=== PATIENT | male | born 1930 | race Caucasian/White ===

== ENCOUNTER → 2016-02-12 | Outpatient (CLI) | payer OTHER, BC ==
[~2016-02-12] MED LIST: ASPEC81 PO; CARV3.122 PO; COEN10CA5 PO; CRD200 PO; LSN25 PO; MISCCAP80 PO; NTRSLP4 SL; OMEG10007 PO; TAMS0.4C38 PO; TCMD2 PO; WARF2.5T8 PO
[2016-02-12 16:54] LABS: BASO % 0.4 %; BASO ABS # 0.02 K/uL (0-0.2); COMPLETE YES; HEMATOCRIT 37.6 % (42-52); IG% 0.4 %; LYMPH % 18.9 %; LYMPH ABS # 1.03 K/uL (1.2-3.4); MEAN CORPUSCULAR HEMOGLOBIN 29.9 pg (25-34); MEAN CORPUSCULAR HGB CONC 33.2 g/dl (32-36); MEAN PLATELET VOLUME 10.4 fL (7.4-10.4); MONO % 16.8 %; NEUT % 57.5 %; PLATELET COUNT 176 K/uL (130-400); RED BLOOD COUNT 4.18 M/uL (4.7-6.1); WHITE BLOOD COUNT 5.46 K/uL (4.8-10.8)
[2016-02-12 17:04] LABS: ALT/SGPT 34 U/L (12-78); AST/SGOT 21 U/L (15-37); BLOOD UREA NITROGEN 23 mg/dl (7-18); BUN/CREATININE RATIO 22.9 (10-20); CALCIUM 9.7 mg/dl (8.5-10.1); CARBON DIOXIDE 22 mmol/L (21-32); CHLORIDE 107 mmol/L (98-107); CREATININE 0.99 mg/dl (0.60-1.40); GLUCOSE 93 mg/dl (70-99); POTASSIUM 4.2 mmol/L (3.5-5.1); SODIUM 139 mmol/L (136-145)
[2016-02-12 17:13] LABS: ALB/GLOB RATIO 0.9 (0.9-2); ALKALINE PHOSPHATASE 73 U/L (45-117); CHOLESTEROL 288 mg/dl (0-200); FERRITIN 414.9 ng/ml (8.0-388.0); HDL CHOLESTEROL 96 mg/dl; LDL CHOLESTEROL CALCULATED 177 mg/dl; TOTAL IRON BINDING CAPACITY 262 mcg/dl (250-450); TRIGLYCERIDES 74 mg/dl (0-150); VERY LOW DENSITY LIPOPROT CALC 15 mg/dl
--- NOTE | 2016-02-16 13:37 | CODING QUERY MEDICAL NECESSITY ---
SUPPORTING DIAGNOSIS NEEDED A supporting diagnosis is required for the test/procedure performed on this patient in order for us to be reimbursed by the patient's insurance. Please provide a supporting diagnosis for the following test/procedure listed below next to the test name along with your signature. *If there is no additional diagnosis for this patient that would support the following test/procedure please document that below next to the test/procedure. Test(s)/Procedure(s) that require a supporting diagnosis: DOS 02/11 * Vitamin B12 DIAGNOSIS: Provider Signature: Date: Thank you Conchis Lopez Health Information Management Once completed, please kindly fax back to [phone] For questions please call [phone]
== END | disposition home or self-care (01) ==
LOC: C.LABBC 14:38
PROVIDERS: ATTEND Family Medicine
DX: E64.9 Sequelae of unspecified nutritional deficiency (principal); I25.10 Atherosclerotic heart disease of native coronary artery without angina pectoris; E78.5 Hyperlipidemia, unspecified; D64.9 Anemia, unspecified; I48.0 Paroxysmal atrial fibrillation

== ENCOUNTER → 2016-02-20 | Outpatient (CLI) | payer OTHER, BC | END | disposition home or self-care (01) | LOC: C.RDSM 15:32 | PROVIDERS: ATTEND Orthopaedic Surgery Sports Medicine | DX: M25.512 Pain in left shoulder (principal) ==

== ENCOUNTER → 2016-03-31 | Outpatient (CLI) | payer OTHER, BC | END | disposition home or self-care (01) | LOC: C.LAB1850 09:44 | PROVIDERS: ATTEND Family Medicine | DX: E03.9 Hypothyroidism, unspecified (principal) ==

== ENCOUNTER → 2016-06-02 | Outpatient (CLI) | payer OTHER, BC | END | disposition home or self-care (01) | LOC: C.RDSM 13:37 | PROVIDERS: ATTEND Orthopaedic Surgery Sports Medicine | DX: R52 Pain, unspecified (principal) ==

== ENCOUNTER → 2016-07-06 | Outpatient (CLI) | payer OTHER, BC ==
[2016-07-06 11:57] LABS: BASO % 0.5 %; BASO ABS # 0.03 K/uL (0-0.2); COMPLETE YES; EOS % 4.4 %; HEMATOCRIT 38.9 % (42-52); IG% 0.2 %; MEAN CELL VOLUME 91.1 fL (80-100); MEAN CORPUSCULAR HEMOGLOBIN 30.7 pg (25-34); MEAN CORPUSCULAR HGB CONC 33.7 g/dl (32-36); MEAN PLATELET VOLUME 10.3 fL (7.4-10.4); MONO % 14.2 %; NEUT % 61.7 %; PLATELET COUNT 172 K/uL (130-400); RED BLOOD COUNT 4.27 M/uL (4.7-6.1); WHITE BLOOD COUNT 6.33 K/uL (4.8-10.8)
[2016-07-06 12:29] LABS: CALCIUM 10.7 mg/dl (8.5-10.1)
[2016-07-06 12:34] LABS: ALT/SGPT 27 U/L (12-78); BLOOD UREA NITROGEN 28 mg/dl (7-18); BUN/CREATININE RATIO 29.2 (10-20); CARBON DIOXIDE 23 mmol/L (21-32); CHLORIDE 107 mmol/L (98-107); CHOLESTEROL 342 mg/dl (0-200); CREATININE 0.96 mg/dl (0.60-1.40); GLUCOSE 90 mg/dl (70-99); POTASSIUM 4.2 mmol/L (3.5-5.1); SODIUM 139 mmol/L (136-145)
[2016-07-06 12:43] LABS: ALB/GLOB RATIO 0.9 (0.9-2); ALKALINE PHOSPHATASE 69 U/L (45-117); AST/SGOT 20 U/L (15-37); CHOLESTEROL/HDL RATIO 3.8; FERRITIN 329.7 ng/ml (8.0-388.0); HDL CHOLESTEROL 91 mg/dl; LDL CHOLESTEROL CALCULATED 240 mg/dl; TOTAL IRON BINDING CAPACITY 254 mcg/dl (250-450); TRIGLYCERIDES 56 mg/dl (0-150); VERY LOW DENSITY LIPOPROT CALC 11 mg/dl
== END | disposition home or self-care (01) ==
LOC: C.LAB1850 11:16
PROVIDERS: ATTEND Family Medicine
DX: D64.9 Anemia, unspecified (principal); I10 Essential (primary) hypertension; E03.9 Hypothyroidism, unspecified; E78.5 Hyperlipidemia, unspecified

== ENCOUNTER → 2016-07-29 | Outpatient (CLI) | payer OTHER, BC | END | disposition home or self-care (01) | LOC: C.LAB1850 09:38 | PROVIDERS: ATTEND Family Medicine | DX: R79.9 Abnormal finding of blood chemistry, unspecified (principal) ==

== ENCOUNTER → 2016-11-22 | Outpatient (CLI) | payer OTHER, BC ==
[2016-11-22 10:18] LABS: CHOLESTEROL/HDL RATIO 3.4
== END | disposition home or self-care (01) ==
LOC: C.LAB1850 08:31
PROVIDERS: ATTEND Physician Assistant
DX: E78.5 Hyperlipidemia, unspecified (principal)

== ENCOUNTER → 2017-01-04 | Outpatient (CLI) | payer OTHER, BC ==
--- NOTE | 2017-01-04 17:57 | DIAGNOSTIC IMAGING REPORT ---
R HEEL MIN 2 VIEWS CLINICAL HISTORY: M79.671 Pain of right heelright pain COMPARISON: None. DISCUSSION: Prominent heel spur. All remaining osseous structures are unremarkable. Subtalar joint is intact. There is no evidence for soft tissue swelling. IMPRESSION: Heel spur. Otherwise negative study. The above report was generated using voice recognition software. It may contain grammatical, syntax or spelling errors. Electronically signed by: Williams Steven M.D. 01/04/2017 5:55 PM Dictated Date/Time: 01/04/2017 5:55 PM
== END | disposition home or self-care (01) ==
LOC: C.LAB 17:21
PROVIDERS: ATTEND Neuromusculoskeletal Medicine & OMM
DX: M79.671 Pain in right foot (principal); M77.31 Calcaneal spur, right foot

== ENCOUNTER → 2017-05-25 | Outpatient (CLI) | payer OTHER, BC ==
[~2017-05-25] MED LIST changes: -ASPEC81 PO; +ASPI-320 PO
[2017-05-25 10:59] LABS: ALBUMIN 3.5 gm/dl (3.4-5.0); ALT/SGPT 25 U/L (12-78); AST/SGOT 18 U/L (15-37); BLOOD UREA NITROGEN 21 mg/dl (7-18); CALCIUM 10.3 mg/dl (8.5-10.1); CARBON DIOXIDE 21 mmol/L (21-32); CHOLESTEROL 297 mg/dl (0-200); CREATININE 0.84 mg/dl (0.60-1.40); GLUCOSE 84 mg/dl (70-99); POTASSIUM 4.3 mmol/L (3.5-5.1); SODIUM 138 mmol/L (136-145)
[2017-05-25 11:10] LABS: ALKALINE PHOSPHATASE 74 U/L (45-117); LDL CHOLESTEROL CALCULATED 193 mg/dl; TOTAL PROTEIN 7.2 gm/dl (6.4-8.2)
== END | disposition home or self-care (01) ==
LOC: C.LAB1850 09:36
PROVIDERS: ATTEND Neuromusculoskeletal Medicine & OMM
DX: Z00.00 Encounter for general adult medical examination without abnormal findings (principal); E78.5 Hyperlipidemia, unspecified; Z95.1 Presence of aortocoronary bypass graft; E03.9 Hypothyroidism, unspecified; I10 Essential (primary) hypertension

== ENCOUNTER 2018-09-24 21:22 | Inpatient (IN) ==
[2018-09-24] MEDS ORDERED: MoRPHine SULFATE 4 MG/ML 1 ML CARP\\VIAL IV PRN (21:36)
[2018-09-24] MEDS ORDERED: ONDANSETRON INJ 2 MG/ML 2 ML VIAL IV STA (21:36)
--- NOTE | 2018-09-24 21:42 | Emergency Department Note ---
Entered by Francisca Lima acting as a scribe for Bear Martínez DO History of Present Illness General Chief complaint: Fall Source: patient Mode of arrival: ambulatory Limitations: no limitations History of Present Illness Provider complaint: left hip pain Onset (ago): hour(s) 1 Location: hip and left Pain Consistency: + other (episode ) Associated symptoms: + denies other symptoms (abdominal, back, and neck pain ); no syncope Treatments prior to arrival: none The patient is an 88 year old male who presents to the ED with complaints of an episode of left hip pain that began 1 hour prior to arrival. The patient states that he was walking from the living room to the bathroom when he fell trying to hold on to the furniture. The patient states that he hit his head on the way down and was unable to get himself up off the ground. The patient states that he hit his head when falling but had no loss of consciousness or pain. He denies abdominal, back and neck pain. The patient states that he does not think that he is on blood thinners. The patient states that he was see in the ED 1 month ago. Home Medications Home Medications Medication Instructions Recorded Confirmed Type Lactobacillus 1 cap PO QAM cap 07/12/18 09/24/18 History acidophilus-Bifidobac.animalis 31 billion cell capsule ascorbic acid (vitamin C) 1,000 mg 3,000 mg PO DAILY tab 07/12/18 09/24/18 History tablet cholecalciferol (vitamin D3) 2,000 2,000 unit PO QAM cap 07/12/18 09/24/18 History unit capsule coenzyme Q10 100 mg capsule 100 mg PO QAM cap 07/12/18 09/24/18 History folic acid 400 mcg tablet 400 mg PO QAM tab 07/12/18 09/24/18 History lutein 20 mg capsule 20 mg PO QAM cap 07/12/18 09/24/18 History metoprolol succinate ER 25 mg 12.5 mg PO QAM #30 tab 07/12/18 09/24/18 History tablet,extended release 24 hr nitroglycerin 0.4 mg sublingual 0.4 mg SL UD PRN #25 tab 07/12/18 09/24/18 History tablet omega-3 acid ethyl esters 1 gram 3 g PO PM cap 07/12/18 09/24/18 History capsule phytonadione (vitamin K1) 100 mcg 100 mcg PO QAM tab 07/12/18 09/24/18 History tablet potassium 75 mg tablet 75 mg PO QAM tab 07/12/18 09/24/18 History vitamin A 8,000 unit capsule 8,000 unit PO QAM cap 07/12/18 09/24/18 History vitamin E succinate 400 unit tablet 400 unit PO PM tab 07/12/18 09/24/18 History alpha lipoic acid 100 mg capsule 100 mg PO QAM 07/14/18 09/24/18 History levothyroxine 25 mcg capsule 25 mcg PO QAM 07/14/18 09/24/18 History magnesium 500 mg tablet 500 mg PO DAILY tab 07/28/18 09/24/18 History multivitamin tablet 1 tab PO PM 07/28/18 09/24/18 History vitamin B complex capsule 1 cap PO DAILY 07/28/18 09/24/18 History acetaminophen 500 mg tablet 500 mg PO Q6H PRN #30 tab 08/18/18 09/24/18 Rx silodosin 8 mg capsule 8 mg PO QAM 09/01/18 09/24/18 History trospium 20 mg tablet 20 mg PO BID 09/01/18 09/24/18 History Allergies Allergy/AdvReac Type Severity Reaction Status Date / Time benzoic acid Allergy Intermediate rash Unverified 09/24/18 21:43 lisinopril AdvReac Intermediate Cough Verified 09/24/18 21:43 Past Med/Surg History Surgical History History of lobectomy of lung History of rectal surgery History of tonsillectomy and adenoidectomy S/P bronchoscopy S/P colonoscopy S/P hernia repair S/P lobectomy of lung S/P wisdom tooth extraction Family History Mother Colorectal cancer Brother Colorectal cancer Myocardial infarction Sister Ovarian cancer Father Prostate cancer Bone cancer Social History Preferred Language: Greek marital status: Current Living Situation: Spouse current occupational status: employed and retired 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 and A total of 10 systems reviewed and were otherwise negative Physical Exam Vital Signs Vital Signs - 24 hr 09/24/18 21:30 09/24/18 21:33 09/24/18 21:34 Temperature 36.8 C Temperature Source Oral Sepsis Recent Fever Within 48 Hours No Sepsis Action Taken by Nursing No Action Required Pulse Rate 97 H 97 H 96 H Pulse Rate from SpO2 Sensor 97 H 96 H Respiratory Rate 18 20 14 Respiratory Depth Normal Blood Pressure 132/95 132/95 Blood Pressure Mean 107 107 Pulse Oximetry 95 94 97 Oxygen Delivery Method Room Air 09/24/18 22:00 09/24/18 22:30 09/24/18 22:48 Temperature Temperature Source Sepsis Recent Fever Within 48 Hours Sepsis Action Taken by Nursing Pulse Rate 89 93 H 91 H Pulse Rate from SpO2 Sensor 89 93 H 92 H Respiratory Rate 16 14 14 Respiratory Depth Blood Pressure 173/92 H Blood Pressure Mean 119 Pulse Oximetry 96 94 99 Oxygen Delivery Method 09/24/18 23:00 09/24/18 23:30 Temperature Temperature Source Sepsis Recent Fever Within 48 Hours Sepsis Action Taken by Nursing Pulse Rate 88 87 Pulse Rate from SpO2 Sensor 88 86 Respiratory Rate 18 21 Respiratory Depth Blood Pressure Blood Pressure Mean Pulse Oximetry 98 97 Oxygen Delivery Method GENERAL: The patient is awake and alert. He is somewhat anxious appearing and appears to be uncomfortable. EYES: The conjunctivae are clear. The pupils are round and reactive. EARS, NOSE, MOUTH AND THROAT: The nose is without any evidence of any deformity. Mucous membranes are moist tongue is midline NECK: The neck is nontender and supple. RESPIRATORY: Normal respiratory effort is noted there is no evidence of wheezing rhonchi or rales CARDIOVASCULAR: Regular rate and rhythm noted there no murmurs rubs or gallops normal S1 normal S2 GASTROINTESTINAL: The abdomen is soft. Bowel sounds are present in all quadrants. Abdomen is nontender BACK: No midline tenderness or or step-off noted range of motion in flexion extension as well as rotation no signs of muscle spasm noted MUSCULOSKELETAL/EXTREMITIES: There is shortening and internal rotation noted to the left lower extremity. Pulses are symmetric in both feet. SKIN: There is no obvious evidence of any rash. Pedal edema was noted b ilaterally. NEUROLOGIC: Patient is awake alert and oriented x3. Course 2129: Past medical records reviewed. The patient was evaluated in room C3. A complete history and physical exam was performed. 2232: I reevaluated the patient at this time and he verbalized that he is feeling better. I discussed the test results and treatment plan with the patient. He verbally agreed and understood. 2253: I discussed the patients case with Dr. Agarwal, [facility]. He acknowledged the patient's medical situation. 2299: I discussed the patients case with Dr. Epstein, [facility]. He agreed to evaluate the patient for further management. Administered Medications Morphine Sulfate (Morphine Sulfate) 4 mg IV Q15M PRN PRN Reason: Pain Stop: 10/08/18 21:35 Last Admin: 09/24/18 22:01 Dose: 4 mg Documented by: [id number] Discontinued Medications Ondansetron HCl (Zofran) 4 mg IV NOW STA Stop: 09/24/18 21:37 Last Admin: 09/24/18 22:01 Dose: 4 mg Documented by: [id number] Medical Decision Making Differential Diagnosis Differential diagnosis: Etiologies such as fracture, cervical/vertebral injury, dislocation, intra- abdominal process, pneumothorax, intrathoracic trauma, intracranial injury, soft tissue injury, neurologic process, as well as other traumatic pathologies were entertained. Medical Records Attestation: I reviewed the patient's medical records. Home Medications Current Medication List: was personally reviewed by me Laboratory Data Attestation: I reviewed the patient's lab results. Result diagrams: 09/24/18 21:56 09/24/18 21:56 Lab Results 09/24/18 09/24/18 09/24/18 Range/Units 21:56 21:56 21:56 WBC 8.57 (4.8-10.8) K/uL RBC 4.18 L (4.7-6.1) M/uL Hgb 13.2 L (14.0-18.0) g/dL Hct 37.8 L (42-52) % MCV 90.4 (80-100) fL MCH 31.6 (25-34) pg MCHC 34.9 (32-36) g/dL RDW Std Deviation 46.9 H (36.4-46.3) fL RDW Coeff of Prem 14.3 (11.5-14.5) % Plt Count 157 (130-400) K/uL MPV 10.0 (7.4-10.4) fL Immature Gran % (Auto) 0.1 % Neut % (Auto) 77.1 % Lymph % (Auto) 13.3 % Bennett % (Auto) 7.8 % Eos % (Auto) 1.5 % Baso % (Auto) 0.2 % Immature Gran # (Auto) 0.01 (0.00-0.02) K/uL Neut # (Auto) 6.60 H (1.4-6.5) K/uL Lymph # (Auto) 1.14 L (1.2-3.4) K/uL Bennett # (Auto) 0.67 H (0.11-0.59) K/uL Eos # (Auto) 0.13 (0-0.5) K/uL Baso # (Auto) 0.02 (0-0.2) K/uL PT 10.6 (9.0-12.0) Seconds INR 1.0 (0.9-1.1) APTT 25.4 (21.0-31.0) Seconds PTT Ratio 0.9 Sodium 141 (136-145) mmol/L Potassium 3.8 (3.5-5.1) mmol/L Chloride 107 (98-107) mmol/L Carbon Dioxide 27 (21-32) mmol/L Anion Gap 7.0 (3-11) BUN 20 H (7-18) mg/dl Creatinine 0.85 (0.6-1.4) mg/dl Est Cr Clr Drug Dosing 59.2 ml/min Est GFR ( Amer) 90.8 Est GFR (Non-Af Amer) 78.3 BUN/Creatinine Ratio 23.9 H (10-20) Glucose 114 H (70-99) mg/dl Calcium 10.0 (8.5-10.1) mg/dl Troponin I < 0.015 (0-0.045) ng/ml Urine Color Urine Appearance (Clear) Urine pH (4.5-7.5) Ur Specific Lowpoint (1.000-1.030) Urine Protein (Negative) Urine Glucose (UA) (Negative) Urine Ketones (Negative) Urine Blood (Negative) Urine Nitrite (Negative) Urine Bilirubin (Negative) Urine Urobilinogen (Negative) Ur Leukocyte Esterase (Negative) Urine WBC (Auto) (0-5) /hpf Urine RBC (Auto) (0-4) /hpf U Hyaline Cast (Auto) (0-5) /lpf U Epithel Cells (Auto) (0-5) /lpf Urine Bacteria (Auto) (Negative) 09/24/18 Range/Units 22:45 WBC (4.8-10.8) K/uL RBC (4.7-6.1) M/uL Hgb (14.0-18.0) g/dL Hct (42-52) % MCV (80-100) fL MCH (25-34) pg MCHC (32-36) g/dL RDW Std Deviation (36.4-46.3) fL RDW Coeff of Prem (11.5-14.5) % Plt Count (130-400) K/uL MPV (7.4-10.4) fL Immature Gran % (Auto) % Neut % (Auto) % Lymph % (Auto) % Bennett % (Auto) % Eos % (Auto) % Baso % (Auto) % Immature Gran # (Auto) (0.00-0.02) K/uL Neut # (Auto) (1.4-6.5) K/uL Lymph # (Auto) (1.2-3.4) K/uL Bennett # (Auto) (0.11-0.59) K/uL Eos # (Auto) (0-0.5) K/uL Baso # (Auto) (0-0.2) K/uL PT (9.0-12.0) Seconds INR (0.9-1.1) APTT (21.0-31.0) Seconds PTT Ratio Sodium (136-145) mmol/L Potassium (3.5-5.1) mmol/L Chloride (98-107) mmol/L Carbon Dioxide (21-32) mmol/L Anion Gap (3-11) BUN (7-18) mg/dl Creatinine (0.6-1.4) mg/dl Est Cr Clr Drug Dosing ml/min Est GFR ( Amer) Est GFR (Non-Af Amer) BUN/Creatinine Ratio (10-20) Glucose (70-99) mg/dl Calcium (8.5-10.1) mg/dl Troponin I (0-0.045) ng/ml Urine Color Dark Yellow Urine Appearance Clear (Clear) Urine pH 5.5 (4.5-7.5) Ur Specific [place] 1.023 (1.000-1.030) Urine Protein Negative (Negative) Urine Glucose (UA) Negative (Negative) Urine Ketones Negative (Negative) Urine Blood Trace H (Negative) Urine Nitrite Negative (Negative) Urine Bilirubin Negative (Negative) Urine Urobilinogen Negative (Negative) Ur Leukocyte Esterase Negative (Negative) Urine WBC (Auto) 1-5 (0-5) /hpf Urine RBC (Auto) 0-4 (0-4) /hpf U Hyaline Cast (Auto) 1-5 (0-5) /lpf U Epithel Cells (Auto) 5-10 H (0-5) /lpf Urine Bacteria (Auto) Negative (Negative) Imaging Data Radiologist's Impression: Radiology results as stated below per my review and the radiologist's interpretation: XR chest 1V portable CLINICAL HISTORY: fall trauma COMPARISON STUDY: 08/01/2018 FINDINGS: Prior median sternotomy. Mild stable grade megaly. Chronic elevation right hemidiaphragm. Lungs are considered clear. IMPRESSION: Chronic and postoperative change. No acute process. The above report was generated using voice recognition software. It may contain grammatical, syntax or spelling errors. Electronically signed by: Williams Steven M.D. 09/24/2018 10:43 PM XR hip LT 2-3V w pelvis CLINICAL HISTORY: fall trauma. Pain. COMPARISON: None. DISCUSSION: Subcapital fracture left hip. No acute process the right hip. Slight superior migration left femoral shaft. No evidence for acetabular protrusion. There is no evidence for soft tissue swelling. IMPRESSION: Subcapital fracture left hip. The above report was generated using voice recognition software. It may contain grammatical, syntax or spelling errors. Electronically signed by: Williams Steven M.D. 09/24/2018 10:[address] head/brain wo con CT DOSE: HISTORY: Trauma fall TECHNIQUE: Multiaxial CT images of the head were performed without the use of intravenous contrast. A dose lowering technique was utilized adhering to the principles of ALARA. Comparison: 08/01/2018 Findings: The paranasal sinuses and mastoid air cells are clear. The calvarium and skull base are intact. The ventricles and sulci are within normal limits. There is no mass, hematoma, midline shift, or acute infarct. Findings of atrophy and chronic small vessel change. Previously described posterior grammatical hemorrhagic findings on the prior study have resolved. Impression: No acute intracranial abnormality. Atrophy and age-related chronic small vessel change. The above report was generated using voice recognition software. It may contain grammatical, syntax or spelling errors. Electronically signed by: Williams Steven M.D. 09/24/2018 10:[address] cervical spine wo con CT DOSE: 1050.94 mGy.cm HISTORY: Trauma fall TECHNIQUE: Multiaxial CT images of the cervical spine were performed and reformatted in the sagittal and coronal plane without the use of contrast. A dose lowering technique was utilized adhering to the principles of ALARA. COMPARISON: 08/01/2018 FINDINGS: No fractures. No subluxation. Prevertebral soft tissues and the C1-C2 interval are intact. No pneumothorax. Enlarged right thyroid. Considerable degenerative change. IMPRESSION: 1. 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 2. No acute bony abnormality. 3. Enlarged right thyroid unchanged from the prior exam. The above report was generated using voice recognition software. It may contain grammatical, syntax or spelling errors. Electronically signed by: Williams Steven M.D. 09/24/2018 10:27 PM ECG Data Attestation: I personally reviewed and interpreted this ECG as follows: Indication: other (right hip pain ) Rate (beats per minute): 87 Rhythm: sinus rhythm Findings: no PAC, no PVC, no ST depression, no ST elevation, no acute ischemic change and no ectopy Comparison ECG Date: from (08/01/18) Change: no significant change Blood Pressure Blood Pressure Findings: Normal blood pressure Blood Pressure Disposition: did not require urgent referral MDM Narrative The patient is an 88-year-old male who presented to the emergency department after a fall. The patient fell prior to arrival. He struck his left hip and also struck his head. I discussed the patient's laboratory and radiographic studies with him. He was found to have a subcapital displaced left hip f racture. There is no intracranial abnormality noted. The patient was treated with pain medication in the emergency department. On subsequent reevaluation he was somewhat improved. I discussed the patient's laboratory and radiographic studies with the on-call [facility] hospitalist group. They have agreed to evaluate the patient in the emergency department for further management disposition. The patient has multiple medical problems and will likely require medical clearance prior to surgical intervention of this left hip fracture. Impression & Plan Subcapital fracture of left hip, Fall, Head injury, Pleural effusion, right Discharge Plan Visit Data Chief Complaint: Fall ED Provider: Bear Martínez Discharge Problem: Subcapital fracture of left hip, Fall, Head injury, Pleural effusion, right Patient Disposition: Being Evaluated by Hospitalist Forms Stand Alone Forms: My [facility] Prescriptions Prescriptions: No Action trospium 20 mg tablet 20 mg PO BID RF: 0 silodosin 8 mg capsule 8 mg PO QAM RF: 0 vitamin E succinate 400 unit tablet 400 unit PO PM RF: 0 cholecalciferol (vitamin D3) 2,000 unit capsule 2,000 unit PO QAM RF: 0 lutein 20 mg capsule 20 mg PO QAM RF: 0 coenzyme Q10 100 mg capsule 100 mg PO QAM RF: 0 metoprolol succinate 25 mg tablet extended release 24 hr 12.5 mg PO QAM Qty: 30 RF: 0 phytonadione (vitamin K1) 100 mcg tablet 100 mcg PO QAM RF: 0 folic acid 400 mcg tablet 400 mg PO QAM RF: 0 vitamin A 8,000 unit capsule 8,000 unit PO QAM RF: 0 ascorbic acid (vitamin C) 1,000 mg tablet 3,000 mg PO DAILY RF: 0 Lacto.acidophilus-Bif.animalis 31 billion cell capsule 1 cap PO QAM RF: 0 potassium 75 mg tablet 75 mg PO QAM RF: 0 omega-3 acid ethyl esters 1 gram capsule 3 g PO PM RF: 0 nitroglycerin 0.4 mg tablet, sublingual 0.4 mg SL UD PRN (Reason: Chest Pain) Qty: 25 RF: 0 alpha lipoic acid 100 mg capsule 100 mg PO QAM RF: 0 levothyroxine 25 mcg capsule 25 mcg PO QAM RF: 0 acetaminophen [Tylenol Extra Strength] 500 mg tablet 500 mg PO Q6H PRN (Reason: fever) Qty: 30 RF: 0 vitamin B complex capsule 1 cap PO DAILY RF: 0 magnesium 500 mg tablet 500 mg PO DAILY RF: 0 multivitamin [Daily Multi-Vitamin] tablet 1 tab PO PM RF: 0 Referrals Referrals: Simon Preston DO [Primary Care Provider] - Discharge Problem: Subcapital fracture of left hip Qualifiers: Encounter type: initial encounter Fracture type: closed Qualified Code(s): S72.012A - Unspecified intracapsular fracture of left femur, initial encounter for closed fracture Fall Qualifiers: Encounter type: initial encounter Qualified Code(s): W19.XXXA - Unspecified fall, initial encounter Head injury Qualifiers: Encounter type: initial encounter Qualified Code(s): S09.90XA - Unspecified injury of head, initial encounter The scribe's documentation has been prepared under my direction and personally reviewed by me in its entirety. I confirm that the note above accurately reflects all work, treatment, procedures, and medical decision making performed by me.
[2018-09-24 22:13] LABS: Hematocrit (blood only) 37.8 % (42-52); Hemoglobin 13.2 g/dL (14.0-18.0); Mean Corpuscular Volume 90.4 fL (80-100); Red Blood Count 4.18 M/uL (4.7-6.1); White Blood Count 8.57 K/uL (4.8-10.8)
[2018-09-24 22:14] LABS: Basophils # (auto) 0.02 K/uL (0-0.2); Basophils % (auto) 0.2 %; Eosinophils # (auto) 0.13 K/uL (0-0.5); Eosinophils % (auto) 1.5 %; Immature Granulocytes # (auto) 0.01 K/uL (0.00-0.02); Immature Granulocytes % (auto) 0.1 %; Lymphocytes # (auto) 1.14 K/uL (1.2-3.4); Lymphocytes % (auto) 13.3 %; Mean Corpuscular Hgb Conc 34.9 g/dL (32-36); Monocytes # (auto) 0.67 K/uL (0.11-0.59); Monocytes % (auto) 7.8 %; Neutrophils % (auto) 77.1 %; Platelet Count 157 K/uL (130-400); RDW Coefficient of Variation 14.3 % (11.5-14.5); RDW Standard Deviation 46.9 fL (36.4-46.3)
--- NOTE | 2018-09-24 22:26 | CT Scan Report ---
CT head/brain wo con CT DOSE: HISTORY: Trauma fall TECHNIQUE: Multiaxial CT images of the head were performed without the use of intravenous contrast. A dose lowering technique was utilized adhering to the principles of ALARA. Comparison: 08/01/2018 Findings: The paranasal sinuses and mastoid air cells are clear. The calvarium and skull base are int act. The ventricles and sulci are within normal limits. There is no mass, hematoma, midline shift, or acute infarct. Findings of atrophy and chronic small vessel change. Previously described posterior g rammatical hemorrhagic findings on the prior study have resolved. Impression: No acute intracranial abnormality. Atrophy and age-related chronic small vessel change. The above report was generated using voice recognition software. It may contain grammatical, syntax or spelling errors. Electronically signed by: Williams Steven M.D. 09/24/2018 10:25 PM
--- NOTE | 2018-09-24 22:28 | CT Scan Report ---
CT cervical spine wo con CT DOSE: 1050.94 mGy.cm HISTORY: Trauma fall TECHNIQUE: Multiaxial CT images of the cervical spine were performed and reformatted in the sagittal and coronal plane without the use of contrast. A dose lowering technique was utilized adhering to th e principles of ALARA. COMPARISON: 08/01/2018 FINDINGS: No fractures. No subluxation. Prevertebral soft tissues and the C1-C2 interval are intact. No pneumothorax. Enlarged right thyroid. Considerable degenerative change. IMPRESSION: 1. 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 2. No acute bony abnormality. 3. Enlarged right thyroid unchanged from the prior exam. The above report was generated using voice recognition software. It may contain grammatical, syntax or spelling errors. Electronically signed by: Williams Steven M.D. 09/24/2018 10:27 PM
[2018-09-24 22:29] LABS: BUN Creatinine Ratio 23.9 (10-20); Blood Urea Nitrogen 20 mg/dl (7-18); Carbon Dioxide 27 mmol/L (21-32); Chloride 107 mmol/L (98-107); Creatinine Clr Calc Pharmacy 59.2 ml/min; Est GFR (African American) 90.8; Est GFR (Non-African American) 78.3; Glucose 114 mg/dl (70-99); Potassium 3.8 mmol/L (3.5-5.1); Sodium 141 mmol/L (136-145)
[2018-09-24 22:34] LABS: Troponin I < 0.015 ng/ml (0-0.045)
[2018-09-24 22:42] LABS: Partial Thromboplastin Ratio 0.9; Partial Thromboplastin Time 25.4 Seconds (21.0-31.0); Prothrombin Time 10.6 Seconds (9.0-12.0)
--- NOTE | 2018-09-24 22:43 | XRay Report ---
XR hip LT 2-3V w pelvis CLINICAL HISTORY: fall trauma. Pain. COMPARISON: None. DISCUSSION: Subcapital fracture left hip. No acute process the right hip. Slight superior migration l eft femoral shaft. No evidence for acetabular protrusion. There is no evidence for soft tissue swelli ng. IMPRESSION: Subcapital fracture left hip. The above report was generated using voice recognition software. It may contain grammatical, syntax or spelling errors. Electronically signed by: Williams Steven M.D. 09/24/2018 10:42 PM
--- NOTE | 2018-09-24 22:44 | XRay Report ---
XR chest 1V portable CLINICAL HISTORY: fall trauma COMPARISON STUDY: 08/01/2018 FINDINGS: Prior median sternotomy. Mild stable grade megaly. Chronic elevation right hemidiaphragm. L ungs are considered clear. IMPRESSION: Chronic and postoperative change. No acute process. The above report was generated using voice recognition software. It may contain grammatical, syntax or spelling errors. Electronically signed by: Williams Steven M.D. 09/24/2018 10:43 PM
[2018-09-24 22:58] LABS: Appearance Urine Clear (Clear); Bacteria Urine Automated Negative (Negative); Bilirubin Urine Negative (Negative); Blood Urine Trace (Negative); Color Urine Dark Yellow; Glucose Urine UA Negative (Negative); Ketones Urine Negative (Negative); Leukocyte Esterase Urine Negative (Negative); Nitrite Urine Negative (Negative); Protein Urine Negative (Negative); RBC Urine Automated 0-4 /hpf (0-4); Specific Gravity Urine 1.023 (1.000-1.030); Urobilinogen Urine Negative (Negative); pH Urine 5.5 (4.5-7.5)
--- NOTE | 2018-09-24 23:41 | History & Physical Report ---
Date of Service September 24, 2018 Assessment & Plan (1) Fall: 88-year-old male was admitted on 24 September 2018 for a left hip fracture following a mechanical fall. Fall, left hip fracture: Has history of ataxia and vertigo, though denies the latter recently. Mechanical fall just prior to arrival. Only complaining of left hip pain with movement at present. - In the ED, afebrile, borderline tachycardic, mildly hypertensive, with normal room SpO2. WBC 8. Normal coags. Troponin negative and EKG is NSR 87 with a first-degree AV block. CT head is non-acute but has some atrophy and age- related changes. CT cervical spine with degenerative changes no acute abnormalities. Single view chest x-ray showed no acute process. X-rays of the left hip note a subcapital fracture. - In the ED, was treated with morphine and Zofran. - Continue pain control with Tylenol and morphine as needed. Consulted orthopedics. Also consulted cardiology given his extensive cardiovascular history for pre-op evaluation. Ongoing medical issues: - Hypertension, hyperlipidemia, prior WA, CAD, CABG x 3 vessels: Continue home metoprolol, magnesium, potassium. - Hypothyroidism: Admit CT C-spine noted an enlarged right thyroid unchanged from prior exam. Continue home levothyroxine. - BPH with LUTS, urinary urgency: Continue home silodosin and trospium. --- Hyde catheter was placed in the ED. - History of dilated ascending aortic aneurysm (reportedly 4.2 cm in 2016), peripheral vascular disease, postoperative A. fib (from cardiac surgery with no known recurrence). - Of note, patient is on multiple vitamin supplements at home. Code status: Full code for now. We had an initial discussion about wishes. Patient and his will discuss further with family. Diet: NPO except meds. DVT prophy: SCDs for now in pre-operative period. PT/OT: Deferred until after surgery. Disbo: Admit to MedSurg. (2) Subcapital fracture of left hip: (3) Vertigo: (4) Episodic ataxia: (5) Hypertension: (6) Hyperlipidemia: (7) History of WA (myocardial infarction): (8) CAD (coronary artery disease): (9) Benign prostatic hyperplasia with urinary obstruction: (10) Urinary urgency: (11) Ascending aorta dilation: (12) Hypothyroidism: History of Present Illness Primary Care Provider: Simon Preston DO 88-year-old male presents the emergency department after suffering a mechanical fall about an hour prior to arrival on day of admission (September 24). He thinks he just slipped as he was going to the bathroom. He recalls striking his head and elbow but does not remember all the details. Denies loss of consciousness, vomiting, incontinence, but had immediate left hip pain. At present, he says his hip does not hurt unless he moves it. He denies other focal pains or acute concerns. Does have a history of ataxia and vertigo but says his last vertigo symptoms were a couple of weeks ago. He is actively being treated for his ataxia with physical therapy as well as by his PCP. - Past medical history includes hypertension, CAD, prior WA, hypothyroidism, small IVH status post fall in August 2018, prior lacunar infarct, BPH, carcinoid tumor, peripheral vascular disease, anxiety, ataxia, vertigo, hearing loss, osteoarthritis. - Past surgical history includes right middle and lower lobe lobectomies in , rectal surgery, tonsillectomy and adenoidectomy, bronchoscopy, wisdom tooth extraction, hernia repair, CABG x3 vessels in 2015, bilateral cataract surgery - Social history includes former smoker. Occasionally drinks wine. Lives at home with spouse. Allergies Allergy/AdvReac Type Severity Reaction Status Date / Time benzoic acid Allergy Intermediate rash Unverified 09/24/18 21:43 lisinopril AdvReac Intermediate Cough Verified 09/24/18 21:43 Home Medications Home Medications Medication Instructions Recorded Confirmed Type Lactobacillus 1 cap PO QAM cap 07/12/18 09/24/18 History acidophilus-Bifidobac.animalis 31 billion cell capsule ascorbic acid (vitamin C) 1,000 mg 3,000 mg PO DAILY tab 07/12/18 09/24/18 History tablet cholecalciferol (vitamin D3) 2,000 2,000 unit PO QAM cap 07/12/18 09/24/18 History unit capsule coenzyme Q10 100 mg capsule 100 mg PO QAM cap 07/12/18 09/24/18 History folic acid 400 mcg tablet 400 mg PO QAM tab 07/12/18 09/24/18 History lutein 20 mg capsule 20 mg PO QAM cap 07/12/18 09/24/18 History metoprolol succinate ER 25 mg 12.5 mg PO QAM #30 tab 07/12/18 09/24/18 History tablet,extended release 24 hr nitroglycerin 0.4 mg sublingual 0.4 mg SL UD PRN #25 tab 07/12/18 09/24/18 History tablet omega-3 acid ethyl esters 1 gram 3 g PO PM cap 07/12/18 09/24/18 History capsule phytonadione (vitamin K1) 100 mcg 100 mcg PO QAM tab 07/12/18 09/24/18 History tablet potassium 75 mg tablet 75 mg PO QAM tab 07/12/18 09/24/18 History vitamin A 8,000 unit capsule 8,000 unit PO QAM cap 07/12/18 09/24/18 History vitamin E succinate 400 unit tablet 400 unit PO PM tab 07/12/18 09/24/18 History alpha lipoic acid 100 mg capsule 100 mg PO QAM 07/14/18 09/24/18 History levothyroxine 25 mcg capsule 25 mcg PO QAM 07/14/18 09/24/18 History magnesium 500 mg tablet 500 mg PO DAILY tab 07/28/18 09/24/18 History multivitamin tablet 1 tab PO PM 07/28/18 09/24/18 History vitamin B complex capsule 1 cap PO DAILY 07/28/18 09/24/18 History acetaminophen 500 mg tablet 500 mg PO Q6H PRN #30 tab 08/18/18 09/24/18 Rx silodosin 8 mg capsule 8 mg PO QAM 09/01/18 09/24/18 History trospium 20 mg tablet 20 mg PO BID 09/01/18 09/24/18 History Past Med/Surg History Surgical History History of lobectomy of lung History of rectal surgery History of tonsillectomy and adenoidectomy S/P bronchoscopy S/P colonoscopy S/P hernia repair S/P lobectomy of lung S/P wisdom tooth extraction Family History Mother Colorectal cancer Brother Colorectal cancer Myocardial infarction Sister Ovarian cancer Father Prostate cancer Bone cancer Social History Preferred Language: Chinese Communication Ability: Effective Skilled Laborer Required: No Beliefs That Will Affect Care: None marital status: Current Living Situation: Spouse current occupational status: employed and retired 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 Other Information That Helps Us Care for You: No Feels Safe at Home: Yes Safety Concerns: Feels Safe At This Time Smoking Status: Never smoker Do You Dip or Chew Tobacco: No ; Second Hand Exposure: No ; Hx Alcohol Use: No Hx Substance Use: No Childhood Exposure to Second-Hand Smoke: No Dental Care, Regularly: Yes Physical Activity Frequency: 1-2 Times per Week Seatbelt Use: always Review of Systems Review of Systems: Constitutional: Denies fevers, chills, focal weakness Eyes: Denies any acute visual loss or diplopia ENT: Denies any ear/nose/throat pain or difficulty speaking or swallowing Respiratory: Denies any dyspnea, cough, hemoptysis Cardiovascular: Denies any chest pain or feeling of edema Gastrointestinal: Denies any abdominal pain, nausea/vomiting/diarrhea Musculoskeletal: Positive left hip pain. Skin: Denies any known acute rashes or lesions Neuro: Denies any headache, acute focal weakness or numbness, or difficulties with speech or swallow. Hematologic: Denies any easy bleeding or bruising Physical Exam Physical Exam: GENERAL: Awake, a little bit tired from being late in the day and morphine, well-appearing overall, in no acute distress HENT: Normocephalic, atraumatic. Oropharynx mildly dry. No evidence of acute trauma on the head or neck. EYES: Normal conjunctiva. Sclera non-icteric. NECK: Inspection normal. Supple and full ROM. No nuchal rigidity. CARDIAC: +S1S2 RRR, no murmurs. Midline chest sternotomy scar well-healed. RESPIRATORY: Clear to auscultation. No wheezes or rales. Normal respiratory effort. Nasal cannula oxygen in place. GI: +BS, soft, non-distended. No tenderness to palpation. No rebound or guarding. Hyde catheter in place. EXTREMITIES: No pedal edema or calf tenderness. There is shortening and internal rotation of the left lower extremity. Distal left lower extremity has normal ankle movement, normal cap refill, and normal distal sensation. 2+ left posterior tibial pulse. There are superficial abrasions over the left elbow. NEURO: No gross neuro deficits. Results & Data Vital Signs (Past 12 Hours) Vital Signs Temp Pulse Resp BP Pulse Ox 09/24/18 23:30 87 21 97 09/24/18 23:00 88 18 98 09/24/18 22:48 91 H 14 173/92 H 99 09/24/18 22:30 93 H 14 94 09/24/18 22:00 89 16 96 09/24/18 21:34 36.8 C 96 H 14 132/95 97 09/24/18 21:33 97 H 20 94 09/24/18 21:30 97 H 18 132/95 95 Laboratory Results 09/24/18 09/24/18 09/24/18 Range/Units 22:45 21:56 21:56 WBC (4.8-10.8) K/uL RBC (4.7-6.1) M/uL Hgb (14.0-18.0) g/dL Hct (42-52) % MCV (80-100) fL MCH (25-34) pg MCHC (32-36) g/dL RDW Std Deviation (36.4-46.3) fL RDW Coeff of Prem (11.5-14.5) % Plt Count (130-400) K/uL MPV (7.4-10.4) fL Immature Gran % (Auto) % Neut % (Auto) % Lymph % (Auto) % [place] % (Auto) % Eos % (Auto) % Baso % (Auto) % Immature Gran # (Auto) (0.00-0.02) K/uL Neut # (Auto) (1.4-6.5) K/uL Lymph # (Auto) (1.2-3.4) K/uL [place] # (Auto) (0.11-0.59) K/uL Eos # (Auto) (0-0.5) K/uL Baso # (Auto) (0-0.2) K/uL PT 10.6 (9.0-12.0) Seconds INR 1.0 (0.9-1.1) APTT 25.4 (21.0-31.0) Seconds PTT Ratio 0.9 Sodium 141 (136-145) mmol/L Potassium 3.8 (3.5-5.1) mmol/L Chloride 107 (98-107) mmol/L Carbon Dioxide 27 (21-32) mmol/L Anion Gap 7.0 (3-11) BUN 20 H (7-18) mg/dl Creatinine 0.85 (0.6-1.4) mg/dl Est Cr Clr Drug Dosing 59.2 ml/min Est GFR ( Amer) 90.8 Est GFR (Non-Af Amer) 78.3 BUN/Creatinine Ratio 23.9 H (10-20) Glucose 114 H (70-99) mg/dl Calcium 10.0 (8.5-10.1) mg/dl Troponin I < 0.015 (0-0.045) ng/ml Urine Color Dark Yellow Urine Appearance Clear (Clear) Urine pH 5.5 (4.5-7.5) Ur Specific [place] 1.023 (1.000-1.030) Urine Protein Negative (Negative) Urine Glucose (UA) Negative (Negative) Urine Ketones Negative (Negative) Urine Blood Trace H (Negative) Urine Nitrite Negative (Negative) Urine Bilirubin Negative (Negative) Urine Urobilinogen Negative (Negative) Ur Leukocyte Esterase Negative (Negative) Urine WBC (Auto) 1-5 (0-5) /hpf Urine RBC (Auto) 0-4 (0-4) /hpf U Hyaline Cast (Auto) 1-5 (0-5) /lpf U Epithel Cells (Auto) 5-10 H (0-5) /lpf Urine Bacteria (Auto) Negative (Negative) 09/24/18 Range/Units 21:56 WBC 8.57 (4.8-10.8) K/uL RBC 4.18 L (4.7-6.1) M/uL Hgb 13.2 L (14.0-18.0) g/dL Hct 37.8 L (42-52) % MCV 90.4 (80-100) fL MCH 31.6 (25-34) pg MCHC 34.9 (32-36) g/dL RDW Std Deviation 46.9 H (36.4-46.3) fL RDW Coeff of Prem 14.3 (11.5-14.5) % Plt Count 157 (130-400) K/uL MPV 10.0 (7.4-10.4) fL Immature Gran % (Auto) 0.1 % Neut % (Auto) 77.1 % Lymph % (Auto) 13.3 % [place] % (Auto) 7.8 % Eos % (Auto) 1.5 % Baso % (Auto) 0.2 % Immature Gran # (Auto) 0.01 (0.00-0.02) K/uL Neut # (Auto) 6.60 H (1.4-6.5) K/uL Lymph # (Auto) 1.14 L (1.2-3.4) K/uL [place] # (Auto) 0.67 H (0.11-0.59) K/uL Eos # (Auto) 0.13 (0-0.5) K/uL Baso # (Auto) 0.02 (0-0.2) K/uL PT (9.0-12.0) Seconds INR (0.9-1.1) APTT (21.0-31.0) Seconds PTT Ratio Sodium (136-145) mmol/L Potassium (3.5-5.1) mmol/L Chloride (98-107) mmol/L Carbon Dioxide (21-32) mmol/L Anion Gap (3-11) BUN (7-18) mg/dl Creatinine (0.6-1.4) mg/dl Est Cr Clr Drug Dosing ml/min Est GFR ( Amer) Est GFR (Non-Af Amer) BUN/Creatinine Ratio (10-20) Glucose (70-99) mg/dl Calcium (8.5-10.1) mg/dl Troponin I (0-0.045) ng/ml Urine Color Urine Appearance (Clear) Urine pH (4.5-7.5) Ur Specific [place] (1.000-1.030) Urine Protein (Negative) Urine Glucose (UA) (Negative) Urine Ketones (Negative) Urine Blood (Negative) Urine Nitrite (Negative) Urine Bilirubin (Negative) Urine Urobilinogen (Negative) Ur Leukocyte Esterase (Negative) Urine WBC (Auto) (0-5) /hpf Urine RBC (Auto) (0-4) /hpf U Hyaline Cast (Auto) (0-5) /lpf U Epithel Cells (Auto) (0-5) /lpf Urine Bacteria (Auto) (Negative) Medications Administered Morphine Sulfate (Morphine Sulfate) 4 mg IV Q15M PRN PRN Reason: Pain Stop: 10/08/18 21:35 Last Admin: 09/24/18 22:01 Dose: 4 mg Documented by: [id number] Discontinued Medications Ondansetron HCl (Zofran) 4 mg IV NOW STA Stop: 09/24/18 21:37 Last Admin: 09/24/18 22:01 Dose: 4 mg Documented by: [id number] Code Status & VTE Plan Code Status Full code VTE Prophylaxis Plan VTE Prophylaxis will be ordered: Yes Supervising Physician Co-Signing Physician Notes Pt seen/examined in conjunction with resident MD Deana Pierre. Orders and plan of admission formulated with resident. 88 y/o M Hx chronic ataxia, CAD, HTN, hypothryoid, CVA, ICH after a fall, 4.3 CM AA, BPH. Pt suffered a mechanical fall and a L hip subcapital fx. Denies preceeding symptoms. OE AAO x 2 S1,2 R CTA L - reduced air entry at R base NT, ND No CCE No deficits P: Pending ortho evaluation As his RCRI is high, we will consult cardio for pre-op eval as well HTN - Cont metoprolol Hypothyroid - Cont Synthroid BPH - Cont Silodosin PG Care Time/CCT Total # of Minutes Spent Total Time Spent with Patient: Total time spent is greater than 50% in coordination of care (as documented) at patient's floor/unit and/or counseling patient: Resident Activity Tracking Resident Involvement: Resident Care Provided Care Provided: Adult Hospital Medicine (1) Subcapital fracture of left hip Encounter type: initial encounter Fracture type: closed Qualified Code(s): S72.012A - Unspecified intracapsular fracture of left femur, initial encounter for closed fracture (2) Fall Encounter type: initial encounter Qualified Code(s): W19.XXXA - Unspecified fall, initial encounter
[2018-09-25] MEDS ORDERED: NITROGLYCERIN SL 0.4 MG/TAB TAB SL PRN (00:34)
[2018-09-25] MEDS ORDERED: ONDANSETRON INJ 2 MG/ML 2 ML VIAL IV PRN (00:34)
[2018-09-25] MEDS: LACTATED RINGER'S 1,000 ML IV SCH ×2 (01:39→14:31)
[2018-09-25] MEDS: ACETAMINOPHEN 325 MG TAB PO PRN ×2 (01:39→15:47)
[2018-09-25] MEDS: MoRPHine SULFATE 2 MG/ML CARP IV PRN ×4 (03:36→23:05)
[2018-09-25] MEDS: LEVOTHYROXINE SODIUM 25 MCG TABLET PO SCH (06:05)
[2018-09-25] MEDS: METOPROLOL SUCC 25MG EXT REL TAB PO SCH (08:10)
[2018-09-25] MEDS: FOLIC ACID 400 MCG TAB PO SCH (08:10)
[2018-09-25] MEDS ORDERED: CEFAZOLIN 2000MG 2,000 MG/15 ML SYR IV ONE (08:43)
[2018-09-25] MEDS ORDERED: MAGNESIUM OXIDE 400 MG TAB PO SCH (09:00)
[2018-09-25] MEDS ORDERED: PHYTONADIONE 100 MCG PO SCH (09:00)
[2018-09-25] MEDS ORDERED: NON-FORMULARY MEDICATION (Lutein 20 MG) PO SCH (09:00)
[2018-09-25] MEDS ORDERED: POTASSIUM 75 MG PO SCH (09:00)
--- NOTE | 2018-09-25 11:08 | Cardiology Consultation ---
Date of Consultation September 25, 2018 Assessment & Plan (1) Preoperative cardiovascular examination: He denies any anginal or heart failure symptoms. He is able to exercise occasionally on a stationary bicycle without exertional symptoms. It is unclear if he is able to attain 4 METS. He does have underlying coronary disease. In the setting of a hip fracture, would not pursue ischemic evaluation at this time. He appears to be acceptable risk given lack of symptoms with some degree of exercise. We did discuss this in detail. Would recommend that he continue beta-dinorah therapy throughout the perioperative period, including the morning of surgery. (2) CAD (coronary artery disease): No angina. Would recommend restarting aspirin 81 mg daily if no contraindications. Continue beta-dinorah. He has self discontinued DAVID- inhibitor in the past due to cough. He has declined statin therapy. (3) S/P CABG x 3: Plan as above. Disposition: Please call with any other questions or concerns. I will be away from the hospital tomorrow. Dr. Mccoy will be available for questions or concerns. Thank you for allowing me to participate in the care of your patient. Please call for any other questions or concerns. Sincerely, Umberto St M.D. History of Present Illness Reason for Consultation: Preoperative cardiac assessment following left hip fracture. Requesting Physician: Dr. Lou Attending Physician: Hany Lopez, History of Present Illness Mr. Whitney is a very pleasant 88-year-old gentleman with a history significant for multivessel CAD status post CABG x3, hypertension, dyslipidemia, and postoperative atrial fibrillation. Following CABG on 07/08/2015, he had postoperative atrial fibrillation. He was [place] on amiodarone [place] [facility] that hospitalization, a transthoracic echo was interpreted by Dr. Wu, with concern of left atrial thrombus, on 07/25/2015. A transesophageal echo on 11/13/2015 demonstrated no thrombus. He has had the following studies/procedures: 1. Cardiac catheterization 06/13/2015: Done for nondiagnostic troponin elevation and chest pain. Ostial left main 40%. Proximal to mid LAD severe charlie nosis and heavily calcified. Codominant circumflex. Ostial to proximal OM1 80%. Mid RCA 90%. 2. CABG 07/08/2015: COONNOR to LAD. SVG to OM. SVG to RCA. 3. Transesophageal echo 11/13/2015: Normal LV size, wall motion, systolic function. EF 60-65%. Type 1 diastolic dysfunction. Mild AI. Mild MR. No left atrial mass or thrombus. Ascending aorta 4.2 cm. Moderate to severe atherosclerosis within thoracic descending aorta and arch. 4. Echo 11/12/2016: Normal LV size and systolic function. EF 55-60%. No regional wall motion abnormalities. Mild LVH. Type 1 diastolic dysfunction. Mild MR. Normal RVSP. He was admitted on 09/24/2018 following a mechanical fall. He fractured his left hip. He stumbled on the way to the restroom and fell on ceramic tile. He denies syncope, near-syncope, chest pain, shortness of breath, palpitations, or other cardiac symptom prior to or following the event. He actually had a concussion a couple of months ago after stepping backwards off of a curb and hitting his head. He described having some amount of bleeding and was told to stop his aspirin. [place] [facility] [place] apparently no intervention was necessary. He has had some hip pain if he moves his left leg but otherwise denies any current pain. He denies worsening edema but states that sometimes providers will tell him that he has some swelling. He exercises on a stationary bicycle occasionally and can go for 5-7 minutes without exertional symptoms. He otherwise is not very active due to his unstable gait. He uses a cane for ambulation outside of the home and in the home he uses a walker. Overall, exercise tolerance appears to have been stable since his last evaluation in the outpatient setting in July. Review of systems: As above. Review of systems otherwise negati ve/unremarkable. Social history: Denies tobacco, alcohol, drug abuse. He lives with his in [place]. Three children. Five grandchildren. 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 His is present at the bedside. Family History: No known premature CAD. Allergies Allergy/AdvReac Type Severity Reaction Status Date / Time benzoic acid Allergy Intermediate rash Unverified 09/24/18 21:43 lisinopril AdvReac Intermediate Cough Verified 09/24/18 21:43 Home Medications Home Medications Medication Instructions Recorded Confirmed Type Lactobacillus 1 cap PO QAM cap 07/12/18 09/24/18 History acidophilus-Bifidobac.animalis 31 billion cell capsule ascorbic acid (vitamin C) 1,000 mg 3,000 mg PO DAILY tab 07/12/18 09/24/18 History tablet cholecalciferol (vitamin D3) 2,000 2,000 unit PO QAM cap 07/12/18 09/24/18 History unit capsule coenzyme Q10 100 mg capsule 100 mg PO QAM cap 07/12/18 09/24/18 History folic acid 400 mcg tablet 400 mg PO QAM tab 07/12/18 09/24/18 History lutein 20 mg capsule 20 mg PO QAM cap 07/12/18 09/24/18 History metoprolol succinate ER 25 mg 12.5 mg PO QAM #30 tab 07/12/18 09/24/18 History tablet,extended release 24 hr nitroglycerin 0.4 mg sublingual 0.4 mg SL UD PRN #25 tab 07/12/18 09/24/18 History tablet omega-3 acid ethyl esters 1 gram 3 g PO PM cap 07/12/18 09/24/18 History capsule phytonadione (vitamin K1) 100 mcg 100 mcg PO QAM tab 07/12/18 09/24/18 History tablet potassium 75 mg tablet 75 mg PO QAM tab 07/12/18 09/24/18 History vitamin A 8,000 unit capsule 8,000 unit PO QAM cap 07/12/18 09/24/18 History vitamin E succinate 400 unit tablet 400 unit PO PM tab 07/12/18 09/24/18 History alpha lipoic acid 100 mg capsule 100 mg PO QAM 07/14/18 09/24/18 History levothyroxine 25 mcg capsule 25 mcg PO QAM 07/14/18 09/24/18 History magnesium 500 mg tablet 500 mg PO DAILY tab 07/28/18 09/24/18 History multivitamin tablet 1 tab PO PM 07/28/18 09/24/18 History vitamin B complex capsule 1 cap PO DAILY 07/28/18 09/24/18 History acetaminophen 500 mg tablet 500 mg PO Q6H PRN #30 tab 08/18/18 09/24/18 Rx silodosin 8 mg capsule 8 mg PO QAM 09/01/18 09/24/18 History trospium 20 mg tablet 20 mg PO BID 09/01/18 09/24/18 History Patient History Surgical History History of lobectomy of lung History of rectal surgery History of tonsillectomy and adenoidectomy S/P bronchoscopy S/P colonoscopy S/P hernia repair S/P lobectomy of lung S/P wisdom tooth extraction Family History Mother Colorectal cancer Brother Colorectal cancer Myocardial infarction Sister Ovarian cancer Father Prostate cancer Bone cancer Social History Preferred Language: Malagasy Communication Ability: Effective Automatic Beam Warper Tender Required: No Beliefs That Will Affect Care: None marital status: Current Living Situation: Spouse current occupational status: employed and retired 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 Alert and oriented. HEENT: Anicteric sclera. Neck: No JVD. No bruit. Normal carotid upstrokes bilaterally. Cardiac: PMI was nondisplaced. No ventricular heave. Regular. No ectopy. Normal S1-S2. 1/6 systolic murmur. No rubs, or gallops. Pulmonary: Clear to auscultation bilaterally without wheezes, rales, or rhonchi. Abdomen: Soft, nontender, nondistended, with normoactive bowel sounds. No bruits noted. Extremities: 2+ radial pulses bilaterally. 2+ posterior tibialis pulses bilaterally. Status post left lower extremity vein harvest. No cyanosis. Psychiatric: Affect appears appropriate. Results & Data Vital Signs (Past 12 Hours) Vital Signs Temp Pulse Pulse Resp BP BP Pulse Ox 09/25/18 07:08 81 09/25/18 06:48 36.5 C 81 19 139/75 98 09/25/18 05:07 36.5 C 79 20 146/75 H 98 09/25/18 00:50 87 09/25/18 00:35 36.7 C 89 19 165/82 H 2 L 09/25/18 00:00 85 14 95 09/24/18 23:53 84 13 153/93 H 97 09/24/18 23:50 81 14 97 09/24/18 23:30 87 21 97 Laboratory Results Laboratory Results - last 24 hr 09/24/18 09/24/18 09/24/18 21:56 21:56 21:56 WBC 8.57 RBC 4.18 L Hgb 13.2 L Hct 37.8 L MCV 90.4 MCH 31.6 MCHC 34.9 RDW Std Deviation 46.9 H RDW Coeff of Rpem 14.3 Plt Count 157 MPV 10.0 Immature Gran % (Auto) 0.1 Neut % (Auto) 77.1 Lymph % (Auto) 13.3 Cowley % (Auto) 7.8 Eos % (Auto) 1.5 Baso % (Auto) 0.2 Immature Gran # (Auto) 0.01 Neut # (Auto) 6.60 H Lymph # (Auto) 1.14 L Cowley # (Auto) 0.67 H Eos # (Auto) 0.13 Baso # (Auto) 0.02 PT 10.6 INR 1.0 APTT 25.4 PTT Ratio 0.9 Sodium 141 Potassium 3.8 Chloride 107 Carbon Dioxide 27 Anion Gap 7.0 BUN 20 H Creatinine 0.85 Est Cr Clr Drug Dosing 59.2 Est GFR ( Amer) 90.8 Est GFR (Non-Af Amer) 78.3 BUN/Creatinine Ratio 23.9 H Glucose 114 H Calcium 10.0 Troponin I < 0.015 Urine Color Urine Appearance Urine pH Ur Specific Thurmond Urine Protein Urine Glucose (UA) Urine Ketones Urine Blood Urine Nitrite Urine Bilirubin Urine Urobilinogen Ur Leukocyte Esterase Urine WBC (Auto) Urine RBC (Auto) U Hyaline Cast (Auto) U Epithel Cells (Auto) Urine Bacteria (Auto) 09/24/18 22:45 WBC RBC Hgb Hct MCV MCH MCHC RDW Std Deviation RDW Coeff of Prem Plt Count MPV Immature Gran % (Auto) Neut % (Auto) Lymph % (Auto) Cowley % (Auto) Eos % (Auto) Baso % (Auto) Immature Gran # (Auto) Neut # (Auto) Lymph # (Auto) Cowley # (Auto) Eos # (Auto) Baso # (Auto) PT INR APTT PTT Ratio Sodium Potassium Chloride Carbon Dioxide Anion Gap BUN Creatinine Est Cr Clr Drug Dosing Est GFR ( Amer) Est GFR (Non-Af Amer) BUN/Creatinine Ratio Glucose Calcium Troponin I Urine Color Dark Yellow Urine Appearance Clear Urine pH 5.5 Ur Specific Thurmond 1.023 Urine Protein Negative Urine Glucose (UA) Negative Urine Ketones Negative Urine Blood Trace H Urine Nitrite Negative Urine Bilirubin Negative Urine Urobilinogen Negative Ur Leukocyte Esterase Negative Urine WBC (Auto) 1-5 Urine RBC (Auto) 0-4 U Hyaline Cast (Auto) 1-5 U Epithel Cells (Auto) 5-10 H Urine Bacteria (Auto) Negative Diagnostic Findings Telemetry personally reviewed: Sinus rhythm. No arrhythmia noted. ECG personally reviewed: ECG 09/24/2018: Sinus rhythm first-degree AV block 87 bpm. Medications Administered Current Inpatient Medications Acetaminophen (Tylenol) 650 mg PO Q4H PRN PRN Reason: Pain or Fever Stop: 10/25/18 00:33 Last Admin: 09/25/18 01:39 Dose: 650 mg Documented by: F[facility] ([facility]vite) [facility] [place]: 10/25/18 08:59 Last Admin: 09/25/18 08:10 Dose: 400 mcg Documented by: Lactated Ringer's (Lr) 1,000 mls @ 80 mls/hr IV .[id number] [facility] Stop: 10/25/18 00:33 Last Admin: 09/25/18 01:39 Dose: 80 mls/hr Documented by: Levothyroxine Sodium (Synthroid) 25 mcg PO DAILYBB [facility] Stop: 10/25/18 06:29 Last Admin: 09/25/18 06:05 Dose: 25 mcg Documented by: Metoprolol Succinate (Toprol Xl) 12.5 mg PO QAM [facility] Stop: 10/25/18 08:59 Last Admin: 09/25/18 08:10 Dose: 12.5 mg Documented by: Miscellaneous (Order Awaiting Action) 1 ea N/A DAILY [facility] Stop: 10/25/18 08:59 Last Admin: 09/25/18 08:09 Dose: Not Given Documented by: Miscellaneous (Order Awaiting Action) 1 ea N/A DAILY [facility] Stop: 10/25/18 08:59 Last Admin: 09/25/18 08:09 Dose: Not Given Documented by: Morphine Sulfate (Morphine Sulfate) 2 mg IV Q2H PRN PRN Reason: Pain Stop: 10/09/18 00:33 Last Admin: 09/25/18 03:36 Dose: 2 mg Documented by: Nitroglycerin (Nitrostat) 0.4 mg SL UD PRN PRN Reason: Chest Pain Stop: 10/25/18 00:33 Ondansetron HCl (Zofran) 4 mg IV Q4H PRN PRN Reason: Nausea Stop: 10/25/18 00:33 PG Care Time/CCT Total # of Minutes Spent Total Time Spent with Patient: Total time spent is greater than 50% in coordina tion of care (as documented) at patient's floor/unit and/or counseling patient:
--- NOTE | 2018-09-25 13:56 | Hospitalist Progress Note ---
Date of Service September 25, 2018 Assessment & Plan (1) Subcapital fracture of left hip: - S/P mechanical fall on 09/24; has dealt with chronic ataxia and has been doing outpatient PT which he reports has helped - Pain is controlled at rest but is present with movement; Tylenol and Morphine PRN - PT/OT pending surgical intervention - Cardiology consulted - cleared for surgical intervention; no further ischemic work-up necessary at this tme - Orthopedics consulted - appreciate input and surgical management Present on Admission?: Yes (2) Episodic ataxia: - Likely contributing to most recent fall and doing outpatient PT - Has had multiple falls which he did sustain a trace intraventricular hemorrhage in July due to a fall and [place] [facility] only conservative measurements were warranted Present on Admission?: Yes (3) CAD (coronary artery disease): - H/O CABG, NSTEMI, 4.3 cm AA, and HTN; No acute ACS symptoms - Continue Toprol XL 12.5 mg daily; will resume ASA therapy pending surgical input/determination of DVT prophylaxis -- Previously on ACEI but self-removed due to cough; declines statin therapy Present on Admission?: Yes (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: - Has issues with overactive bladder; Continue Silodosin 8 mg daily and Trospium 20 mg BID - Hyde catheter placed at this time - will need to monitor for retention upon removal -- states he got a UTI the last time he had a Hyde placed (during his CABG) but denies chronic UTI issues (5) Hypothyroidism: - TSH 5.3 with normal T4 at end of July but with WNL at beginning of July - this was likely a reactive reading given his fall/ICH and likely could be repeated as outpatient to monitor - Given recent fall and fracture will hold on recheck here as likely could be elevated for similar reasons - asymptomatic at this time - Levothyroxine 25 mcg daily Present on Admission?: Yes (6) DVT prophylaxis: - SCDs Disposition: Await surgical intervention and PT/OT - likely inpatient rehab on D/C Subjective Reports that he is feeling well today. When laying still he has no pain but does experience it with movement He reports he has been doing outpatient physical therapy to work on his gait which he feels has been improving prior to this fall He remains sinus on monitor with rates in the 80s; no ACS symptoms; denies numbness/tingling of lower extremities Review of Systems Constitutional: no fever and no chills Eyes: no worsening vision Ear, Nose, Mouth, Throat: no nasal congestion, no sore throat and no dysphagia Respiratory: no cough and no dyspnea Cardiovascular: no chest pain, no palpitations, no lightheadedness and no edema Gastrointestinal: no abdominal pain, no nausea, no vomiting, no constipation and no diarrhea/loose stools Genitourinary: no dysuria Musculoskeletal: + joint pain (L hip) and + stiffness Integumentary: no rash Neurologic: no tingling and no numbness Physical Exam Constitutional: WD/WN, vitals as above Eyes: + anicteric sclerae ENMT: Ears: no hearing impairment Neck: normal visual inspection and trachea midline Respiratory: normal respiratory effort, lungs clear to auscultation Cardiovascular: RRR, no murmur, no edema Gastrointestinal (Abdomen): Inspection/Auscultation: normal bowel sounds Percussion/Palpation: abdomen soft; abdomen nontender Musculoskeletal: Head/Neck/Chest: normocephalic and head atraumatic slightly shortened and externally rotated L foot with movement to toes b/l and no cyanosis/coolness Skin: no rashes, warm and dry Neurologic: moves all extremities (did not extensively move LLE but movement to toes noted) Psychiatric: A+Ox3, euthymic affect Results & Data Vital Signs (Past 12 Hours) Vital Signs Temp Pulse Pulse Resp BP Pulse Ox 09/25/18 11:34 36.5 C 80 16 138/75 99 09/25/18 07:08 81 09/25/18 06:48 36.5 C 81 19 139/75 98 09/25/18 05:07 36.5 C 79 20 146/75 H 98 PG Care Time/CCT Total # of Minutes Spent Total Time Spent with Patient: Total time spent is greater than 50% in coordination of care (as documented) at patient's floor/unit and/or counseling p atient: (1) Subcapital fracture of left hip Encounter type: initial encounter Fracture type: closed Qualified Code(s): S72.012A - Unspecified intracapsular fracture of left femur, initial encounter for closed fracture
--- NOTE | 2018-09-25 14:29 | Anesthesiology Consultation ---
Date of Service September 25, 2018 Assessment & Plan (1) Encounter for pre-operative examination: Chart Review Chart Review: Acceptable Risk for Surgery and Patient NOT seen in Pre Admission Testing Type and Screened ordered at time of initial eval. Also note patient had been on silodosin as an outpatient (selective alpha dinorah) Consults Requested none Cardiac preop evaluation 09/24/2018: (1) Preoperative cardiovascular examination: He denies any anginal or heart failure symptoms. He is able to exercise occasionally on a stationary bicycle without exertional symptoms. It is unclear if he is able to attain 4 METS. He does have underlying coronary disease. In the setting of a hip fracture, would not pursue ischemic evaluation at this time. He appears to be acceptable risk given lack of symptoms with some degree of exercise. We did discuss this in detail. Would recommend that he continue beta-dinorah therapy throughout the perioperative period, including the morning of surgery. History Surgery Operation Date: 09/26/18 12:30 Proposed Procedures p Left Hip Hemiarthroplasty - Maxx Das MD Height/Weight Height: 5 ft 8 in Weight: 79 kg Allergies Allergy/AdvReac Type Severity Reaction Status Date / Time benzoic acid Allergy Intermediate rash Unverified 09/24/18 21:43 lisinopril AdvReac Intermediate Cough Verified 09/24/18 21:43 Medications Home Medications Medication Instructions Recorded Confirmed Last Taken Lactobacillus 1 cap PO QAM cap 07/12/18 09/24/18 09/24/18 acidophilus-Bifidobac.animalis 31 billion cell capsule ascorbic acid (vitamin C) 1,000 mg 3,000 mg PO DAILY tab 07/12/18 09/24/18 09/24/18 tablet cholecalciferol (vitamin D3) 2,000 2,000 unit PO QAM cap 07/12/18 09/24/18 09/24/18 unit capsule coenzyme Q10 100 mg capsule 100 mg PO QAM cap 07/12/18 09/24/18 09/24/18 folic acid 400 mcg tablet 400 mg PO QAM tab 07/12/18 09/24/18 09/24/18 lutein 20 mg capsule 20 mg PO QAM cap 07/12/18 09/24/18 09/24/18 metoprolol succinate ER 25 mg 12.5 mg PO QAM #30 tab 07/12/18 09/24/18 09/24/18 tablet,extended release 24 hr nitroglycerin 0.4 mg sublingual 0.4 mg SL UD PRN #25 tab 07/12/18 09/24/18 Unknown tablet omega-3 acid ethyl esters 1 gram 3 g PO PM cap 07/12/18 09/24/18 09/24/18 capsule phytonadione (vitamin K1) 100 mcg 100 mcg PO QAM tab 07/12/18 09/24/18 09/24/18 tablet potassium 75 mg tablet 75 mg PO QAM tab 07/12/18 09/24/18 09/24/18 vitamin A 8,000 unit capsule 8,000 unit PO QAM cap 07/12/18 09/24/18 09/24/18 vitamin E succinate 400 unit tablet 400 unit PO PM tab 07/12/18 09/24/18 09/24/18 alpha lipoic acid 100 mg capsule 100 mg PO QAM 07/14/18 09/24/18 09/24/18 levothyroxine 25 mcg capsule 25 mcg PO QAM 07/14/18 09/24/18 09/24/18 magnesium 500 mg tablet 500 mg PO DAILY tab 07/28/18 09/24/18 09/24/18 multivitamin tablet 1 tab PO PM 07/28/18 09/24/18 09/24/18 vitamin B complex capsule 1 cap PO DAILY 07/28/18 09/24/18 09/24/18 acetaminophen 500 mg tablet 500 mg PO Q6H PRN #30 tab 08/18/18 09/24/18 Unknown silodosin 8 mg capsule 8 mg PO QAM 09/01/18 09/24/18 09/24/18 trospium 20 mg tablet 20 mg PO BID 09/01/18 09/24/18 09/24/18 Active Medications Generic Name Dose Route Start Last Admin Trade Name Freq PRN Reason Stop Dose Admin Acetaminophen 650 mg 09/25/18 00:34 09/25/18 01:39 Tylenol PO 10/25/18 00:33 650 mg Q4H PRN Administration Pain or Fever Folic Acid 400 mcg 09/25/18 09:00 09/25/18 08:10 Folvite PO 10/25/18 08:59 400 mcg QAM MARA Administration Lactated Ringer's 1,000 mls @ 80 mls/hr 09/25/18 00:34 09/25/18 14:31 Lr IV 10/25/18 00:33 80 mls/hr .[id number] MARA Administration Levothyroxine Sodium 25 mcg 09/25/18 06:30 09/25/18 06:05 Synthroid PO 10/25/18 06:29 25 mcg DAILYBB MARA Administration Metoprolol Succinate 12.5 mg 09/25/18 09:00 09/25/18 08:10 Toprol Xl PO 10/25/18 08:59 12.5 mg QAM MARA Administration Miscellaneous 1 ea 09/25/18 09:00 09/25/18 08:09 Order Awaiting Action N/A 10/25/18 08:59 Not Given DAILY MARA Miscellaneous 1 ea 09/25/18 09:00 09/25/18 08:09 Order Awaiting Action N/A 10/25/18 08:59 Not Given DAILY MARA Morphine Sulfate 2 mg 09/25/18 00:34 09/25/18 13:43 Morphine Sulfate IV 10/09/18 00:33 2 mg Q2H PRN Administration Pain Past Medical History Medical History History of [place] (myocardial infarction) Subcapital fracture of left hip (Acute) Fall (Acute) Postural imbalance (Chronic) Paroxysmal atrial fibrillation (Chronic) NSTEMI (non-ST elevated myocardial infarction) (Chronic) Hypothyroidism (Chronic) Hypertension (Acute) Hyperlipidemia (Acute) Hearing loss (Acute) Episodic ataxia (Chronic) CAD (coronary artery disease) (Chronic) 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 There is no loss of balance at the time, patient supposedly tripped. Supposed loss of consciousness although patient does not recall. Neurosurgery was consulted but treatment was conservative. Discharged to [facility] on 08/03/2018. During that time the patient was seen evaluated by Neurosurgery who determined that treatment was conservative. Patient continue have issues with balance but denies dizziness or vertigo. Discharge on 08/18/2018. Last seen by neurosurgery on 08/23/2018, recommended evaluation by Neurology memory and cognitive specialist as well as vestibular rehabilitation, both consults were ordered. Referred to [facility] Exercise / Class Metabolic Activity III < 4 Walking/Shop/Light housework Past Family History Family History Mother Colorectal cancer Brother Colorectal cancer Myocardial infarction Sister Ovarian cancer Father Prostate cancer Bone cancer Past Surgical History Surgical History S/P CABG x 3 (Chronic) History of lobectomy of lung History of rectal surgery History of tonsillectomy and adenoidectomy S/P bronchoscopy S/P colonoscopy S/P hernia repair S/P lobectomy of lung S/P wisdom tooth extraction Social History Smoking Status: Never smoker Do You Dip or Chew Tobacco: No Hx Alcohol Use: No Alcohol type: wine Hx Substance Use: No Physical Exam Vital Signs Last Vital Signs Temp 36.5 C 09/25/18 11:34 Pulse 80 09/25/18 11:34 Resp 16 09/25/18 11:34 BP 138/75 09/25/18 11:34 Pulse Ox 99 09/25/18 11:34 Testing Laboratory Results 09/24/18 21:56 09/24/18 21:56 PT 10.6 Seconds (9.0-12.0) 09/24/18 21:56 INR 1.0 (0.9-1.1) 09/24/18 21:56 APTT 25.4 Seconds (21.0-31.0) 09/24/18 21:56 Urine Color Dark Yellow 09/24/18 22:45 Urine Appearance Clear (Clear) 09/24/18 22:45 Urine pH 5.5 (4.5-7.5) 09/24/18 22:45 Ur Specific [place] 1.023 (1.000-1.030) 09/24/18 22:45 Urine Protein Negative (Negative) 09/24/18 22:45 Urine Glucose (UA) Negative (Negative) 09/24/18 22:45 Urine Ketones Negative (Negative) 09/24/18 22:45 Urine Nitrite Negative (Negative) 09/24/18 22:45 Ur Leukocyte Esterase Negative (Negative) 09/24/18 22:45 Urine WBC (Auto) 1-5 /hpf (0-5) 09/24/18 22:45 Urine RBC (Auto) 0-4 /hpf (0-4) 09/24/18 22:45 U Hyaline Cast (Auto) 1-5 /lpf (0-5) 09/24/18 22:45 U Epithel Cells (Auto) 5-10 /lpf (0-5) H 09/24/18 22:45 Urine Bacteria (Auto) Negative (Negative) 09/24/18 22:45 Electrocardiogram Date: 09/24/18 Findings: + NSR @ (87) Sinus rhythm with 1st degree A-V block Otherwise normal ECG When compared with ECG of 01-AUG-2018 22:28, No significant change was found Chest X-Ray Date: 09/24/18 XR chest 1V portable CLINICAL HISTORY: fall trauma COMPARISON STUDY: 08/01/2018 FINDINGS: Prior median sternotomy. Mild stable grade megaly. Chronic elevation right hemidiaphragm. Lungs are considered clear. IMPRESSION: Chronic and postoperative change. No acute pro Other Testing 1. Cardiac catheterization 06/13/2015: Done for nondiagnostic troponin elevation and chest pain. Ostial left main 40%. Proximal to mid LAD severe stenosis and heavily calcified. Codominant circumflex. Ostial to proximal OM1 80%. Mid RCA 90%. 2. CABG 07/08/2015: OCONNOR to LAD. SVG to OM. SVG to RCA. 3. Transesophageal echo 11/13/2015: Normal LV size, wall motion, systolic function. EF 60-65%. Type 1 diastolic dysfunction. Mild AI. Mild MR. No left atrial mass or thrombus. Ascending aorta 4.2 cm. Moderate to severe atherosclerosis within thoracic descending aorta and arch. 4. Echo 11/12/2016: Normal LV size and systolic function. EF 55-60%. No regional wall motion abnormalities. Mild LVH. Type 1 diastolic dysfunction. Mild MR. Normal RVSP.
--- NOTE | 2018-09-25 17:24 | Consultation Report ---
DATE OF CONSULTATION: 09/24/2018 CHIEF COMPLAINT: Left hip pain. HISTORY OF PRESENT ILLNESS: Mr. Whitney is delightful fellow. He is 88 years of age. He had a ground level fall, suffered an acute injury to his left lower extremity, particularly left hip fracture injury, date of injury September 24. He had a history of some vertigo, but that really was not what happened. He had a mechanical fall at his home and a small injury. He presented to the Emergency Room with really singular issues of left hip pain on motion. X-rays demonstrated a subcapital fracture or femoral neck fracture of left hip. PAST MEDICAL HISTORY: Hypertension, hypothyroidism, aortic aneurysm, Afib. Hyperlipidemia, history of SC, coronary artery disease, urinary urgency. ALLERGIES: BENZOIC ACID, LISINOPRIL. MEDICATIONS: Scanned in the computer. They number approximately 20 different medications. PAST SURGICAL HISTORY: Lobectomy, rectal surgery, 2 bronchoscopy, hernia repair, wisdom teeth extraction. FAMILY HISTORY: Colorectal CA. SOCIAL HISTORY: He is alert, oriented. He lives at home. Speaks appropriately. Nonsmoker, non-ETOH user, lives with his spouse. He is retired. OBJECTIVE: GENERAL: He is alert, oriented gentleman, speaks perfectly. VITAL SIGNS: Stable. Pulse regular at 88 per minute, blood pressure slightly elevated, afebrile. HEENT: Examination essentially normal. HEART: Demonstrated regular rate and rhythm. LUNGS: Clear. ABDOMEN: Soft. MUSCULOSKELETAL: Pain with flexion, extension of the left hip, shortening and external rotation of left lower extremity as well with adequate pulses. X-RAYS: Reviewed. IMPRESSION: Includes a delightful gentleman, 88 years of age with some multiple medical problems including hypertension, hypothyroidism, cardiac disease, history of myocardial infarction in the past, now with a left hip fracture, basically femoral neck fracture. PLAN: He is admitted to medicine service, which we are thankful for. We will keep him n.p.o. after midnight. Dr. Das, my associate hopefully can get him tomorrow for more than likely an arthroplasty of the left hip.
[2018-09-26] MEDS: MoRPHine SULFATE 2 MG/ML CARP IV PRN (01:10)
[2018-09-26] MEDS: LACTATED RINGER'S 1,000 ML IV SCH ×2 (03:53→20:09)
[2018-09-26] MEDS: LEVOTHYROXINE SODIUM 25 MCG TABLET PO SCH (05:56)
[2018-09-26 06:48] LABS: Hematocrit (blood only) 37.9 % (42-52); Hemoglobin 12.7 g/dL (14.0-18.0)
[2018-09-26 07:25] LABS: Calcium 9.6 mg/dl (8.5-10.1); Est GFR (African American) 96.1; Est GFR (Non-African American) 82.9; Potassium 3.6 mmol/L (3.5-5.1)
[2018-09-26] MEDS ORDERED: BUPIVACAINE 0.5 % 5 MG/1 ML PF 10ML VIAL ONE (07:43)
[2018-09-26] MEDS: FOLIC ACID 400 MCG TAB PO SCH (08:05)
[2018-09-26] MEDS: METOPROLOL SUCC 25MG EXT REL TAB PO SCH (08:05)
--- NOTE | 2018-09-26 08:47 | Hospitalist Progress Note ---
Date of Service September 26, 2018 Assessment & Plan (1) Subcapital fracture of left hip: - S/P mechanical fall on 09/24; has dealt with chronic ataxia and has been doing outpatient PT which he reports has helped - Pain management with Tylenol and Morphine PRN - PT/OT pending surgical intervention - Cardiology consulted - cleared for surgical intervention; no further ischemic work-up necessary at this time - Orthopedics consulted - appreciate input and surgical management - planning surgical repair on 09/26 and possibly knee aspiration (2) Episodic ataxia: - Likely contributing to most recent fall and doing outpatient PT - Has had multiple falls which he did sustain a trace intraventricular hemorrhage in July due to a fall and was transferred to [facility] but only conservative measures were warranted (3) CAD (coronary artery disease): - H/O CABG, NSTEMI, 4.3 cm AA, post-operative A Fib (after CABG), and HTN; No acute ACS symptoms - Continue Toprol XL 12.5 mg daily; will resume ASA therapy pending surgical input/determination of DVT prophylaxis -- Previously on ACEI but self-removed due to cough; declines statin therapy (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: - Has issues with overactive bladder; Continue Silodosin 8 mg daily and Trospium 20 mg BID - Hyde catheter placed at this time - will need to monitor for retention upon removal -- states he got a UTI the last time he had a Hyde placed (during his CABG) but denies chronic UTI issues (5) Hypothyroidism: - TSH 5.3 with normal T4 at end of July but with WNL at beginning of July - this was likely a reactive reading given his fall/ICH and likely could be repeated as outpatient to monitor - Given recent fall and fracture will hold on recheck here as likely could be elevated for similar reasons - asymptomatic at this time - CT reveals enlargement of the R side of thyroid which is unchanged from previous assessment - monitoring as outpatient - Levothyroxine 25 mcg daily (6) DVT prophylaxis: - SCDs Disposition: Await surgical intervention and PT/OT - likely inpatient rehab on D/C Subjective Patient seen prior to surgery this AM. He appears tired and uncomfortable but states he doesn't have pain. states he normally will not report pain but does appear in pain and was slightly tachy this AM. He is anticipating surgical repair of his hip this afternoon. Verbalizes no new complaints other than fatigue. Review of Systems Constitutional: + fatigue; no fever and no chills Respiratory: no cough and no dyspnea Cardiovascular: no chest pain and no palpitations Gastrointestinal: no abdominal pain, no nausea, no vomiting, no constipation and no diarrhea/loose stools Genitourinary: no dysuria Musculoskeletal: + joint pain (L hip) and + stiffness Integumentary: no rash Neurologic: no tingling and no numbness Physical Exam Constitutional: WD/WN, vitals as above Eyes: + anicteric sclerae ENMT: Ears: no hearing impairment Neck: normal visual inspection and trachea midline Respiratory: normal respiratory effort, lungs clear to auscultation Cardiovascular: RRR, no murmur, no edema Gastrointestinal (Abdomen): Inspection/Auscultation: normal bowel sounds Percussion/Palpation: abdomen soft; abdomen nontender Musculoskeletal: Head/Neck/Chest: normocephalic and head atraumatic Skin: no rashes, warm and dry Neurologic: moves all extremities (did not extensively move LLE but movement to toes noted) slightly shortened and externally rotated L foot; equal temperatures of b/l feet, 2+ dorsalis pedis Psychiatric: A+Ox3, euthymic affect Results & Data Vital Signs (Past 12 Hours) Vital Signs Temp Pulse Pulse Resp BP BP Pulse Ox 09/26/18 07:00 36.8 C 103 H 20 137/76 92 09/26/18 04:00 36.3 C L 102 H 20 157/83 H 98 09/26/18 00:00 87 09/25/18 23:01 36.7 C 103 H 18 167/79 H 94 PG Care Time/CCT Total # of Minutes Spent Total Time Spent with Patient: Total time spent is greater than 50% in coordination of care (as documented) at patient's floor/unit and/or counseling patient: (1) Subcapital fracture of left hip Encounter type: initial encounter Fracture type: closed Qualified Code(s): S72.012A - Unspecified intracapsular fracture of left femur, initial encounter for closed fracture
--- NOTE | 2018-09-26 08:52 | Orthopedic Progress Note ---
Date of Service September 26, 2018 Assessment & Plan (1) Subcapital fracture of left hip: He was seen by Dr. Das as well. We will plan on cemented hemiarthroplasty of the left hip today. Continue Npo. Procedure was explained including risks, benefits, alternatives to surgery and he would like to proceed. Consent obtained. We will get xrays of the left knee today. We might aspirate his left knee at the time of surgery. Subjective Mr. Whitney is an 88 y/o male with a left femoral neck fracture. His is with him and states he had a pretty rough night. Didn't get much sleep and has had pain. He seems to hurt all over but worst pain is his left hip. Physical Exam Physical Exam: He's alert this morning, some drowsy. He has some generalized soft tissue tenderness of all extremities. No ecchymosis of his right leg or arms. He does have a left knee effusion and tenderness of the left knee as well. Able to move toes appropriately. Results & Data Vital Signs (Past 12 Hours) Vital Signs Temp Pulse Pulse Resp BP BP Pulse Ox 09/26/18 07:00 36.8 C 103 H 20 137/76 92 09/26/18 04:00 36.3 C L 102 H 20 157/83 H 98 09/26/18 00:00 87 09/25/18 23:01 36.7 C 103 H 18 167/79 H 94 PG Care Time/CCT Total # of Minutes Spent Total Time Spent with Patient: Total time spent is greater than 50% in coordination of care (as documented) at patient's floor/unit and/or counseling patient: (1) Subcapital fracture of left hip Encounter type: initial encounter Fracture type: closed Qualified Code(s): S72.012A - Unspecified intracapsular fracture of left femur, initial encounter for closed fracture
--- NOTE | 2018-09-26 09:16 | XRay Report ---
XR knee LT 2V routine CLINICAL HISTORY: knee pain, effusion (include AP/Lat) pain. Edema. COMPARISON: 06/16/2017 DISCUSSION: Severe degenerative change all major joint compartments. Chondrocalcinosis. Very small sheri int effusion. No evidence for fracture or dislocation. There is no evidence for soft tissue swelling. IMPRESSION: Severe degenerative change all major joint compartments. Small joint effusion. Chondrocal cinosis. The above report was generated using voice recognition software. It may contain grammatical, syntax or spelling errors. Electronically signed by: Williams Steven M.D. 09/26/2018 9:15 AM
[2018-09-26] MEDS ORDERED: ACETAMINOPHEN 1,000 MG/100 ML VIAL IV STA (09:46)
--- NOTE | 2018-09-26 10:58 | History & Physical Bridge Note ---
Date of Service September 26, 2018 History & Physical Bridge Note I have examined the patient, reviewed the History & Physical and in the interval since the performance of the History & Physical I have noted the following changes of clinical significance: no changes noted
[2018-09-26] MEDS ORDERED: PROPOFOL IV EMULSION 10 MG/ML 20 ML VIAL IV ONE ×3 (11:38→13:53)
[2018-09-26] MEDS ORDERED: fentaNYL citrate 100 MCG/2 ML VIAL ONE ×2 (11:38→13:35)
[2018-09-26] MEDS ORDERED: LIDOCAINE HCL 2% 2 ML VIAL/AMP(20MG/ML) INFIL ONE ×2 (11:38→12:57)
[2018-09-26] MEDS ORDERED: MIDAZOLAM HCL 1 MG/ML 2ML VIAL ONE (11:39)
[2018-09-26] MEDS ORDERED: BUPIVACAINE/EPINEPHRINE 0.5% MPF 1:200,000 30 ML VIAL ONE (12:18)
[2018-09-26] MEDS ORDERED: BACITRACIN INJ 50,000 UNIT VIAL ONE (12:18)
[2018-09-26] MEDS ORDERED: ATROPINE SULFATE 0.1 MG/ML 10ML SYR IV PRN (12:37)
[2018-09-26] MEDS ORDERED: fentaNYL citrate 100 MCG/2 ML VIAL IV PRN (12:37)
[2018-09-26] MEDS ORDERED: ONDANSETRON INJ 2 MG/ML 2 ML VIAL IV PRN ×2 (12:37→16:30)
[2018-09-26] MEDS ORDERED: ePHEDrine sulfate 50 MG/ML AMP IV PRN (12:37)
[2018-09-26] MEDS ORDERED: KETAMINE HCL INJ 50 MG/ML 10 ML VIAL ONE (12:55)
[2018-09-26] MEDS ORDERED: ONDANSETRON INJ 2 MG/ML 2 ML VIAL ONE (12:57)
[2018-09-26] MEDS ORDERED: CEFAZOLIN 2,000 MG/15 ML IV PUSH IV ONE (12:59)
[2018-09-26] MEDS ORDERED: CEFAZOLIN 2000MG 2,000 MG/15 ML SYR IV ONE (13:04)
[2018-09-26] MEDS ORDERED: PHENYLEPHRINE HCL 10 MG/ML VIAL ONE (13:53)
[2018-09-26] MEDS ORDERED: ESMOLOL HCL INJ 10 MG/ML 10ML VIAL IV ONE (13:53)
[2018-09-26] MEDS ORDERED: ePHEDrine sulfate 50 MG/ML SYR ONE (14:03)
--- NOTE | 2018-09-26 15:02 | Post Operative Brief Note ---
PG Immediate Post Op with CF Date of Surgery September 26, 2018 Pre & Post Diagnosis Operation Date: 09/26/18 12:30 Pre-Op Diagnosis: LEFT HIP FRACTURE Post-Op Diagnosis: LEFT HIP FRACTURE Procedure Operation Date: 09/26/18 12:30 Actual Procedures p Left Hip Hemiarthroplasty(Left) - Maxx Das MD Surgeon Maxx Das MD [employer] Molly, PAC Estimated Blood Loss 100 Findings Consistent with Post-Op Diagnosis Fluids 1700 cc Specimens Specimen Description: A. Left Femoral Head Drains Gilbert Catheter (PATIENT ARRIVED TO OR WITH GILBERT CATH IN PLACE) Anesthesia Type Spinal MAC Complications none Disposition Accompanied Patient To Recovery: Yes Disposition: Recovery Room
--- NOTE | 2018-09-26 15:33 | XRay Report ---
XR hip LT min 2V CLINICAL HISTORY: Post-Operative implant position COMPARISON: None. DISCUSSION: Anatomic alignment posttotal left hip arthroplasty. Could contact between prosthetic and underlying bone. Expected postoperative soft tissue change. IMPRESSION: Anatomic alignment posttotal left hip arthroplasty. The above report was generated using voice recognition software. It may contain grammatical, syntax or spelling errors. Electronically signed by: Williams Steven M.D. 09/26/2018 3:32 PM
--- NOTE | 2018-09-26 15:45 | Anesthesiology Progress Note ---
Date of Service September 26, 2018 Anesthesia Post Procedure Vital Signs Vital Signs: Temp Pulse Pulse Pulse Resp BP BP 09/26/18 15:40 94 H 18 119/63 09/26/18 15:30 89 20 124/61 09/26/18 15:20 88 15 105/47 L 09/26/18 15:10 86 17 101/48 L 09/26/18 15:03 37.1 C 85 16 104/51 L 09/26/18 12:05 36.8 C 98 H 18 138/73 09/26/18 09:00 107 H 09/26/18 07:00 36.8 C 103 H 20 137/76 09/26/18 04:00 36.3 C L 102 H 20 157/83 H 09/26/18 00:00 87 09/25/18 23:01 36.7 C 103 H 18 167/79 H 09/25/18 19:31 36.7 C 88 18 155/73 H 09/25/18 16:00 85 Pulse Ox 09/26/18 15:40 100 09/26/18 15:30 96 09/26/18 15:20 94 09/26/18 15:10 100 09/26/18 15:03 98 09/26/18 12:05 94 09/26/18 09:00 09/26/18 07:00 92 09/26/18 04:00 98 09/26/18 00:00 09/25/18 23:01 94 09/25/18 19:31 94 09/25/18 16:00 Pain Intensity Left Leg: Pain Intensity: 2 Transfer of Care Handoff Completed per policy Notes Mental Status: alert / awake / arousable Patient Amnestic to Procedure: Yes Nausea / Vomiting: adequately controlled Pain: adequately controlled Airway Patency, RR, SpO2: stable & adequate BP & HR: stable & adequate Hydration State: stable & adequate Neuraxial Anesthesia: was administered and sensory block is resolving Anesthetic Complications: no major complications apparent
[2018-09-26] MEDS ORDERED: BISACODYL 10 MG SUPP PR PRN (16:30)
[2018-09-26] MEDS ORDERED: COUGH DROP (SUGAR FREE) LOZ 24 LOZ/1 BOX BUCCAL PRN (16:30)
[2018-09-26] MEDS ORDERED: NALOXONE HCL 0.4 MG/1 ML VIAL/CARP IV PRN (16:30)
[2018-09-26] MEDS ORDERED: HYDROmorphone INJ 0.5 MG/0.5 ML SYR IV PRN (16:30)
[2018-09-26] MEDS ORDERED: MAGNESIUM HYDROXIDE SUSP 30 ML UDC PO PRN (16:30)
--- NOTE | 2018-09-26 20:34 | Operative Report ---
DATE OF OPERATION: 09/26/2018 SURGEON: Maxx Das MD BUTT TRIMMER: FAB Álvarez PREOPERATIVE DIAGNOSIS: Left displaced femoral neck fracture. POSTOPERATIVE DIAGNOSIS: Left displaced femoral neck fracture. PROCEDURE PERFORMED: Left cemented bipolar hip arthroplasty. COMPLICATIONS: None. ESTIMATED BLOOD LOSS: 100 mL. FLUID REPLACEMENT: 1700 mL crystalloid fluid replacement. ANESTHESIA: Spinal. DRAINS: None. SPECIMENS: Left femoral head sent for pathology. OPERATIVE INDICATIONS: The patient is an 88-year-old elderly gentleman who sustained a mechanical fall 2 days ago. He had acute onset of pain and was unable to ambulate afterwards. He was brought to the Emergency Room where x-rays revealed displaced femoral neck fracture. He was admitted by the medicine service and medically optimized. The patient indicated for surgical treatment. OPERATIVE IMPLANTS: Operative implants consisted of: 1. A Ashwini low demand size 12 fracture stem with an 11 centralizer. 2. A +7/28 mm articular ball. 3. A 52 mm bipolar shell and liner. 4. A small cement restrictor. OPERATIVE PROCEDURE: The patient taken to the operating room, identified and placed on the operating table in supine position. All contact areas were appropriately padded. IV antibiotics provided by anesthesia team. A spinal anesthetic was implemented. The patient was then placed in the right lateral decubitus position. An axillary roll was placed. Stuhlberg hip positioner was used for positioning. Left hip and leg were then prepped and draped in usual sterile fashion. A posterolateral approach to the left hip was then performed through a curvilinear incision centered over the greater trochanter. Sharp dissection was carried through subcutaneous tissue down to the level of the IT band and gluteal fascia. The IT band and gluteal fascia were then incised longitudinally in line with skin incision. There was quite a bit of hemorrhage in the posterior hip external rotator area. The piriformis and external rotators were then tagged and taken off the posterior aspect of the hip joint capsule. Great care was taken throughout the procedure to protect the sciatic nerve at all times. Posterior capsulotomy was then performed. Hip was internally rotated. Femoral neck osteotomy cut was made just below the base of the fracture site. The femoral neck was removed. The femoral head was removed. I then sized the acetabulum to size 52. Attention was then drawn to the femur. The proximal femur was entered with cookie cutter followed by canal finder and lateralizing reamer. I then broached beginning with a size 10 and progressing up to a 12. I had good fit at 12. I then trialed the hip and I felt the +7 articular ball reproduce soft tissue tension appropriately and leg lengths equal. The hip was fully stable in full extension and external rotation, flexion to 90 degrees, internal rotation over [address] I elected to place these implants. All trial implants were removed. A cement restrictor was placed. A double batch of Palacos G cement was mixed. I then injected the canal with the cement and then placed the size 12 femoral stem. I tried to maximize the anteversion. Once the cement hardened, a +7/28 mm articular ball was placed followed by 52 bipolar shell and liner. Hip was located and once again found to be stable. Attention was then drawn toward closing. The wound was irrigated with copious amounts of normal saline. The posterior capsule was repaired with #2 Ethibond suture in a [id number] fashion. The external rotators and piriformis were then reattached to the posterior aspect of the hip abductors with #2 Ti-Cron suture. The IT band and gluteal fascia were then closed with #1 PDS suture in a running fashion. I did inject locally with 30 mL of 0.5% Marcaine with epinephrine. The subcutaneous tissues were then closed in 2 layers, the deep layer #1 Vicryl suture and subcutaneous tissue with 2-0 Dexon suture in a buried interrupted fashion. Skin was closed with skin alec. Leg was then cleaned, dried and a sterile dressing of Xeroform, 4 x 4, sterile ABD pad and foam tape was applied. The patient was then transferred to the recovery room in stable condition. The patient tolerated the procedure well with no complication. All needle and sponge counts were correct at the end of the operation. I attest to the content of the Intraoperative Record and any orders documented therein. Any exception s are noted below.
[2018-09-26] MEDS: ASPIRIN 81 MG ECTAB PO SCH (21:50)
[2018-09-26] MEDS: SENNA 8.6 MG TAB PO SCH (21:50)
[2018-09-26] MEDS: CEFAZOLIN 2000MG 2,000 MG/15 ML SYR IV SCH (22:55)
[2018-09-27] MEDS ORDERED: LORazepam 0.5 MG TAB PO ONE (00:05)
[2018-09-27] MEDS: OXYCODONE HCL IR 5 MG TAB (IMMEDIATE RELEASE) PO PRN (00:20)
[2018-09-27] MEDS ORDERED: MoRPHine SULFATE 2 MG/ML CARP IV PRN (04:54)
--- NOTE | 2018-09-27 05:08 | Progress Note ---
Date of Service September 27, 2018 Late yesterday evening I received a text page at [phone] that the patient had been more confused since undergoing his hip surgery earlier in the day. There was concern that he was "lethargic and not following commands" but that his condition and not changed since around 4 PM. I saw the patient at bedside shortly thereafter. He was awake, slowly but appropriately conversant, did not appear in any acute distress. He had a regular tachycardia but clear lungs. He was given a single dose of Ativan 0.25 mg p.o. to help with some mild agitation and hopefully with sleep. This did not seem to help, as his bedside one-to-one nurse notes that he continues to have restlessness and trying to pull out his Hyde catheter. I received a second text page at [phone] that the nurse is concerned that the patient has been coughing up his pills and that he would not be able to adequately take p.o. She attempted to get the patient to eat some applesauce as a bedside swallow evaluation but the patient would not cooperate. Review of his vitals notes he is now febrile at 38.0, remains tachycardic in the 120s, and has decreased oxygen saturation on the same 2 L nasal cannula oxygen. I saw the patient again at bedside. He again answered by saying that he overall felt okay but seemed a bit more disoriented at this time. He is also actively but unsuccessfully trying to pull out his Hyde catheter. His heart rate remains regular and his lungs sound clear. Assessment / Plan: - I have some concern that the patient may be at risk for a PE and/or aspiration following his surgery. Ordered a CTA chest for further evaluation of this. - Will add on a lactate and blood cultures to his morning labs given his fever. It remains entirely possible his mild fever is more postop atelectasis than an acute infectious process. - Patient is already on some maintenance IV fluids and Ancef perioperatively. - Will order a formal speech swallow evaluation to help assess his ability to take p.o. meds. - Check an EKG as a precaution. Deana Lou, PGY3 Overnight call Results & Data Vital Signs (Past 12 Hours) Vital Signs Temp Pulse Pulse Pulse Pulse Resp BP 09/27/18 03:56 38.0 C H 120 H 20 157/72 H 09/27/18 03:20 37 C 82 16 09/27/18 00:00 09/26/18 23:47 111 H 09/26/18 22:34 36.6 C 114 H 20 09/26/18 18:57 37.3 C 97 H 18 09/26/18 18:00 36.9 C 89 20 BP Pulse Ox Pulse Ox 09/27/18 03:56 92 09/27/18 03:20 113/70 95 09/27/18 00:00 93 09/26/18 23:47 09/26/18 22:34 147/74 H 93 09/26/18 18:57 156/63 H 97 09/26/18 18:00 135/78 99
[2018-09-27 05:37] LABS: Basophils # (auto) 0.01 K/uL (0-0.2); Basophils % (auto) 0.1 %; Eosinophils # (auto) 0.03 K/uL (0-0.5); Eosinophils % (auto) 0.3 %; Hematocrit (blood only) 31.5 % (42-52); Hemoglobin 10.8 g/dL (14.0-18.0); Immature Granulocytes # (auto) 0.03 K/uL (0.00-0.02); Immature Granulocytes % (auto) 0.3 %; Lymphocytes # (auto) 0.74 K/uL (1.2-3.4); Lymphocytes % (auto) 7.2 %; Mean Corpuscular Hgb Conc 34.3 g/dL (32-36); Mean Corpuscular Volume 89.2 fL (80-100); Mean Platelet Volume 9.2 fL (7.4-10.4); Monocytes # (auto) 0.92 K/uL (0.11-0.59); Monocytes % (auto) 8.9 %; Neutrophils % (auto) 83.2 %; Platelet Count 109 K/uL (130-400); RDW Standard Deviation 46.1 fL (36.4-46.3); Red Blood Count 3.53 M/uL (4.7-6.1); White Blood Count 10.33 K/uL (4.8-10.8)
[2018-09-27 05:55] LABS: BUN Creatinine Ratio 17.3 (10-20); Calcium 9.2 mg/dl (8.5-10.1); Creatinine Clr Calc Pharmacy 70.9 ml/min; Est GFR (African American) 97.8; Est GFR (Non-African American) 84.4
[2018-09-27] MEDS ORDERED: OPTIRAY 320 125ml IV PRN (06:06)
[2018-09-27] MEDS: CEFAZOLIN 2000MG 2,000 MG/15 ML SYR IV SCH (06:09)
[2018-09-27] MEDS: LEVOTHYROXINE SODIUM 25 MCG TABLET PO SCH (06:09)
--- NOTE | 2018-09-27 06:54 | CT Scan Report ---
CT angio chest PE protocol CT DOSE: 606.70 mGy.cm HISTORY: 88 years-old Male with Post-op tachycardia, hypoxia, also aspiration eval. Acute hypoxia w ith tachycardia. TECHNIQUE: Multiple CTA images of the chest were obtained after the intravenous administration of 89 ml Optiray 320. Coronal and sagittal MIPS were obtained from the axial data set and were submitted f or review. All measurements were obtained according to NASCET criteria. A dose lowering technique wa s utilized adhering to the principles of ALARA. COMPARISON: Chest radiograph 09/24/2018, 08/01/2018, 07/28/2015 FINDINGS: CTA: Prior median sternotomy and CABG. Cardiomegaly with extensive [place] coronary arterial calcifications . Mild fusiform dilation of the ascending thoracic aorta, 4.1 x 4.0 cm. No dissection. Moderate degre e of mixed plaque formation. Patency of the imaged great vessels. Pulmonary arterial tree is opacifie d to the level of the subsegmental branches. The segmental and subsegmental branches are suboptimally evaluated secondary to respiratory motion artifact. No central pulmonary emboli identified. Multiple filling defects are noted within subsegmental arterial branches of the upper lobes. Filling defects within subsegmental branches of the left lower lobe are likely artifactual. CT CHEST: Enlarged multinodular right thyroid lobe. No adenopathy by CT size criteria. No pneumothorax or pleur al effusion. Postoperative changes from prior right lower lobectomy. Dependent atelectasis about the basal left lower lobe. No overt pulmonary edema. No suspicious pulmonary nodules or masses. Pleural-b ased 2 mm solid nodule of the right lung apex is likely benign. Central airways appear patent. Suggested cyst of the superior pole right kidney. Punctate calculi of the superior pole right kidney also noted. Gynecomastia. Mild generalized body wall edema. 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 Multilevel degenerative changes are also seen about the spin e. IMPRESSION: 1. Limited study secondary to respiratory motion artifact. There are multiple filling defects within the subsegmental branches of the bilateral upper lobes which are favored to represent pulmonary embol i rather than artifact. No central pulmonary emboli are identified. Correlation with lower extremity duplex venous Doppler study recommended. 2. Cardiomegaly with prior median sternotomy and CABG. 3. Subsegmental dependent consolidation of the basal left lower lobe, likely atelectatic. 4. Postoperative changes of the right lung. 5. Right nephrolithiasis The above report was generated using voice recognition software. It may contain grammatical, syntax o r spelling errors. Electronically signed by: Vish Wing M.D. 09/27/2018 6:52 AM
[2018-09-27] MEDS ORDERED: Heparin IV Standard *NO* Bolus IV ONE (07:38)
--- NOTE | 2018-09-27 08:24 | Anesthesiology Progress Note ---
Date of Service September 27, 2018 Anesthesia Post Procedure Vital Signs Vital Signs: Temp Pulse Pulse Pulse Pulse Pulse Resp 09/27/18 06:50 37.4 C 122 H 18 09/27/18 06:32 38.0 C H 09/27/18 03:56 38.0 C H 120 H 20 09/27/18 03:20 37 C 82 16 09/27/18 00:00 09/26/18 23:47 111 H 09/26/18 22:34 36.6 C 114 H 20 09/26/18 18:57 37.3 C 97 H 18 09/26/18 18:00 36.9 C 89 20 09/26/18 17:00 36.8 C 93 H 20 09/26/18 16:44 93 H 09/26/18 16:30 37.1 C 98 H 20 09/26/18 16:00 36.8 C 99 H 20 09/26/18 15:50 36.5 C 92 H 16 09/26/18 15:40 94 H 18 09/26/18 15:30 89 20 09/26/18 15:20 88 15 09/26/18 15:10 86 17 09/26/18 15:03 37.1 C 85 16 09/26/18 12:05 36.8 C 98 H 18 09/26/18 09:00 107 H BP BP BP Pulse Ox Pulse Ox 09/27/18 06:50 133/69 97 09/27/18 06:32 95 09/27/18 03:56 157/72 H 92 09/27/18 03:20 113/70 95 09/27/18 00:00 93 09/26/18 23:47 09/26/18 22:34 147/74 H 93 09/26/18 18:57 156/63 H 97 09/26/18 18:00 135/78 99 09/26/18 17:00 130/66 97 09/26/18 16:44 09/26/18 16:30 112/59 L 91 09/26/18 16:00 122/64 91 09/26/18 15:50 136/59 L 100 09/26/18 15:40 119/63 100 09/26/18 15:30 124/61 96 09/26/18 15:20 105/47 L 94 09/26/18 15:10 101/48 L 100 09/26/18 15:03 104/51 L 98 09/26/18 12:05 138/73 94 09/26/18 09:00 Pain Intensity Left Leg: Pain Intensity: 2 Notes Patient Amnestic to Procedure: Yes Nausea / Vomiting: adequately controlled Pain: adequately controlled Airway Patency, RR, SpO2: stable & adequate BP & HR: stable & adequate Hydration State: stable & adequate Neuraxial Anesthesia: was administered and sensory block resolved Anesthetic Complications: no major complications apparent and Pt Satisfied with anesthetic care Notes: RN in care of the pt informed anesthesia of garbled speech, confusion, increased HR post procedure. It appears that medicine is involved and treating patient appropriately. Anesthesia team will continue to follow up. Dr Sheikh notified of patients status since Dr Segura is presently at the surgery center.
[2018-09-27] MEDS ORDERED: HEPARIN 25000 UNIT/500 ML D5W IV ONE (08:42)
[2018-09-27] MEDS: HEPARIN SODIUM/DEXTROSE 25,000 UNITS/500 ML BAG IV SCH (08:52)
[2018-09-27] MEDS: LACTATED RINGER'S 1,000 ML IV SCH ×3 (08:56→21:52)
[2018-09-27] MEDS: METOPROLOL SUCC 25MG EXT REL TAB PO SCH (08:58)
[2018-09-27] MEDS: FOLIC ACID 400 MCG TAB PO SCH (08:58)
[2018-09-27] MEDS: ASPIRIN 81 MG ECTAB PO SCH (08:58)
--- NOTE | 2018-09-27 09:20 | Progress Note ---
DATE: 09/27/2018 SUBJECTIVE: An 88-year-old gentleman postop day 1 from a left cemented bipolar hip arthroplasty for fracture. He seems to be doing okay. A little bit confused this morning. Denies any significant pain. No new complaints. OBJECTIVE: VITAL SIGNS: Temperature 37.4. He has been tachycardic intermittently. EXTREMITIES: Examination of the left hip and leg reveals his leg lengths to be equal. Dressing is clean, dry and intact. Thigh is soft and supple. He does respond to commands and dorsiflexes and plantar flexes his foot. LABORATORY DATA: Hemoglobin is 10.8. Hematocrit 31.5. Electrolytes are stable. ASSESSMENT: An 88-year-old elderly gentleman postop day 1 from a left cemented bipolar hip arthroplasty for fracture. Seems to be doing okay. I do think his situation is a pretty guarded still concerning his multiple medical comorbidities. His hip is located. He is neurologically intact. PLAN: 1. DVT prophylaxis including thigh-high TEDs, SCDs, and we would recommend a baby aspirin twice a day for the next 6 weeks. I think he is a very high fall risk and more aggressive anticoagulation is contraindicated due to these risks. 2. PT/OT. He can fully weightbear as tolerated in the left leg. 3. Medical management as per the medicine service. 4. Disposition: He is orthopedically okay for discharge any time medically stable. I need to see him back 2 weeks after the surgery date. Any orthopedic questions can be directed to me at [phone].
--- NOTE | 2018-09-27 10:14 | Ultrasound Report ---
BILATERAL LOWER EXTREMITY VENOUS DOPPLER CLINICAL HISTORY: ? PE on CTA. Eval for DVT. COMPARISON STUDY: Left lower extremity venous Doppler September 21, 2015. TECHNIQUE: Sonography of the deep venous system of the bilateral lower extremities was performed. Co mpression and augmentation were evaluated. FINDINGS: The bilateral common femoral, superficial femoral and popliteal veins were compressible. A ugmentation was normal. Flow was shown within the deep calf vessels. IMPRESSION: No evidence of deep venous thrombus within the bilateral lower extremities. Electronically signed by: Hai Casillas M.D. 09/27/2018 10:13 AM
--- NOTE | 2018-09-27 10:17 | Hospitalist Progress Note ---
Date of Service September 27, 2018 Assessment & Plan (1) Bilateral pulmonary embolism: - On 09/26 patient noted to have sinus tachycardia and desaturations - CTA reveals b/l upper lobe PEs with venous dopplers neg for DVT - Likely a provoked incident given hip fx and immobility; reports he had a suspected atrial thrombus in the past and had post-operative A Fib from his CABG and was on Coumadin for a short duration of time. She does not believe he had a DVT/PE in the past - Heparin gtt initiated -- Will need to be cautious given multiple fall history and H/O ICH due to a fall in July 2018 - low threshold for head CT if mentation worsens or focal deficits develop - Will order echocardiogram to assess any heart strain - Intermittently febrile which is likely atelectasis vs PE-induced - will R/O infection Present on Admission?: No (2) Encephalopathy: - This is either metabolic vs toxic given likely some hospital delirium vs opiates vs infectious - He has had poor sleep for the past 2 nights and states he does have some memory decline at home as well - BCx were obtained given febrile state last night and will add UA - suspect fever was PE-induced vs atelectasis - Noted garbled speech and swallowing difficulty - speech consult placed - may need to consider Head CT but possibly speech is result of delirium Present on Admission?: No (3) Subcapital fracture of left hip: - S/P mechanical fall on 09/24; has dealt with chronic ataxia and has been doing outpatient PT which he reports has helped - Pain management with Tylenol and Morphine PRN - PT/OT pending surgical intervention - Cardiology consulted - cleared for surgical intervention - Orthopedics consulted - S/P repair on 09/26 - will need F/U in approx. 2 weeks from surgical date -- ASA 81 mg BID for DVT prophylaxis - given need to AC in setting of PE likely can reduce down to daily use for cardiovascular protection Present on Admission?: Yes (4) Episodic ataxia: - Likely contributing to most recent fall and doing outpatient PT - Has had multiple falls which he did sustain a trace intraventricular hemorrhage in July due to a fall and [place] [facility] [place] conservative measures were warranted (5) CAD (coronary artery disease): - H/O CABG, NSTEMI, 4.3 cm AA, post-operative A Fib (after CABG), and HTN; No acute ACS symptoms - Continue Toprol XL 12.5 mg daily; will resume ASA therapy -- Until swallowing improves can use Lopressor PRN for tachycardia -- Previously on ACEI but self-removed due to cough; declines statin therapy (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 Luo for 10/16 (7) Hypothyroidism: - TSH 5.3 with normal T4 at end of July but with WNL at beginning of July - this was likely a reactive reading given his fall/ICH and likely could be repeated as outpatient to monitor - Given recent fall and fracture will hold on recheck here as likely could be elevated for similar reasons - asymptomatic at this time - CT reveals enlargement of the R side of thyroid which is unchanged from previous assessment - monitoring as outpatient - Levothyroxine 25 mcg daily Present on Admission?: Yes (8) DVT prophylaxis: - SCDs/Heparin Disposition: Suspect prolonged stay given confusion/PEs; will need rehab on D/C Subjective Pt more confused today. Answers to his name and can answer simple questions with clear speech but easily drifts off to sleep. He is grabbing for things in the air. Due to cooperation it is hard to complete a complete neuro exam but cnc applications engineer strength is equal b/l and is moving both upper extremities. Limitations to the LLE due to procedure. Denies chest pain or shortness of breath and does not appear in respiratory distress. Discussed with at bedside. Review of Systems Review of Systems: Limited ROS due to mentation. Does report hip pain but denies SOB or CP. Respiratory: no dyspnea Cardiovascular: no chest pain Musculoskeletal: + joint pain (L hip) Physical Exam Constitutional: + acute distress (mild distress when reporting pain) Eyes: + anicteric sclerae Neck: trachea midline Respiratory: normal respiratory effort, lungs clear to auscultation Auscultation: + diminished lung sounds Cardiovascular: Rate/Rhythm: regular rhythm and + tachycardic Gastrointestinal (Abdomen): Inspection/Auscultation: normal bowel sounds Percussion/Palpation: abdomen soft; abdomen nontender Musculoskeletal: Head/Neck/Chest: normocephalic and head atraumatic dressing applied to L hip C/D/I Skin: no rashes, warm and dry Neurologic: moves all extremities (did not assess LLE) Psychiatric: Orientation: alert (but drowsy) and oriented to person Eye Contact: + fair eye contact Speech: + mute (few word sentences which are clear but drifts off to sleep) Results & Data Vital Signs (Past 12 Hours) Vital Signs Temp Pulse Pulse Pulse Resp BP BP 09/27/18 08:00 115 H 09/27/18 06:50 37.4 C 122 H 18 133/69 09/27/18 06:32 38.0 C H 09/27/18 03:56 38.0 C H 120 H 20 157/72 H 09/27/18 03:20 37 C 82 16 09/27/18 00:00 09/26/18 23:47 111 H 09/26/18 22:34 36.6 C 114 H 20 BP Pulse Ox Pulse Ox 09/27/18 08:00 09/27/18 06:50 97 09/27/18 06:32 95 09/27/18 03:56 92 09/27/18 03:20 113/70 95 09/27/18 00:00 93 09/26/18 23:47 09/26/18 22:34 147/74 H 93 PG Care Time/CCT Total # of Minutes Spent Total Time Spent with Patient: Total time spent is greater than 50% in coordination of care (as documented) at patient's floor/unit and/or counseling patient: (1) Subcapital fracture of left hip Encounter type: initial encounter Fracture type: closed Qualified Code(s): S72.012A - Unspecified intracapsular fracture of left femur, initial encounter for closed fracture
[2018-09-27] MEDS ORDERED: METOPROLOL TARTRATE 1 MG/ML VIAL IV PRN (10:19)
[2018-09-27] MEDS: ACETAMINOPHEN 1,000 MG/100 ML VIAL IV SCH ×2 (11:21→19:59)
[2018-09-27 14:44] LABS: Appearance Urine Clear (Clear); Bacteria Urine Automated Negative (Negative); Bilirubin Urine Negative (Negative); Blood Urine 2+ (Negative); Cast Urine Automated 0 /lpf (0-5); Color Urine Orange; Epithelial Cell Urine Auto 0-5 /lpf (0-5); Glucose Urine UA Negative (Negative); Ketones Urine Negative (Negative); Leukocyte Esterase Urine Negative (Negative); Nitrite Urine Negative (Negative); Protein Urine Negative (Negative); Specific Gravity Urine > 1.045 (1.000-1.030); Urobilinogen Urine Negative (Negative)
[2018-09-27] MEDS: SENNA 8.6 MG TAB PO SCH (19:59)
[2018-09-27 22:00] LABS: Partial Thromboplastin Ratio 3.1
[2018-09-27 22:02] LABS: Partial Thromboplastin Time 83.2 Seconds (21.0-31.0)
[2018-09-28] MEDS: ACETAMINOPHEN 1,000 MG/100 ML VIAL IV SCH ×3 (02:40→19:04)
[2018-09-28] MEDS: HEPARIN SODIUM/DEXTROSE 25,000 UNITS/500 ML BAG IV SCH (04:49)
[2018-09-28] MEDS: LEVOTHYROXINE SODIUM 25 MCG TABLET PO SCH (05:12)
[2018-09-28] MEDS: POLYETHYLENE (MIRALAX) 17 GM PACK PO SCH ×4 (05:12→23:32)
[2018-09-28 05:29] LABS: Partial Thromboplastin Ratio 2.9
[2018-09-28 05:42] LABS: Partial Thromboplastin Time 79.6 Seconds (21.0-31.0)
[2018-09-28 08:54] LABS: Hematocrit (blood only) 25.5 % (42-52); Hemoglobin 8.8 g/dL (14.0-18.0); Mean Corpuscular Hgb Conc 34.5 g/dL (32-36); Mean Corpuscular Volume 89.2 fL (80-100); Mean Platelet Volume 9.9 fL (7.4-10.4); Platelet Count 121 K/uL (130-400); RDW Standard Deviation 45.9 fL (36.4-46.3); Red Blood Count 2.86 M/uL (4.7-6.1); White Blood Count 9.17 K/uL (4.8-10.8)
[2018-09-28 09:25] LABS: BUN Creatinine Ratio 20.6 (10-20); Calcium 9.5 mg/dl (8.5-10.1); Creatinine Clr Calc Pharmacy 72.3 ml/min; Est GFR (African American) 94.6; Est GFR (Non-African American) 81.6; Potassium 3.9 mmol/L (3.5-5.1)
[2018-09-28] MEDS: OXYCODONE HCL IR 5 MG TAB (IMMEDIATE RELEASE) PO PRN (11:12)
[2018-09-28] MEDS: FOLIC ACID 400 MCG TAB PO SCH (11:13)
[2018-09-28] MEDS: ASPIRIN 81 MG ECTAB PO SCH (11:13)
[2018-09-28] MEDS: METOPROLOL SUCC 25MG EXT REL TAB PO SCH (11:14)
[2018-09-28] MEDS: LACTATED RINGER'S 1,000 ML IV SCH (12:16)
[2018-09-28 12:26] LABS: Partial Thromboplastin Ratio 2.1; Partial Thromboplastin Time 56.8 Seconds (21.0-31.0)
--- NOTE | 2018-09-28 17:30 | Hospitalist Progress Note ---
Date of Service September 28, 2018 Assessment & Plan (1) Bilateral pulmonary embolism: - On 09/26 patient noted to have sinus tachycardia and desaturations - CTA reveals b/l upper lobe PEs with venous dopplers neg for DVT - Likely a provoked incident given hip fx and immobility; reports he had a suspected atrial thrombus in the past and had post-operative A Fib from his CABG and was on Coumadin for a short duration of time. She does not believe he had a DVT/PE in the past - Heparin gtt initiated and will start bridge with Coumadin and monitor INR -- Will need to be cautious given multiple fall history and H/O ICH due to a fall in July 2018 - low threshold for head CT if mentation worsens or focal deficits develop - Echo performed without change from prior study - Intermittently febrile initially but since resolved - no signs of infection at this time (2) Encephalopathy: - This was either metabolic vs toxic given likely some hospital delirium vs opiates vs infectious - suspect more delirium which appears to have resolved today - states he does have some memory decline at home as well (3) Subcapital fracture of left hip: - S/P mechanical fall on 09/24; has dealt with chronic ataxia and has been doing outpatient PT which he reports has helped - Pain management PRN - PT/OT pending surgical intervention - Cardiology consulted - cleared for surgical intervention - Orthopedics consulted - S/P repair on 09/26 - will need F/U in approx. 2 weeks from surgical date -- ASA 81 mg BID for DVT prophylaxis - given need to anticogulate in setting of PE likely can reduce down to daily use for cardiovascular protection (4) Episodic ataxia: - Likely contributing to most recent fall and doing outpatient PT - Has had multiple falls which he did sustain a trace intraventricular hemorrhage in July due to a fall and was transferred to [facility] but only conservative measures were warranted (5) CAD (coronary artery disease): - H/O CABG, NSTEMI, 4.3 cm AA, post-operative A Fib (after CABG), and HTN; No acute ACS symptoms - Continue Toprol XL 12.5 mg daily; will resume ASA therapy -- Until swallowing improves can use Lopressor PRN for tachycardia -- Previously on ACEI but self-removed due to cough; declines statin therapy (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 Luo for 10/16 (7) Hypothyroidism: - TSH 5.3 with normal T4 at end of July but with WNL at beginning of July - this was likely a reactive reading given his fall/ICH and likely could be repeated as outpatient to monitor - Given recent fall and fracture will hold on recheck here as likely could be elevated for similar reasons - asymptomatic at this time - CT reveals enlargement of the R side of thyroid which is unchanged from previous assessment - monitoring as outpatient - Levothyroxine 25 mcg daily (8) DVT prophylaxis: - SCDs/Heparin Disposition: Start heparin/coumadin bridge; continue better managing pain and referrals placed for rehab; suspect likely stay into weekend Subjective Patient is a lot more alert today and answering questions appropriately. Still experiencing a lot of hip and knee pain. Able to give food and medications today. Hemoglobin is remaining stable and no signs of bleeding with heparin gtt. Discussed with patient and spouse and will initiated Coumadin given ease of reversibility and monitoring. Remaining sinus on the monitor. Intermittently tachy but much better controlled today. Review of Systems Review of Systems: Limited ROS due to mentation. Does report hip pain but denies SOB or CP. Constitutional: + fatigue; no fever and no chills Respiratory: no cough and no dyspnea Cardiovascular: no chest pain, no palpitations and no lightheadedness Gastrointestinal: no abdominal pain, no nausea, no vomiting, no constipation and no diarrhea/loose stools Genitourinary: no dysuria Musculoskeletal: + joint pain (L hip and L knee) Integumentary: no rash Neurologic: no tingling and no numbness Physical Exam Constitutional: WD/WN, vitals as above Eyes: + anicteric sclerae ENMT: Ears: no hearing impairment Neck: trachea midline Respiratory: normal respiratory effort, lungs clear to auscultation Auscultation: + diminished lung sounds Cardiovascular: RRR, no murmur, no edema Gastrointestinal (Abdomen): Inspection/Auscultation: normal bowel sounds Percussion/Palpation: abdomen soft; abdomen nontender Musculoskeletal: Head/Neck/Chest: normocephalic and head atraumatic Skin: no rashes, warm and dry Neurologic: moves all extremities (limitations with LLE due to pain) Dressing applied C/D/I without signs of bleeding Psychiatric: A+Ox3, euthymic affect Results & Data Vital Signs (Past 12 Hours) Vital Signs Temp Pulse Pulse Pulse Resp BP Pulse Ox 09/28/18 16:30 101 H 09/28/18 15:07 36.6 C 72 20 137/61 95 09/28/18 07:29 97 H 09/28/18 07:09 36.6 C 95 H 20 138/77 99 PG Care Time/CCT Total # of Minutes Spent Total Time Spent with Patient: Total time spent is greater than 50% in coordination of care (as documented) at patient's floor/unit and/or counseling patient: (1) Subcapital fracture of left hip Encounter type: initial encounter Fracture type: closed Qualified Code(s): S72.012A - Unspecified intracapsular fracture of left femur, initial encounter for closed fracture
[2018-09-28] MEDS: SENNA 8.6 MG TAB PO SCH (20:42)
[2018-09-28] MEDS: WARFARIN SOD 2 MG TAB PO SCH (21:01)
--- NOTE | 2018-09-28 22:08 | Progress Note ---
DATE: 09/28/2018 SUBJECTIVE: An 88-year-old gentleman now postoperative day #2 from a left cemented bipolar hip arthroplasty for fracture. He is doing much better today. Certainly much more awake, alert and appropriate and oriented. Looks just a much better. Denies any significant complaints of pain while lying in bed. OBJECTIVE: VITAL SIGNS: Temperature is 36.8. Vital signs stable. GENERAL: Shows a pleasant, middle-aged male. He is lying up in bed and looks pretty comfortable. He is talking to his . EXTREMITIES: Examination of left hip reveals leg lengths to be equal. He can dorsiflex and plantarflex his foot. His thigh is soft and supple. Dressing is clean, dry and intact. His hip is located. LABORATORY DATA: Reveals hemoglobin 8.8 with hematocrit 25.5. Electrolytes are stable. He apparently had a CT scan of his chest, which suggests pulmonary emboli. Certainly does not seem to be symptomatic from this currently. His hip is located. He is neurologically intact. ASSESSMENT: An 88-year-old gentleman postop day #2 from a left cemented bipolar hip arthroplasty for fracture. Clinically, he is doing much better than yesterday. A CT exam suggests possible pulmonary emboli. Sats are down a bit, but clinically seems to be doing okay. I am not sure what the artifact potential is, but I would be very cautious as far as anticoagulating this gentleman. He has had a very high fall risk and plus at increased risk for bleeding into his hip. PLAN: 1. DVT prophylaxis and thigh-high TEDs, SCDs, and will leave that up to the medicine service. I would be very cautious about put him on high doses of heparin for risk of falling as well as further bleeding into his hip. If anything, consider dose in his Coumadin cautiously. 2. PT/OT. He can weightbear as tolerated. Left total hip protocol. 3. Pain control. He seems to be doing okay with current pain regimen. 4. Medical management as per the medicine service. 5. Disposition: He is orthopedically okay for discharge once medically stable. I need to see him back 2 weeks out from surgery date. He just needs total hip precautions. He can weightbear as tolerated. He will likely need a rehab stay. Any orthopedic questions can be directed to me at [phone]. [facility]
[2018-09-29] MEDS: LACTATED RINGER'S 1,000 ML IV SCH (01:24)
[2018-09-29] MEDS: ACETAMINOPHEN 1,000 MG/100 ML VIAL IV SCH (02:50)
[2018-09-29] MEDS: LEVOTHYROXINE SODIUM 25 MCG TABLET PO SCH (05:54)
[2018-09-29 06:52] LABS: Hematocrit (blood only) 20.9 % (42-52); Hemoglobin 7.2 g/dL (14.0-18.0); Mean Corpuscular Hgb Conc 34.4 g/dL (32-36); Mean Corpuscular Volume 88.9 fL (80-100); Mean Platelet Volume 9.9 fL (7.4-10.4); Platelet Count 123 K/uL (130-400); RDW Coefficient of Variation 13.9 % (11.5-14.5); RDW Standard Deviation 45.6 fL (36.4-46.3); Red Blood Count 2.35 M/uL (4.7-6.1)
[2018-09-29 06:53] LABS: INR 1.1 (0.9-1.1); Prothrombin Time 10.8 Seconds (9.0-12.0)
[2018-09-29 07:07] LABS: BUN Creatinine Ratio 24.6 (10-20); Calcium 9.3 mg/dl (8.5-10.1); Creatinine Clr Calc Pharmacy 69.6 ml/min; Est GFR (African American) 93.1; Est GFR (Non-African American) 80.3; Potassium 3.9 mmol/L (3.5-5.1)
--- NOTE | 2018-09-29 08:03 | Progress Note ---
DATE: 09/29/2018 SUBJECTIVE: An 88-year-old gentleman postop day 3 from a left cemented bipolar hip arthroplasty for fracture. He is resting in bed this morning and looks comfortable. I did not wake him. I just have seen him last night and he seemed to be doing pretty well. OBJECTIVE: VITAL SIGNS: Temperature 36.6. Vital signs stable. GENERAL: Physical examination shows an elderly male. He is lying in bed and resting comfortably. His leg lengths are equal. He has got brisk refill. Dressing is clean, dry, and intact. He is neurologically stable. LABORATORY DATA: Hemoglobin 7.2. Hematocrit 20.9. Electrolytes are stable. ASSESSMENT: An 88-year-old gentleman postop day 3 from a left bipolar hip arthroplasty for fracture with concerns of pulmonary embolism, now on heparin and Coumadin. His hemoglobin has dropped to the point which could be likely related to this heparinization. His hip and thigh look benign. Dressings intact. No major signs of bleeding from his hip. PLAN: 1. DVT prophylaxis including thigh-high TEDs, SCDs, and we will leave the rest up to the medicine service. I think aggressive anticoagulation in this elderly gentleman is extremely risky. 2. PT/OT. He can weightbear as tolerated, left lower extremity. 3. Medical management as per the medicine service. 4. Disposition: He is orthopedically okay for discharge any time medically stable. He is a bit anemic, likely he is going to need some blood and this PE anticoagulation issue has to be resolved and stabilized before discharge. I need to see him back 2 weeks from discharge. Any orthopedic questions can be directed to me at [phone].
[2018-09-29] MEDS: HEPARIN SODIUM/DEXTROSE 25,000 UNITS/500 ML BAG IV SCH (08:27)
[2018-09-29] MEDS: METOPROLOL SUCC 25MG EXT REL TAB PO SCH (08:32)
[2018-09-29] MEDS: ASPIRIN 81 MG ECTAB PO SCH (08:33)
[2018-09-29] MEDS: FOLIC ACID 400 MCG TAB PO SCH (08:33)
[2018-09-29] MEDS: POLYETHYLENE (MIRALAX) 17 GM PACK PO SCH ×3 (08:36→18:02)
[2018-09-29 08:53] LABS: Hematocrit (blood only) 22.1 % (42-52); Hemoglobin 7.6 g/dL (14.0-18.0)
[2018-09-29 09:13] LABS: Partial Thromboplastin Ratio 1.8
[2018-09-29 09:14] LABS: Partial Thromboplastin Time 48.3 Seconds (21.0-31.0)
[2018-09-29] MEDS ORDERED: SODIUM CHLORIDE 0.9% 250 ML IV PRN (13:46)
[2018-09-29] MEDS ORDERED: FUROSEMIDE 20 MG in SYRINGE 0 ML IV ONE (14:00)
--- NOTE | 2018-09-29 15:24 | Hospitalist Progress Note ---
Date of Service September 29, 2018 Assessment & Plan (1) Bilateral pulmonary embolism: - On 09/26 patient noted to have sinus tachycardia and desaturations - CTA reveals b/l upper lobe PEs with venous dopplers neg for DVT - Likely a provoked incident given hip fx and immobility; reports he had a suspected atrial thrombus in the past and had post-operative A Fib from his CABG and was on Coumadin for a short duration of time. She does not believe he had a DVT/PE in the past - Heparin gtt initiated and will start bridge with Coumadin and monitor INR -- Will need to be cautious given multiple fall history and H/O ICH due to a fall in July 2018 - low threshold for head CT if mentation worsens or focal deficits develop - Echo performed without change from prior study - Intermittently febrile initially but since resolved - no signs of infection at this time - suspect this was atelectic vs PE-induced (2) Acute blood loss anemia: - Suspect likely from losses from fx, surgery, dilution - Hemoglobin trended down to 7.2 - vitals stable but given cardiac history and fatigue did transfuse 1 unit PRBC with Lasix x 1 dose given - Will continue to monitor H&H given need for anticoagulant; monitor platelets as he does have a mild thrombocytopenia Present on Admission?: Yes (3) Encephalopathy: - This was either metabolic vs toxic given likely some hospital delirium vs opiates vs infectious - suspect this was likely delirium which appears to have resolved - states he does have some memory decline at home as well (4) Subcapital fracture of left hip: - S/P mechanical fall on 09/24; has dealt with chronic ataxia and has been doing outpatient PT which he reports has helped - Pain management PRN - PT/OT - appreciate ongoing therapy - Cardiology consulted - cleared for surgical intervention - Orthopedics consulted - S/P repair on 09/26 - will need F/U in approx. 2 weeks from surgical date -- ASA 81 mg BID for DVT prophylaxis - given need to anticogulate in setting of PE likely can reduce down to daily use for cardiovascular protection (5) Episodic ataxia: - Likely contributing to most recent fall and doing outpatient PT - Has had multiple falls which he did sustain a trace intraventricular hemorrhage in July due to a fall and was transferred to [facility] but only conservative measures were warranted (6) CAD (coronary artery disease): - H/O CABG, NSTEMI, 4.3 cm AA, post-operative A Fib (after CABG), and HTN; No acute ACS symptoms - Continue Toprol XL 12.5 mg daily; will resume ASA therapy -- Until swallowing improves can use Lopressor PRN for tachycardia -- Previously on ACEI but self-removed due to cough; declines statin therapy (7) Benign prostatic hyperplasia with urinary obstruction: - Has issues with overactive bladder; Continue Silodosin 8 mg daily and Trospium 20 mg BID - Hyde catheter placed at this time - will need to monitor for retention upon removal -- states he got a UTI the last time he had a Hyde placed (during his CABG) but denies chronic UTI issues - Has a F/U with Dr. Luo for 10/16 (8) Hypothyroidism: - TSH 5.3 with normal T4 at end of July but with WNL at beginning of July - this was likely a reactive reading given his fall/ICH and likely could be repeated as outpatient to monitor - Given recent fall and fracture will hold on recheck here as likely could be elevated for similar reasons - asymptomatic at this time - CT reveals enlargement of the R side of thyroid which is unchanged from previous assessment - monitoring as outpatient - Levothyroxine 25 mcg daily (9) DVT prophylaxis: - SCDs/Heparin Disposition: Continue heparin/coumadin bridge - given frailty may need to stabilize counts here in-house prior to transfer; [facility] when medically stable Subjective Reports that his pain is doing better today and slowly doing a bit more with therapy. States he feels very tired today. Hgb did reduce today and will transfuse x 1 unit. He reports a good appetite and tolerating diet. Has been more alert for the past two days. He verbalizes no new issues. Review of Systems Constitutional: + fatigue; no fever and no chills Ear, Nose, Mouth, Throat: + dry mouth Respiratory: no cough and no dyspnea Cardiovascular: no chest pain, no palpitations, no lightheadedness and no edema Gastrointestinal: no abdominal pain, no nausea, no vomiting, no constipation and no diarrhea/loose stools Genitourinary: no dysuria Musculoskeletal: + joint pain (L hip improving with rest but present on movement) Integumentary: no rash Physical Exam Constitutional: WD/WN, vitals as above + acute distress (mild distress when reporting pain) Eyes: + anicteric sclerae ENMT: Ears: no hearing impairment Neck: trachea midline Respiratory: normal respiratory effort, lungs clear to auscultation Auscultation: + diminished lung sounds Cardiovascular: RRR, no murmur, no edema Rate/Rhythm: regular rhythm and + tachycardic Gastrointestinal (Abdomen): Inspection/Auscultation: normal bowel sounds Percussion/Palpation: abdomen soft; abdomen nontender Musculoskeletal: Head/Neck/Chest: normocephalic and head atraumatic Skin: no rashes, warm and dry Neurologic: moves all extremities (limitations with LLE due to pain) Psychiatric: A+Ox3, euthymic affect Orientation: alert (but drowsy) and oriented to person Eye Contact: + fair eye contact Speech: + mute (few word sentences which are clear but drifts off to sleep) Results & Data Vital Signs (Past 12 Hours) Vital Signs Temp Pulse Pulse Resp BP BP BP 09/29/18 15:15 36.5 C 103 H 20 137/71 09/29/18 14:54 36.6 C 100 H 20 137/74 09/29/18 12:05 36.6 C 93 H 18 128/70 09/29/18 07:29 36.6 C 94 H 18 145/80 H Pulse Ox 09/29/18 15:15 95 09/29/18 14:54 96 09/29/18 12:05 91 09/29/18 07:29 91 PG Care Time/CCT Total # of Minutes Spent Total Time Spent with Patient: Total time spent is greater than 50% in coord ination of care (as documented) at patient's floor/unit and/or counseling patient: (1) Subcapital fracture of left hip Encounter type: initial encounter Fracture type: closed Qualified Code(s): S72.012A - Unspecified intracapsular fracture of left femur, initial encounter for closed fracture
[2018-09-29] MEDS: WARFARIN SOD 2 MG TAB PO SCH (16:35)
--- NOTE | 2018-09-29 19:16 | Cardiology Progress Note ---
Date of Service September 29, 2018 Assessment & Plan (1) CAD (coronary artery disease): He reports chest pain but has a tender left chest wall, but while indicating where his pain was, he also indicated abdominal pain. On exam, his abdomen appears tender more so than his chest. Symptoms not likely anginal and ECG unremarkable for ischemic changes. Can trend troponins, which was discussed with primary service, Ms. Scott. Continue aspirin 81 mg daily if no contraindications. Continue beta-dinorah. He has self discontinued DAVID- inhibitor in the past due to cough. He has declined statin therapy. (2) S/P CABG x 3: Plan as above. (3) Abdominal pain: As per primary service. Discussed with hospitalist service. (4) Encephalopathy: As per primary service. (5) Acute blood loss anemia: Receiving blood transfusion. Between his pulmonary emboli and acute blood loss anemia, this is likely driving his tachycardia. As per primary service. (6) Atypical chest pain: Vague symptoms that he was unable to further describe in his confused state. It appears as though his abdomen is more uncomfortable. Can trend troponins. Troponins may be slightly elevated due to PE however as well. ECG without dynamic changes. Disposition: Please call with any other questions or concerns. Plan of care discussed with Ms. Scott of the primary hospitalist service. Subjective When stopping by his room to say hello, nursing staff pointed out that he had just complained of chest discomfort approximately 5 minutes before my arrival. At that time, they were getting ready to check an ECG. When asked about his pain, he pointed to his upper abdominal/lower chest area and was vague about the actual location. He denies shortness of breath. No reported syncope. He continues to have episodes of confusion. He is being treated for pulmonary embolism. His is present at the bedside. He was presently receiving blood transfusion. Review of systems: As above. Physical Exam Physical Exam: Gen.: No acute distress. Alert. HEENT: Anicteric sclera. Neck: No JVD. Cardiac: Regular. Normal S1-S2. 1/6 systolic murmur. No rubs, or gallops. Pulmonary: Clear to auscultation bilaterally without wheezes, rales, or rhonchi. Abdomen: Soft but tender diffusely. No rebound tenderness noted. Hypoactive bowel sounds. Extremities: No edema or cyanosis. Psychiatric: Affect appears appropriate. Chest: Mild tenderness left chest wall. Results & Data Vital Signs (Past 12 Hours) Vital Signs Temp Pulse Pulse Resp BP BP BP 09/29/18 18:11 37.6 C H 108 H 20 125/72 09/29/18 17:45 36.4 C L 101 H 18 126/68 09/29/18 16:24 99 H 09/29/18 16:00 36.5 C 102 H 19 131/69 09/29/18 15:30 36.5 C 104 H 19 134/69 09/29/18 15:15 36.5 C 103 H 20 137/71 09/29/18 14:54 36.6 C 100 H 20 137/74 09/29/18 12:05 36.6 C 93 H 18 128/70 09/29/18 09:00 94 H 09/29/18 07:29 36.6 C 94 H 18 145/80 H Pulse Ox 09/29/18 18:11 92 09/29/18 17:45 94 09/29/18 16:24 09/29/18 16:00 95 09/29/18 15:30 92 09/29/18 15:15 95 09/29/18 14:54 96 09/29/18 12:05 91 09/29/18 09:00 09/29/18 07:29 91 Laboratory Results Laboratory Results - last 24 hr 09/29/18 09/29/18 09/29/18 06:31 06:31 06:31 WBC 7.70 RBC 2.35 L Hgb 7.2 L Hct 20.9 L* MCV 88.9 MCH 30.6 MCHC 34.4 RDW Std Deviation 45.6 RDW Coeff of Prem 13.9 Plt Count 123 L MPV 9.9 PT 10.8 INR 1.1 APTT PTT Ratio Sodium 136 Potassium 3.9 Chloride 101 Carbon Dioxide 28 Anion Gap 7.0 BUN 20 H Creatinine 0.80 Est Cr Clr Drug Dosing 69.6 Est GFR ( Amer) 93.1 Est GFR (Non-Af Amer) 80.3 BUN/Creatinine Ratio 24.6 H Glucose 113 H Calcium 9.3 Blood Type Antibody Screen Crossmatch 09/29/18 09/29/18 09/29/18 08:39 08:39 08:39 WBC RBC Hgb 7.6 L Hct 22.1 L MCV MCH MCHC RDW Std Deviation RDW Coeff of Prem Plt Count MPV PT INR APTT 48.3 H* PTT Ratio 1.8 Sodium Potassium Chloride Carbon Dioxide Anion Gap BUN Creatinine Est Cr Clr Drug Dosing Est GFR ( Amer) Est GFR (Non-Af Amer) BUN/Creatinine Ratio Glucose Calcium Blood Type A Positive Antibody Screen NEGATIVE Crossmatch See Detail Diagnostic Findings ECG personally reviewed: ECG 09/29/2018: Sinus tachycardia 103 bpm. Incomplete RBBB. Medications Administered Current Inpatient Medications Acetaminophen (Tylenol) 650 mg PO Q4H PRN PRN Reason: Pain or Fever Stop: 10/25/18 00:33 Last Admin: 09/25/18 15:47 Dose: 650 mg Documented by: Aspirin (Ecotrin Ectab) 81 mg PO DAILY [facility] Stop: 10/28/18 08:59 Last Admin: 09/29/18 08:33 Dose: 81 mg Documented by: Bisacodyl (Dulcolax) 10 mg MN DAILY PRN PRN Reason: Constipation Stop: 10/26/18 16:29 Folic Acid (Folvite) 400 mcg PO QAM [facility] Stop: 10/25/18 08:59 Last Admin: 09/29/18 08:33 Dose: 400 mcg Documented by: Heparin Sodium/Dextrose (Heparin Sodium/Dextrose) 25,000 units in 500 mls @ 18 mls/hr IV .Q24H [facility]; Protocol Stop: 10/27/18 07:44 Last Titration: 09/29/18 19:01 Dose: 900 units/hr, 18 mls/hr Documented by: Sodium Chloride (Nss) 250 mls @ 15 mls/hr IV .[id number] PRN PRN Reason: For Transfusion Stop: 10/29/18 13:45 Ioversol (Optiray 320 125ml) 125 ml IV ONCE PRN PRN Reason: Interaction Checking Stop: 10/01/18 06:05 Last Admin: 09/27/18 06:06 Dose: 89 ml Documented by: Levothyroxine Sodium (Synthroid) 25 mcg PO DAILYBB [facility] Stop: 10/25/18 06:29 Last Admin: 09/29/18 05:54 Dose: 25 mcg Documented by: Magnesium Hydroxide (Milk Of Magnesia) 30 ml PO DAILY PRN PRN Reason: Constipation Stop: 10/26/18 16:29 Menthol (Nice) 1 shannon BUCCAL Q2H PRN PRN Reason: Sore Throat Stop: 10/26/18 16:29 Metoprolol Succinate (Toprol Xl) 12.5 mg PO QAM [facility] Stop: 10/25/18 08:59 Last Admin: 09/29/18 08:32 Dose: 12.5 mg Documented by: Metoprolol Tartrate (Lopressor) 2.5 mg IV Q4 PRN PRN Reason: Tachycardia > 110 Stop: 10/27/18 11:59 Miscellaneous (Order Awaiting Action) 1 ea N/A DAILY [facility] Stop: 10/25/18 08:59 Last Admin: 09/29/18 08:41 Dose: Not Given Documented by: Miscellaneous (Order Awaiting Action) 1 ea N/A DAILY [facility] Stop: 10/25/18 08:59 Last Admin: 09/29/18 08:41 Dose: Not Given Documented by: Morphine Sulfate (Morphine Sulfate) 2 mg IV Q2H PRN PRN Reason: Pain Stop: 10/11/18 04:53 Last Admin: 09/29/18 16:51 Dose: 2 mg Documented by: Naloxone HCl (Narcan) 0.1 mg IV UD PRN PRN Reason: Opioid Overdose Stop: 10/26/18 16:29 Nitroglycerin (Nitrostat) 0.4 mg SL UD PRN PRN Reason: Chest Pain Stop: 10/25/18 00:33 Ondansetron HCl (Zofran) 4 mg IV Q6H PRN PRN Reason: Nausea And Vomiting Stop: 10/26/18 16:29 Oxycodone HCl (Roxicodone Immediate Rel) 5 mg PO Q4H PRN PRN Reason: Moderate Pain (Scale 4,5,6) Stop: 10/10/18 16:29 Last Admin: 09/28/18 11:12 Dose: 5 mg Documented by: Polyethylene Glycol (Miralax Powder Packet) 17 gm PO Q6 [facility] Stop: 10/28/18 05:59 Last Admin: 09/29/18 18:02 Dose: Not Given Documented by: Sennosides (Senokot) 17.2 mg PO HS [facility] Stop: 10/26/18 20:59 Last Admin: 09/28/18 20:42 Dose: 17.2 mg Documented by: Tramadol HCl (Ultram) 25 mg PO Q4H PRN PRN Reason: Pain Stop: 10/28/18 17:22 Warfarin Sodium (Coumadin) 2 mg PO DAILY@1600 [facility] Stop: 10/28/18 17:24 Last Admin: 09/29/18 16:35 Dose: 2 mg Documented by: PG Care Time/CCT Total # of Minutes Spent Total Time Spent with Patient: Total time spent is greater than 50% in coordination of care (as documented) at patient's floor/unit and/or counseling patient:
[2018-09-29] MEDS ORDERED: POLYETHYLENE (MIRALAX) 17 GM PACK PO PRN (19:27)
[2018-09-29 20:18] LABS: Hemoglobin 8.4 g/dL (14.0-18.0)
[2018-09-29] MEDS: SENNA 8.6 MG TAB PO SCH (20:35)
[2018-09-29] MEDS: DOCUSATE SODIUM 100 MG CAP PO SCH (20:35)
[2018-09-30] MEDS: LEVOTHYROXINE SODIUM 25 MCG TABLET PO SCH (05:37)
[2018-09-30] MEDS: POLYETHYLENE (MIRALAX) 17 GM PACK PO SCH ×5 (05:37→23:42)
[2018-09-30] MEDS: HEPARIN SODIUM/DEXTROSE 25,000 UNITS/500 ML BAG IV SCH (05:38)
[2018-09-30 06:41] LABS: Hematocrit (blood only) 24.9 % (42-52); Hemoglobin 8.5 g/dL (14.0-18.0); Mean Corpuscular Hgb Conc 34.1 g/dL (32-36); Mean Corpuscular Volume 88.6 fL (80-100); Platelet Count 177 K/uL (130-400); RDW Standard Deviation 45.5 fL (36.4-46.3); Red Blood Count 2.81 M/uL (4.7-6.1)
[2018-09-30 07:03] LABS: INR 1.1 (0.9-1.1); Prothrombin Time 11.3 Seconds (9.0-12.0)
[2018-09-30 07:04] LABS: Partial Thromboplastin Time 53.1 Seconds (21.0-31.0)
[2018-09-30 07:16] LABS: BUN Creatinine Ratio 24.9 (10-20); Calcium 9.4 mg/dl (8.5-10.1); Creatinine Clr Calc Pharmacy 70.9 ml/min; Est GFR (African American) 94.6; Est GFR (Non-African American) 81.6; Potassium 3.6 mmol/L (3.5-5.1)
[2018-09-30] MEDS: METOPROLOL SUCC 25MG EXT REL TAB PO SCH (07:51)
[2018-09-30] MEDS: FOLIC ACID 400 MCG TAB PO SCH (07:51)
[2018-09-30] MEDS: ASPIRIN 81 MG ECTAB PO SCH (07:52)
[2018-09-30] MEDS: DOCUSATE SODIUM 100 MG CAP PO SCH ×2 (07:53→21:21)
[2018-09-30] MEDS: OXYCODONE HCL IR 5 MG TAB (IMMEDIATE RELEASE) PO PRN (08:32)
[2018-09-30 08:48] LABS: Folate (Folic Acid) 19.95 ng/ml (>5.38)
--- NOTE | 2018-09-30 08:53 | Progress Note ---
DATE: 09/30/2018 SUBJECTIVE: An 88-year-old gentleman postop day 4 from a left cemented bipolar hip arthroplasty for fracture. Seems to be doing well. No new complaints. Denies any chest pain or shortness of breath. Not feeling dizzy or lightheaded. Pain seems to be controlled. OBJECTIVE: VITAL SIGNS: Temperature 36.7. Vital signs stable. GENERAL: Physical examinations shows a pleasant elderly male. He is sitting up on bed eating his breakfast. EXTREMITIES: Examination of the left leg reveals leg lengths to be equal. Some mild swelling in his left leg. Dressing is clean, dry, and intact. Thigh shows some moderate swelling. He is neurologically intact. LABORATORY DATA: Hemoglobin 8.5, hematocrit 24.9. ASSESSMENT: An 88-year-old gentleman postop day 4 from a left cemented bipolar hip arthroplasty for fracture. Apparently he has PEs by chest CT. Clinically asymptomatic. PLAN: 1. DVT prophylaxis including thigh-high TEDs, SCDs, and now on heparin/Coumadin for his PEs. This needs to be dosed and managed very carefully. He is immediately postop and a risk for hemorrhage as well as recurrent falls. 2. PT/OT. Weight bear as tolerated. Left total knee protocol. 3. Pain control, seems to be doing okay with current pain regimen. 4. Medical management as per the medicine service. 5. Disposition: He is orthopedically okay for discharge any time. I need to see him back 2 weeks out from his surgery. Any orthopedic questions can be directed to me at [phone]. He can fully weightbear as tolerated on this left leg. Just needs to follow hip precautions.
[2018-09-30] MEDS ORDERED: BISACODYL 5 MG TABEC PO ONE (10:20)
--- NOTE | 2018-09-30 12:58 | Hospitalist Progress Note ---
Date of Service September 30, 2018 Assessment & Plan (1) Bilateral pulmonary embolism: - On 09/26 patient noted to have sinus tachycardia and desaturations - CTA reveals b/l upper lobe PEs with venous dopplers neg for DVT - Likely a provoked incident given hip fx and immobility; reports he had a suspected atrial thrombus in the past and had post-operative A Fib from his CABG and was on Coumadin for a short duration of time. She does not believe he had a DVT/PE in the past - Heparin gtt initiated and continue bridge with Coumadin and monitor INR - currently at 1.1 -- Will need to be cautious given multiple fall history and H/O ICH due to a fall in July 2018 - low threshold for head CT if mentation worsens or focal deficits develop - Echo performed without change from prior study (2) Acute blood loss anemia: - Suspect likely from losses from fx, surgery, dilution - Hemoglobin trended down to 7.2 - did transfuse 1 unit PRBC with Lasix x 1 dose given - Hgb at 8.5 - Will continue to monitor H&H given need for anticoagulant, monitor surgical site for any bleeding, monitor platelets as he does have a mild thrombocytopenia (3) Encephalopathy: - This was either metabolic vs toxic given likely some hospital delirium vs opiates vs infectious - suspect this was likely delirium which appears to have resolved - states he does have some memory decline at home as well (4) Subcapital fracture of left hip: - S/P mechanical fall on 09/24; has dealt with chronic ataxia and has been doing outpatient PT which he reports has helped - Pain management PRN - PT/OT - appreciate ongoing therapy - Cardiology consulted - cleared for surgical intervention - Orthopedics consulted - S/P repair on 09/26 - will need F/U in approx. 2 weeks from surgical date -- ASA 81 mg BID for DVT prophylaxis - given need to anticogulant in setting of PE will reduce down to daily use for cardiovascular protection (5) Episodic ataxia: - Likely contributing to most recent fall and doing outpatient PT - Has had multiple falls which he did sustain a trace intraventricular hemorrhage in July due to a fall and was transferred to [facility] but only conservative measures were warranted (6) CAD (coronary artery disease): - H/O CABG, NSTEMI, 4.3 cm AA, post-operative A Fib (after CABG), and HTN; No acute ACS symptoms - Continue Toprol XL 12.5 mg daily; will resume ASA therapy -- Previously on ACEI but self-removed due to cough; declines statin therapy (7) Benign prostatic hyperplasia with urinary obstruction: - Has issues with overactive bladder; Continue Silodosin 8 mg daily and Trospium 20 mg BID - Hyde catheter placed at this time - will need to monitor for retention upon removal - will keep until adequate bowel movement to reduce risk of post-cath retention -- states he got a UTI the last time he had a Hyde placed (during his CABG) but denies chronic UTI issues - Has a F/U with Dr. Luo for 10/16 (8) Hypothyroidism: - TSH 5.3 with normal T4 at end of July but with WNL at beginning of July - this was likely a reactive reading given his fall/ICH and likely could be repeated as outpatient to monitor - Given recent fall and fracture will hold on recheck here as likely could be elevated for similar reasons - asymptomatic at this time - CT reveals enlargement of the R side of thyroid which is unchanged from previous assessment - monitoring as outpatient - Levothyroxine 25 mcg daily (9) DVT prophylaxis: - SCDs/Heparin Disposition: Continue heparin/coumadin bridge - given frailty may need to stabilize counts here in-house prior to transfer; referral to [facility] for rehab when medically stable -- is hoping to see if he qualifies for a lift chair - can check with case management on Tuesday if this is something that would be covered -- also would like a list of supplements for cognition that would not be safe to take with Coumadin -- From what I can find should avoid ginseng, gingko biloba, and high doses of Vit E; Can continue B12, omega 3s, and she specifically asked about phosphatidylserine which I could not find that this would interfere however did express that these are not regulated and as well that I am not an expert in regards to these alternative modalities Subjective Reports his pain is doing better today but is more bothersome in the knee today. Hemoglobin slightly up since infusion. Still has not moved his bowels. Review of Systems Constitutional: + fatigue; no fever and no chills Respiratory: no cough and no dyspnea Cardiovascular: no chest pain Gastrointestinal: + constipation; no abdominal pain, no nausea, no vomiting and no diarrhea/loose stools Genitourinary: no dysuria Neurologic: no tingling and no numbness Physical Exam Constitutional: WD/WN, vitals as above Eyes: + anicteric sclerae ENMT: Ears: no hearing impairment Neck: trachea midline Respiratory: normal respiratory effort, lungs clear to auscultation Auscultation: + diminished lung sounds Cardiovascular: RRR, no murmur, no edema Rate/Rhythm: regular rhythm Gastrointestinal (Abdomen): Inspection/Auscultation: normal bowel sounds Percussion/Palpation: abdomen soft; abdomen nontender Musculoskeletal: Head/Neck/Chest: normocephalic and head atraumatic Skin: no rashes, warm and dry Neurologic: moves all extremities (limitations with LLE due to pain) Psychiatric: A+Ox3, euthymic affect Results & Data Vital Signs (Past 12 Hours) Vital Signs Temp Pulse Pulse Pulse Resp BP BP 09/30/18 12:44 103 H 09/30/18 11:33 37.4 C 95 H 18 157/74 H 09/30/18 07:16 36.7 C 101 H 16 146/70 H 09/30/18 03:56 36.6 C 104 H 18 135/73 Pulse Ox 09/30/18 12:44 09/30/18 11:33 96 09/30/18 07:16 94 09/30/18 03:56 93 PG Care Time/CCT Total # of Minutes Spent Total Time Spent with Patient: Total time spent is greater than 50% in coordination of care (as documented) at patient's floor/unit and/or counseling patient: (1) Subcapital fracture of left hip Encounter type: initial encounter Fracture type: closed Qualified Code(s): S72.012A - Unspecified intracapsular fracture of left femur, initial encounter for closed fracture
[2018-09-30] MEDS: WARFARIN SOD 2 MG TAB PO SCH (17:00)
[2018-09-30] MEDS: SENNA 8.6 MG TAB PO SCH (21:21)
[2018-10-01] MEDS: HEPARIN SODIUM/DEXTROSE 25,000 UNITS/500 ML BAG IV SCH (04:57)
[2018-10-01] MEDS: LEVOTHYROXINE SODIUM 25 MCG TABLET PO SCH (05:03)
[2018-10-01] MEDS: POLYETHYLENE (MIRALAX) 17 GM PACK PO SCH ×5 (05:03→23:53)
[2018-10-01 06:55] LABS: Hematocrit (blood only) 24.2 % (42-52); Hemoglobin 8.1 g/dL (14.0-18.0); Mean Corpuscular Hgb Conc 33.5 g/dL (32-36); Mean Corpuscular Volume 89.6 fL (80-100); Mean Platelet Volume 9.8 fL (7.4-10.4); Platelet Count 194 K/uL (130-400); RDW Coefficient of Variation 14.3 % (11.5-14.5); RDW Standard Deviation 46.4 fL (36.4-46.3); White Blood Count 9.46 K/uL (4.8-10.8)
[2018-10-01 07:14] LABS: INR 1.2 (0.9-1.1); Partial Thromboplastin Ratio 1.6; Partial Thromboplastin Time 42.7 Seconds (21.0-31.0); Prothrombin Time 12.5 Seconds (9.0-12.0)
[2018-10-01] MEDS: OXYCODONE HCL IR 5 MG TAB (IMMEDIATE RELEASE) PO PRN ×2 (07:33→23:59)
[2018-10-01 07:35] LABS: BUN Creatinine Ratio 24.2 (10-20); Calcium 9.5 mg/dl (8.5-10.1); Creatinine Clr Calc Pharmacy 81.4 ml/min; Est GFR (African American) 100.1; Est GFR (Non-African American) 86.4
[2018-10-01] MEDS: DOCUSATE SODIUM 100 MG CAP PO SCH ×2 (08:37→16:02)
[2018-10-01] MEDS: METOPROLOL SUCC 25MG EXT REL TAB PO SCH (08:37)
[2018-10-01] MEDS: MAGNESIUM OXIDE 400 MG TAB PO SCH (08:38)
[2018-10-01] MEDS: ASPIRIN 81 MG ECTAB PO SCH (08:38)
[2018-10-01] MEDS: FOLIC ACID 400 MCG TAB PO SCH (08:38)
--- NOTE | 2018-10-01 08:39 | Progress Note ---
DATE: 10/01/2018 SUBJECTIVE: An 88-year-old gentleman with multiple comorbidities postop day 5 from a left bipolar hip arthroplasty for fracture. He said he had a bad night. He just kind of hurts all over. Denies any chest pain or shortness of breath. OBJECTIVE: VITAL SIGNS: Temperature 37.2. Vital signs stable. GENERAL: Physical examination shows an elderly male. He is lying in bed, looks reasonably comfortable. EXTREMITIES: Examination of the left hip reveals some moderate diffuse swelling of his leg. He has got a little bit of some fracture type blisters in his distal thigh area. He has got quite a bit of serosanguineous drainage on his dressing. He is able to flex and extend his toes reasonably well. LABORATORY DATA: His hemoglobin is 8.1. Hematocrit 24.2. INR is 1.2. Electrolytes are stable. ASSESSMENT: An 88-year-old gentleman postop day 5 from a left bipolar hip arthroplasty for fracture complicated by apparent pulmonary emboli. He is on pretty aggressive anticoagulation. His hip is located. He appears neurologically intact. PLAN: 1. DVT prophylaxis including thigh-high TEDs, SCDs, and anticoagulation as per the medicine service. 2. PT/OT. He can fully weightbear in the left lower extremity. 3. Medical management as per the medicine service. 4. Pain control. Seems to be doing okay with current pain medicine. Have a very careful and limit any narcotics. 5. Routine wound care. 6. Disposition. He is orthopedically okay for discharge any time.
[2018-10-01] MEDS ORDERED: HEPARIN IV BOLUS 3,000 UNITS in SYRINGE 0 ML IV ONE (10:15)
[2018-10-01] MEDS: WARFARIN SOD 2 MG TAB PO SCH (15:56)
[2018-10-01] MEDS: SENNA 8.6 MG TAB PO SCH (15:57)
--- NOTE | 2018-10-01 16:01 | Hospitalist Progress Note ---
Date of Service October 01, 2018 Assessment & Plan (1) Bilateral pulmonary embolism: - On 09/26 patient noted to have sinus tachycardia and desaturations - CTA reveals b/l upper lobe PEs with venous dopplers neg for DVT - Likely a provoked incident given hip fx and immobility; reports he had a suspected atrial thrombus in the past and had post-operative A Fib from his CABG and was on Coumadin for a short duration of time. She does not believe he had a DVT/PE in the past - Heparin gtt initiated and continue bridge with Coumadin and monitor INR - currently at 1.2 -- Will need to be cautious given multiple fall history and H/O ICH due to a fall in July 2018 - low threshold for head CT if mentation worsens or focal deficits develop - Echo performed without change from prior study continue on heparin drip until INR therapeutic, anticipate needing a few more days in hospital realistic timeline for discharge would be later this week will increase Coumadin to 4mg daily (2) Acute blood loss anemia: - Suspect likely from losses from fx, surgery, dilution - Hemoglobin trended down to 7.2 - did transfuse 1 unit PRBC with Lasix x 1 dose given - Hgb at 8.5 on 09/30 down very slightly to 8.1 today no signs of bleeding repeat tomorrow (3) Encephalopathy: - This was either metabolic vs toxic given likely some hospital delirium vs opiates vs infectious - suspect this was likely delirium which appears to have resolved - states he does have some memory decline at home as well mentating clearly on 10/01, no agitation continue to provide supportive care (4) Subcapital fracture of left hip: - S/P mechanical fall on 09/24; has dealt with chronic ataxia and has been doing outpatient PT which he reports has helped - Pain management PRN - PT/OT - appreciate ongoing therapy - Cardiology consulted - cleared for surgical intervention - Orthopedics consulted - S/P repair on 09/26 - will need F/U in approx. 2 weeks from surgical date (5) Episodic ataxia: - Likely contributing to most recent fall and doing outpatient PT - Has had multiple falls which he did sustain a trace intraventricular hemorrhage in July due to a fall and was transferred to [facility] but only conservative measures were warranted will need rehab (6) CAD (coronary artery disease): - H/O CABG, NSTEMI, 4.3 cm AA, post-operative A Fib (after CABG), and HTN; No acute ACS symptoms - Continue Toprol XL 12.5 mg daily; will resume ASA therapy 81mg daily -- Previously on ACEI but self-removed due to cough; declines statin therapy (7) Benign prostatic hyperplasia with urinary obstruction: - Has issues with overactive bladder; Continue Silodosin 8 mg daily and Trospium 20 mg BID - Nam catheter placed at this time - will need to monitor for retention upon removal - will keep until adequate bowel movement to reduce risk of post-cath retention -- states he got a UTI the last time he had a Nam placed (during his CABG) but denies chronic UTI issues - Has a F/U with Dr. Luo for 10/16 (8) Hypothyroidism: - TSH 5.3 with normal T4 at end of July but with WNL at beginning of July - this was likely a reactive reading given his fall/ICH and likely could be repeated as outpatient to monitor - Given recent fall and fracture will hold on recheck here as likely could be elevated for similar reasons - asymptomatic at this time - CT reveals enlargement of the R side of thyroid which is unchanged from previous assessment - monitoring as outpatient - Levothyroxine 25 mcg daily (9) Constipation: bowel regimen ordered still no BM today consider suppository tomorrow if no BM (10) DVT prophylaxis: - SCDs/Heparin Disposition: Continue heparin/coumadin bridge - given frailty may need to st abilize counts here in-house prior to transfer; referral to [facility] for rehab when medically stable -- is hoping to see if he qualifies for a lift chair - can check with case management on Tuesday if this is something that would be covered -- also would like a list of supplements for cognition that would not be safe to take with Coumadin -- From what I can find should avoid ginseng, gingko biloba, and high doses of Vit E; Can continue B12, omega 3s, and she specifically asked about phosphatidylserine which I could not find that this would interfere however did express that these are not regulated and as well that I am not an expert in regards to these alternative modalities Subjective patient with no major complaints today wants to know how long he has to have leg in abduction, discussed that it is ordered by ortho no chest pain, no dyspnea, no fever he has constipation, drinking Miralax while I was in the room reviewed vitals, stable, HR occasionally 100s reviewed labs, Hb down slightly to 8.1 but not a major change from 8.4 INR is 1.2 with starting Coumadin Cr stable and electrolytes normal updated at the bedside discussed that he will be here a few more days, want to observe Hb while on heparin and Coumadin Review of Systems Review of Systems: All systems reviewed & are unremarkable except as noted in HPI & below Constitutional: + fatigue and + weakness; no fever, no chills and no sweats Respiratory: no cough and no dyspnea Cardiovascular: no chest pain and no edema Gastrointestinal: + constipation; no abdominal pain, no nausea, no vomiting and no diarrhea/loose stools Genitourinary: + problem reported (nam) Musculoskeletal: + joint pain (hip pain) Physical Exam Constitutional: WD/WN, vitals as above Eyes: PERRL, conjunctivae normal, anicteric sclerae ENMT: external ear and nose normal, oropharynx normal Neck: trachea midline, no thyromegaly Respiratory: normal respiratory effort, lungs clear to auscultation Cardiovascular: RRR, no murmur, no edema Gastrointestinal (Abdomen): normal bowel sounds, soft, nontender, no hepatosplenomegaly Musculoskeletal: no cyanosis or clubbing, extremities motor strength 5/5 Extremities: + limited ROM of extremities (left hip joint due to pain) and + abnormal strength (weak in lower extremities) Skin: no rashes, warm and dry Neurologic: patellar DTR's 2+ bilat, sensation intact and PERRL, EOMI, accommodation nl, no face palsy, no dysarthria Psychiatric: A+Ox3, euthymic affect Lymphatic: no cervical or axillary lymphadenopathy Results & Data Vital Signs (Past 12 Hours) Vital Signs Temp Pulse Pulse Resp BP Pulse Ox 10/01/18 15:13 36.4 C L 100 H 16 118/65 92 10/01/18 07:13 37.2 C 100 H 16 154/74 H 94 Laboratory Results Laboratory Results - last 24 hr 10/01/18 10/01/18 10/01/18 06:37 06:37 06:37 WBC 9.46 RBC 2.70 L Hgb 8.1 L Hct 24.2 L MCV 89.6 MCH 30.0 MCHC 33.5 RDW Std Deviation 46.4 H RDW Coeff of Prem 14.3 Plt Count 194 MPV 9.8 PT 12.5 H INR 1.2 H APTT 42.7 H PTT Ratio 1.6 Sodium 135 L Potassium 4.0 Chloride 102 Carbon Dioxide 27 Anion Gap 6.0 BUN 16 Creatinine 0.67 Est Cr Clr Drug Dosing 81.4 Est GFR ( Amer) 100.1 Est GFR (Non-Af Amer) 86.4 BUN/Creatinine Ratio 24.2 H Glucose 102 H Calcium 9.5 Medications Administered Current Inpatient Medications Acetaminophen (Tylenol) 650 mg PO Q4H PRN PRN Reason: Pain or Fever Stop: 10/25/18 00:33 Last Admin: 09/25/18 15:47 Dose: 650 mg Documented by: Aspirin (Ecotrin Ectab) 81 mg PO DAILY [facility] Stop: 10/28/18 08:59 Last Admin: 10/01/18 08:38 Dose: 81 mg Documented by: Bisacodyl (Dulcolax) 10 mg CO DAILY PRN PRN Reason: Constipation Stop: 10/26/18 16:29 Last Admin: 10/01/18 05:02 Dose: 10 mg Documented by: Docusate Sodium (Colace) 100 mg PO BID [facility] Stop: 10/29/18 20:59 Last Admin: 10/01/18 16:02 Dose: 100 mg Documented by: Folic Acid (Folvite) 400 mcg PO QAM [facility] Stop: 10/25/18 08:59 Last Admin: 10/01/18 08:38 Dose: 400 mcg Documented by: Heparin Sodium/Dextrose (Heparin Sodium/Dextrose) 25,000 units in 500 mls @ 21 mls/hr IV .[id number] [facility]; Protocol Stop: 10/27/18 07:44 Last Titration: 10/01/18 09:48 Dose: 1,050 units/hr, 21 mls/hr Documented by: Levothyroxine Sodium (Synthroid) 25 mcg PO DAILYBB [facility] Stop: 10/25/18 06:29 Last Admin: 10/01/18 05:03 Dose: 25 mcg Documented by: Magnesium Hydroxide (Milk Of Magnesia) 30 ml PO DAILY PRN PRN Reason: Constipation Stop: 10/26/18 16:29 [facility] (Mag-[facility]) [facility] Stop: 10/31/18 08:59 Last Admin: 10/01/18 08:38 Dose: 400 mg Documented by: Menthol (Nice) 1 shannon BUCCAL Q2H PRN PRN Reason: Sore Throat Stop: 10/26/18 16:29 Metoprolol Succinate (Toprol Xl) 12.5 mg PO QAM [facility] Stop: 10/25/18 08:59 Last Admin: 10/01/18 08:37 Dose: 12.5 mg Documented by: Miscellaneous (Order Awaiting Action) 1 ea N/A DAILY [facility] Stop: 10/25/18 08:59 Last Admin: 10/01/18 08:38 Dose: Not Given Documented by: Miscellaneous (Order Awaiting Action) 1 ea N/A DAILY [facility] Stop: 10/25/18 08:59 Last Admin: 10/01/18 08:38 Dose: Not Given Documented by: Morphine Sulfate (Morphine Sulfate) 2 mg IV Q2H PRN PRN Reason: Pain Stop: 10/11/18 04:53 Last Admin: 09/29/18 16:51 Dose: 2 mg Documented by: Naloxone HCl (Narcan) 0.1 mg IV UD PRN PRN Reason: Opioid Overdose Stop: 10/26/18 16:29 Nitroglycerin (Nitrostat) 0.4 mg SL UD PRN PRN Reason: Chest Pain Stop: 10/25/18 00:33 Ondansetron HCl (Zofran) 4 mg IV Q6H PRN PRN Reason: Nausea And Vomiting Stop: 10/26/18 16:29 Oxycodone HCl (Roxicodone Immediate Rel) 5 mg PO Q4H PRN PRN Reason: Moderate Pain (Scale 4,5,6) Stop: 10/10/18 16:29 Last Admin: 10/01/18 07:33 Dose: 5 mg Documented by: Polyethylene Glycol (Miralax Powder Packet) 17 gm PO Q6 [facility] Stop: 10/28/18 05:59 Last Admin: 10/01/18 15:58 Dose: 17 gm Documented by: Polyethylene Glycol (Miralax Powder Packet) 17 gm PO DAILY PRN PRN Reason: Constipation Stop: 10/29/18 19:26 Sennosides (Senokot) 17.2 mg PO HS [facility] Stop: 10/26/18 20:59 Last Admin: 10/01/18 15:57 Dose: 17.2 mg Documented by: Tramadol HCl (Ultram) 25 mg PO Q4H PRN PRN Reason: Pain Stop: 10/28/18 17:22 Warfarin Sodium (Coumadin) 2 mg PO DAILY@1600 [facility] Stop: 10/28/18 17:24 Last Admin: 10/01/18 15:56 Dose: 2 mg Documented by: PG Care Time/CCT Total # of Minutes Spent Total Time Spent with Patient: Total time spent is greater than 50% in coordination of care (as documented) at patient's floor/unit and/or counseling patient: (1) Subcapital fracture of left hip Encounter type: initial encounter Fracture type: closed Qualified Code(s): S72.012A - Unspecified intracapsular fracture of left femur, initial encounter for closed fracture
[2018-10-01 17:52] LABS: Partial Thromboplastin Ratio 1.4; Partial Thromboplastin Time 37.6 Seconds (21.0-31.0)
[2018-10-01] MEDS ORDERED: HEPARIN IV BOLUS 6,000 UNITS in SYRINGE 0 ML IV ONE (19:05)
[2018-10-02 01:52] LABS: Partial Thromboplastin Ratio > 5.1
[2018-10-02 01:59] LABS: Partial Thromboplastin Time > 139.0 Seconds (21.0-31.0)
[2018-10-02 03:29] LABS: Hematocrit (blood only) 22.4 % (42-52); Hemoglobin 7.6 g/dL (14.0-18.0)
[2018-10-02 03:47] LABS: BUN Creatinine Ratio 25.7 (10-20); Calcium 9.4 mg/dl (8.5-10.1); Creatinine Clr Calc Pharmacy 73.7 ml/min; Est GFR (African American) 96.1; Est GFR (Non-African American) 82.9
[2018-10-02 03:50] LABS: Partial Thromboplastin Ratio 2.3; Partial Thromboplastin Time 63.1 Seconds (21.0-31.0)
[2018-10-02] MEDS: HEPARIN SODIUM/DEXTROSE 25,000 UNITS/500 ML BAG IV SCH ×2 (04:29→09:11)
[2018-10-02] MEDS: POLYETHYLENE (MIRALAX) 17 GM PACK PO SCH ×3 (05:40→20:25)
[2018-10-02] MEDS: LEVOTHYROXINE SODIUM 25 MCG TABLET PO SCH (05:40)
[2018-10-02] MEDS: TRAMADOL HCL 50 MG TABLET PO PRN (07:36)
--- NOTE | 2018-10-02 09:07 | Progress Note ---
DATE: 10/02/2018 SUBJECTIVE: An 88-year-old gentleman postop day 6 from left cemented bipolar hip arthroplasty for fracture. Seems to be about baseline. No new complaints. Therapy has gone slow. PHYSICAL EXAMINATION: GENERAL: Shows a pleasant elderly male. He is lying in bed. He has just got cleaned up and a little bit irritated from that. EXTREMITIES: Examination of the left hip reveals the dressing to be dry and in place. It was just changed. He has got some moderate swelling in his leg. He seems to move his foot appropriately. LABORATORIES: Hemoglobin 7.6, hematocrit 22.4. ASSESSMENT: An 88-year-old gentleman postoperative day 6 from a left cemented bipolar hip arthroplasty for fracture. He is orthopedically stable. He is on anticoagulation and his hemoglobin is varied. Certainly on the low side this morning. No signs of active bleeding in his hip. PLAN: 1. DVT prophylaxis including thigh-high TEDs, SCDs, and anticoagulation per the medicine service. 2. PT/OT. Can fully weightbear on the left lower extremity. Just needs routine wound care to the left hip. He is probably going to ooze from this for a while, especially considering being on heparin. 3. Pain control, seems to be doing okay with current pain regimen. 4. Disposition: He is orthopedically okay for discharge at any time. I will need to see him back 2 weeks out from surgery date. Any orthopedic questions can be directed to me at [phone].
[2018-10-02] MEDS: DOCUSATE SODIUM 100 MG CAP PO SCH ×2 (09:18→21:41)
[2018-10-02] MEDS: FOLIC ACID 400 MCG TAB PO SCH (09:19)
[2018-10-02] MEDS: ASPIRIN 81 MG ECTAB PO SCH (09:19)
[2018-10-02] MEDS: METOPROLOL SUCC 25MG EXT REL TAB PO SCH (09:19)
[2018-10-02] MEDS: MAGNESIUM OXIDE 400 MG TAB PO SCH (09:20)
[2018-10-02 11:08] LABS: Partial Thromboplastin Ratio 1.9
[2018-10-02 11:15] LABS: Partial Thromboplastin Time 50.7 Seconds (21.0-31.0)
[2018-10-02] MEDS ORDERED: COLCHICINE 0.6 MG TAB PO ONE ×2 (11:43→13:30)
[2018-10-02] MEDS ORDERED: BISACODYL 10 MG SUPP PR ONE (11:45)
--- NOTE | 2018-10-02 11:45 | Hospitalist Progress Note ---
Date of Service October 02, 2018 Assessment & Plan (1) Knee pain: right. knee x-rays with OA, CPPD changes (severe), and effusion. Suspect this is acute pseudogout. Gave 2 doses of colchicine and 10mg prednisone today. I reassessed his knee later in the day and the knee was less warm and less tender. Will defer on arthrocentesis for now. Likely continue low-dose prednisone for a few days. (2) Fever: pseudogout can cause low-grade fever. send u/a and urine cx. recheck cxr. if any true spike over 38 degrees then blood cx's. incision from left hip looks clean. (3) Bilateral pulmonary embolism: 09/26 CTA with b/l upper lobe PEs. Venous dopplers neg for DVT. PROVOKED due to hip fracture and subsequent surgery. Continue Heparin gtt with Coumadin. H/H have trended down -- stool tested -- negative for blood. Repeat INR am. (4) Acute blood loss anemia: Multifactorial - perioperative blood loss, bleeding into tissues of left thigh, phlebotomy, etc. H/H cont to trend down -- stool heme negative. repeat CBC am. if H/H cont downward then Tx 2 units PRBCs (5) Encephalopathy: ongoing. suspect multifactorial. supportive care. (6) Subcapital fracture of left hip: likely osteoporotic. S/P mechanical fall on 09/24. S/P repair on 09/[address] Das. will need F/U in approx. 2 weeks from surgical date. incision clean. Dr Das saw today - cont heparin/coumadin DVT proph. pain control needs vit D level checked. (7) Episodic ataxia: Likely contributing to most recent fall. Has had multiple falls in past. Had fall July 2018 with resulting trace ICH. Was transferred to [facility] [place] - treated nonoperatively. (8) CAD (coronary artery disease): H/O CABG, NSTEMI. Continue Toprol XL 12.5 mg daily and low-dose asa. (9) Benign prostatic hyperplasia with urinary obstruction: Continue Silodosin 8 mg daily and Trospium 20 mg BID [place] d/c today. Watch for retention. Check u/a and urine cx to r/o UTI in light of fever today. Has F/U with Dr. Luo on 10/16 for this issue. (10) Hypothyroidism: Levothyroxine 25 mcg daily last TSH mildly high -- repeat such this admission (11) Constipation: dulcolax suppos x 1 today w/ results stool heme negative (12) DVT prophylaxis: heparin/coumadin bridge will need placement at d/c updated today Subjective patient confused during the visit. at times I asked him questions and he wouldn't even answer. he brought up unrelated topics that did not pertain to his hospital stay. he c/o right knee pain and b/l foot/ankle pain. refusing to bear weight because of such. no BM in several days. eating poorly. at bedside. Review of Systems Constitutional: + fatigue and + anorexia; no fever and no chills Respiratory: no cough and no dyspnea Cardiovascular: no chest pain Gastrointestinal: no abdominal pain, no nausea and no vomiting Physical Exam Constitutional: + altered mental status and + frail appearing; no acute distress and not obese ENMT: external ear and nose normal, oropharynx normal Respiratory: normal respiratory effort, lungs clear to auscultation Cardiovascular: Rate/Rhythm: regular rate and regular rhythm Heart Sounds: normal S1 and normal S2; no murmur Vessels: posterior tibial pulses present and dorsalis pedis pulses present; no JVD Gastrointestinal (Abdomen): Inspection/Auscultation: + abdomen distended and normal bowel sounds Percussion/Palpation: abdomen soft; abdomen nontender Musculoskeletal: left hip w/ mild edema; alec intact, no bloody drainage. b/l knees with moderate effusions. left knee NONTENDER to palpation. right knee mildly warm to touch and very tender with palpation and passive ROM. b/l ankles without synovitis or swelling. Skin: + pallor Psychiatric: Orientation: alert and oriented to person; + not oriented to place and + not oriented to time Results & Data Vital Signs (Past 12 Hours) Vital Signs Temp Pulse Pulse Resp BP Pulse Ox 10/02/18 07:40 36.6 C 97 H 23 144/80 H 96 10/01/18 23:46 37 C 97 H 18 132/71 96 Laboratory Results Laboratory Results - last 24 hr 10/01/18 10/02/18 10/02/18 17:06 01:23 03:14 Hgb 7.6 L Hct 22.4 L APTT 37.6 H > 139.0 H* PTT Ratio 1.4 > 5.1 Sodium Potassium Chloride Carbon Dioxide Anion Gap BUN Creatinine Est Cr Clr Drug Dosing Est GFR ( Amer) Est GFR (Non-Af Amer) BUN/Creatinine Ratio Glucose Calcium 10/02/18 10/02/18 10/02/18 03:14 03:14 10:23 Hgb Hct APTT 63.1 H* 50.7 H* PTT Ratio 2.3 1.9 Sodium 135 L Potassium 4.0 Chloride 100 Carbon Dioxide 27 Anion Gap 8.0 BUN 19 H Creatinine 0.74 Est Cr Clr Drug Dosing 73.7 Est GFR ( Amer) 96.1 Est GFR (Non-Af Amer) 82.9 BUN/Creatinine Ratio 25.7 H Glucose 102 H Calcium 9.4 PG Care Time/CCT Total # of Minutes Spent Total Time Spent with Patient: Total time spent is greater than 50% in coordination of care (as documented) at patient's floor/unit and/or counseling patient: (1) Subcapital fracture of left hip Encounter type: initial encounter Fracture type: closed Qualified Code(s): S72.012A - Unspecified intracapsular fracture of left femur, initial encounter for closed fracture (2) CAD (coronary artery disease) Coronary Disease-Associated Artery/Lesion type: [place] artery [place] vs. transplanted heart: [place] heart Associated angina: without angina Qualified Code(s): I25.10 - Atherosclerotic heart disease of [place] coronary artery without angina pectoris (3) Hypothyroidism Hypothyroidism type: acquired Qualified Code(s): E03.9 - Hypothyroidism, unspecified (4) Constipation Constipation type: other constipation type Qualified Code(s): K59.09 - Other constipation (5) Knee pain Chronicity: acute Laterality: right Qualified Code(s): M25.561 - Pain in right knee (6) Fever Fever type: unspecified Qualified Code(s): R50.9 - Fever, unspecified
[2018-10-02 12:08] LABS: Hematocrit (blood only) 22.4 % (42-52); Hemoglobin 7.6 g/dL (14.0-18.0)
[2018-10-02] MEDS: FERROUS SULFATE 325 MG TAB PO SCH ×2 (12:22→21:41)
--- NOTE | 2018-10-02 14:43 | XRay Report ---
RIGHT KNEE 2 VIEWS HISTORY: Right knee pain. severe pain, effusion; ?CPPD? COMPARISON: Right knee 06/16/2017. FINDINGS: There is no fracture or dislocation. Significant chondrocalcinosis is again noted. Moderate to large knee effusion which has progressed. [id number] tricompartmental osteoarthritis most p ronounced at the lateral compartment. This is similar to the prior study. The bones are osteopenic. N o radiopaque foreign bodies. IMPRESSION: 1. Moderate to large knee effusion which has progressed. 2. 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 This remains unchanged. 3. No fracture or dislocation within the right knee. Electronically signed by: Mathew Arrieta M.D. 10/02/2018 2:41 PM
[2018-10-02] MEDS ORDERED: predniSONE 10 MG TABLET PO STA (14:48)
[2018-10-02] MEDS: WARFARIN SOD 4 MG TAB PO SCH (16:58)
[2018-10-02] MEDS: ACETAMINOPHEN 500 MG TAB PO PRN (16:59)
--- NOTE | 2018-10-02 17:20 | XRay Report ---
XR chest 1V portable CLINICAL HISTORY: fever, hypoxia, eval for any developing pneumonia COMPARISON STUDY: 09/24/2018 FINDINGS: Prior median sternotomy. Chronic elevation right hemidiaphragm. Lungs are considered clear. IMPRESSION: Chronic and postoperative change. No acute process. The above report was generated using voice recognition software. It may contain grammatical, syntax or spelling errors. Electronically signed by: Williams Steven M.D. 10/02/2018 5:18 PM
[2018-10-02] MEDS: SENNA 8.6 MG TAB PO SCH (21:40)
[2018-10-03] MEDS: OXYCODONE HCL IR 5 MG TAB (IMMEDIATE RELEASE) PO PRN ×2 (02:27→08:59)
[2018-10-03] MEDS: LEVOTHYROXINE SODIUM 25 MCG TABLET PO SCH (05:19)
[2018-10-03 05:47] LABS: Nucleated RBC # (auto) 0.05 K/uL (0-0); Nucleated RBC % (auto) 0.3 %
[2018-10-03 05:51] LABS: Hemoglobin 7.3 g/dL (14.0-18.0); Mean Corpuscular Hgb Conc 33.2 g/dL (32-36); Mean Corpuscular Volume 89.1 fL (80-100); Mean Platelet Volume 9.6 fL (7.4-10.4); Platelet Count 332 K/uL (130-400); RDW Coefficient of Variation 14.1 % (11.5-14.5); RDW Standard Deviation 46.1 fL (36.4-46.3); Red Blood Count 2.47 M/uL (4.7-6.1); White Blood Count 18.11 K/uL (4.8-10.8)
[2018-10-03 06:08] LABS: INR 1.7 (0.9-1.1); Partial Thromboplastin Ratio 3.3; Prothrombin Time 16.8 Seconds (9.0-12.0)
[2018-10-03 06:16] LABS: BUN Creatinine Ratio 28.2 (10-20); Calcium 9.6 mg/dl (8.5-10.1); Creatinine Clr Calc Pharmacy 83.4 ml/min; Est GFR (African American) 100.8; Est GFR (Non-African American) 86.9; Potassium 3.9 mmol/L (3.5-5.1)
[2018-10-03 06:30] LABS: Partial Thromboplastin Time 89.4 Seconds (21.0-31.0)
[2018-10-03 06:36] LABS: Basophils # (auto) 0.02 K/uL (0-0.2); Basophils % (auto) 0.1 %; Eosinophils # (auto) 0.12 K/uL (0-0.5); Eosinophils % (auto) 0.7 %; Immature Granulocytes # (auto) 0.32 K/uL (0.00-0.02); Immature Granulocytes % (auto) 1.8 %; Lymphocytes # (auto) 1.73 K/uL (1.2-3.4); Lymphocytes % (auto) 9.6 %; Monocytes # (auto) 1.38 K/uL (0.11-0.59); Monocytes % (auto) 7.6 %; Neutrophils # (auto) 14.54 K/uL (1.4-6.5); Neutrophils % (auto) 80.2 %; Polychromasia 1+
[2018-10-03] MEDS: HEPARIN SODIUM/DEXTROSE 25,000 UNITS/500 ML BAG IV SCH (07:30)
[2018-10-03] MEDS: MAGNESIUM OXIDE 400 MG TAB PO SCH (08:59)
[2018-10-03] MEDS: FERROUS SULFATE 325 MG TAB PO SCH ×2 (08:59→20:19)
[2018-10-03] MEDS: ASPIRIN 81 MG ECTAB PO SCH (08:59)
[2018-10-03] MEDS: FOLIC ACID 400 MCG TAB PO SCH (09:00)
[2018-10-03] MEDS: METOPROLOL SUCC 25MG EXT REL TAB PO SCH (09:00)
[2018-10-03] MEDS: DOCUSATE SODIUM 100 MG CAP PO SCH ×2 (09:01→20:19)
[2018-10-03] MEDS ORDERED: SODIUM CHLORIDE 0.9% 250 ML IV PRN (11:00)
[2018-10-03] MEDS ORDERED: HYDROCODONE/ACETAMOPHEN 5/325MG TAB PO PRN (11:01)
--- NOTE | 2018-10-03 11:02 | Hospitalist Progress Note ---
Date of Service October 03, 2018 Assessment & Plan (1) Knee pain: b/l but mainly the right knee. suspect pseudogout flare - x-rays with severe CPPD changes. effusion and pain much better s/p prednisone and colchicine in the last 24 hours. will continue prednisone 10mg daily for a few more days. orthopedics evaluated him as well - they recommend to continue the prednisone; defer on arthrocentesis for now. (2) Fever: resolved. cxr w/o infiltrates. u/a today wnl. pseudogout can cause low-grade fever. incision from left hip looks clean. follow for any recurrent fever and re-culture if needed. (3) Bilateral pulmonary embolism: 09/26 CTA with b/l upper lobe PEs. Venous dopplers neg for DVT. PROVOKED due to hip fracture and subsequent surgery. Continue Heparin gtt with Coumadin. INR 1.7 today; repeat INR am. H/H near 7 today but no active bleeding from left hip and stool heme negative. (4) Acute blood loss anemia: Multifactorial - perioperative blood loss, bleeding into tissues of left thigh, phlebotomy, etc. H/H cont to trend down -- stool heme negative. Hb nearly 7 today -- will transfuse 2 units PRBCs with lasix in between. CBC am. (5) Encephalopathy: ongoing but improved today. suspect multifactorial - hospital psychosis, toxic (narcotics), etc. will stop most narcotics except for norco. supportive care. (6) Subcapital fracture of left hip: likely osteoporotic. S/P mechanical fall on 09/24. S/P repair on 09/[address] Das. will need F/U in approx. 2 weeks from surgical date. incision clean. Dr Das saw today - cont heparin/coumadin DVT proph. pain control needs vit D level checked before discharge. (7) Episodic ataxia: Likely contributing to most recent fall. Has had multiple falls in past. Had fall July 2018 with resulting trace ICH. Was transferred to [facility] [place] - treated nonoperatively. PT and OT. rehab. (8) CAD (coronary artery disease): H/O CABG, NSTEMI. Continue Toprol XL 12.5 mg daily and low-dose asa. (9) Benign prostatic hyperplasia with urinary obstruction: Continue Silodosin 8 mg daily and Trospium 20 mg BID u/a unremarkable. nam has been d/c and he is voiding ok thus far. Has F/U with Dr. Luo on 10/16 for this issue. (10) Hypothyroidism: Levothyroxine 25 mcg daily. last TSH mildly high -- repeat TSH am. (11) Constipation: resolved cont bowel regimen (12) DVT prophylaxis: heparin/coumadin bridge will need placement at d/c for rehab doing overall better today Subjective patient more comfortable today. right knee pain improved. left hip is the worst area of pain. appetite slightly better today. more oriented and more awake today than yesterday. denies new complaints. Review of Systems Constitutional: + fatigue; no fever Respiratory: no cough and no dyspnea Cardiovascular: no chest pain Gastrointestinal: no abdominal pain, no nausea and no vomiting Genitourinary: no difficulty urinating Musculoskeletal: as per Subjective / HPI and + joint pain Physical Exam Constitutional: + frail appearing; no acute distress calm, more oriented today ENMT: external ear and nose normal, oropharynx normal Respiratory: normal respiratory effort, lungs clear to auscultation Cardiovascular: Rate/Rhythm: regular rate and regular rhythm Heart Sounds: normal S1 and normal S2; no murmur Vessels: posterior tibial pulses present and dorsalis pedis pulses present; no JVD Gastrointestinal (Abdomen): Inspection/Auscultation: + abdomen distended (much less than yesterday) and normal bowel sounds Percussion/Palpation: abdomen soft; abdomen nontender Musculoskeletal: left hip - alec/incision intact; mild [place]-incision ecchymoses. right knee - mild/mod effusion but less warmth and much less tender today to palpation; I am able to flex/extend knee today w/o much difficulty or pain. left knee with mild effusion but no pain. b/l feet w/o synovitis. Skin: + pallor Psychiatric: Orientation: alert, oriented to person and oriented to place; + not oriented to time Results & Data Vital Signs (Past 12 Hours) Vital Signs Temp Pulse Pulse Resp BP BP Pulse Ox 10/03/18 07:27 36.5 C 88 18 117/64 97 10/02/18 23:53 36.6 C 97 H 18 147/75 H 94 Laboratory Results Laboratory Results - last 24 hr 10/02/18 10/02/18 10/02/18 10:14 10:14 10:14 WBC RBC Hgb 7.6 L Hct 22.4 L MCV MCH MCHC RDW Std Deviation RDW Coeff of Prem Plt Count MPV Immature Gran % (Auto) Neut % (Auto) Lymph % (Auto) [place] % (Auto) Eos % (Auto) Baso % (Auto) Immature Gran # (Auto) Neut # (Auto) Lymph # (Auto) [place] # (Auto) Eos # (Auto) Baso # (Auto) Absolute Nucleated RBC Nucleated RBC % (auto) Polychromasia ESR 74 H PT INR APTT PTT Ratio Sodium Potassium Chloride Carbon Dioxide Anion Gap BUN Creatinine Est Cr Clr Drug Dosing Est GFR ( Amer) Est GFR (Non-Af Amer) BUN/Creatinine Ratio Glucose Uric Acid 3.2 Calcium Stool Occult Bld Scrn 10/02/18 10/02/18 10/03/18 10:23 14:15 05:24 WBC 18.11 H RBC 2.47 L Hgb 7.3 L Hct 22.0 L MCV 89.1 MCH 29.6 MCHC 33.2 RDW Std Deviation 46.1 RDW Coeff of Prem 14.1 Plt Count 332 D MPV 9.6 Immature Gran % (Auto) 1.8 Neut % (Auto) 80.2 Lymph % (Auto) 9.6 [place] % (Auto) 7.6 Eos % (Auto) 0.7 Baso % (Auto) 0.1 Immature Gran # (Auto) 0.32 H Neut # (Auto) 14.54 H Lymph # (Auto) 1.73 [place] # (Auto) 1.38 H Eos # (Auto) 0.12 Baso # (Auto) 0.02 Absolute Nucleated RBC 0.05 H Nucleated RBC % (auto) 0.3 Polychromasia 1+ ESR PT INR APTT 50.7 H* PTT Ratio 1.9 Sodium Potassium Chloride Carbon Dioxide Anion Gap BUN Creatinine Est Cr Clr Drug Dosing Est GFR ( Amer) Est GFR (Non-Af Amer) BUN/Creatinine Ratio Glucose Uric Acid Calcium Stool Occult Bld Scrn Negative 10/03/18 10/03/18 05:24 05:24 WBC RBC Hgb Hct MCV MCH MCHC RDW Std Deviation RDW Coeff of Prem Plt Count MPV Immature Gran % (Auto) Neut % (Auto) Lymph % (Auto) [place] % (Auto) Eos % (Auto) Baso % (Auto) Immature Gran # (Auto) Neut # (Auto) Lymph # (Auto) [place] # (Auto) Eos # (Auto) Baso # (Auto) Absolute Nucleated RBC Nucleated RBC % (auto) Polychromasia ESR PT 16.8 H INR 1.7 H APTT 89.4 H* PTT Ratio 3.3 Sodium 136 Potassium 3.9 Chloride 102 Carbon Dioxide 25 Anion Gap 9.0 BUN 19 H Creatinine 0.66 Est Cr Clr Drug Dosing 83.4 Est GFR ( Amer) 100.8 Est GFR (Non-Af Amer) 86.9 BUN/Creatinine Ratio 28.2 H Glucose 116 H Uric Acid Calcium 9.6 Stool Occult Bld Scrn PG Care Time/CCT Total # of Minutes Spent Total Time Spent with Patient: Total time spent is greater than 50% in coordination of care (as documented) at patient's floor/unit and/or counseling p atient: (1) Fever Fever type: unspecified Qualified Code(s): R50.9 - Fever, unspecified (2) CAD (coronary artery disease) Associated angina: without angina Coronary Disease-Associated Artery/Lesion type: [place] artery [place] vs. transplanted heart: [place] heart Qualified Code(s): I25.10 - Atherosclerotic heart disease of [place] coronary artery without angina pectoris (3) Hypothyroidism Hypothyroidism type: acquired Qualified Code(s): E03.9 - Hypothyroidism, unspecified (4) Subcapital fracture of left hip Encounter type: initial encounter Fracture type: closed Qualified Code(s): S72.012A - Unspecified intracapsular fracture of left femur, initial encounter for closed fracture (5) Knee pain Chronicity: acute Laterality: right Qualified Code(s): M25.561 - Pain in right knee (6) Constipation Constipation type: other constipation type Qualified Code(s): K59.09 - Other constipation
[2018-10-03] MEDS ORDERED: FUROSEMIDE 20 MG in SYRINGE 0 ML IV ONE (11:45)
[2018-10-03] MEDS: predniSONE 10 MG TABLET PO SCH (13:15)
[2018-10-03 13:45] LABS: Partial Thromboplastin Ratio 2.5; Partial Thromboplastin Time 66.9 Seconds (21.0-31.0)
[2018-10-03 14:47] LABS: Appearance Urine Clear (Clear); Bilirubin Urine Negative (Negative); Blood Urine Negative (Negative); Color Urine Orange; Glucose Urine UA Negative (Negative); Ketones Urine Negative (Negative); Leukocyte Esterase Urine Negative (Negative); Nitrite Urine Negative (Negative); Protein Urine Negative (Negative); Specific Gravity Urine 1.021 (1.000-1.030); Urobilinogen Urine Negative (Negative)
--- NOTE | 2018-10-03 15:27 | Progress Note ---
DATE: 10/03/2018 SUBJECTIVE: An 88-year-old gentleman now 1 week out from a left hip hemiarthroplasty for fracture. This was complicated by some PEs and on anticoagulation. He was having some knee pain. Yesterday, he was put on some prednisone and colchicine and doing better today. He denies any knee pain today. Denies any significant hip pain. PHYSICAL EXAMINATION: GENERAL: He is a pleasant elderly male. He is lying in bed. EXTREMITIES: Examination of the left hip reveals the dressing to be in place. There is some significant serosanguineous drainage on his dressing. He has got moderate thigh swelling. He does dorsiflex and plantarflex his toes appropriately. Examination of both knees revealed some moderate sized knee effusions. No redness or warmth. Not really tender today. LABORATORY DATA: His hemoglobin today is 7.3. Hematocrit 22. His INR is 1.7. Electrolytes are stable. ASSESSMENT: An 88-year-old gentleman now a week out from a left cemented bipolar hip arthroplasty for fracture complicated by PE on anticoagulation. He was having some knee pain and has significant degenerative changes and chondrocalcinosis in his knee on x-ray. He was treated with some prednisone and colchicine and seems to be doing better. His arthroplasty seems to be doing okay. He has been having a decent amount of serous drainage which is not unexpected considering his medical situation and the anticoagulation. PLAN: From the orthopedic standpoint, we will continue DVT prophylaxis including thigh-high TEDs, SCDs, and anticoagulation as per the medicine service. He can fully weightbear on the left leg. We just need to continue routine wound care to the left hip. With respect to his knees, we talked about treatment. I did offer him aspiration and injection today, but he is really not having much pain and he is really tired of being poked. I certainly understand that and we will continue medical management for this. We can certainly aspirate his knees in the future if needed. Once again, he is okay for discharge from the orthopedic standpoint any time medically stable. I need to see him back about 2 weeks from surgery date. Any orthopedic questions can be directed to me at [phone].
[2018-10-03] MEDS: WARFARIN SOD 4 MG TAB PO SCH (15:57)
[2018-10-03 20:12] LABS: Partial Thromboplastin Ratio 2.3
[2018-10-03] MEDS: SENNA 8.6 MG TAB PO SCH (20:17)
[2018-10-03] MEDS: ACETAMINOPHEN 500 MG TAB PO PRN (20:19)
[2018-10-03 20:31] LABS: Partial Thromboplastin Time 62.8 Seconds (21.0-31.0)
[2018-10-04] MEDS: HEPARIN SODIUM/DEXTROSE 25,000 UNITS/500 ML BAG IV SCH ×2 (04:46→10:04)
[2018-10-04] MEDS: LEVOTHYROXINE SODIUM 25 MCG TABLET PO SCH (05:41)
[2018-10-04 07:05] LABS: Basophils # (auto) 0.03 K/uL (0-0.2); Basophils % (auto) 0.2 %; Eosinophils # (auto) 0.48 K/uL (0-0.5); Eosinophils % (auto) 3.8 %; Hematocrit (blood only) 30.6 % (42-52); Hemoglobin 10.3 g/dL (14.0-18.0); Immature Granulocytes # (auto) 0.58 K/uL (0.00-0.02); Immature Granulocytes % (auto) 4.7 %; Lymphocytes # (auto) 2.55 K/uL (1.2-3.4); Lymphocytes % (auto) 20.4 %; Mean Corpuscular Hgb Conc 33.7 g/dL (32-36); Mean Corpuscular Volume 87.7 fL (80-100); Monocytes # (auto) 1.06 K/uL (0.11-0.59); Monocytes % (auto) 8.5 %; Neutrophils # (auto) 7.77 K/uL (1.4-6.5); Neutrophils % (auto) 62.4 %; Nucleated RBC # (auto) 0.08 K/uL (0-0); Nucleated RBC % (auto) 0.6 %; Platelet Count 365 K/uL (130-400); RDW Coefficient of Variation 15.4 % (11.5-14.5); RDW Standard Deviation 48.8 fL (36.4-46.3); Red Blood Count 3.49 M/uL (4.7-6.1); White Blood Count 12.47 K/uL (4.8-10.8)
[2018-10-04 07:23] LABS: INR 2.3 (0.9-1.1); Partial Thromboplastin Ratio 2.9; Prothrombin Time 22.4 Seconds (9.0-12.0)
[2018-10-04 07:32] LABS: Partial Thromboplastin Time 77.7 Seconds (21.0-31.0)
[2018-10-04 07:41] LABS: BUN Creatinine Ratio 26.5 (10-20); Calcium 9.8 mg/dl (8.5-10.1); Creatinine Clr Calc Pharmacy 74.4 ml/min; Est GFR (African American) 96.1; Est GFR (Non-African American) 82.9; Potassium 3.4 mmol/L (3.5-5.1)
[2018-10-04] MEDS: predniSONE 10 MG TABLET PO SCH (08:34)
[2018-10-04] MEDS: FERROUS SULFATE 325 MG TAB PO SCH ×2 (08:34→20:40)
[2018-10-04] MEDS: FOLIC ACID 400 MCG TAB PO SCH (08:35)
[2018-10-04] MEDS: ASPIRIN 81 MG ECTAB PO SCH (08:35)
[2018-10-04] MEDS: METOPROLOL SUCC 25MG EXT REL TAB PO SCH (08:36)
[2018-10-04] MEDS: MAGNESIUM OXIDE 400 MG TAB PO SCH (08:37)
[2018-10-04] MEDS: DOCUSATE SODIUM 100 MG CAP PO SCH ×3 (08:40→20:43)
[2018-10-04] MEDS ORDERED: POTASSIUM CHLORIDE 20 MEQ TABCR PO ONE (09:45)
[2018-10-04 14:27] LABS: Partial Thromboplastin Time 55.5 Seconds (21.0-31.0)
[2018-10-04] MEDS: WARFARIN SOD 4 MG TAB PO SCH (16:23)
[2018-10-04] MEDS: TRAMADOL HCL 50 MG TABLET PO PRN (17:45)
[2018-10-04] MEDS: SENNA 8.6 MG TAB PO SCH (20:41)
[2018-10-04] MEDS: TROSPIUM 20 MG TABLET PO SCH (20:41)
--- NOTE | 2018-10-04 20:45 | Progress Note ---
DATE: 10/04/2018 SUBJECTIVE: 88-year-old gentleman now 8 days out from a left cemented bipolar hip arthroplasty for fracture. Seems to be doing better today. His knee pain is improved. Denies any hip pain. OBJECTIVE: GENERAL: Pleasant elderly male. He is lying in bed, looks pretty comfortable. VITAL SIGNS: Temperature is 36.4. Vital signs stable. EXTREMITIES: Examination of the left hip reveals the dressing to be intact. No significant drainage currently. He does have diffuse edema in his leg. His hip is located. He is neurologically intact. Examination of his knees reveals small to moderate size knee effusions, certainly less tense than they have been. He denies any pain in his knees. LABORATORY DATA: Hemoglobin 10.3. Hematocrit 30.6. ASSESSMENT: 88-year-old gentleman now 8 days out from a left cemented bipolar hip arthroplasty for fracture, gradually improving. He seems to be a bit better today. His knee pain is improved. PLAN: 1. DVT prophylaxis including thigh-high TEDs, SCDs, and Coumadin as per the medicine service. 2. PT/OT. He can fully weightbear as tolerated. 3. Knee pain and swelling. Seems to be better after the steroids and the Colchicine. Unfortunately, he cannot take NSAIDs due to Coumadin now. 4. Medical management as per the medicine service. 5. Disposition. He is orthopedically okay for discharge any time. I need to see him back 2 weeks post-surgery date. Any orthopedic questions can be directed to me at [phone].
--- NOTE | 2018-10-04 20:53 | Hospitalist Progress Note ---
Date of Service October 04, 2018 Assessment & Plan (1) Knee pain: b/l but mainly the right knee. suspected pseudogout flare - x-rays with severe CPPD changes. effusion improved; pain resolved -- s/p prednisone and colchicine this week. lower prednisone to 5mg/day tomorrow; cont a few more days then stop. (2) Fever: resolved. cxr w/o infiltrates. u/a and urine cx negative. left hip incision has been clean. may have been pseudogout as this can cause low-grade fever. (3) Bilateral pulmonary embolism: 09/26 CTA with b/l upper lobe PEs. Venous dopplers neg for DVT. PROVOKED due to hip fracture and subsequent surgery. Continue Heparin gtt with Coumadin. INR >2 today; repeat INR am. If INR is still >2 tomorrow then can d/c heparin drip (he would have had 2 days of "overlap" therapy). (4) Acute blood loss anemia: Multifactorial - perioperative blood loss, bleeding into tissues of left thigh, phlebotomy, etc. s/p 2 units PRBCs yesterday with improved Hb to about 10. H/H in am for stability. (5) Encephalopathy: resolved. suspect it was multifactorial - hospital psychosis, toxic (narcotics), etc. (6) Subcapital fracture of left hip: likely osteoporotic. S/P mechanical fall on 09/24. S/P repair on 09/[address] Das. will need F/U in approx. 2 weeks from surgical date. incision clean. check 25 OH Vit D level AM (7) Episodic ataxia: Likely contributing to most recent fall. Has had multiple falls in past. Had fall July 2018 with resulting trace ICH. Was transferred to [facility] - treated nonoperatively. PT and OT. rehab. (8) CAD (coronary artery disease): H/O CABG, NSTEMI. Continue Toprol XL 12.5 mg daily and low-dose asa. (9) Benign prostatic hyperplasia with urinary obstruction: Continue Silodosin 8 mg daily and Trospium 20 mg BID u/a unremarkable. nam has been d/c and he is voiding ok thus far. Has F/U with Dr. Luo on 10/16 for this issue. (10) Hypothyroidism: previous TSH and today's TSH both high increase synthroid to 37.5mcg daily repeat TSH in 4-6 weeks (11) Constipation: resolved cont bowel regimen (12) DVT prophylaxis: heparin/coumadin bridge will need placement at d/c for rehab - [facility] d/c tomorrow? extensively updated by phone today Subjective patient with uneventful day today. b/l knee pain resolved. some ankle pain. left hip pain minimal. eating better. mental status improved; was fully oriented during my visit. worked with PT - 2 person assist for nearly all activities. stood but could not walk more than 1-2 feet. Review of Systems Constitutional: + fatigue; no fever, no chills and no anorexia Respiratory: no cough and no dyspnea Cardiovascular: no chest pain Gastrointestinal: no abdominal pain, no bloating, no nausea and no vomiting Physical Exam Constitutional: + frail appearing; no acute distress overall appearance, color, etc all improved today ENMT: external ear and nose normal, oropharynx normal Respiratory: normal respiratory effort, lungs clear to auscultation Cardiovascular: Rate/Rhythm: regular rate and regular rhythm Heart Sounds: normal S1 and normal S2; no murmur Vessels: posterior tibial pulses present and dorsalis pedis pulses present; no JVD Gastrointestinal (Abdomen): normal bowel sounds, soft, nontender, no hepatosplenomegaly Musculoskeletal: left hip - mild swelling; dressings intact. b/l knees - mild effusions; no warmth, redness or tenderness today. b/l ankles - no pain with palpation or passive ROM. Skin: + pallor (improved today) Psychiatric: Orientation: alert, oriented to person, oriented to place and oriented to time Results & Data Vital Signs (Past 12 Hours) Vital Signs Temp Pulse Resp BP Pulse Ox 10/04/18 15:28 36.4 C L 82 14 129/61 96 Laboratory Results Laboratory Results - last 24 hr 10/04/18 10/04/18 10/04/18 06:26 06:26 06:26 WBC 12.47 H RBC 3.49 L Hgb 10.3 L D Hct 30.6 L MCV 87.7 MCH 29.5 MCHC 33.7 RDW Std Deviation 48.8 H RDW Coeff of Prem 15.4 H Plt Count 365 MPV 10.0 Immature Gran % (Auto) 4.7 Neut % (Auto) 62.4 Lymph % (Auto) 20.4 [place] % (Auto) 8.5 Eos % (Auto) 3.8 Baso % (Auto) 0.2 Immature Gran # (Auto) 0.58 H Neut # (Auto) 7.77 H Lymph # (Auto) 2.55 [place] # (Auto) 1.06 H Eos # (Auto) 0.48 Baso # (Auto) 0.03 Absolute Nucleated RBC 0.08 H Nucleated RBC % (auto) 0.6 PT 22.4 H INR 2.3 H APTT 77.7 H* PTT Ratio 2.9 Sodium 137 Potassium 3.4 L Chloride 103 Carbon Dioxide 29 Anion Gap 5.0 BUN 20 H Creatinine 0.74 Est Cr Clr Drug Dosing 74.4 Est GFR ( Amer) 96.1 Est GFR (Non-Af Amer) 82.9 BUN/Creatinine Ratio 26.5 H Glucose 84 Calcium 9.8 TSH 4.840 H 10/04/18 13:40 WBC RBC Hgb Hct MCV MCH MCHC RDW Std Deviation RDW Coeff of Prem Plt Count MPV Immature Gran % (Auto) Neut % (Auto) Lymph % (Auto) [place] % (Auto) Eos % (Auto) Baso % (Auto) Immature Gran # (Auto) Neut # (Auto) Lymph # (Auto) [place] # (Auto) Eos # (Auto) Baso # (Auto) Absolute Nucleated RBC Nucleated RBC % (auto) PT INR APTT 55.5 H* PTT Ratio 2.0 Sodium Potassium Chloride Carbon Dioxide Anion Gap BUN Creatinine Est Cr Clr Drug Dosing Est GFR ( Amer) Est GFR (Non-Af Amer) BUN/Creatinine Ratio Glucose Calcium TSH PG Care Time/CCT Total # of Minutes Spent Total Time Spent with Patient: Total time spent is greater than 50% in coordination of care (as documented) at patient's floor/unit and/or counseling patient: (1) Fever Fever type: unspecified Qualified Code(s): R50.9 - Fever, unspecified (2) CAD (coronary artery disease) Associated angina: without angina Coronary Disease-Associated Artery/Lesion type: [place] artery [place] vs. transplanted heart: [place] heart Qualified Code(s): I25.10 - Atherosclerotic heart disease of [place] coronary artery without angina pectoris (3) Hypothyroidism Hypothyroidism type: acquired Qualified Code(s): E03.9 - Hypothyroidism, unspecified (4) Subcapital fracture of left hip Encounter type: initial encounter Fracture type: closed Qualified Code(s): S72.012A - Unspecified intracapsular fracture of left femur, initial encounter for closed fracture (5) Knee pain Chronicity: acute Laterality: right Qualified Code(s): M25.561 - Pain in right knee (6) Constipation Constipation type: other constipation type Qualified Code(s): K59.09 - Other constipation
[2018-10-05] MEDS: TRAMADOL HCL 50 MG TABLET PO PRN (05:07)
[2018-10-05 06:24] LABS: Hematocrit (blood only) 30.9 % (42-52); Hemoglobin 10.1 g/dL (14.0-18.0)
[2018-10-05] MEDS ORDERED: LEVOTHYROXINE SODIUM 75 MCG TABLET PO SCH (06:30)
[2018-10-05 06:46] LABS: INR 2.5 (0.9-1.1); Partial Thromboplastin Ratio 2.2; Prothrombin Time 23.6 Seconds (9.0-12.0)
[2018-10-05 06:47] LABS: Partial Thromboplastin Time 60.4 Seconds (21.0-31.0)
[2018-10-05 07:06] LABS: BUN Creatinine Ratio 27.8 (10-20); Calcium 9.5 mg/dl (8.5-10.1); Creatinine Clr Calc Pharmacy 74.4 ml/min; Est GFR (African American) 96.1; Est GFR (Non-African American) 82.9; Potassium 3.7 mmol/L (3.5-5.1)
[2018-10-05] MEDS ORDERED: predniSONE 5 MG TAB PO SCH (09:00)
[2018-10-05] MEDS ORDERED: SILODOSIN 8 MG CAP PO SCH (09:00)
[2018-10-05] MEDS: MAGNESIUM OXIDE 400 MG TAB PO SCH (09:26)
[2018-10-05] MEDS: FOLIC ACID 400 MCG TAB PO SCH (09:26)
[2018-10-05] MEDS: FERROUS SULFATE 325 MG TAB PO SCH (09:26)
[2018-10-05] MEDS: METOPROLOL SUCC 25MG EXT REL TAB PO SCH (09:26)
[2018-10-05] MEDS: TROSPIUM 20 MG TABLET PO SCH (09:27)
[2018-10-05] MEDS: DOCUSATE SODIUM 100 MG CAP PO SCH (09:30)
[2018-10-05] MEDS: ASPIRIN 81 MG ECTAB PO SCH (10:19)
== END 2018-10-05 16:19 | DRG 469 ==
LOC: ED 21:22 → 2W 23:41 → SUATTDRO 23:41 → 2W 09-25 00:10 → 3N 09-30 17:32
DX: Y92.019 Unspecified place in single-family (private) house as the place of occurrence of the external cause; I26.99 Other pulmonary embolism without acute cor pulmonale; Z95.1 Presence of aortocoronary bypass graft; Z90.2 Acquired absence of lung [part of]; K59.00 Constipation, unspecified; F41.9 Anxiety disorder, unspecified; N40.1 Benign prostatic hyperplasia with lower urinary tract symptoms; Z82.49 Family history of ischemic heart disease and other diseases of the circulatory system; I10 Essential (primary) hypertension; Z87.820 Personal history of traumatic brain injury; I25.2 Old myocardial infarction; G93.41 Metabolic encephalopathy; Z79.899 Other long term (current) drug therapy; G92 Toxic encephalopathy; Z87.891 Personal history of nicotine dependence; Z87.440 Personal history of urinary (tract) infections; Z88.8 Allergy status to other drugs, medicaments and biological substances; Y93.01 Activity, walking, marching and hiking; R07.89 Other chest pain; I71.4 Abdominal aortic aneurysm, without rupture; D62 Acute posthemorrhagic anemia; Z91.81 History of falling; T40.2X5A Adverse effect of other opioids, initial encounter; I25.10 Atherosclerotic heart disease of native coronary artery without angina pectoris; I44.0 Atrioventricular block, first degree; S09.90XA Unspecified injury of head, initial encounter; E03.9 Hypothyroidism, unspecified; Y99.8 Other external cause status; R39.15 Urgency of urination; M80.052A Age-related osteoporosis with current pathological fracture, left femur, initial encounter for fracture; Z86.79 Personal history of other diseases of the circulatory system; W01.190A Fall on same level from slipping, tripping and stumbling with subsequent striking against furniture, initial encounter; R27.0 Ataxia, unspecified; M11.261 Other chondrocalcinosis, right knee; M17.11 Unilateral primary osteoarthritis, right knee

== ENCOUNTER 2019-04-12 09:36 | Observation (INO) ==
--- NOTE | 2019-04-05 10:43 | PAT Medication Instructions ---
Medication Instructions Date of Service April 05, 2019 Home Medications Medication Instructions Recorded ferrous sulfate 325 mg PO BID #60 tab 10/05/18 cholecalciferol (vitamin D3) 125 5,000 units PO DAILY #30 cap 11/15/18 mcg (5,000 unit) capsule warfarin 4 mg tablet 4 mg PO .COMPLEX #60 tab 01/03/19 levothyroxine 75 mcg tablet 37.5 mcg PO DAILYBB #45 tab 03/01/19 ascorbic acid (vitamin C) 1,000 mg tablet 3,000 mg PO DAILY coenzyme Q10 100 mg capsule 100 mg PO QAM metoprolol succinate 25 mg tablet,extended release 24 hr 12.5 mg PO QAM nitroglycerin 0.4 mg sublingual tablet 0.4 mg SL UD PRN vitamin A 8,000 unit capsule 8,000 unit PO QAM multivitamin 1 tab PO PM vitamin B complex 1 cap PO DAILY silodosin 8 mg capsule 8 mg PO QAM trospium 20 mg tablet 20 mg PO BID ferrous sulfate 325 mg PO BID cholecalciferol (vitamin D3) 125 mcg (5,000 unit) capsule 5,000 units PO DAILY cartilage 40 mg-collagen II 10 mg-boron 5 mg-hyaluronate 3.3 mg tablet 1 tab PO DAILY warfarin 4 mg tablet 4 mg PO .COMPLEX levothyroxine 75 mcg tablet 37.5 mcg PO DAILYBB acetaminophen 325 mg PO BID PRN alpha lipoic acid 100 mg PO DAILY omega-3 fatty acids 4,000 mg PO DAILY Continue as directed nitroglycerin 0.4 mg sublingual tablet 0.4 mg SL UD PRN (if needed) ASK your prescriber and surgeon warfarin 4 mg tablet 4 mg PO .COMPLEX STOP taking 2 weeks before surgery (or as soon as possible if surgery is within 2 weeks) coenzyme Q10 100 mg capsule 100 mg PO QAM cartilage 40 mg-collagen II 10 mg-boron 5 mg-hyaluronate 3.3 mg tablet 1 tab PO DAILY alpha lipoic acid 100 mg PO DAILY omega-3 fatty acids 4,000 mg PO DAILY DO NOT take the morning of surgery ascorbic acid (vitamin C) 1,000 mg tablet 3,000 mg PO DAILY vitamin A 8,000 unit capsule 8,000 unit PO QAM vitamin B complex 1 cap PO DAILY trospium 20 mg tablet 20 mg PO BID ferrous sulfate 325 mg PO BID cholecalciferol (vitamin D3) 125 mcg (5,000 unit) capsule 5,000 units PO DAILY Take morning of surgery With a small sip of water, OTHERWISE NOTHING TO EAT OR DRINK AFTER MIDNIGHT: metoprolol succinate 25 mg tablet,extended release 24 hr 12.5 mg PO QAM silodosin 8 mg capsule 8 mg PO QAM levothyroxine 75 mcg tablet 37.5 mcg PO DAILYBB acetaminophen 325 mg PO BID PRN (okay to take up to 4 hours prior to surgery if needed) Take evening before surgery multivitamin 1 tab PO PM trospium 20 mg tablet 20 mg PO BID ferrous sulfate 325 mg PO BID acetaminophen 325 mg PO BID PRN (if needed) Other Notes If you have any questions please call us at [phone] or [phone] or [phone] or [phone]
--- NOTE | 2019-04-05 11:46 | Anesthesiology Consultation ---
Date of Service April 05, 2019 Assessment & Plan (1) Encounter for pre-operative examination: - Cardiology office visit: 01/22/19: "Multivessel CAD status post CABG x 3: He denies angina or heart failure symptoms.. Postoperative atrial fibrillation: He was asymptomatic. He has no other documented atrial fibrillation. Therefore, long-term anticoagulation therapy is not indicated, unless he should have recurrent episodes." F/U 6 months. - S/P Left hip hemiarthroplasty: 09/26/18: SAB x1 attempt at L3 at [facility] - Check coags AM DOS (last dose of warfarin completed 04/05/19- was on for 6 months s/p post-op PE) - Medication instructions: Patient's reported that PCP at visit 04/04 advised patient that he would likely need to hold his metoprolol 24 hours prior to surgery. Patient was advised subsequently at PAT visit on 04/05 the importance of continuing his beta dinorah perioperatively without interruption. Patient and voiced understanding and state they will continue as directed. Chart Review Chart Review: Acceptable Risk for Surgery (pending evaluation AM DOS) and Patient seen in Pre Admission Testing Teaching & Discussion Pre-Anesthesia Teaching/Discussion Notes: Instructed NPO after midnight before surgery,except medications with 15 cc of water. Medication instructions provided according to the PAT guidelines. History Surgery Operation Date: 04/12/19 12:05 Proposed Procedures p Transurethral Resection Prostate - Basilio Luo MD Height/Weight Height: 5 ft 8 in Weight: 84.2 kg Allergies Allergy/AdvReac Type Severity Reaction Status Date / Time benzoic acid Allergy Intermediate rash Verified 04/04/19 10:06 lisinopril AdvReac Intermediate Cough Verified 04/04/19 10:06 Medications Home Medications Medication Instructions Recorded Confirmed Last Taken ascorbic acid (vitamin C) 1,000 mg 3,000 mg PO DAILY tab 07/12/18 04/04/19 09/24/18 tablet coenzyme Q10 100 mg capsule 100 mg PO QAM cap 07/12/18 04/04/19 09/24/18 metoprolol succinate 25 mg 12.5 mg PO QAM #30 tab 07/12/18 04/04/19 09/24/18 tablet,extended release 24 hr nitroglycerin 0.4 mg sublingual 0.4 mg SL UD PRN #25 tab 07/12/18 04/04/19 Unknown tablet vitamin A 8,000 unit capsule 8,000 unit PO QAM cap 07/12/18 04/04/19 09/24/18 multivitamin 1 tab PO PM 07/28/18 04/04/19 09/24/18 vitamin B complex 1 cap PO DAILY 07/28/18 04/04/19 09/24/18 silodosin 8 mg capsule 8 mg PO QAM 09/01/18 04/04/19 09/24/18 trospium 20 mg tablet 20 mg PO BID 09/01/18 04/04/19 09/24/18 ferrous sulfate 325 mg PO BID #60 tab 10/05/18 04/04/19 Unknown cholecalciferol (vitamin D3) 125 5,000 units PO DAILY #30 cap 11/15/18 04/04/19 Unknown mcg (5,000 unit) capsule cartilage 40 mg-collagen II 10 1 tab PO DAILY tab 11/22/18 04/04/19 Unknown mg-boron 5 mg-hyaluronate 3.3 mg tablet levothyroxine 75 mcg tablet 37.5 mcg PO DAILYBB #45 tab 03/01/19 04/04/19 Unknown acetaminophen 325 mg PO BID PRN 04/04/19 04/04/19 Unknown alpha lipoic acid 100 mg PO DAILY 04/04/19 04/04/19 Unknown omega-3 fatty acids 4,000 mg PO DAILY 04/04/19 04/04/19 Unknown Past Medical History Medical History (Updated 04/05/19 @ 13:47 by Meghan Manuel) Anemia 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 SVG to OM. SVG to RCA. 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 fib after CABG 2016/asymptomatic with no other documented episodes- per cardiology, long-term anticoagulation is not indicated unless he should have recurrent episodes Traumatic intraventricular hemorrhage 07/2018 ([place] [facility] after fall backwards on curb/tripped. Neurosurgery was consulted but treatment was conservative/no acute findings on subsequent head/brain CT 09/2018 [facility] Exercise / Class Metabolic Activity III < 4 Walking/Shop/Light housework Past Family History Family History Mother Colorectal cancer Brother Myocardial infarction Colorectal cancer Sister Ovarian cancer Father Prostate cancer Bone cancer Other No family history of adverse response to anesthesia Denies family history of Breast cancer Past Surgical History Surgical History History of cardiac cath multiple, last done 2015. no stents. 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 2016 S/P colonoscopy S/P hernia repair left inguinal S/P wisdom tooth extraction Past Anesthesia History No Hx of Anesthesia Complications and No Family Hx of Anesthesia Complications History of PONV No Hx of PONV and No Hx of Motion Sickness Social History Smoking Status: Never smoker Do You Dip or Chew Tobacco: No Hx Alcohol Use: Yes (hx - no longer) Alcohol type: wine alcohol intake frequency: holidays/special occasions only Hx Substance Use: No substance use type: does not use Review of Systems Patient denies chest pain, shortness of breath, cough, wheezing, palpitations. Physical Exam Vital Signs VITALS BP 134/75 P 71 TEMP 98.1 SP02 96%RA RESP 18 PHYSICAL Full neck and c-spine range of motion. Full TMJ range of motion. TMD 3.5 finger breaths Mallampati Score 3 Dentition: intact Lungs: clear throughout to auscultation Cardiac: regular rate and rhythm, no murmurs noted Spine: normal Carotid arteries: negative bruit Extremities: no edema Trimmed koo Testing Laboratory Results 04/05/19 12:16 04/05/19 12:16 Urine Color Yellow 04/05/19 Unknown Urine Appearance Clear (Clear) 04/05/19 Unknown Urine pH 5.0 (4.5-7.5) 04/05/19 Unknown Ur Specific [place] 1.025 (1.000-1.030) 04/05/19 Unknown Urine Protein Negative (Negative) 04/05/19 Unknown Urine Glucose (UA) Negative (Negative) 04/05/19 Unknown Urine Ketones Negative (Negative) 04/05/19 Unknown Urine Nitrite Negative (Negative) 04/05/19 Unknown Ur Leukocyte Esterase Negative (Negative) 04/05/19 Unknown Electrocardiogram Date: 09/29/18 ST at 103bpm. Possible LAE. Chest X-Ray Date: 10/02/18 Prior median sternotomy. Chronic elevation right hemidiaphragm. Lungs are considered clear. IMPRESSION: Chronic and postoperative change. No acute process. Echocardiogram Date: 09/27/18 EF 65-70%. Mild cLVH. No RWMA. Mild MR. Cardiac Catheterization Date: 06/13/15 Done for nondiagnostic troponin elevation and chest pain. Ostial left main 40%. Proximal to mid LAD severe stenosis and heavily calcified. Codominant circumflex. Ostial to proximal OM1 80%. Mid RCA 90%. *Subsequent cardiac cath* Other Testing CT head/brain: 09/24/18: No acute intracranial abnormality. Atrophy and age-relat ed chronic small vessel change.
[2019-04-05 13:24] LABS: Basophils # (auto) 0.02 K/uL (0-0.2); Basophils % (auto) 0.3 %; Eosinophils # (auto) 0.22 K/uL (0-0.5); Eosinophils % (auto) 3.7 %; Hematocrit (blood only) 36.6 % (42-52); Hemoglobin 12.2 g/dL (14.0-18.0); Immature Granulocytes # (auto) 0.01 K/uL (0.00-0.02); Immature Granulocytes % (auto) 0.2 %; Lymphocytes # (auto) 1.27 K/uL (1.2-3.4); Lymphocytes % (auto) 21.2 %; Mean Corpuscular Hemoglobin 30.3 pg (25-34); Mean Corpuscular Hgb Conc 33.3 g/dL (32-36); Mean Corpuscular Volume 90.8 fL (80-100); Mean Platelet Volume 10.2 fL (7.4-10.4); Monocytes # (auto) 0.71 K/uL (0.11-0.59); Monocytes % (auto) 11.9 %; Neutrophils # (auto) 3.75 K/uL (1.4-6.5); Neutrophils % (auto) 62.7 %; Platelet Count 203 K/uL (130-400); RDW Coefficient of Variation 15.2 % (11.5-14.5); RDW Standard Deviation 50.3 fL (36.4-46.3); Red Blood Count 4.03 M/uL (4.7-6.1); White Blood Count 5.98 K/uL (4.8-10.8)
[2019-04-05 13:32] LABS: BUN Creatinine Ratio 29.7 (10-20); Calcium 9.8 mg/dl (8.5-10.1); Creatinine Clr Calc Pharmacy 78.6 ml/min; Est GFR (African American) 98.3; Est GFR (Non-African American) 84.9; Potassium 4.1 mmol/L (3.5-5.1)
[2019-04-05 13:38] LABS: Appearance Urine Clear (Clear); Bilirubin Urine Negative (Negative); Blood Urine Negative (Negative); Color Urine Yellow; Glucose Urine UA Negative (Negative); Ketones Urine Negative (Negative); Leukocyte Esterase Urine Negative (Negative); Nitrite Urine Negative (Negative); Protein Urine Negative (Negative); Specific Gravity Urine 1.025 (1.000-1.030); Urobilinogen Urine Negative (Negative)
[~2019-04-12 09:36] MED LIST changes: -ASPI-320 PO; -CARV3.122 PO; +CIPROFLOXACIN 200 MG / 100ML D5W IV SCH; -COEN10CA5 PO; -CRD200 PO; +LR 15ML/HR IV SCH; -LSN25 PO; -MISCCAP80 PO; -NTRSLP4 SL; -OMEG10007 PO; -TAMS0.4C38 PO; -TCMD2 PO; -WARF2.5T8 PO
[2019-04-12] MEDS ORDERED: LIDOCAINE HCL 2% 2 ML VIAL/AMP(20MG/ML) INFIL ONE (10:24)
[2019-04-12] MEDS ORDERED: fentaNYL citrate 100 MCG/2 ML VIAL ONE (10:24)
[2019-04-12] MEDS ORDERED: ePHEDrine sulfate 50 MG/ML SYR ONE (10:24)
[2019-04-12] MEDS ORDERED: PROPOFOL IV EMULSION 10 MG/ML 20 ML VIAL IV ONE (10:24)
[2019-04-12] MEDS ORDERED: ONDANSETRON INJ 2 MG/ML 2 ML VIAL ONE (10:24)
[2019-04-12] MEDS ORDERED: PHENYLEPHRINE 100MCG/ML 5ML SYR ONE (10:24)
[2019-04-12 10:31] LABS: INR 1.1 (0.9-1.1); Partial Thromboplastin Ratio 1.1; Partial Thromboplastin Time 29.3 Seconds (21.0-31.0); Prothrombin Time 10.9 Seconds (9.0-12.0)
[2019-04-12] MEDS ORDERED: ePHEDrine sulfate 50 MG/ML AMP IV PRN (10:41)
[2019-04-12] MEDS ORDERED: ONDANSETRON INJ 2 MG/ML 2 ML VIAL IV PRN (10:41)
[2019-04-12] MEDS ORDERED: fentaNYL citrate 100 MCG/2 ML VIAL IV PRN (10:41)
[2019-04-12] MEDS ORDERED: ATROPINE SULFATE 0.1 MG/ML 10ML SYR IV PRN (10:41)
--- NOTE | 2019-04-12 10:46 | History & Physical Bridge Note ---
Date of Service April 12, 2019 History & Physical Bridge Note I have examined the patient, reviewed the History & Physical and in the interval since the performance of the History & Physical I have noted the following changes of clinical significance: no changes noted
--- NOTE | 2019-04-12 11:42 | Operative Report ---
PG Post Operative Report Pre & Post Diagnosis Operation Date: 04/12/19 11:25 Pre-Op Diagnosis: Benign Prostate Hyperplasia Post-Op Diagnosis: Benign Prostate Hyperplasia I identified the patient and participated in the time-out.: Yes Procedure Operation Date: 04/12/19 11:25 Actual Procedures p Transurethral Resection Prostate(Not Applicable) - Basilio Luo MD Surgeon Prudencio Luo MD Skull Grinder none Estimated Blood Loss 0 Findings Consistent with Post-Op Diagnosis Specimens none Description of Procedure The patient was identified in the preoperative holding area, appropriate informed consents were reviewed and completed and the patient was transferred to the operative suite. Upon arrival, appropriate antibiotics and anesthesia were administered and the patient was placed in dorsal lithotomy position and prepped and draped in sterile fashion. To begin the case I passed a 27 [place] resectoscope per urethra. Inspection revealed healthy-appearing mucosa without stricture disease. He has a moderately enlarged prostate. It is relatively small in size but has notable lateral lobe intrusion and a high bladder neck. Inspection of the bladder reveals substantial trabeculation but no mucosal disease. Following my inspection exchanged the visual news camera operator for resecting element using a button electrode. I began by incising the bladder neck at 5 and 7:00. This drastically improved the appearance of the prostatic fossa. I then resected the tissue between these 2 incisions flattening the bladder neck. Completed my resection by treating the left and right lateral lobes. At the conclusion of the case there was a widely patent prostatic urethra. Hemostasis was excellent. I left the bladder full and withdrew the scope. I then placed a 22 [place] catheter without difficulty. He was extubated and taken to the PACU in stable condition. There were no complications. I attest to the content of the Intraoperative Record and any orders documented therein. Any exceptions are noted below.
--- NOTE | 2019-04-12 12:18 | Anesthesiology Progress Note ---
Date of Service April 12, 2019 Anesthesia Post Procedure Vital Signs Vital Signs: Temp Pulse Pulse Resp BP BP Pulse Ox 04/12/19 12:15 79 16 143/69 H 100 04/12/19 12:05 80 16 143/72 H 100 04/12/19 11:55 80 16 148/69 H 100 04/12/19 11:45 97.9 F 80 16 140/70 100 04/12/19 10:32 97.9 F 92 H 18 149/84 H 97 Transfer of Care Handoff Completed per policy Notes Mental Status: alert / awake / arousable and participated in evaluation Patient Amnestic to Procedure: Yes Nausea / Vomiting: adequately controlled Pain: adequately controlled Airway Patency, RR, SpO2: stable & adequate BP & HR: stable & adequate Hydration State: stable & adequate Anesthetic Complications: no major complications apparent and Pt Satisfied with anesthetic care
[2019-04-12] MEDS ORDERED: NITROGLYCERIN SL 0.4 MG/TAB TAB SL PRN (13:11)
[2019-04-12] MEDS ORDERED: ACETAMINOPHEN 325 MG TAB PO PRN (13:19)
[2019-04-12] MEDS: D5W AND 1/2NSS 1,000 ML IV SCH (13:29)
[2019-04-12] MEDS: CIPROFLOXACIN / D5W 400 MG/200 ML BAG IV SCH (22:03)
[2019-04-13 04:16] LABS: Basophils # (auto) 0.01 K/uL (0-0.2); Basophils % (auto) 0.1 %; Eosinophils # (auto) 0.22 K/uL (0-0.5); Eosinophils % (auto) 2.7 %; Hematocrit (blood only) 34.8 % (42-52); Hemoglobin 11.6 g/dL (14.0-18.0); Immature Granulocytes # (auto) 0.03 K/uL (0.00-0.02); Immature Granulocytes % (auto) 0.4 %; Lymphocytes % (auto) 17.2 %; Mean Corpuscular Hemoglobin 30.4 pg (25-34); Mean Corpuscular Hgb Conc 33.3 g/dL (32-36); Mean Corpuscular Volume 91.1 fL (80-100); Mean Platelet Volume 9.9 fL (7.4-10.4); Monocytes # (auto) 0.88 K/uL (0.11-0.59); Monocytes % (auto) 10.8 %; Neutrophils # (auto) 5.59 K/uL (1.4-6.5); Neutrophils % (auto) 68.8 %; Platelet Count 191 K/uL (130-400); RDW Coefficient of Variation 14.8 % (11.5-14.5); RDW Standard Deviation 49.6 fL (36.4-46.3); Red Blood Count 3.82 M/uL (4.7-6.1); White Blood Count 8.13 K/uL (4.8-10.8)
[2019-04-13] MEDS: D5W AND 1/2NSS 1,000 ML IV SCH (04:23)
[2019-04-13 04:34] LABS: BUN Creatinine Ratio 20.9 (10-20); Calcium 9.2 mg/dl (8.5-10.1); Creatinine Clr Calc Pharmacy 63.6 ml/min; Est GFR (African American) 90.4; Potassium 4.2 mmol/L (3.5-5.1)
[2019-04-13] MEDS ORDERED: LEVOTHYROXINE SODIUM 25 MCG TABLET PO SCH (06:30)
--- NOTE | 2019-04-13 07:56 | Urology Progress Note ---
Date of Service April 13, 2019 Assessment & Plan (1) Benign prostatic hyperplasia with urinary obstruction: 88 year-old male patient POD #1 transurethral resection of prostate with Dr. Luo. -Patient progressing clinically as expected. -Afebrile overnight. -No reported pain. -Continue regular diet. -Encourage ambulation. -Will stop IV fluids. -Discontinue nam catheter this am. -Plan to discharge home today if doing well and voiding spontaneously without difficulty. -Expected clinical course discussed with patient including discharge instructions. All questions answered. -Follow-up appointment in place with urology service. Subjective 88 year-old male patient POD #1 transurethral resection of prostate with Dr. Luo. Patient alert, awake, comfortable. No reported issues overnight. Denies pain. Tolerating nam catheter - adequate output overnight. Nam catheter draining clear yellow urine. Did get out of bed last evening, no dizziness or lightheadedness. Tolerating regular diet. Passing flatus, no bm yet. Denies fevers or chills. Denies nausea or vomiting. Patient requesting to be discharged today. Labs reviewed: Wbc 8.13 Hgb 11.6 Creatinine 0.86 Denies additional acute urological concerns today. Review of Systems Constitutional: as per Subjective / HPI; no fever and no chills Gastrointestinal: as per Subjective / HPI; no nausea and no vomiting Genitourinary: + as per Subjective / HPI Neurologic: no dizziness and no syncope Physical Exam Constitutional: well developed and well nourished; no acute distress and not ill appearing Respiratory: normal respiratory effort and able to speak in complete sentences; no respiratory distress and no audible wheezes Gastrointestinal (Abdomen): Inspection/Auscultation: abdomen normal to inspection; abdomen not distended Percussion/Palpation: abdomen soft; abdomen nontender and no guarding Psychiatric: Orientation: alert, oriented x 3 and cooperative Affect: euthymic affect Genitourinary: no CVA tenderness Nam catheter intact, draining clear yellow urine. No visible clots noted. Results & Data Vital Signs (Past 12 Hours) Vital Signs Temp Pulse Resp BP BP Pulse Ox 04/13/19 07:09 36.8 C 90 16 127/68 94 04/13/19 03:07 36.7 C 93 H 16 119/73 93 04/12/19 23:28 128/66 04/12/19 23:02 36.5 C 86 18 146/81 H 94 04/12/19 21:59 37.0 C 81 16 101/66 95 PG Care Time/CCT Total # of Minutes Spent Total Time Spent with Patient: Total time spent is greater than 50% in coordination of care (as documented) at patient's floor/unit and/or counseling patient: Coding Level of Care Code None Diagnoses Benign prostatic hyperplasia with urinary obstruction N40.1; N13.8
--- NOTE | 2019-04-13 08:29 | Anesthesiology Progress Note ---
Date of Service April 13, 2019 Anesthesia Post Procedure Vital Signs Vital Signs: Temp Pulse Pulse Pulse Resp BP BP 04/13/19 07:09 36.8 C 90 16 127/68 04/13/19 03:07 36.7 C 93 H 16 119/73 04/12/19 23:28 128/66 04/12/19 23:02 36.5 C 86 18 146/81 H 04/12/19 21:59 37.0 C 81 16 101/66 04/12/19 19:37 36.7 C 84 16 127/76 04/12/19 15:50 36.6 C 85 18 113/65 04/12/19 15:21 37.4 C 86 16 119/73 04/12/19 13:56 36.3 C L 94 H 16 108/70 04/12/19 13:17 82 16 139/69 04/12/19 12:50 36.3 C L 86 16 145/71 H 04/12/19 12:25 36.8 C 79 16 138/71 04/12/19 12:15 79 16 143/69 H 04/12/19 12:05 80 16 143/72 H 04/12/19 11:55 80 16 148/69 H 04/12/19 11:45 36.6 C 80 16 140/70 04/12/19 10:32 36.6 C 92 H 18 149/84 H Pulse Ox 04/13/19 07:09 94 04/13/19 03:07 93 04/12/19 23:28 04/12/19 23:02 94 04/12/19 21:59 95 04/12/19 19:37 94 04/12/19 15:50 95 04/12/19 15:21 99 04/12/19 13:56 93 04/12/19 13:17 04/12/19 12:50 96 04/12/19 12:25 100 04/12/19 12:15 100 04/12/19 12:05 100 04/12/19 11:55 100 04/12/19 11:45 100 04/12/19 10:32 97 Pain Intensity Penis: Pain Intensity: 3 Notes Mental Status: alert / awake / arousable and participated in evaluation Patient Amnestic to Procedure: Yes Nausea / Vomiting: adequately controlled Pain: adequately controlled Airway Patency, RR, SpO2: stable & adequate BP & HR: stable & adequate Hydration State: stable & adequate Anesthetic Complications: no major complications apparent and Pt Satisfied with anesthetic care
[2019-04-13] MEDS ORDERED: NON-FORMULARY MEDICATION (Alpha Lipoic Acid 100 MG) PO SCH (09:00)
[2019-04-13] MEDS ORDERED: METOPROLOL SUCC 25MG EXT REL TAB PO SCH (09:00)
[2019-04-13] MEDS ORDERED: ASCORBIC ACID 500 MG TAB PO SCH (09:00)
[2019-04-13] MEDS: CIPROFLOXACIN / D5W 400 MG/200 ML BAG IV SCH (11:36)
[2019-04-13 15:39] VITALS: BP 158/70; PULSE 90; TEMP 97.7; O2SAT 93
--- NOTE | 2019-04-23 08:10 | Discharge Summary ---
Date of Service April 23, 2019 Principal Diagnosis BPH Discharge Data Allergies Allergy/AdvReac Type Severity Reaction Status Date / Time benzoic acid Allergy Intermediate rash Verified 04/12/19 10:17 lisinopril AdvReac Intermediate Cough Verified 04/12/19 10:17 Procedures Performed Operation Date: 04/12/19 11:25 Actual Procedures p Transurethral Resection Prostate(Not Applicable) - Basilio Luo MD Hospital Course (1) Benign prostatic hyperplasia (BPH) with straining on urination: Admitted for TURP - tolerated procedure very well - progressed appropriately overnight - passed a voiding trial on the morning of POD#1 - d/c home in stable condition Total Time Total Time Spent Total Time Spent (In Minutes): 15 Total Time Includes: Examination of the Patient, Discharge Planning and Medication Reconciliation Discharge Plan Discharge Items Patient Disposition: Home - Self-Care Reason For Visit: Benign Prostate Hyperplasia Discharge Diagnosis: BPH Condition on Discharge: Good Activity: Per Instructions section Lifting: No more than 25 pounds Bathing Comment: May shower in 1 day, no tub baths until follow-up appointment. Sexual Activity: Wait until after follow-up appointment Exercise/Sports: Wait until after follow-up appointment Driving/Machine Use: Do not drive while taking prescription pain medication. Non-emergency contact: Surgeon and Urologist Call non-emergency contact if: your symptoms worsen, your pain is unusual for yo u and your temperature is above 101 Follow-up/Referrals: Basilio Luo MD [Physician] - 04/25/19 12:45 pm Simon Preston DO [Primary Care Provider] - 04/20/19 10:20 am Diet: Regular Addtl Attending Provider Instructions: Please take all medications as prescribed and keep all follow-ups as scheduled. Please call our office at [phone] with any questions, concerns or need to reschedule appointments for any reason. We are happy to assist you. Tips for your recovery at home: Dont be alarmed by brownish or reddish blood or clots in your urine. This is a result of the procedure. This may occur off and on for weeks to months after the procedure but should continue to improve. Drink plenty of fluids during the day (enough to keep your urine very light colored). This will help keep a healthy flow of urine. Do not lift >25 lbs until your followup Avoid constipation. Please use a stool softener (Colace) for the first two weeks after your procedure Be sure to finish the antibiotics as prescribed. If you go home with a catheter, please wash tubing where it enters your body twice daily with mild soap (Dove or Dial). Once your catheter is removed, expect some blood in your urine and some burning when you urinate. You should have an appointment to have this removed, if you do not please call our office to arrange. When to call [facility] at [phone]: Your urine contains heavy blood clots You are constantly leaking urine Fever of 101F or higher, chills, nausea, or vomiting Your pain is not relieved with medication Pending Studies at Discharge: No Stand-Alone Forms: My [facility] [address] expressor software, Smoking Cessation Medications and DC Order Prescriptions: New docusate sodium [Colace] 100 mg capsule 100 mg PO BID Qty: 60 RF: 0 Continued trospium 20 mg tablet 20 mg PO BID RF: 0 silodosin 8 mg capsule 8 mg PO QAM RF: 0 cholecalciferol (vitamin D3) 5,000 unit capsule 5,000 units PO DAILY Qty: 30 RF: 0 levothyroxine 75 mcg tablet 37.5 mcg PO DAILYBB Qty: 45 RF: 1 coenzyme Q10 100 mg capsule 100 mg PO QAM RF: 0 metoprolol succinate 25 mg tablet extended release 24 hr 12.5 mg PO QAM Qty: 30 RF: 0 vitamin A 8,000 unit capsule 8,000 unit PO QAM RF: 0 ascorbic acid (vitamin C) 1,000 mg tablet 3,000 mg PO DAILY RF: 0 nitroglycerin 0.4 mg tablet, sublingual 0.4 mg SL UD PRN (Reason: Chest Pain) Qty: 25 RF: 0 vitamin B complex capsule 1 cap PO DAILY RF: 0 multivitamin [Daily Multi-Vitamin] tablet 1 tab PO PM RF: 0 Joint expressor software 40-10-5-3.3 mg tablet 1 tab PO DAILY RF: 0 ferrous sulfate 325 mg (65 mg iron) Tablet,Delayed Release (Dr/Ec) 325 mg PO BID Qty: 60 RF: 2 alpha lipoic acid 100 mg Capsule 100 mg PO DAILY RF: 0 omega-3 fatty acids 1,000 mg capsule 4,000 mg PO DAILY RF: 0 acetaminophen 325 mg capsule 325 mg PO BID PRN (Reason: Pain) RF: 0 Discharge Orders: Discharge Order (Routine); Ordered 04/13/19 Ordered By: Autumn Jack/Other Patient Handouts: TURP Home Recover, Ciprofloxacin tablets Admission Data Admit Date/Time: 04/12/19 13:01 Attending Provider: Basilio Luo Admit Provider: Basilio Luo Primary Care Provider: Simon Preston Other Interventions: Discharge Summary Assessment (RN) Last Done: 04/13/19 15:33 DC Date/Time DO NOT enter until pt leaves facility: 04/13/19 16:32 Coding Level of Care Code D/C Day Management <30 mins Diagnoses Benign prostatic hyperplasia (BPH) with straining on urination N40.1; R39.16
== END 2019-04-13 16:32 | disposition home or self-care (01) | DRG 714 ==
LOC: ASU 09:36 → INTOOBSV 13:01 → 3W 13:01

== ENCOUNTER 2020-12-03 11:31 | Inpatient (IN) ==
[2020-12-03] MEDS ORDERED: SODIUM CHLORIDE 0.9% 500 ML IV SCH (12:00)
[2020-12-03] MEDS ORDERED: SODIUM CHLORIDE 0.9% 1000ML 1,000 ML IV SCH (12:00)
[2020-12-03 12:03] LABS: Basophils # (auto) 0.01 K/uL (0-0.2); Basophils % (auto) 0.1 %; Eosinophils # (auto) 0.24 K/uL (0-0.5); Hematocrit (blood only) 41.3 % (42-52); Hemoglobin 13.8 g/dL (14.0-18.0); Immature Granulocytes # (auto) 0.03 K/uL (0.00-0.02); Immature Granulocytes % (auto) 0.4 %; Lymphocytes # (auto) 1.22 K/uL (1.2-3.4); Lymphocytes % (auto) 15.5 %; Mean Corpuscular Hgb Conc 33.4 g/dL (32-36); Mean Corpuscular Volume 89.8 fL (80-100); Mean Platelet Volume 9.9 fL (7.4-10.4); Monocytes % (auto) 13.9 %; Neutrophils # (auto) 5.29 K/uL (1.4-6.5); Neutrophils % (auto) 67.1 %; Platelet Count 231 K/uL (130-400); RDW Coefficient of Variation 14.2 % (11.5-14.5); RDW Standard Deviation 46.3 fL (36.4-46.3); White Blood Count 7.89 K/uL (4.8-10.8)
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
--- NOTE | 2020-12-03 12:16 | XRay Report ---
XR chest 1V portable HISTORY: 89 years-old Male weakness acute weakness COMPARISON: Chest radiographs 04/16/2020 TECHNIQUE: Portable AP view of the chest FINDINGS: The cardiac silhouette is enlarged. Prior median sternotomy with findings suggestive of CABG. Moderat e right hemidiaphragmatic elevation. No pneumothorax, pleural effusion, airspace consolidation or ove rt pulmonary edema. Degenerative changes of the shoulders and spine. IMPRESSION: No acute process. ACT 112: Negative or not required by law. The above report was generated using voice recognition software. It may contain grammatical, syntax o r spelling errors. Electronically signed by: Justo Wing M.D. 12/03/2020 12:15 PM
[2020-12-03 12:23] LABS: Alanine Aminotransferase 44 U/L (12-78); Albumin Level 2.8 gm/dl (3.4-5.0); Aspartate Aminotransferase 44 U/L (15-37); Blood Urea Nitrogen 30 mg/dl (7-18); Carbon Dioxide 25 mmol/L (21-32); Chloride 106 mmol/L (98-107); Creatinine Clr Calc Pharmacy 59.3 ml/min; Est GFR (African American) 87.9 ml/min; Est GFR (Non-African American) 75.8 ml/min; Glucose 115 mg/dl (70-99); Magnesium 2.2 mg/dl (1.8-2.4); Potassium 3.8 mmol/L (3.5-5.1); Sodium 136 mmol/L (136-145)
[2020-12-03 12:33] LABS: Albumin Globulin Ratio 0.6 (0.9-2); Alkaline Phosphatase 192 U/L (45-117); Bilirubin,Total 0.9 mg/dl (0.2-1); Globulin 5.1 gm/dl (2.5-4.0); Total Protein 7.9 gm/dl (6.4-8.2); Troponin I < 0.015 ng/ml (0-0.045)
--- NOTE | 2020-12-03 12:46 | CT Scan Report ---
CT cervical spine wo con CLINICAL HISTORY: neck pain, weakness unknown trauma history TECHNIQUE: Multidetector row helical CT of the cervical spine was performed without administration of intravenous contrast. Coronal and sagittal reformations were obtained. Automated dose lowering techn iques and/or adjustment according to patient size were utilized for this exam. Comparison: Comparison is made to spine 09/24/2018 FINDINGS: No acute fractures or subluxations are identified. The alignment is normal. Multilevel severe degener ative changes are seen with resultant spinal and bilateral neural foraminal stenosis. The prevertebra l soft tissues are unremarkable. IMPRESSION: Multilevel degenerative changes without evidence of acute abnormality. ACT 112: Negative or not required by law. Electronically signed by: Hany Juan M.D. 12/03/2020 12:44 PM
--- NOTE | 2020-12-03 13:27 | CT Scan Report ---
CT head/brain wo con CLINICAL HISTORY: weakness Technique: Contiguous axial CT images of the head were acquired from the base of the skull to the nella xu without intravenous contrast administration. Images were viewed in brain, subdural and bone [facility] hospital[facility]. Automated dose lowering techniques and/or adjustment according to patient size were utilized for this exam. Comparison: Comparison is made to CT head 09/24/2018 Findings: Areas of decreased attenuation are present in the periventricular and subcortical white matter bilate rally consistent with small vessel ischemic disease. Generalized cerebral atrophy with commensurate e nlargement of the ventricles, sulci, and cisterns is also present. There is no acute intracranial hem orrhage or evidence of acute territorial infarction. No shift of the midline structures, mass effect, or extra-axial abnormalities are shown. Atherosclerotic calcifications are present in the intracran ial segments of the internal carotid arteries. Imaged portions of the paranasal sinuses and mastoid air cells are clear. The orbits appear normal. There are no acute fractures of the calvaria or scalp swelling. Impression: No acute intracranial hemorrhage, evidence of acute territorial infarction, or other acute intracrani al disease process. ACT 112: Negative or not required by law. Electronically signed by: Hany Juan M.D. 12/03/2020 1:25 PM
[2020-12-03 14:29] LABS: Appearance Urine Clear (Clear); Bacteria Urine Automated Negative (Negative); Blood Urine Negative (Negative); Glucose Urine UA Negative (Negative); Ketones Urine Negative (Negative); Leukocyte Esterase Urine Trace (Negative); Nitrite Urine Positive (Negative); Protein Urine Negative (Negative); Specific Gravity Urine 1.028 (1.000-1.030); Urobilinogen Urine Positive (Negative)
[2020-12-03 14:34] LABS: Bilirubin Urine 1+ (Negative); Color Urine Amber
[2020-12-03] MEDS ORDERED: cefTRIAXone SODIUM 1,000 MG/50 ML BAG IV STA (14:41)
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
[2020-12-03] MEDS ORDERED: ACETAMINOPHEN 325 MG TAB PO PRN (19:54)
[2020-12-03] MEDS ORDERED: cefTRIAXone SODIUM 1,000 MG in DEXTROSE 5% 50 ML IV SCH (21:00)
[2020-12-03] MEDS: ENOXAPARIN INJ 40 MG/0.4 ML SYR SQ SCH (21:01)
[2020-12-04] MEDS: LEVOTHYROXINE SODIUM 75 MCG TABLET PO SCH (05:49)
--- NOTE | 2020-12-04 06:07 | Electrocardiogram Report ---
Test Reason : Blood Pressure : / mmHG Vent. Rate : 091 BPM Atrial Rate : 091 BPM P-R Int : 202 ms QRS Dur : 074 ms QT Int : 366 ms P-R-T Axes : 052 009 024 degrees QTc Int : 450 ms Normal sinus rhythm Possible Left atrial enlargement Possible Inferior infarct , age undetermined Abnormal ECG When compared with ECG of 29-SEP-2018 17:01, No significant change was found Confirmed by Vinny St ([id number]) on 12/04/2020 6:06:37 AM Referred By: REFERRED SELF Confirmed By:Vinny St
[2020-12-04 07:07] LABS: Basophils # (auto) 0.04 K/uL (0-0.2); Basophils % (auto) 0.6 %; Eosinophils # (auto) 0.29 K/uL (0-0.5); Eosinophils % (auto) 4.4 %; Hematocrit (blood only) 37.7 % (42-52); Hemoglobin 12.6 g/dL (14.0-18.0); Immature Granulocytes # (auto) 0.04 K/uL (0.00-0.02); Immature Granulocytes % (auto) 0.6 %; Lymphocytes # (auto) 1.14 K/uL (1.2-3.4); Lymphocytes % (auto) 17.4 %; Mean Corpuscular Hemoglobin 30.4 pg (25-34); Mean Corpuscular Hgb Conc 33.4 g/dL (32-36); Mean Corpuscular Volume 90.8 fL (80-100); Monocytes # (auto) 0.91 K/uL (0.11-0.59); Monocytes % (auto) 13.9 %; Neutrophils # (auto) 4.15 K/uL (1.4-6.5); Neutrophils % (auto) 63.1 %; Platelet Count 213 K/uL (130-400); RDW Standard Deviation 46.8 fL (36.4-46.3); Red Blood Count 4.15 M/uL (4.7-6.1); White Blood Count 6.57 K/uL (4.8-10.8)
[2020-12-04 07:37] LABS: BUN Creatinine Ratio 29.2 (10-20); Calcium 9.9 mg/dl (8.5-10.1); Creatinine Clr Calc Pharmacy 77.6 ml/min; Est GFR (African American) 98.1 ml/min; Est GFR (Non-African American) 84.7 ml/min; Potassium 3.9 mmol/L (3.5-5.1)
[2020-12-04] MEDS ORDERED: LEVOTHYROXINE SODIUM 75 MCG TABLET PO SCH (09:00)
[2020-12-04] MEDS ORDERED: predniSONE 20 MG TAB PO STA (18:10)
--- NOTE | 2020-12-04 18:50 | Hospitalist Progress Note ---
Date of Service December 04, 2020 Assessment & Plan (1) Weakness: Plan: - Uncertain of full etiology - has had decreased appetite since EGD about one month ago and has had progressive muscular weakness -- Pt states he just doesn't have the motivation - No obvious source of infection - urine is not overly convincing of UTI and will await culture and treat empirically - Will check Lyme, ESR/CRP, CMP/CBC, and B12 level in AM - TSH is WNL; Alk phos elevated but maybe due to some dehydration and will recheck in AM - Is complaining of shoulder pain and weakness and feels like his legs are weak - also told his daughter he was feeling depressed and when I spoke with him he states he just wants to be able to do things like he used to - Given the muscle aches/weakness and depressive feelings without other obvious causes - this may be fitting with polymyalgia rheumatica given the proximal weakness and depressive feelings - will trial Prednisone 20 mg daily and should get a rather rapid response if so - This could be a mix of conditions from general deconditioning, maybe UTI?, dehydration, poor eating over the past couple weeks.... - Will add Thiamine supplement due to poor eating - PT/OT to help determine needs (2) UTI (urinary tract infection): Plan: - UA not significantly convincing of UTI - UCx with pinpoint growth and will monitor - Continue Rocephin IV daily for now and monitor (3) CAD (coronary artery disease): Plan: Patient not on DAVID/ARB due to cough in the past Patient without beta-dinorah, antiplatelet therapy. Follows with cardiology (Dr. St) and was recently seen, does not take medication other than thyroid/omeprazole at this time (4) Dysphagia: Plan: Minced and moist diet No signs of aspiration pneumonia - given hydration could consider repeat CXR to assess for infiltrates but low suspicion - EGD (11/05) - 5 cm hiatal hernia; no lesions of stomach or duodenum; reflux esophagitis Continue PPI (5) GERD with esophagitis: Plan: Continue Protonix (6) Hypothyroidism: Plan: - TSH is WNL Continue Synthroid 37.5 mcg every morning Plan: - PT/OT evaluations - would like for patient to come home on D/C so will have to see how he progresses Admission and Anticipated Discharge Date Admission Date: December 04, 2020 Subjective Reports feeling generally weak today. Reports feeling unmotivated and doesn't know why. states he has been sitting with his eyes closed for the past several days but will still talk but "just seems to shut people out". She states he hasnt been eating well since his EGD approx. one month ago and normally he is a good eater. Patient also told daughter today that he feels a bit depressed because he can't do the things he used to do. He does complain of some shoulder discomfort that has been ongoing, predominantly on the R but some soreness with both. Also feels like his legs are weak. No urinary symptoms or abdominal pain. Review of Systems Review of Systems: REVIEW OF SYSTEMS General/Constitutional: + generalized weakness; Denies fever/chills ENT: Denies sore throat Cardiovascular: Denies chest pain, palpitations, edema Respiratory: Denies cough, SOB, wheezing, GI: Denies nausea, vomiting, abdominal pain, constipation, diarrhea, melena/hematochezia : Denies dysuria Musculoskeletal: + R shoulder pain; weakness of shoulders and legs Neurologic: Denies dizziness/lightheadedness Skin: Denies rash, itch Physical Exam Physical Exam: PHYSICAL EXAM General Appearance: Elderly male in NAD who is A&O x 3 however looks fatigued but non-toxic and keeps eyes closed even though having a full conversation HEENT: Head is normocephalic/atraumatic; Hearing grossly intact; Mucous membranes moist Neck: Supple; Trachea midline; Neg JVD Heart: RRR with no M/G/R Lungs: CTA in all lung weathers bilaterally; Respirations unlabored; Neg accessory muscle use Abdomen: Soft, non-tender, non-distended; Positive BS x 4 quadrants Extremities: Neg cyanosis or edema Neurological: Speech clear; Gross motor/sensory function intact; Neg focal neurologic deficits Psychiatric: Flat affect Skin: Normal Color; Warm/Dry Results & Data Results & Data ([facility]) Vital Signs (Past 12 Hours) Vital Signs Temp Pulse Resp BP Pulse Ox 12/04/20 14:46 36.7 C 87 16 155/82 H 98 12/04/20 07:58 36.6 C 85 16 151/87 H 97 PG Care Time/CCT Total # of Minutes Spent Total Time Spent with Patient: Total time spent is greater than 50% in coordination of care (as documented) at patient's floor/unit and/or counseling patient: Coding Level of Care Code 51176 Subseq Hosp Care Lvl 3 Diagnoses UTI (urinary tract infection) N39.0 CAD (coronary artery disease) I25.10 Coronary Disease-Associated Artery/Lesion type: [place] artery [place] vs. transplanted heart: [place] heart Associated angina: without angina Dysphagia R13.10 GERD with esophagitis K21.00 Hypothyroidism E03.9 Weakness R53.1 (1) CAD (coronary artery disease) Coronary Disease-Associated Artery/Lesion type: [place] artery [place] vs. transplanted heart: [place] heart Associated angina: without angina Qualified Code(s): I25.10 - Atherosclerotic heart disease of [place] coronary artery without angina pectoris
[2020-12-04] MEDS ORDERED: cefTRIAXone SODIUM 2,000 MG in DEXTROSE 5% 50 ML IV SCH (20:00)
[2020-12-04] MEDS: DICLOFENAC SOD 1% GEL 100 GM TUBE EXT SCH (20:04)
[2020-12-04] MEDS: ENOXAPARIN INJ 40 MG/0.4 ML SYR SQ SCH (20:04)
[2020-12-05] MEDS: LEVOTHYROXINE SODIUM 75 MCG TABLET PO SCH (06:05)
[2020-12-05 07:25] LABS: Albumin Level 2.5 gm/dl (3.4-5.0); BUN Creatinine Ratio 20.1 (10-20); Calcium 9.8 mg/dl (8.5-10.1); Est GFR (African American) 91.8 ml/min; Est GFR (Non-African American) 79.2 ml/min; Potassium 4.1 mmol/L (3.5-5.1)
[2020-12-05 07:38] LABS: Albumin Globulin Ratio 0.6 (0.9-2); Bilirubin,Total 1.5 mg/dl (0.2-1); C Reactive Protein 5.66 mg/dl (0-0.29); Globulin 4.5 gm/dl (2.5-4.0)
[2020-12-05 07:39] LABS: Hematocrit (blood only) 38.1 % (42-52); Hemoglobin 12.5 g/dL (14.0-18.0); Mean Corpuscular Hemoglobin 29.6 pg (25-34); Mean Corpuscular Volume 90.3 fL (80-100); Platelet Count 238 K/uL (130-400); RDW Coefficient of Variation 13.8 % (11.5-14.5); RDW Standard Deviation 45.6 fL (36.4-46.3); Red Blood Count 4.22 M/uL (4.7-6.1); White Blood Count 7.57 K/uL (4.8-10.8)
[2020-12-05 07:50] LABS: Lyme Ab IgG w/WB Rflx Negative (Negative); Lyme Ab IgM w/WB Rflx Negative (Negative)
[2020-12-05 07:52] LABS: Mean Corpuscular Hgb Conc 32.8 g/dL (32-36)
[2020-12-05] MEDS: PANTOprazole 40 MG TAB PO SCH (09:05)
[2020-12-05] MEDS: THIAMINE HCL 100 MG TAB PO SCH (09:05)
[2020-12-05] MEDS: DICLOFENAC SOD 1% GEL 100 GM TUBE EXT SCH ×4 (09:06→20:59)
--- NOTE | 2020-12-05 10:44 | Ultrasound Report ---
ULTRASOUND RIGHT UPPER QUADRANT ABDOMEN CLINICAL HISTORY: Elevated bilirubin levels and hepatic transaminases. COMPARISON STUDY: Abdominal radiograph dated 07/19/2017. TECHNIQUE: Real-time, grayscale, and color flow sonography of the right upper quadrant of the abdomen was performed. Images are reviewed in the transverse and longitudinal planes. FINDINGS: Liver: The liver is normal in size and echotexture. There is no intrahepatic biliary ductal dilatatio n. The main portal vein is patent. Gallbladder: The gallbladder is mildly distended and contains biliary sludge. No shadowing gallstones are identified. There is no gallbladder wall thickening or pericholecystic fluid. A sonographic Murp hy's sign is reportedly absent. The common bile duct measures up to 0.5 cm in diameter. Pancreas: Visualized portions of the pancreatic head are normal in appearance. The majority of the pa ncreas is not well-visualized. Right kidney: Survey images of the right kidney demonstrate mild cortical atrophy. Echotexture is nor mal. There is no hydronephrosis. A 1.6 cm cyst is noted in the interpolar region. Ascites: None. IMPRESSION: 1. The gallbladder is mildly distended and contains biliary sludge. No shadowing gallstones are ident ified and there is no sonographic evidence of acute cholecystitis. 2. The liver is normal in size and echotexture. ACT 112: Negative or not required by law. Electronically signed by: Karan Atkins M.D. 12/05/2020 10:42 AM
[2020-12-05] MEDS ORDERED: predniSONE 20 MG TAB PO STA (15:37)
--- NOTE | 2020-12-05 15:48 | Hospitalist Progress Note ---
Date of Service December 05, 2020 Assessment & Plan (1) Weakness: Plan: - Uncertain of full etiology - has had decreased appetite since EGD about one month ago and has had progressive muscular weakness -- Pt states he just doesn't have the motivation; he is intermittently tearful but was cheering up with telling him jokes - seems to have been a relatively rapid change in his emotions as daughter states he is not very emotional at baseline -- Has had some deconditioning since hips so may be a combination of issues - No obvious source of infection - urine is not overly convincing of UTI and Cx with - Lyme negative, ESR/CRP elevated, B12 level good, Bili was elevated on AM labs -- U/S GB - mildly distended GB with biliary sludge, no gallstones, no acute cholecystitis - could consider a HIDA? -- LFTs may be related to Rocephin? did stop further antibiotics - TSH is WNL; Alk phos elevated but maybe due to some dehydration and will recheck in AM - Is complaining of shoulder pain and weakness and feels like his legs are weak - also told his daughter he was feeling depressed and when I spoke with him he states he just wants to be able to do things like he used to - Given the muscle aches/weakness and depressive feelings without other obvious causes - ESR/CRP are elevated - this may be fitting with polymyalgia rheumatica given the proximal weakness and depressive feelings - seems to be more interactive with me today and keeping his eyes open when talking with me - -- Mindful of esophagitis - may add Carafate to assist - This could be a mix of conditions from general deconditioning, dehydration, poor eating over the past couple weeks.... - Will add Thiamine supplement due to poor eating - PT/OT to help determine needs (2) UTI (urinary tract infection): Plan: - UA not significantly convincing of UTI - UCx with pinpoint growth and will monitor - Hold Rocephin IV daily for now and monitor (3) CAD (coronary artery disease): Plan: Patient not on DAVID/ARB due to cough in the past Patient without beta-dinorah, antiplatelet therapy. Follows with cardiology (Dr. St) and was recently seen, does not take medication other than thyroid/omeprazole at this time (4) Dysphagia: Plan: Minced and moist diet Did cough after drinking orange juice - may consider CXR in AM if having ongoig issues - EGD (11/05) - 5 cm hiatal hernia; no lesions of stomach or duodenum; reflux esophagitis Continue PPI (5) GERD with esophagitis: Plan: Continue Protonix; add Carafate (6) Hypothyroidism: Plan: - TSH is WNL Continue Synthroid 37.5 mcg every morning Plan: - PT/OT evaluations - would like for patient to come home on D/C; discussed with patient//daughter. The daughter's son will be staying with Mr. Whitney to assist with needs who is young/athletic and can actually easily lift Mr. Whitney. They are interested in home services and list of caregivers. It appears they have good family support to assist with needs. Patient had a bad experience at [facility] and would not like to go there. Given great family support and SNFs could take >7 days to arrange he may be better served to be at home with home PT/OT/caregivers and great family support Admission and Anticipated Discharge Date Admission Date: December 04, 2020 Subjective Reports feeling very down today and is intermittently tearful. States hes not feeling physically weak just emotionally depressed. Talked with patient, daughter at bedside, and over the phone. It appears this emotionality if rather new as he is not an emotional person. As well, even though his strength has been progressively declining it has rapidly decreased over the past couple weeks. He reports his shoulder pain is better today and feels his arms are feeling a bit better. He is more interactive today compared to yesterday and may be getting a positive change with the steroids. Discussed with family they have a family member that is able to assist and will live with Mr. Whitney when he leaves here to help inbetween times home therapy can visit. They would prefer he goes home at discharge as they can supply support. Do want a list of home services and caregivers to see what they can get to help. Review of Systems Review of Systems: REVIEW OF SYSTEMS General/Constitutional: + generalized weakness; Denies fever/chills ENT: Denies sore throat Cardiovascular: Denies chest pain, palpitations, edema Respiratory: Denies cough, SOB, wheezing, GI: Denies nausea, vomiting, abdominal pain, constipation, diarrhea, melena/hematochezia : Denies dysuria Musculoskeletal: weakness of shoulders and legs Neurologic: Denies dizziness/lightheadedness Psychiatric: + Depression Skin: Denies rash, itch Physical Exam Physical Exam: PHYSICAL EXAM General Appearance: Elderly male in NAD who is A&O x 3 HEENT: Head is normocephalic/atraumatic; Hearing grossly intact; Mucous membranes moist Neck: Supple; Trachea midline; Neg JVD Heart: RRR with no M/G/R Lungs: CTA in all lung weathers bilaterally; Respirations unlabored; Neg accessory muscle use Abdomen: Soft, non-tender, non-distended; Positive BS x 4 quadrants Extremities: Neg cyanosis or edema Neurological: Speech clear; Gross motor/sensory function intact; Neg focal neurologic deficits; however movements are slow and weaker Psychiatric: Intermittent tearful but laughing at jokes; feels depressed because of not being able to do his normal activities but also cant fully relay what is bothering him. States this more started over the past couple days Skin: Normal Color; Warm/Dry Results & Data Results & Data ([facility]) Vital Signs (Past 12 Hours) Vital Signs Temp Pulse Resp BP BP Pulse Ox 12/05/20 15:31 36.9 C 82 18 162/73 H 92 12/05/20 07:29 36.6 C 89 16 145/78 H 95 PG Care Time/CCT Total # of Minutes Spent Total Time Spent with Patient: Total time spent is greater than 50% in coordination of care (as documented) at patient's floor/unit and/or counseling patient: Coding Level of Care Code 56534 Subseq Hosp Care Lvl 3 Diagnoses Weakness R53.1 UTI (urinary tract infection) N39.0 CAD (coronary artery disease) I25.10 Associated angina: without angina Coronary Disease-Associated Artery/Lesion type: [place] artery [place] vs. transplanted heart: [place] heart Dysphagia R13.10 GERD with esophagitis K21.00 Hypothyroidism E03.9 (1) CAD (coronary artery disease) Associated angina: without angina Coronary Disease-Associated Artery/Lesion type: [place] artery [place] vs. transplanted heart: [place] heart Qualified Code(s): I25.10 - Atherosclerotic heart disease of [place] coronary artery without angina pectoris
[2020-12-05] MEDS: ENOXAPARIN INJ 40 MG/0.4 ML SYR SQ SCH (21:00)
[2020-12-06] MEDS: LEVOTHYROXINE SODIUM 75 MCG TABLET PO SCH (05:51)
[2020-12-06 08:05] LABS: Hematocrit (blood only) 36.8 % (42-52); Hemoglobin 12.2 g/dL (14.0-18.0); Mean Corpuscular Hemoglobin 29.8 pg (25-34); Mean Corpuscular Hgb Conc 33.2 g/dL (32-36); Mean Corpuscular Volume 89.8 fL (80-100); Mean Platelet Volume 9.7 fL (7.4-10.4); Platelet Count 229 K/uL (130-400); RDW Coefficient of Variation 13.6 % (11.5-14.5); RDW Standard Deviation 44.7 fL (36.4-46.3); White Blood Count 7.81 K/uL (4.8-10.8)
[2020-12-06 08:23] LABS: Albumin Level 2.6 gm/dl (3.4-5.0); BUN Creatinine Ratio 23.3 (10-20); Calcium 10.4 mg/dl (8.5-10.1); Creatinine Clr Calc Pharmacy 76.5 ml/min; Est GFR (African American) 97.6 ml/min; Est GFR (Non-African American) 84.2 ml/min; Potassium 3.7 mmol/L (3.5-5.1)
[2020-12-06 08:28] LABS: Albumin Globulin Ratio 0.6 (0.9-2); Bilirubin,Total 0.9 mg/dl (0.2-1); Globulin 4.2 gm/dl (2.5-4.0); Total Protein 6.8 gm/dl (6.4-8.2)
[2020-12-06] MEDS: PANTOprazole 40 MG TAB PO SCH (09:55)
[2020-12-06] MEDS: DICLOFENAC SOD 1% GEL 100 GM TUBE EXT SCH ×4 (09:55→21:05)
[2020-12-06] MEDS: predniSONE 20 MG TAB PO SCH (09:55)
[2020-12-06] MEDS: THIAMINE HCL 100 MG TAB PO SCH (09:55)
--- NOTE | 2020-12-06 19:18 | Hospitalist Progress Note ---
Date of Service December 06, 2020 Assessment & Plan (1) Weakness: Plan: - Uncertain of full etiology - has had decreased appetite since EGD about one month ago and has had progressive muscular weakness that has been since his hip fx/surgery -- Patient largely wheelchair bound and sedentary - No obvious source of infection - urine is not overly convincing of UTI and Cx with no growth - Lyme negative, ESR/CRP elevated, B12 level good, Bili was elevated on AM labs but now resolved -- U/S GB - mildly distended GB with biliary sludge, no gallstones, no acute cholecystitis - could consider a HIDA? -- LFTs may be related to Rocephin? did stop further antibiotics - TSH is WNL; Alk phos elevated but improving - Is complaining of shoulder pain and weakness and feels like his legs are weak - also told his daughter he was feeling depressed and when I spoke with him he states he just wants to be able to do things like he used to - Given the muscle aches/weakness and depressive feelings without other obvious causes - ESR/CRP are elevated - this may be fitting with polymyalgia rheumatica given the proximal weakness and depressive feelings - seems to have had a positive response to steroids -- Mindful of esophagitis - added Carafate to assist -- Prednisone 40 mg x 3 doses and could taper down and consider 5 mg daily dosing and close F/U with PCP - This could be a mix of conditions from general deconditioning, dehydration, poor eating over the past couple weeks.... - Will add Thiamine supplement due to poor eating - PT/OT to help determine needs (2) UTI (urinary tract infection): Plan: - UA not significantly convincing of UTI - UCx with pinpoint growth and will monitor - Hold Rocephin IV daily for now and monitor (3) CAD (coronary artery disease): Plan: Patient not on DAVID/ARB due to cough in the past Patient without beta-dinorah, antiplatelet therapy. Follows with cardiology (Dr. St) and was recently seen, does not take medication other than thyroid/omeprazole at this time (4) Dysphagia: Plan: Minced and moist diet Did cough after drinking orange juice yesterday but respiratory status is stable - can consider CXR if spiking fevers - EGD (11/05) - 5 cm hiatal hernia; no lesions of stomach or duodenum; reflux esophagitis Continue PPI - could consider BID dosing (5) GERD with esophagitis: Plan: Continue Protonix; add Carafate (6) Hypothyroidism: Plan: - TSH is WNL Continue Synthroid 37.5 mcg every morning Plan: - PT/OT evaluations - would like for patient to come home on D/C; discussed with patient//daughter. The daughter's son (patient's grandson) will be staying with Mr. Whitney to assist with needs who is young/athletic and can actually lift Mr. Whitney. They are interested in home services and list of caregivers. It appears they have good family support to assist with needs. Patient had a bad experience at [facility] and would not like to go there. Given great family support and SNFs could take >7 days to arrange he may be better served to be at home with home PT/OT/caregivers and great family support. He was mostly wheelchair bound prior to coming to the hospital but having issues with transfers which resulted in him coming to the ER. Admission and Anticipated Discharge Date Admission Date: December 04, 2020 Subjective Reports feeling good today. Eager to go home. Is more awake today and keeps his eyes open the entire time of both of my visits. He did participate in PT. Does require a lot of assistance but has been mostly sedentary/wheelchair bound at home. Reports less feelings of depression today and is laughing with us more today. Review of Systems Review of Systems: REVIEW OF SYSTEMS General/Constitutional: + generalized weakness; Denies fever/chills ENT: Denies sore throat Cardiovascular: Denies chest pain, palpitations, edema Respiratory: Denies cough, SOB, wheezing, GI: Denies nausea, vomiting, abdominal pain, constipation, diarrhea : Denies dysuria Musculoskeletal: weakness of shoulders and legs Neurologic: Denies dizziness/lightheadedness Psychiatric: + less depression Skin: Denies rash, itch Physical Exam Physical Exam: PHYSICAL EXAM General Appearance: Elderly male in NAD who is A&O x 3 HEENT: Head is normocephalic/atraumatic; Hearing grossly intact; Mucous membranes moist Neck: Supple; Trachea midline; Neg JVD Heart: RRR with no M/G/R Lungs: CTA in all lung weathers bilaterally; Respirations unlabored; Neg accessory muscle use Abdomen: Soft, non-tender, non-distended; Positive BS x 4 quadrants Extremities: Neg cyanosis or edema Neurological: Speech clear; Gross motor/sensory function intact; Neg focal neurologic deficits; however movements are slow and weak; seems to have better arm raise today Psychiatric: Normal Affect Skin: Normal Color; Warm/Dry Results & Data Results & Data ([facility]) Vital Signs (Past 12 Hours) Vital Signs Temp Pulse Resp BP BP Pulse Ox 12/06/20 15:58 36.7 C 78 16 125/71 96 12/06/20 07:35 36.5 C 75 14 168/91 H 96 PG Care Time/CCT Total # of Minutes Spent Total Time Spent with Patient: Total time spent is greater than 50% in coordination of care (as documented) at patient's floor/unit and/or counseling patient: Coding Level of Care Code 34899 Subseq Hosp Care Lvl 3 Diagnoses Weakness R53.1 UTI (urinary tract infection) N39.0 CAD (coronary artery disease) I25.10 Coronary Disease-Associated Artery/Lesion type: [place] artery [place] vs. transplanted heart: [place] heart Associated angina: without angina Dysphagia R13.10 GERD with esophagitis K21.00 Hypothyroidism E03.9 (1) CAD (coronary artery disease) Coronary Disease-Associated Artery/Lesion type: [place] artery [place] vs. t ransplanted heart: [place] heart Associated angina: without angina Qualified Code(s): I25.10 - Atherosclerotic heart disease of [place] coronary artery without angina pectoris
[2020-12-06] MEDS: ENOXAPARIN INJ 40 MG/0.4 ML SYR SQ SCH (21:04)
[2020-12-07] MEDS: LEVOTHYROXINE SODIUM 75 MCG TABLET PO SCH (05:15)
[2020-12-07] MEDS: DICLOFENAC SOD 1% GEL 100 GM TUBE EXT SCH ×4 (09:30→20:29)
[2020-12-07] MEDS: PANTOprazole 40 MG TAB PO SCH ×2 (09:30→20:32)
[2020-12-07] MEDS: predniSONE 20 MG TAB PO SCH (09:30)
[2020-12-07] MEDS: SUCRALFATE 1 GM/10 ML UDC PO SCH ×4 (09:30→20:32)
[2020-12-07] MEDS: THIAMINE HCL 100 MG TAB PO SCH (09:30)
--- NOTE | 2020-12-07 15:25 | Hospitalist Progress Note ---
Date of Service December 07, 2020 Assessment & Plan (1) Weakness: Plan: - Uncertain of full etiology - has had decreased appetite since EGD about one month ago and has had progressive muscular weakness that has been since his hip fx/surgery -- Patient largely wheelchair bound and sedentary - reports that for about 3-4 weeks he has not really been able to stand and requiring a lot of assistance and predominantly utilizing a wheelchair at this point. She reports this seemed to correlate with the timing of his EGD. However he has had progressive decline over the 1-2 years but standing issues since 3-4 weeks. 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 -- LFTs may be related to Rocephin? did stop further antibiotics -- No abdominal pain - could consider CT however no direct complaints - TSH is WNL; Alk phos elevated but improving - Is complaining of shoulder pain and weakness and feels like his legs are weak - also told his daughter he was feeling depressed and when I spoke with him he states he just wants to be able to do things like he used to - Given the muscle aches/weakness and depressive feelings without other obvious causes - ESR/CRP are elevated - this may be fitting with polymyalgia rheumatica given the proximal weakness and depressive feelings - seems to have had a positive response to steroids -- Mindful of esophagitis - added Carafate to assist; change Protonix to 40 mg BID -- Prednisone -- will continue 20 mg x 2 days, 10 mg x 2 days and then 5 mg daily...maybe consider treating longer term or until PCP F/U vs stopping and watching - Will add Thiamine supplement due to poor eating - PT/OT to help determine needs (2) UTI (urinary tract infection): Plan: - UA not significantly convincing of UTI - UCx with pinpoint growth and will monitor - Hold Rocephin IV daily for now and monitor (3) CAD (coronary artery disease): Plan: Patient not on DAVID/ARB due to cough in the past Patient without beta-dinorah, antiplatelet therapy. Follows with cardiology (Dr. St) and was recently seen, does not take medication other than thyroid/omeprazole at this time (4) Dysphagia: Plan: Minced and moist diet Did cough after drinking orange juice on 12/05 but respiratory status is stable - can consider CXR if spiking fevers or coughing - EGD (11/05) - 5 cm hiatal hernia; no lesions of stomach or duodenum; reflux esophagitis Continue PPI - changed to BID dosing (5) GERD with esophagitis: Plan: Continue Protonix; add Carafate (6) Hypothyroidism: Plan: - TSH is WNL Continue Synthroid 37.5 mcg every morning Plan: - PT/OT evaluations - would like for patient to come home on D/C; discussed with juan ent//daughter. The daughter's son (patient's grandson) will be staying with Mr. Whitney to assist with needs who is young/athletic and can actually lift Mr. Whitney. They are interested in home services and list of caregivers. It appears they have good family support to assist with needs. Patient had a bad experience at [facility] and would not like to go there. Given great family support and SNFs could take >7 days to arrange he may be better served to be at home with home PT/OT/caregivers and great family support. He has been wheelchair bound for 3-4 weeks without being able to stand so at baseline. Admission and Anticipated Discharge Date Admission Date: December 04, 2020 Subjective Reports feeling well today. Emotions are more stabilized today. Keeps eyes open during conversation and answers appropriately when asking questions. Has been incontinent of stool. He reports his shoulders feel ok today. Review of Systems Review of Systems: REVIEW OF SYSTEMS General/Constitutional: + generalized weakness; Denies fever/chills Cardiovascular: Denies chest pain, palpitations, edema Respiratory: Denies cough, SOB, wheezing GI: Denies nausea, vomiting, abdominal pain : Denies dysuria Musculoskeletal: weakness of shoulders and legs Neurologic: Denies dizziness/lightheadedness Skin: Denies rash, itch Physical Exam Physical Exam: PHYSICAL EXAM General Appearance: Elderly male in NAD who is A&O x 3 HEENT: Head is normocephalic/atraumatic; Hearing grossly intact; Mucous membrane s moist Neck: Supple; Trachea midline; Neg JVD Heart: RRR with no M/G/R Lungs: CTA in all lung weathers bilaterally; Respirations unlabored; Neg accessory muscle use Abdomen: Soft, non-tender, non-distended; Positive BS x 4 quadrants Extremities: Neg cyanosis or edema Neurological: Speech clear; Gross motor/sensory function intact; Neg focal neurologic deficits; however movements are slow and weak; seems to have better arm raise today Psychiatric: Normal Affect Skin: Normal Color; Warm/Dry Results & Data Results & Data ([facility]) Vital Signs (Past 12 Hours) Vital Signs Temp Pulse Resp BP Pulse Ox 12/07/20 07:36 36.9 C 83 18 166/95 H 96 PG Care Time/CCT Total # of Minutes Spent Total Time Spent with Patient: Total time spent is greater than 50% in coordination of care (as documented) at patient's floor/unit and/or counseling patient: Coding Level of Care Code 77538 Subseq Hosp Care Lvl 3 Diagnoses Weakness R53.1 UTI (urinary tract infection) N39.0 CAD (coronary artery disease) I25.10 Coronary Disease-Associated Artery/Lesion type: [place] artery [place] vs. transplanted heart: [place] heart Associated angina: without angina Dysphagia R13.10 GERD with esophagitis K21.00 Hypothyroidism E03.9 (1) CAD (coronary artery disease) Coronary Disease-Associated Artery/Lesion type: [place] artery [place] vs. transplanted heart: [place] heart Associated angina: without angina Qualified Code(s): I25.10 - Atherosclerotic heart disease of [place] coronary artery without angina pectoris
[2020-12-07] MEDS: ENOXAPARIN INJ 40 MG/0.4 ML SYR SQ SCH (20:31)
[2020-12-08] MEDS: LEVOTHYROXINE SODIUM 75 MCG TABLET PO SCH (05:20)
[2020-12-08 07:04] LABS: Hematocrit (blood only) 38.7 % (42-52); Mean Corpuscular Hemoglobin 30.4 pg (25-34); Mean Corpuscular Hgb Conc 33.6 g/dL (32-36); Mean Corpuscular Volume 90.6 fL (80-100); Mean Platelet Volume 10.3 fL (7.4-10.4); Platelet Count 254 K/uL (130-400); RDW Coefficient of Variation 13.8 % (11.5-14.5); RDW Standard Deviation 45.7 fL (36.4-46.3); Red Blood Count 4.27 M/uL (4.7-6.1); White Blood Count 7.44 K/uL (4.8-10.8)
[2020-12-08 08:22] LABS: Albumin Globulin Ratio 0.6 (0.9-2); Albumin Level 2.6 gm/dl (3.4-5.0); BUN Creatinine Ratio 24.4 (10-20); Bilirubin,Total 0.5 mg/dl (0.2-1); Calcium 9.6 mg/dl (8.5-10.1); Creatinine Clr Calc Pharmacy 64.4 ml/min; Est GFR (African American) 90.9 ml/min; Est GFR (Non-African American) 78.4 ml/min; Globulin 4.4 gm/dl (2.5-4.0)
[2020-12-08] MEDS: THIAMINE HCL 100 MG TAB PO SCH (08:41)
[2020-12-08] MEDS: SUCRALFATE 1 GM/10 ML UDC PO SCH ×4 (08:41→21:09)
[2020-12-08] MEDS: DICLOFENAC SOD 1% GEL 100 GM TUBE EXT SCH ×4 (08:42→21:09)
[2020-12-08] MEDS: PANTOprazole 40 MG TAB PO SCH ×2 (08:42→21:09)
[2020-12-08 08:49] LABS: Potassium 3.6 mmol/L (3.5-5.1)
[2020-12-08] MEDS ORDERED: predniSONE 20 MG TAB PO SCH (09:00)
--- NOTE | 2020-12-08 09:09 | Hospitalist Progress Note ---
Date of Service December 08, 2020 Assessment & Plan (1) Weakness: Plan: - Uncertain of full etiology - has had decreased appetite since EGD about one month ago and has had progressive muscular weakness that has been since his hip fx/surgery September 2018, which was complicated by pulmonary embolisms - Patient largely wheelchair bound and sedentary - reports that for about 3-4 weeks he has not really been able to stand and requiring a lot of assistance and predominantly utilizing a wheelchair at this point. She reports this seemed to correlate with the timing of his EGD. However he has had progressive decline over the 1-2 years but standing issues since 3-4 weeks. 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 -- LFTs may be related to Rocephin? did stop further antibiotics -- No abdominal pain - could consider CT however no direct complaints - TSH is WNL; Alk phos elevated but improving - Is complaining of shoulder pain and weakness and feels like his legs are weak - also told his daughter he was feeling depressed and when I spoke with him he states he just wants to be able to do things like he used to - Given the muscle aches/weakness and depressive feelings without other obvious causes - ESR/CRP are elevated - this may be fitting with polymyalgia rheumatica given the proximal weakness and depressive feelings - seems to have had a positive response to steroids -- Mindful of esophagitis - added Carafate to assist; change Protonix to 40 mg BID -- Prednisone -- will continue 20 mg x 2 days, 10 mg x 2 days and then 5 mg daily...maybe consider treating longer term or until PCP F/U vs stopping and watching - Will add Thiamine supplement due to poor eating - PT/OT to help determine needs Update 12/08 Continues with weakness --> "reportedly" got up with therapy this morning per our conversation and "did well", however he did not and once eval in afternoon, MAX assist and unsafe for return home at this time. Family would ideally like this to be the case --> STOPPING PREDNISONE TODAY 12/08 as had not made much difference. (ESR elevated 56 on admit) Also, patient with hypercalcemia with Ca 10.2 with albumin 2.6 on 12/06 --> Vitamin D low at 29.7 (on 5000 IU daily [employer]) --> will check PTH with AM labs CK checked, wnl TSH wnl Elevated LFTs (and shoulder pain/neck) with TB elevated on admission --> thought elevated LFTs from Rocephin however were elevated on admission RUQ with sludge, no stones HIDA scan for AM NPO after midnight Lyme negative, but will check Anaplasmosis given elevated LFTs Consult GI -- appreciate recs. Most recent EGD Oct [address] Frias --> EGD w/ 5cm hiatal hernia Monitor Labs in AM (2) UTI (urinary tract infection): Plan: - UA not significantly convincing of UTI - UCx with pinpoint growth --> corynbact No further Rocephin (got 3 days earlier in stay) Chronic incontinence issues and follows with Urology (3) CAD (coronary artery disease): Plan: Follows with Dr. 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[facility] (2015) where he had post-op afib, asymptomatic and no long-term anticoagulation therapy indicated as they only had one episode (was on amiodarone in the past) Per note, consideration for ASA if no contraindications --> to have discussion with his GI (will discuss with them in AM) Not on BB -- previously on metoprolol 25mg daily No CP/SOB reported EKG w CP Trop negative on admission (4) Dysphagia: Plan: Minced and moist diet Did cough after drinking orange juice on 12/05 but respiratory status is stable - can consider CXR if spiking fevers or coughing - EGD (11/05) - 5 cm hiatal hernia; no lesions of stomach or duodenum; reflux esophagitis Continue PPI - changed to BID dosing No issues reported with current diet (5) GERD with esophagitis: Plan: Continue Protonix; added Carafate (6) Hypothyroidism: Plan: - TSH is WNL Continue Synthroid 37.5 mcg every morning (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 Hx afib single episode as above and per cardiology no anticoagulation at that time (Had a history of fall July 2018 resulting in trace ICH and was transferred to tertiary care and managed non-operatively Plan: - PT/OT evaluations--> SNF--> would like for patient to come home on D/C; discussed with patient//daughter. The daughter's son (patient's grandson) will be staying with Mr. Whitney to assist with needs who is young/athletic and can actually lift Mr. Whitney. They are interested in home services and list of caregivers. It appears they have good family support to assist with needs. Patient had a bad experience at [facility] and would not like to go there. Given great family support and SNFs could take >7 days to arrange he may be better served to be at home with home PT/OT/caregivers and great family support. He has been wheelchair bound for 3-4 weeks without being able to stand so at baseline. --> MAX ASSIST WITH THERAPY AND UNSAFE FOR HOME AT THIS TIME. WILL NEED CONTINUED DISCUSSIONS HIDA scan in AM, GI consulted NPO after midnight Admission and Anticipated Discharge Date Admission Date: December 04, 2020 Supervising Physician Co-Signing Physician Notes [facility] Supervision Note: I did not personally see or examine the patient today, but I verified all nogueira points of [facility] Layton's assessment and plan with the following exceptions/additions: None Subjective Patient evaluated this afternoon. States improvement in strength and got out of bed with therapy today. Does not want rehab -- bad experiences with family members in the past. Discussed if continues to make improvement can consider home tomorrow with home health and family support and will attempt to taper prednisone to effective dose. No hx diabetes. Eating/drinking without issue. Continues to move his bowels but incontinent at times. Denies any hx falls or saddle paresthesias. 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 NVI. decreased strength proximal muscle groups. unable to push self up in bed. no pain with ROM Neurological: Speech clear; Gross motor/sensory function intact; Neg focal neurologic deficits; however movements are slow and weak; seems to have better arm raise today Psychiatric: Normal Affect Skin: Normal Color; Warm/Dry Results & Data Results & Data ([facility]) Vital Signs (Past 12 Hours) Vital Signs Temp Pulse Resp BP Pulse Ox 12/08/20 07:17 36.7 C 74 16 177/84 H 95 12/07/20 21:52 37.1 C 77 16 149/76 H 92 Laboratory Results 12/08/20 12/08/20 12/08/20 Range/Units 08:23 06:23 06:23 WBC 7.44 (4.8-10.8) K/uL RBC 4.27 L (4.7-6.1) M/uL Hgb 13.0 L (14.0-18.0) g/dL Hct 38.7 L (42-52) % MCV 90.6 (80-100) fL MCH 30.4 (25-34) pg MCHC 33.6 (32-36) g/dL RDW Std Deviation 45.7 (36.4-46.3) fL RDW Coeff of Prem 13.8 (11.5-14.5) % Plt Count 254 (130-400) K/uL MPV 10.3 (7.4-10.4) fL Sodium 135 L (136-145) mmol/L Potassium 3.6 (3.5-5.1) mmol/L Chloride 103 (98-107) mmol/L Carbon Dioxide 27 (21-32) mmol/L Anion Gap 5.0 (3-11) BUN 20 H (7-18) mg/dl Creatinine 0.82 (0.6-1.4) mg/dl Est Cr Clr Drug Dosing 64.4 ml/min Est GFR ( Amer) 90.9 ml/min Est GFR (Non-Af Amer) 78.4 ml/min BUN/Creatinine Ratio 24.4 H (10-20) Glucose 79 (70-99) mg/dl Calcium 9.6 (8.5-10.1) mg/dl Total Bilirubin 0.5 (0.2-1) mg/dl AST 121 H (15-37) U/L ALT 233 H (12-78) U/L Alkaline Phosphatase 200 H (45-117) U/L Total Protein 7.0 (6.4-8.2) gm/dl Albumin 2.6 L (3.4-5.0) gm/dl Globulin 4.4 H (2.5-4.0) gm/dl Albumin/Globulin Ratio 0.6 L (0.9-2) PG Care Time/CCT Total # of Minutes Spent Total Time Spent with Patient: Total time spent is greater than 50% in coordination of care (as documented) at patient's floor/unit and/or counseling patient: Coding Level of Care Code 09043 Subseq Hosp Care Lvl 3 Diagnoses Weakness R53.1 UTI (urinary tract infection) N39.0 CAD (coronary artery disease) I25.10 Associated angina: without angina Coronary Disease-Associated Artery/Lesion type: [place] artery [place] vs. transplanted heart: [place] heart Dysphagia R13.10 GERD with esophagitis K21.00 Hypothyroidism E03.9 Carcinoid tumor D3A.00 Bilateral pulmonary embolism I26.99 (1) CAD (coronary artery disease) Associated angina: without angina Coronary Disease-Associated Artery/Lesion type: [place] artery [place] vs. transplanted heart: [place] heart Qualified Code(s): I25.10 - Atherosclerotic heart disease of [place] coronary artery without angina pectoris
[2020-12-08 16:10] LABS: Hepatitis B Surf Ag Rflx Conf Neg (Neg)
[2020-12-08 16:38] LABS: Hepatitis C IgG 13Yrs+Old_Rflx Neg (Neg)
[2020-12-08] MEDS: ENOXAPARIN INJ 40 MG/0.4 ML SYR SQ SCH (21:09)
[2020-12-09 05:00] LABS: Appearance Urine Clear (Clear); Bilirubin Urine Negative (Negative); Blood Urine Negative (Negative); Color Urine Yellow; Glucose Urine UA Negative (Negative); Ketones Urine Negative (Negative); Leukocyte Esterase Urine Negative (Negative); Nitrite Urine Negative (Negative); Protein Urine Negative (Negative); Specific Gravity Urine 1.022 (1.000-1.030); Urobilinogen Urine Negative (Negative)
[2020-12-09] MEDS: LEVOTHYROXINE SODIUM 75 MCG TABLET PO SCH (06:00)
[2020-12-09 07:34] LABS: Hematocrit (blood only) 39.8 % (42-52); Hemoglobin 13.5 g/dL (14.0-18.0); Mean Corpuscular Hemoglobin 30.2 pg (25-34); Mean Corpuscular Hgb Conc 33.9 g/dL (32-36); Platelet Count 190 K/uL (130-400); RDW Standard Deviation 45.2 fL (36.4-46.3); Red Blood Count 4.47 M/uL (4.7-6.1)
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
--- NOTE | 2020-12-09 08:54 | Hospitalist Progress Note ---
Date of Service December 09, 2020 Assessment & Plan (1) Weakness: Plan: Uncertain of full etiology - has had decreased appetite since EGD about one month ago and has had progressive muscular weakness that has been since his hip fx/surgery September 2018, which was complicated by pulmonary embolisms Patient largely wheelchair bound and sedentary - reports that for about 3-4 weeks he has not really been able to stand and requiring a lot of assistance and predominantly utilizing a wheelchair at this point. She reports this seemed to correlate with the timing of his EGD. However he has had progressive decline over the 1-2 years but standing issues since 3-4 weeks. 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 -- LFTs may be related to Rocephin? did stop further antibiotics -- No abdominal pain - could consider CT however no direct complaints TSH is WNL CK wnl Complaints of shoulder pain and weakness and feels like his legs are weak - also told his daughter he was feeling depressed and when I spoke with him he states he just wants to be able to do things like he used to Given the muscle aches/weakness and depressive feelings without other obvious causes - ESR/CRP are elevated - this may be fitting with polymyalgia rheumatica given the proximal weakness and depressive feelings - seems to have had a positive response to steroids --> no further improvement and this was discontinued --> Gallbladder work-up as below 12/09 Continues with weakness (slightly better today but still needing max assist) --> "reportedly" got up with therapy this morning per our conversation and "did well", however he did not and once eval in afternoon, MAX assist and unsafe for return home at this time. Family would ideally like this to be the case but did discuss will continue to monitor Prednisone stopped on 12/08 as without difference and would have expected with PMR significant improvement LFTs remain elevated --> AST 75, ALT 198, ALP 182 RUQ with sludge but no stones HIDA scan this morning without evidence for obstruction/ductal dilation. LFTs improved but still elevated GI on consult (most recent EGD Oct [address] Frias w/ 5cm hiatal hernia) -- additional testing with iron studies, CMV, EBC, CEA, SERA, [id number], SERA. Also with considerations for right sidede heart failure (self discontinued cardiac medications due to cough from ARB and not wanting to take BB any longer -- will reach out to Dr St tomorrow about possible R sided failure and resume BB as patient agreeable but want to hold off on DAVID) Hypercalcemia with Ca 10.5 with albumin 2.6 for corrected Ca 11.6 (Ca was 11 with albumin 2.8 on admission with corrected Ca 12) --> Placed on IVF and will give dose of 25mg HCTZ and continue to monitor labs in AM. Not previously on thiazide diuretic/medication to cause such and recently stopped his vitamin supplementation at home --> Vit D low at 29.7 --> PTH elevated to 182.2 (previously 124 in 2018), appropriate given low Vitamin D at 29.7 --> Stopped his supplementation per , but discussed should resume this medication Lyme negative, but will check Anaplasmosis given elevated LFTs -- pending + Fecal occult blood this afternoon despite light brown colored stool per RN --> discussed with GI and will place on liquids tonight and they will discuss about possible scope during inpatient stay vs Tuesday based on ability to tolerate prep (2) Hypercalcemia: Plan: Again elevated today 10.5 with low albumin, corrected to 11.6 IVF, diuretic as above Monitor labs in AM (3) Elevated LFTs: Plan: See above GI on consult (4) UTI (urinary tract infection): Plan: UA not significantly convincing of UTI - UCx with pinpoint growth --> corynbact No further Rocephin (got 3 days earlier in stay) Chronic incontinence issues and follows with Urology (5) CAD (coronary artery disease): Plan: Follows with Dr. 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[facility] ([place]) where he had post-op afib, asymptomatic and no long-term anticoagulation therapy indicated as they only had one episode (was on amiodarone in the past) Per note, consideration for ASA if no contraindications --> to have discussion with his GI --> no known contraindications however see above fecal occult + and possible inpatient scope Not on BB -- previously on metoprolol 25mg daily No CP/SOB reported EKG w CP Trop negative on admission ?R sided congestion causing elevations in LFTs? 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 Hx afib single episode as above and per cardiology no anticoagulation at that time (Had a history of fall July 2018 resulting in trace ICH and was transferred to tertiary care and managed non-operatively Plan: PT/OT evaluations--> SNF--> would like for patient to come home on D/C; discussed with patient//daughter. The daughter's son (patient's grandson) will be staying with Mr. Whitney to assist with needs who is young/athletic and can actually lift Mr. Whitney. They are interested in home services and list of caregivers. It appears they have good family support to assist with needs. Patient had a bad experience at [facility] and would not like to go there. Given great family support and SNFs could take >7 days to arrange he may be better served to be at home with home PT/OT/caregivers and great family support. He has been wheelchair bound for 3-4 weeks without being able to stand so at baseline. --> MAX ASSIST WITH THERAPY AND UNSAFE FOR HOME AT THIS TIME. WILL NEED CONTINUED DISCUSSIONS Possible need for inpatient c-scope given + fecal occult as above Admission and Anticipated Discharge Date Admission Date: December 04, 2020 Supervising Physician Co-Signing Physician Notes PA Supervision Note: I did not personally see or examine the patient today, but I verified all nogueira points of FAB Layton's assessment and plan with the following exceptions/additions: Patient with borderline moderate hypercalcemia upon admission-perhaps this is contributing to some of his weakness. Giving normal saline, and a dose of pamidronate. Would not give any further HCTZ as this increases calcium reabsorption in the kidney. He has significantly elevated parathyroid hormone this is consistent with primary hyperparathyroidism-can follow-up as an outpatient with endocrinology As far as elevated LFTs, unclear cause, but did have mild elevated bilirubin initially. No evidence on imaging of biliary tract obstruction, but perhaps he passed some sludge or stones early on? No evidence of acute cholecystitis on HIDA scan today. LFTs are trending downward. Continue to follow, no antibiotics or intervention necessary. Subjective Patient evaluated this afternoon. States he is doing well. Eating/drinking without issue. HIDA scan this morning without obstruction. LFTs remain elevated and discussed elevated calcium and further work-up for such. Discussed therapy did not go well and ideally would like to set up for rehab but will investigate/treat possible underlying causes to see if improvement in mobility. Moving bowels but incontinent, also of urine. Denies any fever, chills, chest pain, shortness of breath, cough, abdominal pain, nausea or vomiting. GI consulted and additional laboratory studies pending. To call with update this evening --> updated at bedside this afternoon. Wishes to ultimately bring him home and would like to see how progresses with therapy. Discussed if making progress would highly rec rehab given safety for d/c home. 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 NVI. decreased strength proximal muscle groups. unable to push self up in bed. no pain with ROM --> increased ROM and able to stand with therapy but was still max assist x 2 and needing frequent cues Neurological: Speech clear; Gross motor/sensory function intact; Neg focal neurologic deficits; however movements are slow and weak; seems to have better arm raise today, more mobility of legs Psychiatric: Normal Affect Skin: Normal Color; Warm/Dry Results & Data Results & Data ([facility]) Vital Signs (Past 12 Hours) Vital Signs Temp Pulse Resp BP BP Pulse Ox 12/09/20 06:54 36.4 C L 70 16 167/83 H 96 12/08/20 22:09 36.3 C L 71 16 154/75 H 94 Laboratory Results 12/09/20 12/09/20 12/09/20 Range/Units 07:21 07:21 07:21 WBC 7.70 (4.8-10.8) K/uL RBC 4.47 L (4.7-6.1) M/uL Hgb 13.5 L (14.0-18.0) g/dL Hct 39.8 L (42-52) % MCV 89.0 (80-100) fL MCH 30.2 (25-34) pg MCHC 33.9 (32-36) g/dL RDW Std Deviation 45.2 (36.4-46.3) fL RDW Coeff of Prem 14.0 (11.5-14.5) % Plt Count 190 (130-400) K/uL MPV 11.0 H (7.4-10.4) fL Sodium 135 L (136-145) mmol/L Potassium (3.5-5.1) mmol/L Chloride 104 (98-107) mmol/L Carbon Dioxide 25 (21-32) mmol/L Anion Gap 6.0 (3-11) BUN 21 H (7-18) mg/dl Creatinine 0.77 (0.6-1.4) mg/dl Est Cr Clr Drug Dosing 68.6 ml/min Est GFR ( Amer) 93.2 ml/min Est GFR (Non-Af Amer) 80.5 ml/min BUN/Creatinine Ratio 27.7 H (10-20) Glucose 84 (70-99) mg/dl Calcium 10.5 H (8.5-10.1) mg/dl Total Bilirubin 0.6 (0.2-1) mg/dl Direct Bilirubin (0-0.2) mg/dl AST (15-37) U/L ALT 198 H (12-78) U/L Alkaline Phosphatase 182 H (45-117) U/L Total Creatine Kinase (39-308) U/L Total Protein 7.0 (6.4-8.2) gm/dl Albumin 2.6 L (3.4-5.0) gm/dl 25-OH Vitamin D Total (30-100) ng/ml PTH Intact Pending Urine Color Urine Appearance (Clear) Urine pH (4.5-7.5) Ur Specific [place] (1.000-1.030) Urine Protein (Negative) Urine Glucose (UA) (Negative) Urine Ketones (Negative) Urine Blood (Negative) Urine Nitrite (Negative) Urine Bilirubin (Negative) Urine Urobilinogen (Negative) Ur Leukocyte Esterase (Negative) A. phagocytophilum DNA Hepatitis A IgM Ab Hep Bs Antigen (Neg) Hep B Core IgM Ab Hepatitis C Antibody (Neg) 12/09/20 12/08/20 12/08/20 Range/Units 04:40 14:51 14:50 WBC (4.8-10.8) K/uL RBC (4.7-6.1) M/uL Hgb (14.0-18.0) g/dL Hct (42-52) % MCV (80-100) fL MCH (25-34) pg MCHC (32-36) g/dL RDW Std Deviation (36.4-46.3) fL RDW Coeff of Prem (11.5-14.5) % Plt Count (130-400) K/uL MPV (7.4-10.4) fL Sodium (136-145) mmol/L Potassium (3.5-5.1) mmol/L Chloride (98-107) mmol/L Carbon Dioxide (21-32) mmol/L Anion Gap (3-11) BUN (7-18) mg/dl Creatinine (0.6-1.4) mg/dl Est Cr Clr Drug Dosing ml/min Est GFR ( Amer) ml/min Est GFR (Non-Af Amer) ml/min BUN/Creatinine Ratio (10-20) Glucose (70-99) mg/dl Calcium (8.5-10.1) mg/dl Total Bilirubin (0.2-1) mg/dl Direct Bilirubin (0-0.2) mg/dl AST (15-37) U/L ALT (12-78) U/L Alkaline Phosphatase (45-117) U/L Total Creatine Kinase (39-308) U/L Total Protein (6.4-8.2) gm/dl Albumin (3.4-5.0) gm/dl 25-OH Vitamin D Total (30-100) ng/ml PTH Intact Urine Color Yellow Urine Appearance Clear (Clear) Urine pH 5.0 (4.5-7.5) Ur Specific [place] 1.022 (1.000-1.030) Urine Protein Negative (Negative) Urine Glucose (UA) Negative (Negative) Urine Ketones Negative (Negative) Urine Blood Negative (Negative) Urine Nitrite Negative (Negative) Urine Bilirubin Negative (Negative) Urine Urobilinogen Negative (Negative) Ur Leukocyte Esterase Negative (Negative) A. phagocytophilum DNA Pending Hepatitis A IgM Ab Pending Hep Bs Antigen (Neg) Hep B Core IgM Ab Pending Hepatitis C Antibody (Neg) 12/08/20 12/08/20 12/08/20 Range/Units 14:50 09:34 09:34 WBC (4.8-10.8) K/uL RBC (4.7-6.1) M/uL Hgb (14.0-18.0) g/dL Hct (42-52) % MCV (80-100) fL MCH (25-34) pg MCHC (32-36) g/dL RDW Std Deviation (36.4-46.3) fL RDW Coeff of Prem (11.5-14.5) % Plt Count (130-400) K/uL MPV (7.4-10.4) fL Sodium (136-145) mmol/L Potassium (3.5-5.1) mmol/L Chloride (98-107) mmol/L Carbon Dioxide (21-32) mmol/L Anion Gap (3-11) BUN (7-18) mg/dl Creatinine (0.6-1.4) mg/dl Est Cr Clr Drug Dosing ml/min Est GFR ( Amer) ml/min Est GFR (Non-Af Amer) ml/min BUN/Creatinine Ratio (10-20) Glucose (70-99) mg/dl Calcium (8.5-10.1) mg/dl Total Bilirubin (0.2-1) mg/dl Direct Bilirubin (0-0.2) mg/dl AST (15-37) U/L ALT (12-78) U/L Alkaline Phosphatase (45-117) U/L Total Creatine Kinase (39-308) U/L Total Protein (6.4-8.2) gm/dl Albumin (3.4-5.0) gm/dl 25-OH Vitamin D Total 29.7 L (30-100) ng/ml PTH Intact Cancelled Urine Color Urine Appearance (Clear) Urine pH (4.5-7.5) Ur Specific [place] (1.000-1.030) Urine Protein (Negative) Urine Glucose (UA) (Negative) Urine Ketones (Negative) Urine Blood (Negative) Urine Nitrite (Negative) Urine Bilirubin (Negative) Urine Urobilinogen (Negative) Ur Leukocyte Esterase (Negative) A. phagocytophilum DNA Hepatitis A IgM Ab Hep Bs Antigen Neg (Neg) Hep B Core IgM Ab Hepatitis C Antibody Neg (Neg) 12/08/20 Range/Units 08:23 WBC (4.8-10.8) K/uL RBC (4.7-6.1) M/uL Hgb (14.0-18.0) g/dL Hct (42-52) % MCV (80-100) fL MCH (25-34) pg MCHC (32-36) g/dL RDW Std Deviation (36.4-46.3) fL RDW Coeff of Prem (11.5-14.5) % Plt Count (130-400) K/uL MPV (7.4-10.4) fL Sodium (136-145) mmol/L Potassium (3.5-5.1) mmol/L Chloride (98-107) mmol/L Carbon Dioxide (21-32) mmol/L Anion Gap (3-11) BUN (7-18) mg/dl Creatinine (0.6-1.4) mg/dl Est Cr Clr Drug Dosing ml/min Est GFR ( Amer) ml/min Est GFR (Non-Af Amer) ml/min BUN/Creatinine Ratio (10-20) Glucose (70-99) mg/dl Calcium (8.5-10.1) mg/dl Total Bilirubin (0.2-1) mg/dl Direct Bilirubin (0-0.2) mg/dl AST (15-37) U/L ALT (12-78) U/L Alkaline Phosphatase (45-117) U/L Total Creatine Kinase 43 (39-308) U/L Total Protein (6.4-8.2) gm/dl Albumin (3.4-5.0) gm/dl 25-OH Vitamin D Total (30-100) ng/ml PTH Intact Urine Color Urine Appearance (Clear) Urine pH (4.5-7.5) Ur Specific [place] (1.000-1.030) Urine Protein (Negative) Urine Glucose (UA) (Negative) Urine Ketones (Negative) Urine Blood (Negative) Urine Nitrite (Negative) Urine Bilirubin (Negative) Urine Urobilinogen (Negative) Ur Leukocyte Esterase (Negative) A. phagocytophilum DNA Hepatitis A IgM Ab Hep Bs Antigen (Neg) Hep B Core IgM Ab Hepatitis C Antibody (Neg) Diagnostic Findings Hepatobiliary Scan Nuclear Medicine 12/09/20 07:30 NUCLEAR MEDICINE HEPATOBILIARY SCAN HISTORY: weakness, biliary sludge, further eval COMPARISON: Abdominal ultrasound 12/05/2020. TECHNIQUE: Immediately following the intravenous administration of 5.5 mCi Tc- 99m Choletec, dynamic anterior abdominal imaging was performed. FINDINGS: Uniform hepatic tracer accumulation is shown. Prompt intrahepatic biliary excretion is seen. The gallbladder, common bile duct, and small bowel are all visualized by 25 minutes. This appearance represents the normal sequence of biliary excretion. IMPRESSION: 1. No evidence for cystic duct obstruction. ACT 112: Negative or not required by law. Electronically signed by: Mathew Arrieta M.D. 12/09/2020 8:54 AM PG Care Time/CCT Total # of Minutes Spent Total Time Spent with Patient: Total time spent is greater than 50% in coordination of care (as documented) at patient's floor/unit and/or counseling patient: Coding Level of Care Code 67889 Subseq Hosp Care Lvl 3 Diagnoses Weakness R53.1 UTI (urinary tract infection) N39.0 CAD (coronary artery disease) I25.10 Associated angina: without angina Coronary Disease-Associated Artery/Lesion type: [place] artery [place] vs. transplanted heart: [place] heart Dysphagia R13.10 GERD with esophagitis K21.00 Hypothyroidism E03.9 Carcinoid tumor D3A.00 Bilateral pulmonary embolism I26.99 Hypercalcemia E83.52 Elevated LFTs R79.89 (1) CAD (coronary artery disease) Associated angina: without angina Coronary Disease-Associated Artery/Lesion type: [place] artery [place] vs. transplanted heart: [place] heart Qualified Code(s): I25.10 - Atherosclerotic heart disease of [place] coronary artery without angina pectoris
--- NOTE | 2020-12-09 08:55 | Nuclear Medicine Report ---
NUCLEAR MEDICINE HEPATOBILIARY SCAN HISTORY: weakness, biliary sludge, further eval COMPARISON: Abdominal ultrasound 12/05/2020. TECHNIQUE: Immediately following the intravenous administration of 5.5 mCi Tc-99m Choletec, dynamic a nterior abdominal imaging was performed. FINDINGS: Uniform hepatic tracer accumulation is shown. Prompt intrahepatic biliary excretion is seen. The gall bladder, common bile duct, and small bowel are all visualized by 25 minutes. This appearance represen ts the normal sequence of biliary excretion. IMPRESSION: 1. No evidence for cystic duct obstruction. ACT 112: Negative or not required by law. Electronically signed by: Mathew Arrieta M.D. 12/09/2020 8:54 AM
[2020-12-09 09:34] LABS: Albumin Level 2.6 gm/dl (3.4-5.0); BUN Creatinine Ratio 27.7 (10-20); Bilirubin,Total 0.6 mg/dl (0.2-1); Calcium 10.5 mg/dl (8.5-10.1); Creatinine Clr Calc Pharmacy 68.6 ml/min; Est GFR (African American) 93.2 ml/min; Est GFR (Non-African American) 80.5 ml/min
[2020-12-09 10:16] LABS: Potassium 3.7 mmol/L (3.5-5.1)
[2020-12-09] MEDS: SUCRALFATE 1 GM/10 ML UDC PO SCH ×4 (10:47→21:32)
[2020-12-09] MEDS: PANTOprazole 40 MG TAB PO SCH ×2 (10:47→21:32)
[2020-12-09] MEDS: DICLOFENAC SOD 1% GEL 100 GM TUBE EXT SCH ×4 (10:49→21:31)
[2020-12-09] MEDS: THIAMINE HCL 100 MG TAB PO SCH (10:49)
[2020-12-09] MEDS: SODIUM CHLORIDE 0.9% 1000ML 1,000 ML IV SCH ×2 (10:51→23:20)
[2020-12-09 14:11] LABS: Ferritin 553.5 ng/ml (8-388)
[2020-12-09] MEDS ORDERED: hydroCHLOROthiazide 25 MG TAB PO STA (17:44)
[2020-12-09] MEDS ORDERED: SODIUM CHLORIDE 0.9% IV ONE (21:30)
[2020-12-09] MEDS ORDERED: PAMIDRONATE DISODIUM IV ONE (21:30)
[2020-12-09] MEDS: ENOXAPARIN INJ 40 MG/0.4 ML SYR SQ SCH (21:32)
[2020-12-10] MEDS: LEVOTHYROXINE SODIUM 75 MCG TABLET PO SCH (05:41)
--- NOTE | 2020-12-10 08:39 | Hospitalist Progress Note ---
Date of Service December 10, 2020 Assessment & Plan (1) Hypercalcemia: Plan: Suspected primary hyperparathyroidism contributing to ongoing weakness --> PTH elevated, Ca elevated, Vit D low normal Vit D not overtly low to explain elevation in PTH to 182.2 (previously was 124 in 2018) --> Placed on IVF (did get 1x dose HCTZ instead of loop diuretic but would avoid in future). Pamidronate x 1 30mg on 12/09 No further Vit D supplementation (he had stopped prior month per ) Ca 10, albumin 2.6 today for corrected of 11.1 (corrected 11.6 on 12/09 and was 12 on admission) ?surgery in future for definitive treatment which can be done on outpatient basis -- given age not likely great candidate To monitor Ca on IVF. Consider cinacalcet 30mg daily at discharge and continued Ca monitoring (2) Weakness: Plan: Uncertain of full etiology - has had decreased appetite since EGD about one month ago and has had progressive muscular weakness that has been since his hip fx/surgery September 2018, which was complicated by pulmonary embolisms Patient largely wheelchair bound and sedentary - reports that for about 3-4 weeks he has not really been able to stand and requiring a lot of assistance and predominantly utilizing a wheelchair at this point. She reports this seemed to correlate with the timing of his EGD. However he has had progressive decline over the 1-2 years but standing issues since 3-4 weeks. 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 Trop negative on admit LFTs elevated but improving today-- AST 60, ALT 155, ALP 154 RUQ with GB distension and containment of biliary sludge, no no stones or evidence of acute yang noted HIDA scan without evidence for obstruction/ductal dilation. GI on consult -- (Dr Frias most recent EGD Oct [address] Frias w/ 5cm hiatal hernia) Added CMV, EBC, CEA, SERA, hubxk-5-giswhhkcoid, SERA pending -- additional testing with iron studies with iron 64, TIBC 219L, transferrin 183L, transferrin % sat 25, ferritin 553.5H (reactive) Possible repeat scope pending eval today given +fecal occult (no patricia bleeding noted) CRP 5.6--> 0.95 Bowel prep ordered for tonight with plans for c-scope tomorrow. Strong fam hx colon ca . 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 ?neuroendocrine of GI Hypercalcemia ( 2nd to a suspected primary hyperparathyroidism) suspected contributing to weakness -- see below regarding treatment. Doubt malignancy per discussion with nephro as would suspect PTH to be suppressed Continuing IVF. Already got pamidronate. 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 Last admission in 2019 for femur fx resulted in multiple filling defects favored to represent pulmonary emboli rather than artifact and patient was discharged on Coumadin for 6months for PROVOKED PE due to hip fracture/surgery No calf tenderness/edema to suggest DVT but patient has been very immobile at home and ?given edema reported in past DVT now traveled (6) CAD (coronary artery disease): Plan: Follows with Dr. 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[facility] [place] (2015) where he had post-op afib, asymptomatic and no long-term anticoagulation therapy indicated as they only had one episode (was on amiodarone in the past) Per note, consideration for ASA if no contraindications --> to have discussion with his GI --> no known contraindications however see above fecal occult + and possible inpatient scope Not on BB -- previously on metoprolol 25mg daily No CP/SOB reported EKG w CP Trop negative on admission ECHO on repeat without wma. LV systolic function normal. Aortic valve sclerosis mild without sig . RVSP normal (7) Dysphagia: Plan: Minced and moist diet Did cough after drinking orange juice on 12/05 but respiratory status is stable - can consider CXR if spiking fevers or coughing EGD (11/05) - 5 cm hiatal hernia; no lesions of stomach or duodenum; reflux esophagitis Continue PPI - changed to BID dosing No issues reported with current diet Speech eval --> would include slippery to diet once off liquid diet as above for possible scope tomorrow (8) GERD with esophagitis: Plan: Continue Protonix increased BID; added Carafate (9) Hypothyroidism: Plan: TSH is WNL Continue Synthroid 37.5 mcg every morning (10) Bilateral pulmonary embolism: Plan: Hx of post-op ORIF Left Hip 09/2018- was on Coumadin x 6 months (last dose 04/05/19) Not on further anticoagulation. Hx afib single episode as above and per cardiology no anticoagulation at that time however there were discussions for couple weeks Coumadin for a possible atrial thrombus but was felt not to be the case (Also had a history of fall July 2018 resulting in trace ICH and was transferred to tertiary care and managed non-operatively) Plan: Bowel prep for tonight --> c-scope tomorrow Continue IVF for tx of hypercalcemia as above PT/OT evaluations--> SNF--> would like for patient to come home on D/C; discussed with patient//daughter. The daughter's son (patient's grandson) will be staying with Mr. Whitney to assist with needs who is young/athletic and can actually lift Mr. Whitney. They are interested in home services and list of caregivers. It appears they have good family support to assist with needs. Patient had a bad experience at [facility] and would not like to go there. Given great family support and SNFs could take >7 days to arrange he may be better served to be at home with home PT/OT/caregivers and great family support. He has been wheelchair bound for 3-4 weeks without being able to stand so at baseline. --> MAX ASSIST WITH THERAPY AND UNSAFE FOR HOME AT THIS TIME but has been better yesterday compared to days past. Continue to tx hypercalcemia. Outpt follow up Continue PT while inpatient (gave PT aide difficulty today as he did not like her instructions and wanted to do things his way) Admission and Anticipated Discharge Date Admission Date: December 04, 2020 Supervising Physician Co-Signing Physician Notes FAB Supervision Note: I did not personally see or examine the patient today, but I verified all nogueira points of FAB Layton's assessment and plan with the following exceptions/additions: None Subjective Patient evaluated this afternoon. Feeling slightly tired today but overall well. Some improvement in strength and discussed continuing treatment for elevated calcium. No shortness of breath or chest pain but does endorse lightheadedness at times with ambulation and that's causing difficulty working with therapy as they want him to utilize different tactics for ambulation to improve strength. No hemoptysis or LE edema/calf tenderness. Discussed may be another day or two to monitor for improvement with treatment of calcium to see if able to return safely home given patient and family wishes. On liquid diet for today given prior + fecal occult and Dr Frias to be around later today to discuss possible scope for evaluation. Patient states he would like updated this afternoon -- Dr Frias to be over this afternoon to talk with both but as discussed also would be happy to update later with plan given strong family Hx colon ca. Review of Systems Review of Systems: All systems reviewed & are unremarkable except as noted in HPI & below Physical Exam Physical Exam: General Appearance: Elderly male in NAD who is A&O x 3 (in termittent forgetfulness), general pallor and sleeping in bed upon arrival HEENT: Head is normocephalic/atraumatic; Hearing grossly intact; Mucous membranes moist Neck: Supple; Trachea midline; Neg JVD Heart: RRR with no M/G/R Lungs: CTA in all lung weathers bilaterally; Respirations unlabored; Neg accessory muscle use Abdomen: Soft, non-tender, +distended, voluntary guarding RUQ, +BS throughout, no rigidity Extremities: Neg cyanosis or edema MSK: mill oiler strength equal, dorsiflexion/plantar flexion equal. NVI. decreased strength proximal muscle groups. unable to push self up in bed. no pain with ROM Neurological: Speech clear; Gross motor/sensory function intact; Neg focal neurologic deficits; however movements are slow and weak; seems to have better arm raise today (able to raise slightly above his head today), more mobility of legs with improved strength with flexion/extension at the knee but still with significant weakness Psychiatric: Normal Affect Skin: Normal Color; Warm/Dry Results & Data Results & Data ([facility]) Vital Signs (Past 12 Hours) Vital Signs Temp Pulse Resp BP BP Pulse Ox 12/10/20 07:43 36.6 C 84 18 152/80 H 94 12/09/20 22:43 36.8 C 87 16 163/74 H 93 Laboratory Results 12/10/20 12/10/20 12/10/20 Range/Units 08:21 08:21 08:21 WBC 6.59 (4.8-10.8) K/uL RBC 4.17 L (4.7-6.1) M/uL Hgb 12.4 L (14.0-18.0) g/dL Hct 37.2 L (42-52) % MCV 89.2 (80-100) fL MCH 29.7 (25-34) pg MCHC 33.3 (32-36) g/dL RDW Std Deviation 46.1 (36.4-46.3) fL RDW Coeff of Prem 14.1 (11.5-14.5) % Plt Count 260 (130-400) K/uL MPV 9.9 (7.4-10.4) fL Immature Gran % (Auto) 2.6 % Neut % (Auto) 48.1 % Lymph % (Auto) 31.7 % [place] % (Auto) 12.9 % Eos % (Auto) 4.2 % Baso % (Auto) 0.5 % Neut # (Auto) 3.17 (1.4-6.5) K/uL Lymph # (Auto) 2.09 (1.2-3.4) K/uL [place] # (Auto) 0.85 H (0.11-0.59) K/uL Eos # (Auto) 0.28 (0-0.5) K/uL Baso # (Auto) 0.03 (0-0.2) K/uL Immature Gran # (Auto) 0.17 H (0.00-0.02) K/uL ESR 25 H (0-20) mm/hr Sodium 138 (136-145) mmol/L Potassium 3.9 (3.5-5.1) mmol/L Chloride 107 (98-107) mmol/L Carbon Dioxide 25 (21-32) mmol/L Anion Gap 7.0 (3-11) BUN 15 (7-18) mg/dl Creatinine 0.73 (0.6-1.4) mg/dl Est Cr Clr Drug Dosing 72.3 ml/min Est GFR ( Amer) 95.3 ml/min Est GFR (Non-Af Amer) 82.2 ml/min BUN/Creatinine Ratio 20.9 H (10-20) Glucose 86 (70-99) mg/dl Calcium 10.0 (8.5-10.1) mg/dl Iron (35-175) mcg/dl TIBC (250-450) mcg/dl Transferrin (200-360) mg/dl Transferrin % Sat (20-50) % Ferritin (8-388) ng/ml Total Bilirubin 0.4 (0.2-1) mg/dl Direct Bilirubin < 0.1 (0-0.2) mg/dl AST 60 H (15-37) U/L ALT 155 H (12-78) U/L Alkaline Phosphatase 154 H (45-117) U/L C-Reactive Protein 0.95 H (0-0.29) mg/dl Total Protein 6.3 L (6.4-8.2) gm/dl Albumin 2.6 L (3.4-5.0) gm/dl Carcinoembryonic Ag (0-2.5) ng/ml PTH Intact (18.4-80.1) pg/ml Stool Occult Bld Scrn (Negative) Hepatitis A IgM Ab (NON-REACTIVE) Hep B Core IgM Ab (NON-REACTIVE) 12/09/20 12/09/20 12/09/20 Range/Units 16:00 11:41 11:41 WBC (4.8-10.8) K/uL RBC (4.7-6.1) M/uL Hgb (14.0-18.0) g/dL Hct (42-52) % MCV (80-100) fL MCH (25-34) pg MCHC (32-36) g/dL RDW Std Deviation (36.4-46.3) fL RDW Coeff of Prem (11.5-14.5) % Plt Count (130-400) K/uL MPV (7.4-10.4) fL Immature Gran % (Auto) % Neut % (Auto) % Lymph % (Auto) % [place] % (Auto) % Eos % (Auto) % Baso % (Auto) % Neut # (Auto) (1.4-6.5) K/uL Lymph # (Auto) (1.2-3.4) K/uL [place] # (Auto) (0.11-0.59) K/uL Eos # (Auto) (0-0.5) K/uL Baso # (Auto) (0-0.2) K/uL Immature Gran # (Auto) (0.00-0.02) K/uL ESR (0-20) mm/hr Sodium (136-145) mmol/L Potassium (3.5-5.1) mmol/L Chloride (98-107) mmol/L Carbon Dioxide (21-32) mmol/L Anion Gap (3-11) BUN (7-18) mg/dl Creatinine (0.6-1.4) mg/dl Est Cr Clr Drug Dosing ml/min Est GFR ( Amer) ml/min Est GFR (Non-Af Amer) ml/min BUN/Creatinine Ratio (10-20) Glucose (70-99) mg/dl Calcium (8.5-10.1) mg/dl Iron 64 (35-175) mcg/dl TIBC 219 L (250-450) mcg/dl Transferrin 183 L (200-360) mg/dl Transferrin % Sat 25 (20-50) % Ferritin 553.5 H (8-388) ng/ml Total Bilirubin (0.2-1) mg/dl Direct Bilirubin (0-0.2) mg/dl AST (15-37) U/L ALT (12-78) U/L Alkaline Phosphatase (45-117) U/L C-Reactive Protein (0-0.29) mg/dl Total Protein (6.4-8.2) gm/dl Albumin (3.4-5.0) gm/dl Carcinoembryonic Ag < 0.5 (0-2.5) ng/ml PTH Intact (18.4-80.1) pg/ml Stool Occult Bld Scrn Positive A (Negative) Hepatitis A IgM Ab (NON-REACTIVE) Hep B Core IgM Ab (NON-REACTIVE) 12/09/20 12/08/20 Range/Units 07:21 14:50 WBC (4.8-10.8) K/uL RBC (4.7-6.1) M/uL Hgb (14.0-18.0) g/dL Hct (42-52) % MCV (80-100) fL MCH (25-34) pg MCHC (32-36) g/dL RDW Std Deviation (36.4-46.3) fL RDW Coeff of Prem (11.5-14.5) % Plt Count (130-400) K/uL MPV (7.4-10.4) fL Immature Gran % (Auto) % Neut % (Auto) % Lymph % (Auto) % [place] % (Auto) % Eos % (Auto) % Baso % (Auto) % Neut # (Auto) (1.4-6.5) K/uL Lymph # (Auto) (1.2-3.4) K/uL [place] # (Auto) (0.11-0.59) K/uL Eos # (Auto) (0-0.5) K/uL Baso # (Auto) (0-0.2) K/uL Immature Gran # (Auto) (0.00-0.02) K/uL ESR (0-20) mm/hr Sodium (136-145) mmol/L Potassium (3.5-5.1) mmol/L Chloride (98-107) mmol/L Carbon Dioxide (21-32) mmol/L Anion Gap (3-11) BUN (7-18) mg/dl Creatinine (0.6-1.4) mg/dl Est Cr Clr Drug Dosing ml/min Est GFR ( Amer) ml/min Est GFR (Non-Af Amer) ml/min BUN/Creatinine Ratio (10-20) Glucose (70-99) mg/dl Calcium (8.5-10.1) mg/dl Iron (35-175) mcg/dl TIBC (250-450) mcg/dl Transferrin (200-360) mg/dl Transferrin % Sat (20-50) % Ferritin (8-388) ng/ml Total Bilirubin (0.2-1) mg/dl Direct Bilirubin (0-0.2) mg/dl AST (15-37) U/L ALT (12-78) U/L Alkaline Phosphatase (45-117) U/L C-Reactive Protein (0-0.29) mg/dl Total Protein (6.4-8.2) gm/dl Albumin (3.4-5.0) gm/dl Carcinoembryonic Ag (0-2.5) ng/ml PTH Intact 182.2 H (18.4-80.1) pg/ml Stool Occult Bld Scrn (Negative) Hepatitis A IgM Ab NON-REACTIVE (NON-REACTIVE) Hep B Core IgM Ab NON-REACTIVE (NON-REACTIVE) PG Care Time/CCT Total # of Minutes Spent Total Time Spent with Patient: Total time spent is greater than 50% in coordination of care (as documented) at patient's floor/unit and/or counseling patient: Coding Level of Care Code 85311 Subseq Hosp Care Lvl 3 Diagnoses Weakness R53.1 Hypercalcemia E83.52 Elevated LFTs R79.89 UTI (urinary tract infection) N39.0 CAD (coronary artery disease) I25.10 Associated angina: without angina Coronary Disease-Associated Artery/Lesion type: [place] artery [place] vs. transplanted heart: [place] heart Dysphagia R13.10 GERD with esophagitis K21.00 Hypothyroidism E03.9 Carcinoid tumor D3A.00 Bilateral pulmonary embolism I26.99 (1) CAD (coronary artery disease) Associated angina: without angina Coronary Disease-Associated Artery/Lesion type: [place] artery [place] vs. transplanted heart: [place] heart Qualified Code(s): I25.10 - Atherosclerotic heart disease of [place] coronary artery without angina pectoris
[2020-12-10] MEDS ORDERED: CHOLECALCIFEROL 1,000 UNITS 25 MCG TAB PO SCH (09:00)
[2020-12-10 09:11] LABS: Hepatitis A Antibody IgM NON-REACTIVE (NON-REACTIVE); Hepatitis B Core Antibody IgM NON-REACTIVE (NON-REACTIVE)
[2020-12-10 09:16] LABS: Basophils # (auto) 0.03 K/uL (0-0.2); Basophils % (auto) 0.5 %; Eosinophils # (auto) 0.28 K/uL (0-0.5); Eosinophils % (auto) 4.2 %; Hematocrit (blood only) 37.2 % (42-52); Hemoglobin 12.4 g/dL (14.0-18.0); Immature Granulocytes # (auto) 0.17 K/uL (0.00-0.02); Immature Granulocytes % (auto) 2.6 %; Lymphocytes # (auto) 2.09 K/uL (1.2-3.4); Lymphocytes % (auto) 31.7 %; Mean Corpuscular Hemoglobin 29.7 pg (25-34); Mean Corpuscular Hgb Conc 33.3 g/dL (32-36); Mean Corpuscular Volume 89.2 fL (80-100); Mean Platelet Volume 9.9 fL (7.4-10.4); Monocytes # (auto) 0.85 K/uL (0.11-0.59); Monocytes % (auto) 12.9 %; Neutrophils # (auto) 3.17 K/uL (1.4-6.5); Neutrophils % (auto) 48.1 %; Platelet Count 260 K/uL (130-400); RDW Coefficient of Variation 14.1 % (11.5-14.5); RDW Standard Deviation 46.1 fL (36.4-46.3); Red Blood Count 4.17 M/uL (4.7-6.1); White Blood Count 6.59 K/uL (4.8-10.8)
[2020-12-10 09:44] LABS: Alanine Aminotransferase 155 U/L (12-78); Albumin Level 2.6 gm/dl (3.4-5.0); Aspartate Aminotransferase 60 U/L (15-37); BUN Creatinine Ratio 20.9 (10-20); Bilirubin Direct < 0.1 mg/dl (0-0.2); Blood Urea Nitrogen 15 mg/dl (7-18); C Reactive Protein 0.95 mg/dl (0-0.29); Carbon Dioxide 25 mmol/L (21-32); Chloride 107 mmol/L (98-107); Creatinine Clr Calc Pharmacy 72.3 ml/min; Est GFR (African American) 95.3 ml/min; Est GFR (Non-African American) 82.2 ml/min; Glucose 86 mg/dl (70-99); Potassium 3.9 mmol/L (3.5-5.1); Sodium 138 mmol/L (136-145)
[2020-12-10 09:47] LABS: Alkaline Phosphatase 154 U/L (45-117); Bilirubin,Total 0.4 mg/dl (0.2-1); Total Protein 6.3 gm/dl (6.4-8.2)
--- NOTE | 2020-12-10 09:50 | Gastroenterology Progress Note ---
Date of Service December 10, 2020 Assessment & Plan (1) Elevated LFTs: Plan: The patient is a pleasant 89-year-old male who is doing well on physical examination today. Abnormal AST, ALT, alk phos with normal bilirubin. Sonogram findings of biliary sludge but no cholecystitis. HIDA scan was normal with no cystic duct obstruction. Liver function testing does remain elevated possibly due to medication side effects. Additional liver testing for autoimmune work-up remains pending. Patient did have positive fecal occult blood testing and has not had a colonoscopy in some time (2000). Discussed inpatient colonoscopy with plan for possibly tomorrow. Dr. Seth is going to evaluate the patient later this afternoon and discussed this with him and his . Procedure and risks explained to patient which include but not limited to medication reaction, blee ding, perforation, aspiration, and missed lesions. Verbalizes understanding and is agreeable to proceed. Please refer to supervising physician addendum for further recommendations. (2) Positive occult stool blood test: Plan: see above Admission and Anticipated Discharge Date Admission Date: December 04, 2020 Supervising Physician Co-Signing Physician Notes I interviewed and examined the patient and reviewed the medical record, with the following observations: Subjective: Discussed indications for colonoscopy examination with patient and spouse this afternoon. Preparation will be difficult due to limited mobility, and pharyngeal dysphagia for thin liquids, but patient feels he will be able to tolerate the prep Physical Examination: No new findings on exam Chart Review: There is strong family history of colon cancer: pt's mother and brother both had colon cancer. Patient has had +FOBT This case was reviewed with the advanced practice provider I agree with the assessment as outlined in this consultation, with the following observations: No additional observations I agree with the plan of care as outlined in this consultation, with the following changes and/or additions: Patient and spouse have agreed to go forward with colonoscopy examinationThe recommended procedure was discussed with the patient, including the indications for examination and potential benefits, risks, alternatives, potential outcomes, and post procedure plans of care. All questions were addressed and answered, understanding was acknowledged, and consent was obtained Subjective The patient is lying in bed and position of comfort this morning. He is alert awake and oriented. Denies abdominal pain. Denies nausea or vomiting. He does report that he was cold through the night but he is also lying by window. Reports he has had continued weakness. Reports that he has had a bowel movement in the last day or so while inpatient. Incontinent per record. He does have a history of hemorrhoids. Reports last colonoscopy was performed by Dr. Gamble (2000 at [facility] is last noted in the record). He is a lifetime non-smoker. Denies alcohol intake. Denies use of recreational drugs including marijuana. 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 He is with adult children. Review of Systems Review of Systems: All systems reviewed & are unremarkable except as noted in Subjective Physical Exam Gastrointestinal (Abdomen): normal bowel sounds, soft, nontender, no hepatosplenomegaly Results & Data ([facility]) Vital Signs (Past 12 Hours) Vital Signs Temp Pulse Resp BP BP Pulse Ox 12/10/20 07:43 36.6 C 84 18 152/80 H 94 12/09/20 22:43 36.8 C 87 16 163/74 H 93 Laboratory Results Laboratory Results - last 24 hr 12/08/20 12/09/20 12/09/20 14:50 07:21 09:37 WBC RBC Hgb Hct MCV MCH MCHC RDW Std Deviation RDW Coeff of Prem Plt Count MPV Immature Gran % (Auto) Neut % (Auto) Lymph % (Auto) [place] % (Auto) Eos % (Auto) Baso % (Auto) Neut # (Auto) Lymph # (Auto) [place] # (Auto) Eos # (Auto) Baso # (Auto) Immature Gran # (Auto) ESR Sodium Potassium 3.7 Chloride Carbon Dioxide Anion Gap BUN Creatinine Est Cr Clr Drug Dosing Est GFR ( Amer) Est GFR (Non-Af Amer) BUN/Creatinine Ratio Glucose Calcium Iron TIBC Transferrin Transferrin % Sat Ferritin Total Bilirubin Direct Bilirubin AST 75 H ALT Alkaline Phosphatase C-Reactive Protein Total Protein Albumin Vplrb-9-Clikoslwycq Carcinoembryonic Ag PTH Intact 182.2 H Stool Occult Bld Scrn SERA Screen Anti-Mitochondrial Ab CMV IgM Ab CMV IgG Ab/TORCH EBV Capsid Ag IgG Ab EBV Capsid Ag IgM Ab EBV Nuclear Antigen Ab EBV Antibody Interp Hepatitis A IgM Ab NON-REACTIVE Hep B Core IgM Ab NON-REACTIVE 12/09/20 12/09/20 12/09/20 11:41 11:41 11:41 WBC RBC Hgb Hct MCV MCH MCHC RDW Std Deviation RDW Coeff of Prem Plt Count MPV Immature Gran % (Auto) Neut % (Auto) Lymph % (Auto) [place] % (Auto) Eos % (Auto) Baso % (Auto) Neut # (Auto) Lymph # (Auto) [place] # (Auto) Eos # (Auto) Baso # (Auto) Immature Gran # (Auto) ESR Sodium Potassium Chloride Carbon Dioxide Anion Gap BUN Creatinine Est Cr Clr Drug Dosing Est GFR ( Amer) Est GFR (Non-Af Amer) BUN/Creatinine Ratio Glucose Calcium Iron 64 TIBC 219 L Transferrin 183 L Transferrin % Sat 25 Ferritin 553.5 H Total Bilirubin Direct Bilirubin AST ALT Alkaline Phosphatase C-Reactive Protein Total Protein Albumin Sovmn-5-Cxzcoxcevsa Carcinoembryonic Ag < 0.5 PTH Intact Stool Occult Bld Scrn SERA Screen Anti-Mitochondrial Ab CMV IgM Ab CMV IgG Ab/TORCH EBV Capsid Ag IgG Ab Pending EBV Capsid Ag IgM Ab Pending EBV Nuclear Antigen Ab Pending EBV Antibody Interp Pending Hepatitis A IgM Ab Hep B Core IgM Ab 12/09/20 12/09/20 12/10/20 11:41 16:00 08:21 WBC RBC Hgb Hct MCV MCH MCHC RDW Std Deviation RDW Coeff of Prem Plt Count MPV Immature Gran % (Auto) Neut % (Auto) Lymph % (Auto) [place] % (Auto) Eos % (Auto) Baso % (Auto) Neut # (Auto) Lymph # (Auto) [place] # (Auto) Eos # (Auto) Baso # (Auto) Immature Gran # (Auto) ESR 25 H Sodium Potassium Chloride Carbon Dioxide Anion Gap BUN Creatinine Est Cr Clr Drug Dosing Est GFR ( Amer) Est GFR (Non-Af Amer) BUN/Creatinine Ratio Glucose Calcium Iron TIBC Transferrin Transferrin % Sat Ferritin Total Bilirubin Direct Bilirubin AST ALT Alkaline Phosphatase C-Reactive Protein Total Protein Albumin Wxuoq-5-Byscgzuxgdr Pending Carcinoembryonic Ag PTH Intact Stool Occult Bld Scrn Positive A SERA Screen Pending Anti-Mitochondrial Ab Pending CMV IgM Ab Pending CMV IgG Ab/TORCH Pending EBV Capsid Ag IgG Ab EBV Capsid Ag IgM Ab EBV Nuclear Antigen Ab EBV Antibody Interp Hepatitis A IgM Ab Hep B Core IgM Ab 12/10/20 12/10/20 08:21 08:21 WBC 6.59 RBC 4.17 L Hgb 12.4 L Hct 37.2 L MCV 89.2 MCH 29.7 MCHC 33.3 RDW Std Deviation 46.1 RDW Coeff of Prem 14.1 Plt Count 260 MPV 9.9 Immature Gran % (Auto) 2.6 Neut % (Auto) 48.1 Lymph % (Auto) 31.7 [place] % (Auto) 12.9 Eos % (Auto) 4.2 Baso % (Auto) 0.5 Neut # (Auto) 3.17 Lymph # (Auto) 2.09 [place] # (Auto) 0.85 H Eos # (Auto) 0.28 Baso # (Auto) 0.03 Immature Gran # (Auto) 0.17 H ESR Sodium 138 Potassium 3.9 Chloride 107 Carbon Dioxide 25 Anion Gap 7.0 BUN 15 Creatinine 0.73 Est Cr Clr Drug Dosing 72.3 Est GFR ( Amer) 95.3 Est GFR (Non-Af Amer) 82.2 BUN/Creatinine Ratio 20.9 H Glucose 86 Calcium 10.0 Iron TIBC Transferrin Transferrin % Sat Ferritin Total Bilirubin 0.4 Direct Bilirubin < 0.1 AST 60 H ALT 155 H Alkaline Phosphatase 154 H C-Reactive Protein 0.95 H Total Protein 6.3 L Albumin 2.6 L Zcvbk-9-Etwvfcpgdcu Carcinoembryonic Ag PTH Intact Stool Occult Bld Scrn SERA Screen Anti-Mitochondrial Ab CMV IgM Ab CMV IgG Ab/TORCH EBV Capsid Ag IgG Ab EBV Capsid Ag IgM Ab EBV Nuclear Antigen Ab EBV Antibody Interp Hepatitis A IgM Ab Hep B Core IgM Ab
[2020-12-10] MEDS: PANTOprazole 40 MG TAB PO SCH ×2 (09:59→21:18)
[2020-12-10] MEDS: THIAMINE HCL 100 MG TAB PO SCH (09:59)
[2020-12-10] MEDS: SUCRALFATE 1 GM/10 ML UDC PO SCH ×4 (09:59→21:18)
[2020-12-10] MEDS: DICLOFENAC SOD 1% GEL 100 GM TUBE EXT SCH ×4 (10:00→21:16)
[2020-12-10] MEDS: SODIUM CHLORIDE 0.9% 1000ML 1,000 ML IV SCH (12:06)
--- NOTE | 2020-12-10 13:36 | XCELERA ---
[id number]
[2020-12-10 14:10] LABS: EBV Nuclear Ag Antibody >600.00 U/mL; EBV Virus Capsid Ag IgG Ab >750.00 U/mL
[2020-12-10] MEDS ORDERED: bisacodyL 5 MG TABEC PO ONE (15:33)
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
[2020-12-10 16:21] LABS: Alpha 1 Antitrypsin 147 mg/dL (83-199); Anti Mitochondrial Antibody NEGATIVE (NEGATIVE); Anti Nuclear Antibody Screen POSITIVE (NEGATIVE); CMV IgG Antibody <0.60 U/mL; CMV IgM Antibody <30.00 AU/mL
[2020-12-10] MEDS: LAVAGE SOLUTION 4000ML PO SCH (18:04)
[2020-12-10] MEDS: ENOXAPARIN INJ 40 MG/0.4 ML SYR SQ SCH (21:17)
[2020-12-11] MEDS: SODIUM CHLORIDE 0.9% 1000ML 1,000 ML IV SCH ×2 (00:16→12:48)
[2020-12-11] MEDS: LEVOTHYROXINE SODIUM 75 MCG TABLET PO SCH (06:39)
[2020-12-11] MEDS: LAVAGE SOLUTION 4000ML PO SCH (06:39)
[2020-12-11] MEDS: THIAMINE HCL 100 MG TAB PO SCH (07:21)
[2020-12-11] MEDS: DICLOFENAC SOD 1% GEL 100 GM TUBE EXT SCH ×4 (07:21→21:06)
[2020-12-11] MEDS: PANTOprazole 40 MG TAB PO SCH ×2 (07:21→21:06)
[2020-12-11] MEDS: THIAMINE HCL 100 MG in SYRINGE 9 ML IV SCH (07:21)
[2020-12-11] MEDS: SUCRALFATE 1 GM/10 ML UDC PO SCH ×2 (07:21→12:49)
--- NOTE | 2020-12-11 08:35 | Gastroenterology Progress Note ---
Date of Service December 11, 2020 Assessment & Plan (1) Elevated LFTs: Plan: Laboratory testing results are reviewed: ESR 25, AST 60, ALT 155, alk phos 154, total bilirubin 0.4. 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 Bansal. Patient is in agreement to plan of care. Please refer to supervising physician addendum for further recommendations. (2) Positive occult stool blood test: Admission and Anticipated Discharge Date Admission Date: December 04, 2020 Supervising Physician Co-Signing Physician Notes I have seen and examined the patient. I agree with note above by SONNY Barrett except as noted below. HPI Pt with heme postive stool. He denies abd pain. with patient during my interview and exam. PE Abdomen pos BS, soft, no guarding nor rebound A/P heme pos stool--for colonoscopy today. Procedure and risks explained to patient which include but not limited to medication reaction, bleeding, perforation, aspiration, and missed lesions. Subjective The patient is awake alert and oriented this morning. He is sitting in bed and position of comfort. He did complain of some leg cramping and I assisted him adjust his leg and prop on a pillow while in bed. He denies any specific abdominal pain. Reports some nausea but denies vomiting. He reports he is very tired this morning. He is tolerating prep last night well. Reports he was having bowel movements Review of Systems Review of Systems: All systems reviewed & are unremarkable except as noted in Subjective Physical Exam Gastrointestinal (Abdomen): normal bowel sounds, soft, nontender, no hepatosplenomegaly Results & Data ([facility]) Vital Signs (Past 12 Hours) Vital Signs Temp Pulse Pulse Resp BP BP Pulse Ox 12/11/20 07:50 36.3 C L 98 H 18 126/80 92 12/11/20 02:20 89 154/92 H 12/10/20 23:13 37 C 91 H 16 174/83 H 91 Laboratory Results Laboratory Results - last 24 hr 12/08/20 12/09/20 12/09/20 14:50 11:41 11:41 WBC RBC Hgb Hct MCV MCH MCHC RDW Std Deviation RDW Coeff of Prem Plt Count MPV Immature Gran % (Auto) Neut % (Auto) Lymph % (Auto) [place] % (Auto) Eos % (Auto) Baso % (Auto) Neut # (Auto) Lymph # (Auto) [place] # (Auto) Eos # (Auto) Baso # (Auto) Immature Gran # (Auto) ESR Sodium Potassium Chloride Carbon Dioxide Anion Gap BUN Creatinine Est Cr Clr Drug Dosing Est GFR ( Amer) Est GFR (Non-Af Amer) BUN/Creatinine Ratio Glucose Calcium Total Bilirubin Direct Bilirubin AST ALT Alkaline Phosphatase C-Reactive Protein Total Protein Albumin [id number] 147 SERA Screen POSITIVE A Anti-Mitochondrial Ab NEGATIVE CMV IgM Ab <30.00 CMV IgG Ab/TORCH <0.60 EBV Capsid Ag IgG Ab >750.00 H EBV Capsid Ag IgM Ab <36.00 EBV Nuclear Antigen Ab >600.00 H EBV Antibody Interp SEE NOTE Hepatitis A IgM Ab NON-REACTIVE Hep B Core IgM Ab NON-REACTIVE 12/10/20 12/10/20 12/10/20 08:21 08:21 08:21 WBC 6.59 RBC 4.17 L Hgb 12.4 L Hct 37.2 L MCV 89.2 MCH 29.7 MCHC 33.3 RDW Std Deviation 46.1 RDW Coeff of Prem 14.1 Plt Count 260 MPV 9.9 Immature Gran % (Auto) 2.6 Neut % (Auto) 48.1 Lymph % (Auto) 31.7 [place] % (Auto) 12.9 Eos % (Auto) 4.2 Baso % (Auto) 0.5 Neut # (Auto) 3.17 Lymph # (Auto) 2.09 [place] # (Auto) 0.85 H Eos # (Auto) 0.28 Baso # (Auto) 0.03 Immature Gran # (Auto) 0.17 H ESR 25 H Sodium 138 Potassium 3.9 Chloride 107 Carbon Dioxide 25 Anion Gap 7.0 BUN 15 Creatinine 0.73 Est Cr Clr Drug Dosing 72.3 Est GFR ( Amer) 95.3 Est GFR (Non-Af Amer) 82.2 BUN/Creatinine Ratio 20.9 H Glucose 86 Calcium 10.0 Total Bilirubin 0.4 Direct Bilirubin < 0.1 AST 60 H ALT 155 H Alkaline Phosphatase 154 H C-Reactive Protein 0.95 H Total Protein 6.3 L Albumin 2.6 L [id number] SERA Screen Anti-Mitochondrial Ab CMV IgM Ab CMV IgG Ab/TORCH EBV Capsid Ag IgG Ab EBV Capsid Ag IgM Ab EBV Nuclear Antigen Ab EBV Antibody Interp Hepatitis A IgM Ab Hep B Core IgM Ab
--- NOTE | 2020-12-11 08:46 | Hospitalist Progress Note ---
Date of Service December 11, 2020 Assessment & Plan (1) Hypercalcemia: Plan: Suspected primary hyperparathyroidism contributing to ongoing weakness as presenting symptom on admission Ca on admit 12 corrected, and 11.6 on 12/09. --> PTH elevated, Ca elevated, Vit D low normal Vit D not overtly low to explain elevation in PTH to 182.2 (previously was 124 in 2018) --> Placed on IVF (did get 1x dose HCTZ instead of loop diuretic but would avoid in future) Pamidronate x 1 30mg on 12/09 Stop Vit D supplementation Ca currently 9.4, albumin 2.5 --> corrected 10.6 and improving --> continue decreased rate today and plans for d/c and encourage PO fluid intake after c-scope this afternoon Consider cinacalcet 30mg daily at discharge and continued Ca monitoring to prevent hypocalcemia at discharge. Not great candidate given age/co-morb for parathyroidectomy (2) Elevated LFTs: Plan: TB elevated on admit -- new elevations in LFTs since April of earlier this year. U/S GB - mildly distended GB with biliary sludge, no gallstones, no acute cholecystitis LFTs elevated, improved initially but remain elevated --> TB normal but AST 60--> 64, ALT 155--> 163, ALP 154--> 168 Discussed with GI and low suspcision of wilsons/autoimmune hepatitis, would avoid biopsy. Suspect medication related --> New med during summer (acute elevations occurring from April to present) Vesicare for BPH. <1% post-marketing elevation in aminotransferases, however patient did self d/c all meds except levothyroxine and omeprazole in past month HIDA scan without evidence for obstruction/ductal dilation. GI on consult -- (Dr Frias most recent EGD Oct [address] Frias w/ 5cm hiatal hernia) --> prep poor and repeating today for possible c-scope tomorrow --> question benefit from c-scope given age/no drop in hgb outside of on IVF/and hx of hemorrhoids with no bleeding reported Will order CTAP IV/oral as well as CT Chest to eval for infiltrative process (and CT Chest at same time given Hypercalcemia but suspected from suspected primary hyperparathyroidism as above). Based on results may be able to hold off undergoing c-scope although GI did discuss and family wanted to prsue. Added CMV, EBV indicative of prior infxn CEA <0.5 Alpha 1 antitrypsin 147 wnl SERA + and SERA pattern nuclear, homogeneous A --> Homogeneous pattern is associated with systemic lupus erythematosus (SLE), drug-induced lupus and juvenile idiopathic arthritis. Actin IgG antibody pending Iron studies with iron 64, TIBC 219L, transferrin 183L, transferrin % sat 25, ferritin 553.5H (reactive) Possible repeat scope pending eval today given +fecal occult (no patricia bleeding noted) Bowel prep ordered for tonight with plans for c-scope tomorrow. 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 ?neuroendocrine of GI Continue to monitor (3) Weakness: Plan: Uncertain of full etiology - has had decreased appetite since EGD about one month ago and has had progressive muscular weakness that has been since his hip fx/surgery September 2018, which was complicated by pulmonary embolisms Tx prednisone for possible PMR earlier in stay -- d/c as no improvement Patient largely wheelchair bound and sedentary - reports that for about 3-4 weeks he has not really been able to stand and requiring a lot of assistance and predominantly utilizing a wheelchair at this point. She reports this seemed to correlate with the timing of his EGD. However he has had progressive decline over the 1-2 years but standing issues since 3-4 weeks. 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[facility] [place] he had post-op afib, asymptomatic and no long-term anticoagulation therapy indicated as they only had one episode (was on amiodarone in the past) Per note, consideration for ASA if no contraindications --> to have discussion with his GI --> no known contraindications however see above fecal occult + and possible inpatient scope Not on BB -- previously on metoprolol 25mg daily as well as DAVID but d/c due to cough No CP/SOB reported EKG w CP Trop negative on admission ECHO on repeat without wma. LV systolic function normal. Aortic valve sclerosis mild without sig . RVSP normal (7) Dysphagia: Plan: Minced and moist diet Did cough after drinking orange juice on 12/05 but respiratory status is stable - can consider CXR if spiking fevers or coughing EGD (11/05) - 5 cm hiatal hernia; no lesions of stomach or duodenum; reflux esophagitis Continue PPI - changed to BID dosing No issues reported with current diet Speech eval --> would include slippery to diet once off liquid diet as above for possible scope tomorrow (8) GERD with esophagitis: Plan: Continue Protonix increased BID; added Carafate (9) Hypothyroidism: Plan: TSH is WNL Continue Synthroid 37.5 mcg every morning (10) Bilateral pulmonary embolism: Plan: Hx of post-op ORIF Left Hip 09/2018- was on Coumadin x 6 months (last dose 04/05/19) Not on further anticoagulation. Hx afib single episode as above and per cardiology no anticoagulation at that time however there were discussions for couple weeks Coumadin for a possible atrial thrombus but was felt not to be the case (Also had a history of fall July 2018 resulting in trace ICH and was transferred to tertiary care and managed non-operatively) Plan: Bowel prep for tonight --> c-scope tomorrow possibly hold chemical prophylaxis CTAP and CT chest as above pending Continue IVF for tx of hypercalcemia as above PT/OT evaluations--> SNF--> would like for patient to come home on D/C; discussed with patient//daughter. The daughter's son (patient's grandson) will be staying with Mr. Whitney to assist with needs who is young/athletic and can actually lift Mr. Whitney. They are interested in home services and list of caregivers. It appears they have good family support to assist with needs. Patient had a bad experience at [facility] and would not like to go there. Given great family support and SNFs could take >7 days to arrange he may be better served to be at home with home PT/OT/caregivers and great family support. He has been wheelchair bound for 3-4 weeks without being able to stand so at baseline. --> MAX ASSIST WITH THERAPY AND UNSAFE FOR HOME AT THIS TIME but has been better yesterday compared to days past. Continue to tx hypercalcemia. Outpt follow up Continue PT while inpatient (gave PT aide difficulty today as he did not like her instructions and wanted to do things his way) Admission and Anticipated Discharge Date Admission Date: December 04, 2020 Supervising Physician Co-Signing Physician Notes PA Supervision Note: I did not personally see or examine the patient today, but I verified all nogueira points of FAB Layton's assessment and plan with the following exceptions/additions: None Subjective seen later in AM. more energy less fatigue today tolerated prep without issues per patient awaiting GI for c-scope today however hgb remains stable. messaged about continued elevations in LFTs. calcium improving on IVF, but discussed continuing fluids for now but once back from testing will feed willie consideration for medications for maintenance of calcium and discussed importance to stay hydrated he states he is hungry and would like to eat as soon as available no fever, chills, chest pain, shortness of breath, abdominal pain, nausea or vomiting Review of Systems Review of Systems: All systems reviewed & are unremarkable except as noted in HPI & below Physical Exam Physical Exam: General Appearance: Elderly male in NAD who is A&O x 3 (intermittent forgetfulness), general pallor and sleeping in bed upon arrival HEENT: Head is normocephalic/atraumatic; Hearing grossly intact; Mucous membranes moist Neck: Supple; Trachea midline; Neg JVD Heart: RRR with no M/G/R Lungs: CTA in all lung weathers bilaterally; Respirations unlabored; Neg accessory muscle use Abdomen: +BS throughout, soft/non-tender and non-distended today Extremities: Neg cyanosis or edema MSK: stroke program coordinator strength equal, dorsiflexion/plantar flexion equal. NVI. decreased strength proximal muscle groups. unable to push self up in bed but with more ROM and mobility but still with decreased strength b/l LE Neurological: Speech clear; Gross motor/sensory function intact; Neg focal neurologic deficits; however movements are slow and weak; seems to have better arm raise today (able to raise slightly above his head today), more mobility of legs with improved strength with flexion/extension at the knee but still with significant weakness Psychiatric: Normal Affect Skin: Normal Color; Warm/Dry Results & Data Results & Data ([facility]) Vital Signs (Past 12 Hours) Vital Signs Temp Pulse Pulse Resp BP BP Pulse Ox 12/11/20 07:50 36.3 C L 98 H 18 126/80 92 12/11/20 02:20 89 154/92 H 12/10/20 23:13 37 C 91 H 16 174/83 H 91 Laboratory Results 12/11/20 12/11/20 12/11/20 Range/Units 09:35 08:07 08:07 WBC (4.8-10.8) K/uL RBC (4.7-6.1) M/uL Hgb (14.0-18.0) g/dL Hct (42-52) % MCV (80-100) fL MCH (25-34) pg MCHC (32-36) g/dL RDW Std Deviation (36.4-46.3) fL RDW Coeff of Prem (11.5-14.5) % Plt Count (130-400) K/uL MPV (7.4-10.4) fL PT 10.4 (9.0-12.0) Seconds INR 1.0 (0.9-1.1) Sodium 137 (136-145) mmol/L Potassium 3.9 (3.5-5.1) mmol/L Chloride 106 (98-107) mmol/L Carbon Dioxide 29 (21-32) mmol/L Anion Gap 2.0 L (3-11) BUN 12 (7-18) mg/dl Creatinine 0.74 (0.6-1.4) mg/dl Est Cr Clr Drug Dosing 71.3 ml/min Est GFR ( Amer) 94.8 ml/min Est GFR (Non-Af Amer) 81.8 ml/min BUN/Creatinine Ratio 16.1 (10-20) Glucose 90 (70-99) mg/dl Calcium 9.4 (8.5-10.1) mg/dl Magnesium 2.1 (1.8-2.4) mg/dl Total Bilirubin 0.6 (0.2-1) mg/dl Direct Bilirubin 0.2 D (0-0.2) mg/dl AST 64 H (15-37) U/L ALT 163 H (12-78) U/L Alkaline Phosphatase 168 H (45-117) U/L Total Protein 6.3 L (6.4-8.2) gm/dl Albumin 2.5 L (3.4-5.0) gm/dl Globulin 3.8 (2.5-4.0) gm/dl Albumin/Globulin Ratio 0.7 L (0.9-2) Hufbm-8-Ctkmfuljuma (83-199) mg/dL Vitamin B1 SERA Screen (NEGATIVE) SERA Titer titer SERA Pattern Anti-Mitochondrial Ab (NEGATIVE) Actin IgG Antibody Pending CMV IgM Ab AU/mL CMV IgG Ab/TORCH U/mL 12/11/20 12/11/20 12/09/20 Range/Units 08:07 08:07 11:41 WBC 8.15 (4.8-10.8) K/uL RBC 4.19 L (4.7-6.1) M/uL Hgb 12.6 L (14.0-18.0) g/dL Hct 37.5 L (42-52) % MCV 89.5 (80-100) fL MCH 30.1 (25-34) pg MCHC 33.6 (32-36) g/dL RDW Std Deviation 46.0 (36.4-46.3) fL RDW Coeff of Prem 14.3 (11.5-14.5) % Plt Count 257 (130-400) K/uL MPV 10.9 H (7.4-10.4) fL PT (9.0-12.0) Seconds INR (0.9-1.1) Sodium (136-145) mmol/L Potassium (3.5-5.1) mmol/L Chloride (98-107) mmol/L Carbon Dioxide (21-32) mmol/L Anion Gap (3-11) BUN (7-18) mg/dl Creatinine (0.6-1.4) mg/dl Est Cr Clr Drug Dosing ml/min Est GFR ( Amer) ml/min Est GFR (Non-Af Amer) ml/min BUN/Creatinine Ratio (10-20) Glucose (70-99) mg/dl Calcium (8.5-10.1) mg/dl Magnesium (1.8-2.4) mg/dl Total Bilirubin (0.2-1) mg/dl Direct Bilirubin (0-0.2) mg/dl AST (15-37) U/L ALT (12-78) U/L Alkaline Phosphatase (45-117) U/L Total Protein (6.4-8.2) gm/dl Albumin (3.4-5.0) gm/dl Globulin (2.5-4.0) gm/dl Albumin/Globulin Ratio (0.9-2) Plloo-3-Vojqweycvkm 147 (83-199) mg/dL Vitamin B1 Pending SERA Screen POSITIVE A (NEGATIVE) SERA Titer 1:40 H titer SERA Pattern Nuclear, Homogeneous A Anti-Mitochondrial Ab NEGATIVE (NEGATIVE) Actin IgG Antibody CMV IgM Ab <30.00 AU/mL CMV IgG Ab/TORCH <0.60 U/mL PG Care Time/CCT Total # of Minutes Spent Total Time Spent with Patient: Total time spent is greater than 50% in coordination of care (as documented) at patient's floor/unit and/or counseling patient: Coding Level of Care Code 22869 Subseq Hosp Care Lvl 3 Diagnoses Hypercalcemia E83.52 Weakness R53.1 Elevated LFTs R79.89 UTI (urinary tract infection) N39.0 Carcinoid tumor D3A.00 CAD (coronary artery disease) I25.10 Associated angina: without angina Coronary Disease-Associated Artery/Lesion type: [place] artery [place] vs. transplanted heart: [place] heart Dysphagia R13.10 GERD with esophagitis K21.00 Hypothyroidism E03.9 Bilateral pulmonary embolism I26.99 (1) CAD (coronary artery disease) Associated angina: without angina Coronary Disease-Associated Artery/Lesion type: [place] artery [place] vs. transplanted heart: [place] heart Qualified Code(s): I25.10 - Atherosclerotic heart disease of [place] coronary artery without angina pectoris
[2020-12-11 08:55] LABS: Hematocrit (blood only) 37.5 % (42-52); Hemoglobin 12.6 g/dL (14.0-18.0); Mean Corpuscular Hemoglobin 30.1 pg (25-34); Mean Corpuscular Hgb Conc 33.6 g/dL (32-36); Mean Corpuscular Volume 89.5 fL (80-100); Mean Platelet Volume 10.9 fL (7.4-10.4); Platelet Count 257 K/uL (130-400); RDW Coefficient of Variation 14.3 % (11.5-14.5); Red Blood Count 4.19 M/uL (4.7-6.1); White Blood Count 8.15 K/uL (4.8-10.8)
[2020-12-11 08:57] LABS: Prothrombin Time 10.4 Seconds (9.0-12.0)
[2020-12-11 09:24] LABS: Albumin Level 2.5 gm/dl (3.4-5.0); BUN Creatinine Ratio 16.1 (10-20); Calcium 9.4 mg/dl (8.5-10.1); Creatinine Clr Calc Pharmacy 71.3 ml/min; Est GFR (African American) 94.8 ml/min; Est GFR (Non-African American) 81.8 ml/min; Magnesium 2.1 mg/dl (1.8-2.4); Potassium 3.9 mmol/L (3.5-5.1)
[2020-12-11 09:26] LABS: Albumin Globulin Ratio 0.7 (0.9-2); Bilirubin,Total 0.6 mg/dl (0.2-1); Globulin 3.8 gm/dl (2.5-4.0); Total Protein 6.3 gm/dl (6.4-8.2)
[2020-12-11 10:46] LABS: Bilirubin Direct 0.2 mg/dl (0-0.2)
[2020-12-11 11:40] LABS: ANA Pattern Nuclear, Homogeneous; ANA Titer 1:40 titer
--- NOTE | 2020-12-11 14:32 | Anesthesiology Consultation ---
Date of Service December 11, 2020 Assessment & Plan Chart Review Chart Review: Acceptable Risk for Surgery and Patient NOT seen in Pre Admission Testing Consults Requested none ASA ASA4 Proposed Anesthesia Anesthesia Type: MAC Risk / Benefits Reviewed With: PT / POA / Parent / Guardian, Accepts Plan and Informed Consent Obtained Additional Comments: covid test neg. History Surgery Operation Date: 12/11/20 16:50 Proposed Procedures p Colonoscopy Dr Nimisha Bansal Height/Weight Height: 5 ft 8 in Weight: 83.7 kg Allergies Allergy/AdvReac Type Severity Reaction Status Date / Time benzoin Allergy Unknown Rash Verified 12/03/20 12:39 lisinopril AdvReac Intermediate Cough Verified 12/03/20 12:39 NSAIDS (Non-Steroidal AdvReac Unknown Unverified 12/03/20 12:42 Anti-Inflamma Medications Home Medications Medication Instructions Recorded Confirmed Last Taken coenzyme Q10 100 mg capsule 100 mg PO DAILY cap 07/12/18 11/05/20 11/01/20 alpha lipoic acid 100 mg capsule 100 mg PO DAILY 04/04/19 11/05/20 11/02/20 cholecalciferol (vitamin D3) 125 5,000 units PO QAM 04/23/19 11/05/20 11/02/20 mcg (5,000 unit) capsule ascorbic acid (vitamin C) 1,000 mg 3,000 mg PO DAILY tab 09/06/19 11/05/20 11/02/20 tablet Lactobacillus acidophilus 1 cap PO DAILY cap 04/16/20 11/05/20 11/01/20 (Acidophilus) levothyroxine 75 mcg tablet 37.5 mcg PO QAM 10/30/20 12/03/20 12/03/20 omeprazole 40 mg capsule,delayed 40 mg PO QAM 12/03/20 12/03/20 12/03/20 release Active Medications Generic Name Dose Route Start Last Admin Trade Name Freq PRN Reason Stop Dose Admin Diclofenac Sodium 4 gm 12/04/20 21:00 12/11/20 12:49 Diclofenac Sod 1% Gel 100 Gm Tube EXT 01/03/21 20:59 4 gm QID MARA Administration Enoxaparin Sodium 40 mg 12/03/20 21:00 12/10/20 21:17 Enoxaparin Inj 40 Mg/0.4 Ml Syr SQ 01/02/21 20:59 40 mg Q24H MARA Administration Sodium Chloride 1,000 mls @ 80 mls/hr 12/09/20 09:45 12/11/20 12:48 Nss 1000ml IV 01/08/21 09:44 80 mls/hr .[id number] MARA Administration Thiamine HCl 100 mg/ Syringe 10 mls @ 2 mls/min 12/11/20 09:00 12/11/20 07:21 IV 01/10/21 08:59 2 mls/min QAM MARA Administration Levothyroxine Sodium 37.5 mcg 12/04/20 06:30 12/11/20 06:39 Levothyroxine Sodium 75 Mcg Tablet PO 01/03/21 06:29 37.5 mcg DAILYBB MARA Administration Pantoprazole Sodium 40 mg 12/07/20 21:00 12/11/20 07:21 Pantoprazole 40 Mg Tab PO 01/06/21 20:59 40 mg BID MARA Administration Polyethylene Glycol/Electrolytes 8 dose 12/10/20 18:00 12/11/20 06:39 Lavage Solution 4000ml PO 8 dose TODAY@ MARA Administration Sucralfate 1 gm 12/07/20 09:00 12/11/20 12:49 Sucralfate 1 Gm/10 Ml Udc PO 01/06/21 08:59 Not Given QID MARA Thiamine HCl 100 mg 12/05/20 09:00 12/11/20 07:21 Thiamine Hcl 100 Mg Tab PO 01/04/21 08:59 100 mg QAM MARA Administration NPO Date Last Intake of Fluids: 12/10/20 Time Last Intake of Fluids: 23:59 Date Last Intake of Solids: 12/10/20 Time Last Intake of Solids: 23:59 Past Medical History Medical History Anemia HX Arthritis KNEES Ascending aorta dilation Bilateral pulmonary embolism post operatively ORIF Left Hip 09/2018- was on coumadin x 6 months (last dose 04/05/19) - PT NOT SURE Carcinoid tumor HX Middle and RLL lung resection Episodic ataxia Globus sensation Hearing loss History of [place] (myocardial infarction) s/2015 Hyperlipidemia Hypertension Hypothyroidism Impaired mobility MOBILITY/BALANCE ISSUES - WALKER/WHEELCHAIR - IN HOME CARE TO HELP Kidney stones HX Memory problem NSTEMI (non-ST elevated myocardial infarction) ~2016 Paroxysmal atrial fibrillation episode post-op a. fib after CABG 2016/asymptomatic with no other documented episodes- per cardiology, long-term anticoagulation is not indicated unless he should have recurrent episodes Shoulder problem Subcapital fracture of left hip Summer 2018 Traumatic intraventricular hemorrhage [place] [facility] [place] backwards on curb/tripped. Neurosurgery was consulted but treatment was conservative/no acute findings on subsequent head/brain CT 09/2018 [facility] Exercise / Class Metabolic Activity III < 4 Walking/Shop/Light housework Past Family History Family History Mother Colorectal cancer Brother Myocardial infarction Colorectal cancer Sister Ovarian cancer Family history of diabetes mellitus Father Prostate cancer Bone cancer Other No family history of adverse response to anesthesia Denies family history of Breast cancer Past Surgical History Surgical History History of cardiac cath multiple, last done 2015. no stents. History of cataract surgery BOTH EYES History of hip surgery Left hip hemiarthroplasty: 09/26/18: SAB x1 attempt at L3 at [facility] History of lobectomy of lung Middle and Lower Lobe of right lung removed d/t an encapsulated carcinoid tumor History of tonsillectomy and adenoidectomy Hx of rectal sphincterotomy repaired surgically S/P bronchoscopy HX S/P CABG x [address] [facility] 2016 S/P colonoscopy HX S/P hernia repair HX left inguinal S/P TURP 04/12/19 Dr. Prudencio Luo S/P wisdom tooth extraction HX Past Anesthesia History No Hx of Anesthesia Complications and No Family Hx of Anesthesia Complications History of PONV No Hx of PONV and No Hx of Motion Sickness Social History Smoking Status: Never smoker tobacco type: cigarettes Hx Alcohol Use: No Alcohol type: wine alcohol intake frequency: holidays/special occasions only Hx Substance Use: No substance use type: does not use Physical Exam Vital Signs Last Vital Signs Temp 36.7 C 12/11/20 14:24 Pulse 81 12/11/20 14:24 Resp 18 12/11/20 14:24 BP 150/78 H 12/11/20 14:24 Pulse Ox 97 12/11/20 14:24 Testing Laboratory Results 12/11/20 08:07 12/11/20 08:07 PT 10.4 Seconds (9.0-12.0) 12/11/20 08:07 INR 1.0 (0.9-1.1) 12/11/20 08:07 Urine Color Yellow 12/09/20 04:40 Urine Appearance Clear (Clear) 12/09/20 04:40 Urine pH 5.0 (4.5-7.5) 12/09/20 04:40 Ur Specific [place] 1.022 (1.000-1.030) 12/09/20 04:40 Urine Protein Negative (Negative) 12/09/20 04:40 Urine Glucose (UA) Negative (Negative) 12/09/20 04:40 Urine Ketones Negative (Negative) 12/09/20 04:40 Urine Nitrite Negative (Negative) 12/09/20 04:40 Ur Leukocyte Esterase Negative (Negative) 12/09/20 04:40 Urine WBC (Auto) 1-5 /hpf (0-5) 12/03/20 14:10 Urine RBC (Auto) 5-10 /hpf (0-4) H 12/03/20 14:10 U Hyaline Cast (Auto) 1-5 /lpf (0-5) 12/03/20 14:10 U Epithel Cells (Auto) 10-20 /lpf (0-5) H 12/03/20 14:10 Urine Bacteria (Auto) Negative (Negative) 12/03/20 14:10 12/09/20 18:56 Aerobic Blood Culture - Preliminary Blood No growth in Aerobic bottle after 24 hours. Anaerobic Blood Culture - Final 12/09/20 18:50 Aerobic Blood Culture - Preliminary Blood No growth in Aerobic bottle after 24 hours. Anaerobic Blood Culture - Preliminary No growth in Anaerobic bottle after 24 hours. 12/03/20 14:10 Urine Culture - Final Urine,Straight Cath Corynbact.sp not urealyticum Electrocardiogram Date: 12/03/20 Findings: + NSR @ (at 89) and + TX (? old Infer. TX age ?) Chest X-Ray Date: 12/03/20 Findings: + NAD Echocardiogram Date: 12/10/20 LV Function: normal RWMA: + none Other Findings: + LVH Valvular Disease: + no significant valvular disease
[2020-12-11] MEDS ORDERED: ePHEDrine sulfate 50 MG/ML AMP IV PRN (14:35)
[2020-12-11] MEDS ORDERED: ATROPINE SULFATE 0.1 MG/ML 10ML SYR IV PRN (14:35)
--- NOTE | 2020-12-11 15:03 | Post Operative Brief Note ---
Immediate Post Op Note v1 Date of Surgery December 11, 2020 Pre & Post Diagnosis Operation Date: 12/11/20 16:50 Pre-Op Diagnosis: WEAKNESS, UTI DECONDITION,FOBT Post-Op Diagnosis: poor prep I identified the patient and participated in the time-out.: Yes Procedure Operation Date: 12/11/20 16:50 Actual Procedures p Colonoscopy(Not Applicable) - Evan Bansal Surgeon Evan Bansal Fluorescent Lighting Model Maker see formal report Estimated Blood Loss 0 Findings Consistent with Post-Op Diagnosis Inadequate prep with exam terminated in sigmoid colon. Continue prep and try repeat colonscopy tomorrow if patient agreeable
[2020-12-11] MEDS ORDERED: PROPOFOL IV EMULSION 10 MG/ML 20 ML VIAL IV ONE (15:04)
--- NOTE | 2020-12-11 15:20 | GI REPORT ---
Patient Name: Lang Whitney Procedure Date: 12/11/2020 2:43 PM Date of : 1930 Admit Type: Inpatient Age: 89 Gender: Male Attending MD: Evan Bansal MD Procedure: Colonoscopy Providers: Evan Bansal MD Referring MD: Carissa Masterson Md Indications: Heme positive stool Medicines: Monitored Anesthesia Care Complications: No immediate complications. Estimated blood loss: None. Estimated Blood Loss: Estimated blood loss: none. Procedure: Pre-Anesthesia Assessment: - The risks and benefits of the procedure and the sedation options and risks were discussed with the patient. All questions were answered and informed consent was obtained. After I obtained informed consent, the scope was passed under direct vision. Throughout the procedure, the patient's blood pressure, pulse, and oxygen saturations were monitored continuously. The Colonoscope was introduced through the anus and advanced to the sigmoid colon. The colonoscopy was technically difficult and complex due to inadequate bowel prep. The patient tolerated the procedure well. Procedure and risks explained to patient which include but not limited to med reaction, bleeding, perforation, aspiration and missed lesions. Judicious gas insufflation and gas removal done on the way out. The lumen always well visualized when advancing the scope. Prep was poor and not amenable to washing. Retroflexion in the rectum was not done. Findings: Extensive amounts of stool was found in the rectum, in the recto-sigmoid colon and in the sigmoid colon, interfering with visualization. Exam terminated in the sigmoid colon secondary to inadequate prep. The exam was otherwise without abnormality on direct and retroflexion views. Impression: - Stool in the rectum, in the recto-sigmoid colon and in the sigmoid colon. - Exam terminated in the sigmoid colon secondary to inadequate prep. - The examination was otherwise normal on direct view. - No specimens collected. Recommendation: - Return patient to hospital [facility] for ongoing care. - Continue bowel prep with attempt at colonoscopy tomorrow. Evan Bansal M.D. Evan Bansal MD 12/11/2020 3:20:04 PM This report has been signed electronically. Note Initiated On: 12/11/2020 2:43 PM Number of Addenda: 0 I attest to the content of the Intraoperative Record and orders documented therein, exceptions below {[id number]}
--- NOTE | 2020-12-11 15:22 | Anesthesiology Progress Note ---
Date of Service December 11, 2020 Anesthesia Post Procedure Vital Signs Vital Signs: Temp Pulse Pulse Resp BP BP Pulse Ox 12/11/20 15:17 73 18 122/60 97 12/11/20 15:01 75 18 114/54 L 95 12/11/20 14:24 36.7 C 81 18 150/78 H 97 12/11/20 07:50 36.3 C L 98 H 18 126/80 92 12/11/20 02:20 89 154/92 H 12/10/20 23:13 37 C 91 H 16 174/83 H 91 12/10/20 15:51 36.4 C L 90 18 118/71 95 Transfer of Care Handoff Completed per policy Notes Mental Status: alert / awake / arousable Patient Amnestic to Procedure: Yes Nausea / Vomiting: adequately controlled Pain: adequately controlled Airway Patency, RR, SpO2: stable & adequate BP & HR: stable & adequate Hydration State: stable & adequate Anesthetic Complications: no major complications apparent
[2020-12-11] MEDS ORDERED: OPTIRAY 320 100ml IV ONE (18:22)
--- NOTE | 2020-12-11 20:26 | CT Scan Report ---
CHEST CT WITH CONTRAST CT ABDOMEN AND PELVIS WITH IV AND ORAL CONTRAST HISTORY: Hypercalcemia with elevated LFTs, hypercalcemia, elevated LFT, ?infiltrative disease TECHNIQUE: Multiaxial CT images of the chest, abdomen and pelvis were performed following the IV admi nistration of 94 cc of Optiray. Oral contrast was also utilized. A dose lowering technique was utiliz ed adhering to the principles of ALARA. COMPARISON: CTA chest 09/27/2018 FINDINGS: CT CHEST: Thyroid goiter redemonstrated. No adenopathy. Moderate cardiomegaly with extensive [place] coronary ar myron calcifications. Prior median sternotomy with CABG. Atherosclerosis of the thoracic aorta. Fusifo rm aneurysmal dilation of the ascending segment measures 4.1 x 4.2 cm, unchanged. The pulmonary arter ial tree is suboptimally evaluated secondary to respiratory motion artifact. Questioned filling defec ts are present within segmental branches of the left lung base. Chronic right hemidiaphragmatic eleva tion. No pneumothorax, pleural effusion or overt pulmonary edema. Mild subsegmental left greater than right bibasilar atelectasis. Prior right-sided pulmonary resection. Central airways are patent. Unre markable soft tissues. Degenerative changes of the shoulders and spine. Healed chronic right-sided ri b fractures. CT ABDOMEN/PELVIS: The study is degraded by respiratory motion artifact. No pneumatosis or pneumoperitoneum. The spleen, mildly atrophic pancreas, adrenal glands and gallbladder appear unremarkable. Questioned hepatic charlie atosis. 9 mm right hepatic lobe cyst. There are a few cysts within the right kidney which measure up to 1.4 cm. Symmetric enhancement of the kidneys without hydronephrosis. No definite urolith. Unremark able urinary bladder. Prostamegaly. Atherosclerosis of the aorta without aneurysm. No adenopathy. Contrast is noted within the distal esophagus which is mildly distended with subtle wall thickening. Tiny hiatal hernia. Mild wall thickening of the rectum is likely secondary to partial distention. No bowel obstruction. Normal appendix. No ascites or mesenteric inflammation. Gynecomastia. Left hip art hroplasty. Degenerative changes of the spine, pelvis and right hip. No acute fracture or suspicious b one lesion. IMPRESSION: 1. Questioned filling defects within segmental pulmonary arterial branches of the left lower lobe are likely secondary to respiratory motion artifact. Pulmonary emboli are considered less likely. This c ould be correlated with a follow-up lower extremity Doppler study. 2. Cardiomegaly with prior median sternotomy and CABG. 3. 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 4. No bowel obstruction or bowel wall thickening. Normal appendix. 5. Incidental findings as above. ACT 112: Negative or not required by law. Dictated: 12/11/2020 7:01 PM Transcribed: 12/11/2020 8:00 PM Veronica [id number] [facility] Electronically signed by: Justo Wing M.D. 12/11/2020 8:25 PM
--- NOTE | 2020-12-11 20:26 | CT Scan Report ---
CHEST CT WITH CONTRAST CT ABDOMEN AND PELVIS WITH IV AND ORAL CONTRAST HISTORY: Hypercalcemia with elevated LFTs, hypercalcemia, elevated LFT, ?infiltrative disease TECHNIQUE: Multiaxial CT images of the chest, abdomen and pelvis were performed following the IV admi nistration of 94 cc of Optiray. Oral contrast was also utilized. A dose lowering technique was utiliz ed adhering to the principles of ALARA. COMPARISON: CTA chest 09/27/2018 FINDINGS: CT CHEST: Thyroid goiter redemonstrated. No adenopathy. Moderate cardiomegaly with extensive [place] coronary ar myron calcifications. Prior median sternotomy with CABG. Atherosclerosis of the thoracic aorta. Fusifo rm aneurysmal dilation of the ascending segment measures 4.1 x 4.2 cm, unchanged. The pulmonary arter ial tree is suboptimally evaluated secondary to respiratory motion artifact. Questioned filling defec ts are present within segmental branches of the left lung base. Chronic right hemidiaphragmatic eleva tion. No pneumothorax, pleural effusion or overt pulmonary edema. Mild subsegmental left greater than right bibasilar atelectasis. Prior right-sided pulmonary resection. Central airways are patent. Unre markable soft tissues. Degenerative changes of the shoulders and spine. Healed chronic right-sided ri b fractures. CT ABDOMEN/PELVIS: The study is degraded by respiratory motion artifact. No pneumatosis or pneumoperitoneum. The spleen, mildly atrophic pancreas, adrenal glands and gallbladder appear unremarkable. Questioned hepatic charlie atosis. 9 mm right hepatic lobe cyst. There are a few cysts within the right kidney which measure up to 1.4 cm. Symmetric enhancement of the kidneys without hydronephrosis. No definite urolith. Unremark able urinary bladder. Prostamegaly. Atherosclerosis of the aorta without aneurysm. No adenopathy. Contrast is noted within the distal esophagus which is mildly distended with subtle wall thickening. Tiny hiatal hernia. Mild wall thickening of the rectum is likely secondary to partial distention. No bowel obstruction. Normal appendix. No ascites or mesenteric inflammation. Gynecomastia. Left hip art hroplasty. Degenerative changes of the spine, pelvis and right hip. No acute fracture or suspicious b one lesion. IMPRESSION: 1. Questioned filling defects within segmental pulmonary arterial branches of the left lower lobe are likely secondary to respiratory motion artifact. Pulmonary emboli are considered less likely. This c ould be correlated with a follow-up lower extremity Doppler study. 2. Cardiomegaly with prior median sternotomy and CABG. 3. 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 4. No bowel obstruction or bowel wall thickening. Normal appendix. 5. Incidental findings as above. ACT 112: Negative or not required by law. Dictated: 12/11/2020 7:01 PM Transcribed: 12/11/2020 8:00 PM Veronica [id number] [facility] Electronically signed by: Justo Wing M.D. 12/11/2020 8:25 PM
[2020-12-11] MEDS: POLYETHYLENE (MIRALAX) 17 GM PACK PO SCH ×2 (21:05→21:06)
[2020-12-12] MEDS: POLYETHYLENE (MIRALAX) 17 GM PACK PO SCH ×2 (02:00→05:45)
[2020-12-12] MEDS: SODIUM CHLORIDE 0.9% 1000ML 1,000 ML IV SCH ×2 (03:27→17:41)
[2020-12-12] MEDS: LEVOTHYROXINE SODIUM 75 MCG TABLET PO SCH (05:44)
--- NOTE | 2020-12-12 08:15 | Gastroenterology Progress Note ---
Date of Service December 12, 2020 Assessment & Plan (1) Elevated LFTs: Plan: Elevated liver function testing: AST 64, ALT 163, alk phos 168, total bilirubin 0.6. Alpha-1 antitrypsin testing within normal limits. SERA screen was positive with titer 1: 40 nuclear homogenous pattern. SERA was negative. Smooth muscle antibody is pending. 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 Negative CMV. PT/INR within normal limits. G allbladder ultrasound and HIDA are within normal limits. No significant findings on CT abdomen pelvis or chest yesterday. Rectal bleeding: Positive stool for occult blood. Poor colonoscopy prep yeste rday led to termination of exam. Plan today is for colonoscopy by Dr. Bansal. Stool output appears thick liquid richardson colored. Prep needs completed and stools clear to move forward with colonoscopy per Dr. Bansal. Nursing staff aware and instructed to have patient complete prep by noon. Please refer to supervising physician addendum for further recommendations. (2) Positive occult stool blood test: Admission and Anticipated Discharge Date Admission Date: December 04, 2020 Supervising Physician Co-Signing Physician Notes I have seen and examined the patient. I agree with note above by SONNY Barrett except as noted below. HPI Spoke with patient and in his room. Examined rectal tube and clear green liquid coming out. Pt denies abd pain. PE Abdomen pos bs, soft, no guarding nor rebound A/P heme pos stool---colonscopy today. Subjective The patient is a lying in bed this morning and position of comfort. Denies any abdominal pain, nausea, vomiting. He is tolerating colonoscopy prep. Unfortunately colonoscopy yesterday had to be terminated due to poor bowel prep. Patient currently has a rectal tube and that is draining richardson colored stool. Patient denies complaints this morning Review of Systems Review of Systems: All systems reviewed & are unremarkable except as noted in Subjective Physical Exam Gastrointestinal (Abdomen): normal bowel sounds, soft, nontender, no hepatosplenomegaly Rectal tube draining thick liquid richardson colored stool Results & Data ([facility]) Vital Signs (Past 12 Hours) Vital Signs Temp Pulse Resp BP Pulse Ox 12/12/20 07:38 36.4 C L 86 16 142/75 H 94 12/12/20 02:23 36.4 C L 86 16 151/65 H 96 12/11/20 22:32 36.5 C 84 18 172/82 H 94 Laboratory Results Laboratory Results - last 24 hr 12/09/20 12/11/20 12/11/20 11:41 08:07 08:07 WBC 8.15 RBC 4.19 L Hgb 12.6 L Hct 37.5 L MCV 89.5 MCH 30.1 MCHC 33.6 RDW Std Deviation 46.0 RDW Coeff of Prem 14.3 Plt Count 257 MPV 10.9 H PT INR Sodium Potassium Chloride Carbon Dioxide Anion Gap BUN Creatinine Est Cr Clr Drug Dosing Est GFR ( Amer) Est GFR (Non-Af Amer) BUN/Creatinine Ratio Glucose Calcium Magnesium Total Bilirubin Direct Bilirubin AST ALT Alkaline Phosphatase Total Protein Albumin Globulin Albumin/Globulin Ratio Fzixh-1-Dcncxickbhq 147 Vitamin B1 Pending SERA Screen POSITIVE A SERA Titer 1:40 H SERA Pattern Nuclear, Homogeneous A Anti-Mitochondrial Ab NEGATIVE Actin IgG Antibody COVID-19 Eval Order SARS-CoV-2 (PCR) CMV IgM Ab <30.00 CMV IgG Ab/TORCH <0.60 12/11/20 12/11/20 12/11/20 08:07 08:07 09:35 WBC RBC Hgb Hct MCV MCH MCHC RDW Std Deviation RDW Coeff of Prem Plt Count MPV PT 10.4 INR 1.0 Sodium 137 Potassium 3.9 Chloride 106 Carbon Dioxide 29 Anion Gap 2.0 L BUN 12 Creatinine 0.74 Est Cr Clr Drug Dosing 71.3 Est GFR ( Amer) 94.8 Est GFR (Non-Af Amer) 81.8 BUN/Creatinine Ratio 16.1 Glucose 90 Calcium 9.4 Magnesium 2.1 Total Bilirubin 0.6 Direct Bilirubin 0.2 D AST 64 H ALT 163 H Alkaline Phosphatase 168 H Total Protein 6.3 L Albumin 2.5 L Globulin 3.8 Albumin/Globulin Ratio 0.7 L Gglaf-4-Pccowddcafg Vitamin B1 SERA Screen SERA Titer SERA Pattern Anti-Mitochondrial Ab Actin IgG Antibody Pending COVID-19 Eval Order SARS-CoV-2 (PCR) CMV IgM Ab CMV IgG Ab/TORCH 12/12/20 12/12/20 02:25 02:25 WBC RBC Hgb Hct MCV MCH MCHC RDW Std Deviation RDW Coeff of Prem Plt Count MPV PT INR Sodium Potassium Chloride Carbon Dioxide Anion Gap BUN Creatinine Est Cr Clr Drug Dosing Est GFR ( Amer) Est GFR (Non-Af Amer) BUN/Creatinine Ratio Glucose Calcium Magnesium Total Bilirubin Direct Bilirubin AST ALT Alkaline Phosphatase Total Protein Albumin Globulin Albumin/Globulin Ratio Nywlz-1-Wsoymkaztxz Vitamin B1 SERA Screen SERA Titer SERA Pattern Anti-Mitochondrial Ab Actin IgG Antibody COVID-19 Eval Order Covid19 at [facility] SARS-CoV-2 (PCR) NEGATIVE CMV IgM Ab CMV IgG Ab/TORCH
--- NOTE | 2020-12-12 08:44 | Ultrasound Report ---
BILATERAL LOWER EXTREMITY VENOUS DOPPLER HISTORY: Lower extremity edema R/o dvt COMPARISON STUDY: 04/23/2019 FINDINGS: There is normal compressibility, flow, and augmentation within the bilateral lower extremit y deep venous systems. IMPRESSION: No DVT within the right or left lower extremity. ACT 112: Negative or not required by law. Electronically signed by: Justo Wing M.D. 12/12/2020 8:43 AM
[2020-12-12] MEDS: PANTOprazole 40 MG TAB PO SCH (08:54)
[2020-12-12] MEDS: DICLOFENAC SOD 1% GEL 100 GM TUBE EXT SCH ×4 (08:54→21:09)
[2020-12-12] MEDS: THIAMINE HCL 100 MG TAB PO SCH (08:54)
[2020-12-12] MEDS: THIAMINE HCL 100 MG in SYRINGE 9 ML IV SCH (08:54)
--- NOTE | 2020-12-12 09:28 | Hospitalist Progress Note ---
Date of Service December 12, 2020 Assessment & Plan (1) Hypercalcemia: Plan: Suspected primary hyperparathyroidism contributing to ongoing weakness as presenting symptom on admission Ca on admit 12 corrected, and 11.6 on 12/09. --> PTH elevated, Ca elevated, Vit D low normal Vit D not overtly low to explain elevation in PTH to 182.2 (previously was 124 in 2018) --> Placed on IVF Pamidronate x 1 30mg on 12/09 Stop Vit D supplementation Ca currently 9.5, albumin 2.5 --> corrected 10.7 without improvement. Continues IVF until completed with c- scope but also will start cinacalcet 30mg daily and continue to monitor Of note, despite continued BM during admission and 2 days of bowel prep stool was still richardson colored in rectal tube today and finally clearing around lunchtime. Question if possible constipation also contributing to weakness Not great candidate given age/co-morb for parathyroidectomy Continue to monitor (2) Elevated LFTs: Plan: IMPROVING -- TB 0.6 wnl, AST 65--> 50, ALT 163--> 133. ALP 168-174 ??if from medication possibly from over summer but worsened from Rocephin Work-up below, GI on consult TB elevated on admit -- new elevations in LFTs since April of earlier this year. U/S GB - mildly distended GB with biliary sludge, no gallstones, no acute cholecystitis Discussed with GI and low suspcision of wilsons/autoimmune hepatitis, would avoid biopsy. Suspect medication related --> New med during summer (acute elevations occurring from April to present) Vesicare for BPH. <1% post-marketing elevation in aminotransferases, however patient did self d/c all meds except levothyroxine and omeprazole in past month HIDA scan without evidence for obstruction/ductal dilation. CMV pending, EBV indicative of prior infxn CEA <0.5 Alpha 1 antitrypsin 147 wnl SERA + and SERA pattern nuclear, homogeneous A --> Homogeneous pattern is associated with systemic lupus erythematosus (SLE), drug-induced lupus and juvenile idiopathic arthritis. Actin IgG antibody pending Iron studies with iron 64, TIBC 219L, transferrin 183L, transferrin % sat 25, ferritin 553.5H (reactive) CTAP/Chest performed 12/11-- questioned filing defect for small PEs? but not symptomatic from such. Venous Doppler NEGATIVE for DVT --> Lovenox on hold for c-scope. Plan for dedicated follow up PE protocol after scope completed (3) Weakness: Plan: Uncertain of full etiology - has had decreased appetite since EGD about one month ago and has had progressive muscular weakness that has been since his hip fx/surgery September 2018, which was complicated by pulmonary embolisms Tx prednisone for possible PMR earlier in stay -- d/c as no improvement Patient largely wheelchair bound and sedentary - reports that for about 3-4 weeks he has not really been able to stand and requiring a lot of assistance and predominantly utilizing a wheelchair at this point. She reports this seemed to correlate with the timing of his EGD. However he has had progressive decline over the 1-2 years but standing issues since 3-4 weeks. 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 Trop negative on admit Also could be constipation -- 2 days of bowel prep and had continued formed stool as above Elevated LFTs-- see above CT Chest/A/P as above -- questioning filling defects ?small PEs Venous Doppler NEGATIVE for DVT Will order CT Chest for PE following c-scope for further eval Continue PT/OT -- patient and family hopeful for home with home therapy --> hopeful for eval and possible home tomorrow with family support pending above (4) UTI (urinary tract infection): Plan: UA not significantly convincing of UTI - UCx with pinpoint growth --> corynbact No further Rocephin (got 3 days earlier in stay) Chronic incontinence issues and follows with Urology -- had been on vesicare earlier in summer but no meds other than for thyroid and GERD as above (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[facility] [place]) where he had post-op afib, asymptomatic and no long-term anticoagulation therapy indicated as they only had one episode (was on amiodarone in the past) Per note, consideration for ASA if no contraindications --> to have discussion with his GI --> no known contraindications however see above fecal occult + and possible inpatient scope Not on BB -- previously on metoprolol 25mg daily as well as DAVID but d/c due to cough No CP/SOB reported EKG w CP Trop negative on admission ECHO on repeat without wma. LV systolic function normal. Aortic valve sclerosis mild without sig . RVSP normal (7) Dysphagia: Plan: Minced and moist diet Did cough after drinking orange juice on 12/05 but respiratory status is stable - can consider CXR if spiking fevers or coughing EGD (11/05) - 5 cm hiatal hernia; no lesions of stomach or duodenum; reflux esophagitis Continue PPI - changed to BID dosing --> change back to once daily now that no longer on steroids for suspect PMR as above No issues reported with current diet Speech eval --> would include slippery to diet once off liquid diet as above for possible scope tomorrow (8) GERD with esophagitis: Plan: Continue Protonix; added Carafate (9) Hypothyroidism: Plan: TSH is WNL Continue Synthroid 37.5 mcg every morning (10) Bilateral pulmonary embolism: Plan: Hx of post-op ORIF Left Hip 09/2018- was on Coumadin x 6 months (last dose 04/05/19) Not on further anticoagulation. Hx afib single episode as above and per cardiology no anticoagulation at that time however there were discussions for couple weeks Coumadin for a possible atrial thrombus but was felt not to be the case (Also had a history of fall July 2018 resulting in trace ICH and was transferred to tertiary care and managed non-operatively) Plan: C-scope today CTA Chest for PE following Started cinacalcet daily, monitor labs in AM Continue PT/OT --> family wants home with family support and therapy. Continue to monitor with tx for above and consider d/c over weekend Admission and Anticipated Discharge Date Admission Date: December 04, 2020 Supervising Physician Co-Signing Physician Notes FAB Supervision Note: I did not personally see or examine the patient today, but I verified all nogueira points of FAB Layton's assessment and plan with the following exceptions/additions: None Subjective Patient evaluated around lunchtime. Feeling better per patient, "not bad". Continuing with prep and rectal tube still with some richardson colored stool but is clearing in the upper part of tube. Dr Bansal to come up to [facility] to see if able to do scope later today. Calcium about the same and discussed starting cinacalcet tomorrow. No fever, chills, chest pain, shortness of breath, abdominal pain, nausea or vomiting at this time. Strength about the same as yesterday but states he is feeling better. Review of Systems Review of Systems: All systems reviewed & are unremarkable except as noted in HPI & below Physical Exam Physical Exam: General Appearance: Elderly male in NAD who is A&O x 3, resting in bed HEENT: Head is normocephalic/atraumatic; Hearing grossly intact; Mucous membranes moist Neck: Supple; Trachea midline; Neg JVD Heart: RRR with no M/G/R Lungs: CTA in all lung weathers bilaterally; Respirations unlabored; Neg accessory muscle use Abdomen: +BS throughout, soft/non-tender, non-distended today -- rectal tube with richardson colored stool, clearing in tubing Extremities: Neg cyanosis or edema 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 NVI. continued weakness proximal muscles but did have some improvement today in strength Psychiatric: Normal Affect Skin: cool, dry. buttocks with erythema Results & Data Results & Data ([facility]) Vital Signs (Past 12 Hours) Vital Signs Temp Pulse Resp BP Pulse Ox 12/12/20 07:38 36.4 C L 86 16 142/75 H 94 12/12/20 02:23 36.4 C L 86 16 151/65 H 96 12/11/20 22:32 36.5 C 84 18 172/82 H 94 Laboratory Results 12/12/20 12/12/20 12/12/20 Range/Units 09:36 09:36 02:25 WBC 6.08 (4.8-10.8) K/uL RBC 3.99 L (4.7-6.1) M/uL Hgb 11.9 L (14.0-18.0) g/dL Hct 35.7 L (42-52) % MCV 89.5 (80-100) fL MCH 29.8 (25-34) pg MCHC 33.3 (32-36) g/dL RDW Std Deviation 47.4 H (36.4-46.3) fL RDW Coeff of Prem 14.4 (11.5-14.5) % Plt Count 256 (130-400) K/uL MPV 9.6 (7.4-10.4) fL Immature Gran % (Auto) 0.8 % Neut % (Auto) 70.6 % Lymph % (Auto) 13.3 % [place] % (Auto) 12.5 % Eos % (Auto) 2.6 % Baso % (Auto) 0.2 % Neut # (Auto) 4.29 (1.4-6.5) K/uL Lymph # (Auto) 0.81 L (1.2-3.4) K/uL [place] # (Auto) 0.76 H (0.11-0.59) K/uL Eos # (Auto) 0.16 (0-0.5) K/uL Baso # (Auto) 0.01 (0-0.2) K/uL Immature Gran # (Auto) 0.05 H (0.00-0.02) K/uL Sodium 138 (136-145) mmol/L Potassium 3.8 (3.5-5.1) mmol/L Chloride 108 H (98-107) mmol/L Carbon Dioxide 23 (21-32) mmol/L Anion Gap 7.0 (3-11) BUN 7 D (7-18) mg/dl Creatinine 0.66 (0.6-1.4) mg/dl Est Cr Clr Drug Dosing 80.0 ml/min Est GFR ( Amer) 99.3 ml/min Est GFR (Non-Af Amer) 85.7 ml/min BUN/Creatinine Ratio 10.7 (10-20) Glucose 110 H (70-99) mg/dl Calcium 9.5 (8.5-10.1) mg/dl Total Bilirubin 0.6 (0.2-1) mg/dl AST 50 H (15-37) U/L ALT 133 H (12-78) U/L Alkaline Phosphatase 174 H (45-117) U/L Total Protein 6.2 L (6.4-8.2) gm/dl Albumin 2.5 L (3.4-5.0) gm/dl Globulin 3.7 (2.5-4.0) gm/dl Albumin/Globulin Ratio 0.7 L (0.9-2) COVID-19 Eval Order SARS-CoV-2 (PCR) NEGATIVE (Negative) 12/12/20 Range/Units 02:25 WBC (4.8-10.8) K/uL RBC (4.7-6.1) M/uL Hgb (14.0-18.0) g/dL Hct (42-52) % MCV (80-100) fL MCH (25-34) pg MCHC (32-36) g/dL RDW Std Deviation (36.4-46.3) fL RDW Coeff of Prem (11.5-14.5) % Plt Count (130-400) K/uL MPV (7.4-10.4) fL Immature Gran % (Auto) % Neut % (Auto) % Lymph % (Auto) % [place] % (Auto) % Eos % (Auto) % Baso % (Auto) % Neut # (Auto) (1.4-6.5) K/uL Lymph # (Auto) (1.2-3.4) K/uL [place] # (Auto) (0.11-0.59) K/uL Eos # (Auto) (0-0.5) K/uL Baso # (Auto) (0-0.2) K/uL Immature Gran # (Auto) (0.00-0.02) K/uL Sodium (136-145) mmol/L Potassium (3.5-5.1) mmol/L Chloride (98-107) mmol/L Carbon Dioxide (21-32) mmol/L Anion Gap (3-11) BUN (7-18) mg/dl Creatinine (0.6-1.4) mg/dl Est Cr Clr Drug Dosing ml/min Est GFR ( Amer) ml/min Est GFR (Non-Af Amer) ml/min BUN/Creatinine Ratio (10-20) Glucose (70-99) mg/dl Calcium (8.5-10.1) mg/dl Total Bilirubin (0.2-1) mg/dl AST (15-37) U/L ALT (12-78) U/L Alkaline Phosphatase (45-117) U/L Total Protein (6.4-8.2) gm/dl Albumin (3.4-5.0) gm/dl Globulin (2.5-4.0) gm/dl Albumin/Globulin Ratio (0.9-2) COVID-19 Eval Order Covid19 at [facility] SARS-CoV-2 (PCR) (Negative) Diagnostic Findings Abdomen/Pelvis CT 12/11/20 15:[address] CONTRAST CT ABDOMEN AND PELVIS WITH IV AND ORAL CONTRAST HISTORY: Hypercalcemia with elevated LFTs, hypercalcemia, elevated LFT, ?infiltrative disease TECHNIQUE: Multiaxial CT images of the chest, abdomen and pelvis were performed following the IV administration of 94 cc of Optiray. Oral contrast was also utilized. A dose lowering technique was utilized adhering to the principles of ALARA. COMPARISON: CTA chest 09/27/2018 FINDINGS: CT CHEST: Thyroid goiter redemonstrated. No adenopathy. Moderate cardiomegaly with extensive [place] coronary artery calcifications. Prior median sternotomy with CABG. Atherosclerosis of the thoracic aorta. 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 The pulmonary arterial tree is suboptimally evaluated secondary to respiratory motion artifact. Questioned filling defects are present within segmental branches of the left lung base. Chronic right hemidiaphragmatic elevation. No pneumothorax, pleural effusion or overt pulmonary edema. Mild subsegmental left greater than right bibasilar atelectasis. Prior right-sided pulmonary resection. Central airways are patent. Unremarkable soft tissues. Degenerative changes of the shoulders and spine. Healed chronic right-sided rib fractures. CT ABDOMEN/PELVIS: The study is degraded by respiratory motion artifact. No pneumatosis or pneumoperitoneum. The spleen, mildly atrophic pancreas, adrenal glands and gallbladder appear unremarkable. Questioned hepatic steatosis. 9 mm right hepatic lobe cyst. There are a few cysts within the right kidney which measure up to 1.4 cm. Symmetric enhancement of the kidneys without hydronephrosis. No definite urolith. Unremarkable urinary bladder. Prostamegaly. Atherosclerosis of the aorta without aneurysm. No adenopathy. Contrast is noted within the distal esophagus which is mildly distended with subtle wall thickening. Tiny hiatal hernia. Mild wall thickening of the rectum is likely secondary to partial distention. No bowel obstruction. Normal appendix. No ascites or mesenteric inflammation. Gynecomastia. Left hip arthroplasty. Degenerative changes of the spine, pelvis and right hip. No acute fracture or suspicious bone lesion. IMPRESSION: 1. Questioned filling defects within segmental pulmonary arterial branches of the left lower lobe are likely secondary to respiratory motion artifact. Pulmonary emboli are considered less likely. This could be correlated with a follow-up lower extremity Doppler study. 2. Cardiomegaly with prior median sternotomy and CABG. 3. 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 4. No bowel obstruction or bowel wall thickening. Normal appendix. 5. Incidental findings as above. ACT 112: Negative or not required by law. Dictated: 12/11/2020 7:01 PM Transcribed: 12/11/2020 8:00 PM Veronica [id number] [facility] Electronically signed by: Justo Wing M.D. 12/11/2020 8:[address] 12/11/20 15:[address] CONTRAST CT ABDOMEN AND PELVIS WITH IV AND ORAL CONTRAST HISTORY: Hypercalcemia with elevated LFTs, hypercalcemia, elevated LFT, ?infiltrative disease TECHNIQUE: Multiaxial CT images of the chest, abdomen and pelvis were performed following the IV administration of 94 cc of Optiray. Oral contrast was also utilized. A dose lowering technique was utilized adhering to the principles of ALARA. COMPARISON: CTA chest 09/27/2018 FINDINGS: CT CHEST: Thyroid goiter redemonstrated. No adenopathy. Moderate cardiomegaly with extensive [place] coronary artery calcifications. Prior median sternotomy with CABG. Atherosclerosis of the thoracic aorta. 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 The pulmonary arterial tree is suboptimally evaluated secondary to respiratory motion artifact. Questioned filling defects are present within segmental branches of the left lung base. Chronic right hemidiaphragmatic elevation. No pneumothorax, pleural effusion or overt pulmonary edema. Mild subsegmental left greater than right bibasilar atelectasis. Prior right-sided pulmonary resection. Central airways are patent. Unremarkable soft tissues. Degenerative changes of the shoulders and spine. Healed chronic right-sided rib fractures. CT ABDOMEN/PELVIS: The study is degraded by respiratory motion artifact. No pneumatosis or pneumoperitoneum. The spleen, mildly atrophic pancreas, adrenal glands and gallbladder appear unremarkable. Questioned hepatic steatosis. 9 mm right hepatic lobe cyst. There are a few cysts within the right kidney which measure up to 1.4 cm. Symmetric enhancement of the kidneys without hydronephrosis. No definite urolith. Unremarkable urinary bladder. Prostamegaly. Atherosclerosis of the aorta without aneurysm. No adenopathy. Contrast is noted within the distal esophagus which is mildly distended with subtle wall thickening. Tiny hiatal hernia. Mild wall thickening of the rectum is likely secondary to partial distention. No bowel obstruction. Normal appendix. No ascites or mesenteric inflammation. Gynecomastia. Left hip arthroplasty. Degenerative changes of the spine, pelvis and right hip. No acute fracture or suspicious bone lesion. IMPRESSION: 1. Questioned filling defects within segmental pulmonary arterial branches of the left lower lobe are likely secondary to respiratory motion artifact. Pulmonary emboli are considered less likely. This could be correlated with a follow-up lower extremity Doppler study. 2. Cardiomegaly with prior median sternotomy and CABG. 3. 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 4. No bowel obstruction or bowel wall thickening. Normal appendix. 5. Incidental findings as above. ACT 112: Negative or not required by law. Dictated: 12/11/2020 7:01 PM Transcribed: 12/11/2020 8:00 PM Veronica [id number] [facility] Electronically signed by: Justo Wing M.D. 12/11/2020 8:25 PM Venous Doppler Study 12/12/20 08:30 BILATERAL LOWER EXTREMITY VENOUS DOPPLER HISTORY: Lower extremity edema R/o dvt COMPARISON STUDY: 04/23/2019 FINDINGS: There is normal compressibility, flow, and augmentation within the bilateral lower extremity deep venous systems. IMPRESSION: No DVT within the right or left lower extremity. ACT 112: Negative or not required by law. Electronically signed by: Justo Wing M.D. 12/12/2020 8:43 AM PG Care Time/CCT Total # of Minutes Spent Total Time Spent with Patient: Total time spent is greater than 50% in coordination of care (as documented) at patient's floor/unit and/or counseling patient: Coding Level of Care Code 76556 Subseq Hosp Care Lvl 3 Diagnoses Hypercalcemia E83.52 Elevated LFTs R79.89 Weakness R53.1 UTI (urinary tract infection) N39.0 Carcinoid tumor D3A.00 CAD (coronary artery disease) I25.10 Associated angina: without angina Coronary Disease-Associated Artery/Lesion type: [place] artery [place] vs. transplanted heart: [place] heart Dysphagia R13.10 GERD with esophagitis K21.00 Hypothyroidism E03.9 Bilateral pulmonary embolism I26.99 (1) CAD (coronary artery disease) Associated angina: without angina Coronary Disease-Associated Artery/Lesion type: [place] artery [place] vs. transplanted heart: [place] heart Qualified Code(s): I25.10 - Atherosclerotic heart disease of [place] coronary artery without angina pectoris
[2020-12-12 09:59] LABS: Basophils # (auto) 0.01 K/uL (0-0.2); Basophils % (auto) 0.2 %; Eosinophils # (auto) 0.16 K/uL (0-0.5); Eosinophils % (auto) 2.6 %; Hematocrit (blood only) 35.7 % (42-52); Hemoglobin 11.9 g/dL (14.0-18.0); Immature Granulocytes # (auto) 0.05 K/uL (0.00-0.02); Immature Granulocytes % (auto) 0.8 %; Lymphocytes # (auto) 0.81 K/uL (1.2-3.4); Lymphocytes % (auto) 13.3 %; Mean Corpuscular Hemoglobin 29.8 pg (25-34); Mean Corpuscular Hgb Conc 33.3 g/dL (32-36); Mean Corpuscular Volume 89.5 fL (80-100); Mean Platelet Volume 9.6 fL (7.4-10.4); Monocytes # (auto) 0.76 K/uL (0.11-0.59); Monocytes % (auto) 12.5 %; Neutrophils # (auto) 4.29 K/uL (1.4-6.5); Neutrophils % (auto) 70.6 %; Platelet Count 256 K/uL (130-400); RDW Coefficient of Variation 14.4 % (11.5-14.5); RDW Standard Deviation 47.4 fL (36.4-46.3); Red Blood Count 3.99 M/uL (4.7-6.1); White Blood Count 6.08 K/uL (4.8-10.8)
[2020-12-12 10:19] LABS: Albumin Level 2.5 gm/dl (3.4-5.0); BUN Creatinine Ratio 10.7 (10-20); Calcium 9.5 mg/dl (8.5-10.1); Est GFR (African American) 99.3 ml/min; Est GFR (Non-African American) 85.7 ml/min; Potassium 3.8 mmol/L (3.5-5.1)
[2020-12-12 10:22] LABS: Albumin Globulin Ratio 0.7 (0.9-2); Bilirubin,Total 0.6 mg/dl (0.2-1); Globulin 3.7 gm/dl (2.5-4.0); Total Protein 6.2 gm/dl (6.4-8.2)
--- NOTE | 2020-12-12 15:35 | Anesthesiology Consultation ---
Date of Service December 12, 2020 Assessment & Plan (1) Encounter for pre-operative examination: Chart Review Chart Review: Acceptable Risk for Surgery and Patient NOT seen in Pre Admission Testing Consults Requested none History Surgery Operation Date: 12/11/20 16:50 Proposed Procedures p Colonoscopy Dr Nimisha Bansal Operation Date: 12/12/20 15:30 Proposed Procedures p Colonoscopy Dr Nimisha Bansal Height/Weight Height: 5 ft 8 in Weight: 83.7 kg Allergies Allergy/AdvReac Type Severity Reaction Status Date / Time benzoin Allergy Unknown Rash Verified 12/03/20 12:39 lisinopril AdvReac Intermediate Cough Verified 12/03/20 12:39 NSAIDS (Non-Steroidal AdvReac Unknown Unverified 12/03/20 12:42 Anti-Inflamma Medications Home Medications Medication Instructions Recorded Confirmed Last Taken coenzyme Q10 100 mg capsule 100 mg PO DAILY cap 07/12/18 11/05/20 11/01/20 alpha lipoic acid 100 mg capsule 100 mg PO DAILY 04/04/19 11/05/20 11/02/20 cholecalciferol (vitamin D3) 125 5,000 units PO QAM 04/23/19 11/05/20 11/02/20 mcg (5,000 unit) capsule ascorbic acid (vitamin C) 1,000 mg 3,000 mg PO DAILY tab 09/06/19 11/05/20 11/02/20 tablet Lactobacillus acidophilus 1 cap PO DAILY cap 04/16/20 11/05/20 11/01/20 (Acidophilus) levothyroxine 75 mcg tablet 37.5 mcg PO QAM 10/30/20 12/03/20 12/03/20 omeprazole 40 mg capsule,delayed 40 mg PO QAM 12/03/20 12/03/20 12/03/20 release Active Medications Generic Name Dose Route Start Last Admin Trade Name Freq PRN Reason Stop Dose Admin Diclofenac Sodium 4 gm 12/04/20 21:00 12/12/20 15:00 Diclofenac Sod 1% Gel 100 Gm Tube EXT 01/03/21 20:59 4 gm QID MARA Administration Enoxaparin Sodium 40 mg 12/03/20 21:00 12/10/20 21:17 Enoxaparin Inj 40 Mg/0.4 Ml Syr SQ 01/02/21 20:59 40 mg Q24H MARA Administration Sodium Chloride 1,000 mls @ 80 mls/hr 12/09/20 09:45 12/12/20 06:40 Nss 1000ml IV 01/08/21 09:44 80 mls/hr .[id number] MARA Infusion Thiamine HCl 100 mg/ Syringe 10 mls @ 2 mls/min 12/11/20 09:00 12/12/20 08:54 IV 01/10/21 08:59 2 mls/min QAM MARA Administration Levothyroxine Sodium 37.5 mcg 12/04/20 06:30 12/12/20 05:44 Levothyroxine Sodium 75 Mcg Tablet PO 01/03/21 06:29 37.5 mcg DAILYBB MARA Administration Pantoprazole Sodium 40 mg 12/07/20 21:00 12/12/20 08:54 Pantoprazole 40 Mg Tab PO 01/06/21 20:59 40 mg BID MARA Administration Sucralfate 1 gm 12/07/20 09:00 12/11/20 12:49 Sucralfate 1 Gm/10 Ml Udc PO 01/06/21 08:59 Not Given QID MARA Thiamine HCl 100 mg 12/05/20 09:00 12/12/20 08:54 Thiamine Hcl 100 Mg Tab PO 01/04/21 08:59 100 mg QAM MARA Administration NPO Date Last Intake of Fluids: 12/10/20 Time Last Intake of Fluids: 23:59 Date Last Intake of Solids: 12/10/20 Time Last Intake of Solids: 23:59 Past Medical History Medical History (Updated 12/12/20 @ 15:35 by Neno Sheikh MD) Anemia HX Arthritis KNEES Ascending aorta dilation Bilateral pulmonary embolism post operatively ORIF Left Hip 09/2018- was on coumadin x 6 months (last dose 04/05/19) - PT NOT SURE 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 fib after CABG 2016/asymptomatic with no other documented episodes- per cardiology, long-term anticoagulation is not indicated unless he should have recurrent episodes Shoulder problem Subcapital fracture of left hip Summer 2018 Traumatic intraventricular hemorrhage 07/2018 ([facility] [facility] after fall backwards on curb/tripped. Neurosurgery was consulted but treatment was conservative/no acute findings on subsequent head/brain CT 09/2018 [facility] Past Family History Family History Mother Colorectal cancer Brother Myocardial infarction Colorectal cancer Sister Ovarian cancer Family history of diabetes mellitus Father Prostate cancer Bone cancer Other No family history of adverse response to anesthesia Denies family history of Breast cancer Past Surgical History Surgical History History of cardiac cath multiple, last done 2015. no stents. 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 Prudencio Luo S/P wisdom tooth extraction HX Social History Smoking Status: Never smoker tobacco type: cigarettes Hx Alcohol Use: No Alcohol type: wine alcohol intake frequency: holidays/special occasions only Hx Substance Use: No substance use type: does not use Physical Exam Vital Signs Last Vital Signs Temp 36.4 C L 12/12/20 07:38 Pulse 86 12/12/20 07:38 Resp 16 12/12/20 07:38 BP 142/75 H 12/12/20 07:38 Pulse Ox 94 12/12/20 07:38 Testing Laboratory Results 12/12/20 09:36 12/12/20 09:36 PT 10.4 Seconds (9.0-12.0) 12/11/20 08:07 INR 1.0 (0.9-1.1) 12/11/20 08:07 Urine Color Yellow 12/09/20 04:40 Urine Appearance Clear (Clear) 12/09/20 04:40 Urine pH 5.0 (4.5-7.5) 12/09/20 04:40 Ur Specific [place] 1.022 (1.000-1.030) 12/09/20 04:40 Urine Protein Negative (Negative) 12/09/20 04:40 Urine Glucose (UA) Negative (Negative) 12/09/20 04:40 Urine Ketones Negative (Negative) 12/09/20 04:40 Urine Nitrite Negative (Negative) 12/09/20 04:40 Ur Leukocyte Esterase Negative (Negative) 12/09/20 04:40 Urine WBC (Auto) 1-5 /hpf (0-5) 12/03/20 14:10 Urine RBC (Auto) 5-10 /hpf (0-4) H 12/03/20 14:10 U Hyaline Cast (Auto) 1-5 /lpf (0-5) 12/03/20 14:10 U Epithel Cells (Auto) 10-20 /lpf (0-5) H 12/03/20 14:10 Urine Bacteria (Auto) Negative (Negative) 12/03/20 14:10 12/09/20 18:56 Aerobic Blood Culture - Preliminary Blood No growth in Aerobic bottle after 48 hours. Anaerobic Blood Culture - Final 12/09/20 18:50 Aerobic Blood Culture - Preliminary Blood No growth in Aerobic bottle after 48 hours. Anaerobic Blood Culture - Preliminary No growth in Anaerobic bottle after 48 hours. 12/03/20 14:10 Urine Culture - Final Urine,Straight Cath Corynbact.sp not urealyticum Electrocardiogram Date: 12/03/20 Findings: + NSR @ (at 89) and + OR (? old Infer. OR age ?) Chest X-Ray Date: 12/03/20 Findings: + NAD Echocardiogram Date: 12/10/20 LV Function: normal RWMA: + none Other Findings: + LVH Valvular Disease: + no significant valvular disease
[2020-12-12] MEDS ORDERED: LIDOCAINE 2% 2 ML VIAL/AMP(20MG/ML) INFIL ONE (15:38)
[2020-12-12] MEDS ORDERED: PROPOFOL IV EMULSION 10 MG/ML 20 ML VIAL IV ONE (15:38)
--- NOTE | 2020-12-12 16:17 | GI REPORT ---
Patient Name: Lang Whitney Procedure Date: 12/12/2020 3:48 PM Date of : 1930 Admit Type: Inpatient Age: 89 Gender: Male Attending MD: Evan Bansal MD Procedure: Colonoscopy Providers: Evan Bansal MD Referring MD: Carissa Masterson Md Indications: Heme positive stool Medicines: Monitored Anesthesia Care Complications: No immediate complications. Estimated blood loss: Minimal. Estimated Blood Loss: Estimated blood loss was minimal. Procedure: Pre-Anesthesia Assessment: - The risks and benefits of the procedure and the sedation options and risks were discussed with the patient. All questions were answered and informed consent was obtained. After I obtained informed consent, the scope was passed under direct vision. Throughout the procedure, the patient's blood pressure, pulse, and oxygen saturations were monitored continuously. The Colonoscope was introduced through the anus and advanced to the terminal ileum, with identification of the appendiceal orifice and IC valve. The colonoscopy was performed without difficulty. The patient tolerated the procedure well. Procedure and risks explained to patient which include but not limited to med reaction, bleeding, perforation, aspiration and missed lesions. Judicious gas insufflation and gas removal done on the way out. The lumen always well visualized when advancing the scope. Washes and suctioning used as needed for good visuzlization of mucosa. Prep was good. Retroflexion in the rectum to look at the distal rectum and anal canal done. Findings: Two sessile polyps were found in the rectum. The polyps were 4 mm in size. These polyps were removed with a lift and cut technique using a cold snare. Resection and retrieval were complete. Estimated blood loss was minimal. The terminal ileum appeared normal. Multiple medium-mouthed diverticula were found in the left colon. The exam was otherwise without abnormality on direct and retroflexion views. Impression: - Two 4 mm polyps in the rectum, removed using lift and cut and a cold snare. Resected and retrieved. - The examined portion of the ileum was normal. - Diverticulosis in the left colon. - The examination was otherwise normal on direct and retroflexion views. Recommendation: - Return patient to hospital [facility] for ongoing care. Evan Bansal M.D. Evan Bansal MD 12/12/2020 4:17:03 PM This report has been signed electronically. Note Initiated On: 12/12/2020 3:48 PM Number of Addenda: 0 I attest to the content of the Intraoperative Record and orders documented therein, exceptions below {[id number]}
--- NOTE | 2020-12-12 16:19 | Post Operative Brief Note ---
Immediate Post Op Note v1 Date of Surgery December 12, 2020 Pre & Post Diagnosis Operation Date: 12/12/20 15:30 Pre-Op Diagnosis: FOBT Post-Op Diagnosis: diverticulosis polyps I identified the patient and participated in the time-out.: Yes Procedure Operation Date: 12/12/20 15:30 Actual Procedures p Colonoscopy Polypectomy(Not Applicable) - Evan Bansal Surgeon Evan Bansal Enamel Buffer see formal report Estimated Blood Loss 0 Findings Consistent with Post-Op Diagnosis rectal polyps, diverticulosis. Resume solid diet. Drains Rectal Tube
--- NOTE | 2020-12-12 16:34 | Anesthesiology Progress Note ---
Date of Service December 12, 2020 Anesthesia Post Procedure Vital Signs Vital Signs: Temp Pulse Pulse Resp BP Pulse Ox 12/12/20 16:26 78 16 126/58 L 99 12/12/20 16:13 72 16 113/59 L 97 12/12/20 15:44 36.6 C 78 16 183/82 H 12/12/20 07:38 36.4 C L 86 16 142/75 H 94 12/12/20 02:23 36.4 C L 86 16 151/65 H 96 12/11/20 22:32 36.5 C 84 18 172/82 H 94 Transfer of Care Handoff Completed per policy Notes Mental Status: alert / awake / arousable Patient Amnestic to Procedure: Yes Nausea / Vomiting: adequately controlled Pain: adequately controlled Airway Patency, RR, SpO2: stable & adequate BP & HR: stable & adequate Hydration State: stable & adequate Anesthetic Complications: no major complications apparent and Pt Satisfied with anesthetic care Notes: The patient is awake and comfortable. His vital signs are stable.
[2020-12-12] MEDS: CINACALCET HCL 30 MG TAB PO SCH (17:42)
[2020-12-12] MEDS ORDERED: OPTIRAY 320 125ml IV ONE (18:33)
--- NOTE | 2020-12-12 18:57 | CT Scan Report ---
CT ANGIOGRAPHY OF THE CHEST, PULMONARY EMBOLUS PROTOCOL CLINICAL HISTORY: Possible pulmonary embolus on prior chest CT. COMPARISON STUDY: Chest CT December 11, 2020. TECHNIQUE: Following IV administration of 120 mL of Optiray, helical axial images of the chest were o btained utilizing the pulmonary embolus protocol. Maximal intensity projections and sagittal and cor onal reformats were viewed on an independent 3D workstation. IV contrast was administered without co mplication. Automated exposure control was utilized for the study. A dose lowering technique was ut ilized adhering to the principles of ALARA. CT DOSE: 616.20 mGy.cm FINDINGS: No central pulmonary emboli are identified. This exam is compromised by motion artifact. T herefore, the possible pulmonary emboli shown on chest CT of December 11, 2020 cannot be completely ex cluded. No definite emboli are identified. There is no pericardial effusion. Mild dilatation of the a scending aorta is unchanged. Postoperative findings consistent with right lower lobectomy are noted. No pneumothorax or pleural effusion is present. Lungs are suboptimally assessed due to respiratory mo tion. Mild subpleural opacities favor atelectasis. The appearance of the chest is unchanged. IMPRESSION: 1. No central pulmonary emboli. Given respiratory motion artifact, the possible pulmonary emboli show n on CT of December 11, 2020 cannot be completely excluded although no definite emboli are identified. 2. Status post right lower lobectomy. 2. No consolidation to suggest pneumonia. ACT 112: Negative or not required by law. Electronically signed by: Hai Casillas M.D. 12/12/2020 6:55 PM
[2020-12-12] MEDS: SUCRALFATE 1 GM/10 ML UDC PO SCH (21:09)
[2020-12-12] MEDS: ENOXAPARIN INJ 40 MG/0.4 ML SYR SQ SCH (23:17)
[2020-12-13] MEDS: LEVOTHYROXINE SODIUM 75 MCG TABLET PO SCH (05:38)
[2020-12-13 06:22] LABS: Hematocrit (blood only) 38.6 % (42-52); Hemoglobin 12.5 g/dL (14.0-18.0); Mean Corpuscular Hemoglobin 29.8 pg (25-34); Mean Corpuscular Hgb Conc 32.4 g/dL (32-36); Mean Corpuscular Volume 92.1 fL (80-100); Mean Platelet Volume 9.9 fL (7.4-10.4); Platelet Count 268 K/uL (130-400); RDW Coefficient of Variation 14.4 % (11.5-14.5); RDW Standard Deviation 48.4 fL (36.4-46.3); Red Blood Count 4.19 M/uL (4.7-6.1)
[2020-12-13 06:54] LABS: Albumin Level 2.7 gm/dl (3.4-5.0); BUN Creatinine Ratio 9.7 (10-20); Bilirubin Direct 0.2 mg/dl (0-0.2); Creatinine Clr Calc Pharmacy 60.7 ml/min; Est GFR (African American) 88.7 ml/min; Est GFR (Non-African American) 76.5 ml/min; Potassium 3.8 mmol/L (3.5-5.1)
[2020-12-13 06:59] LABS: Bilirubin,Total 0.4 mg/dl (0.2-1); Total Protein 6.7 gm/dl (6.4-8.2)
--- NOTE | 2020-12-13 08:27 | Hospitalist Progress Note ---
Date of Service December 13, 2020 Assessment & Plan (1) Hypercalcemia: Plan: Suspected primary hyperparathyroidism contributing to ongoing weakness as presenting symptom on admission Ca on admit 12 corrected, and 11.6 on 12/09. --> PTH elevated, Ca elevated, Vit D low normal Vit D not overtly low to explain elevation in PTH to 182.2 (previously was 124 in 2018) --> Placed on IVF , d/c on 12/12 Pamidronate x 1 30mg on 12/09 Stop Vit D supplementation Ca remained elevated on IVF and unchanged, and decision to start cinacalcet 30mg daily on 12/12 Ca improved to 9, albumin 2.7--> corrected now finally wnl at 10. Would rec continued monitoring to prevent hypocalcemia Question if possible constipation secondary to hyperclacemia also contributing to weakness Not great candidate given age/co-morb for parathyroidectomy Continue to monitor (2) Elevated LFTs: Plan: Improving ??if from medication possibly from over summer but worsened from Rocephin Work-up below, GI on consult TBili elevated on admit -- new elevations in LFTs since April of earlier this year. U/S GB - mildly distended GB with biliary sludge, no gallstones, no acute cho lecystitis Discussed with GI and low suspension of Rajiv's/autoimmune hepatitis, would avoid biopsy. Suspect medication related --> New med during summer (acute elevations occurring from April to present) Vesicare for BPH. <1% post-marketing elevation in aminotransferases, however patient did self d/c all meds except levothyroxine and omeprazole in past month HIDA scan without evidence for obstruction/ductal dilation. CMV pending, EBV indicative of prior infxn CEA <0.5 Alpha 1 antitrypsin 147 wnl SERA + and SERA pattern nuclear, homogeneous A --> Homogeneous pattern is associated with systemic lupus erythematosus (SLE), drug-induced lupus and juvenile idiopathic arthritis. Actin IgG antibody pending Iron studies with iron 64, TIBC 219L, transferrin 183L, transferrin % sat 25, ferritin 553.5H (reactive) CTAP/Chest performed 12/11-- questioned filing defect for small PEs? but not symptomatic from such. Venous Doppler NEGATIVE for DVT --> Lovenox DVT proph dose on hold for c-scope, since resumed, but no need for therapeutic AC CTA Chest can not exclude segmental PE but less likely, could be from resp motion artifact--> no AC as asymptomatic regardless and given + fecal occult (3) Weakness: Plan: Uncertain of full etiology - has had decreased appetite since EGD about one month ago and has had progressive muscular weakness that has been since his hip fx/surgery September 2018, which was complicated by pulmonary embolisms Tx with prednisone for possible PMR earlier in stay -- d/c as no improvement Patient largely wheelchair bound and sedentary - reports that for about 3-4 weeks he has not really been able to stand and requiring a lot of assistance and predominantly utilizing a wheelchair at this point. She reports this seemed to correlate with the timing of his EGD. However he has had progressive decline over the 1-2 years but standing issues since 3-4 weeks. 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 Trop negative on admit Most likely 2/2 HYPERCALCEMIA Also could be 2/2 constipation -- 2 days of bowel prep and had continued formed stool as above Continue PT/OT -- patient and family hopeful for home with home therapy --> hopeful for eval and possible home tomorrow with family support pending above (4) UTI (urinary tract infection): Plan: UA not significantly convincing of UTI - UCx with pinpoint growth --> corynbact No further Rocephin (got 3 days earlier in stay) Chronic incontinence issues and follows with Urology -- had been on vesicare earlier in summer but no meds other than for thyroid and GERD as above (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[facility] (2015) where he had post-op afib, asymptomatic and no long-term anticoagulation therapy indicated as they only had one episode (was on amiodarone in the past) Per note, consideration for ASA if no contraindications --> to have discussion with his GI --> no known contraindications however see above fecal occult + and possible inpatient scope Not on BB -- previously on metoprolol 25mg daily as well as DAVID but d/c due to cough No CP/SOB reported EKG w CP Trop negative on admission ECHO on repeat without wma. LV systolic function normal. Aortic valve sclerosis mild without sig . RVSP normal (7) Dysphagia: Plan: Minced and moist diet Did cough after drinking orange juice on 12/05 but respiratory status is stable - can consider CXR if spiking fevers or coughing EGD (11/05) - 5 cm hiatal hernia; no lesions of stomach or duodenum; reflux esophagitis Continue PPI - changed to BID dosing --> change back to once daily 12/12 now that no longer on steroids for suspect PMR as above No issues reported with current diet Speech eval --> would include slippery to diet (8) GERD with esophagitis: Plan: Continue Protonix; added Carafate --> continue at dc (9) Hypothyroidism: Plan: TSH is WNL Continue Synthroid 37.5 mcg every morning (10) Bilateral pulmonary embolism: Plan: Hx of post-op ORIF Left Hip 09/2018- was on Coumadin x 6 months (last dose 04/05/19) Not on further anticoagulation. Hx afib single episode as above and per cardiology no anticoagulation at that time however there were discussions for couple weeks Coumadin for a possible atrial thrombus but was felt not to be the case (Also had a history of fall July 2018 resulting in trace ICH and was transferred to tertiary care and managed non-operatively) Plan: Continued inpatient stay through weekend hopeful for d/c Tuesday with family support and home therapy Admission and Anticipated Discharge Date Admission Date: December 04, 2020 Supervising Physician Co-Signing Physician Notes PA Supervision Note: I did not personally see or examine the patient today, but I verified all nogueira points of FAB Layton's assessment and plan with the following exceptions/additions: changes noted as above Subjective patient eval this afternoon. updated again at bedside in afternoon for at bedside patient feeling better no issues to report has not worked with therapy but they had attempted to see yesterday and gone for the day discussed calcium now normal patient would like to go home but family not available to assist and needed advance and update from CM about home therapy, which is already good for tomorrow will plan to monitor calcium in am on tx but hopeful for d/c tuesday with family per family and patient wishes. Review of Systems Review of Systems: All systems reviewed & are unremarkable except as noted in HPI & below Physical Exam Physical Exam: General Appearance: Elderly male in NAD who is A&O x 3, resting in bed HEENT: Head is normocephalic/atraumatic; Hearing grossly intact; Mucous membranes moist Neck: Supple; Trachea midline; Neg JVD Heart: RRR with no M/G/R Lungs: CTA in all lung weathers bilaterally; Respirations unlabored; Neg accessory muscle use Abdomen: +BS throughout, soft/non-tender, non-distended today -- rectal tube with richardson colored stool, clearing in tubing Extremities: Neg cyanosis or edema MSK/Neuro: neon molder strength equal, dorsiflexion/plantar flexion equal. NVI. continued weakness proximal muscles, strength about the same Psychiatric: AOx3, occasional forgetfulness Skin: cool, dry. buttocks with erythema Results & Data Results & Data ([facility]) Vital Signs (Past 12 Hours) Vital Signs Temp Pulse Resp BP Pulse Ox 12/13/20 08:08 37.0 C 79 16 166/78 H 94 12/13/20 05:08 36.4 C L 90 14 179/84 H 96 12/12/20 22:40 36.8 C 85 16 150/78 H 97 Laboratory Results 12/13/20 12/13/20 Range/Units 05:46 05:46 WBC 7.30 (4.8-10.8) K/uL RBC 4.19 L (4.7-6.1) M/uL Hgb 12.5 L (14.0-18.0) g/dL Hct 38.6 L (42-52) % MCV 92.1 (80-100) fL MCH 29.8 (25-34) pg MCHC 32.4 (32-36) g/dL RDW Std Deviation 48.4 H (36.4-46.3) fL RDW Coeff of Prem 14.4 (11.5-14.5) % Plt Count 268 (130-400) K/uL MPV 9.9 (7.4-10.4) fL Sodium 138 (136-145) mmol/L Potassium 3.8 (3.5-5.1) mmol/L Chloride 108 H (98-107) mmol/L Carbon Dioxide 27 (21-32) mmol/L Anion Gap 3.0 (3-11) BUN 8 (7-18) mg/dl Creatinine 0.87 (0.6-1.4) mg/dl Est Cr Clr Drug Dosing 60.7 ml/min Est GFR ( Amer) 88.7 ml/min Est GFR (Non-Af Amer) 76.5 ml/min BUN/Creatinine Ratio 9.7 L (10-20) Glucose 94 (70-99) mg/dl Calcium 9.0 (8.5-10.1) mg/dl Total Bilirubin 0.4 (0.2-1) mg/dl Direct Bilirubin 0.2 (0-0.2) mg/dl AST 45 H (15-37) U/L ALT 120 H (12-78) U/L Alkaline Phosphatase 177 H (45-117) U/L Total Protein 6.7 (6.4-8.2) gm/dl Albumin 2.7 L (3.4-5.0) gm/dl PG Care Time/CCT Total # of Minutes Spent Total Time Spent with Patient: Total time spent is greater than 50% in coordination of care (as documented) at patient's floor/unit and/or counseling patient: Coding Level of Care Code 62286 Subseq Hosp Care Lvl 2 Diagnoses Hypercalcemia E83.52 Elevated LFTs R79.89 Weakness R53.1 UTI (urinary tract infection) N39.0 Carcinoid tumor D3A.00 CAD (coronary artery disease) I25.10 Associated angina: without angina Coronary Disease-Associated Artery/Lesion type: [place] artery [place] vs. transplanted heart: [place] heart Dysphagia R13.10 GERD with esophagitis K21.00 Hypothyroidism E03.9 Bilateral pulmonary embolism I26.99 (1) CAD (coronary artery disease) Associated angina: without angina Coronary Disease-Associated Artery/Lesion type: [place] artery [place] vs. transplanted heart: [place] heart Qualified Code(s): I25.10 - Atherosclerotic heart disease of [place] coronary artery without angina pectoris
[2020-12-13] MEDS: DICLOFENAC SOD 1% GEL 100 GM TUBE EXT SCH ×4 (09:34→22:02)
[2020-12-13] MEDS: SUCRALFATE 1 GM/10 ML UDC PO SCH ×4 (09:34→22:02)
[2020-12-13] MEDS: THIAMINE HCL 100 MG TAB PO SCH (09:35)
[2020-12-13] MEDS: PANTOprazole 40 MG TAB PO SCH (09:35)
[2020-12-13] MEDS: THIAMINE HCL 100 MG in SYRINGE 9 ML IV SCH (09:35)
[2020-12-13] MEDS: CINACALCET HCL 30 MG TAB PO SCH (18:18)
[2020-12-13] MEDS: ENOXAPARIN INJ 40 MG/0.4 ML SYR SQ SCH (22:02)
[2020-12-14] MEDS: LEVOTHYROXINE SODIUM 75 MCG TABLET PO SCH (06:12)
[2020-12-14 06:44] LABS: Albumin Level 2.4 gm/dl (3.4-5.0); BUN Creatinine Ratio 19.8 (10-20); Bilirubin Direct 0.1 mg/dl (0-0.2); Calcium 8.5 mg/dl (8.5-10.1); Creatinine Clr Calc Pharmacy 67.7 ml/min; Est GFR (African American) 92.8 ml/min; Potassium 3.9 mmol/L (3.5-5.1)
[2020-12-14 06:47] LABS: Bilirubin,Total 0.3 mg/dl (0.2-1); Total Protein 6.2 gm/dl (6.4-8.2)
--- NOTE | 2020-12-14 08:04 | Hospitalist Progress Note ---
Date of Service December 14, 2020 Assessment & Plan (1) Hypercalcemia: Plan: Suspected primary hyperparathyroidism contributing to ongoing weakness as presenting symptom on admission Ca on admit 12 corrected, and 11.6 on 12/09. --> PTH elevated, Ca elevated, Vit D low normal Vit D not overtly low to explain elevation in PTH to 182.2 (previously was 124 in 2018) --> Placed on IVF , d/c on 12/12 and no further provided Pamidronate x 1 30mg on 12/09 Stopped Vit D supplementation Ca remained elevated on IVF and unchanged, and decision to start cinacalcet 30mg daily on 12/12 Ca improved to 8.5, albumin 2.4--> corrected 9.8. Would rec continued monitoring to prevent hypocalcemia, consider qod dosing if too much of a reduction on AM labs Not great candidate given age/co-morbidities for parathyroidectomy Question if possible constipation secondary to hyperclacemia also contributing to weakness Continue to monitor (2) Elevated LFTs: Plan: Improving --> AST wnl, ALT 90, ALP 165 ??if from medication possibly from over summer but worsened from Rocephin Work-up below, GI on consult TBili elevated on admit -- new elevations in LFTs since April of earlier this year. U/S GB - mildly distended GB with biliary sludge, no gallstones, no acute cholecystitis Discussed with GI and low suspicion of wilsons/autoimmune hepatitis, would avoid biopsy-- suspect medication related ?Rocephin however did have some elevation prior but not as significant as after rocephin --> New med during summer (acute elevations occurring from April to present) Vesicare for BPH. <1% post-marketing elevation in aminotransferases, however patient did self d/c all meds except levothyroxine and omeprazole in past month HIDA scan without evidence for obstruction/ductal dilation. CMV pending, EBV indicative of prior infxn CEA <0.5 Alpha 1 antitrypsin 147 wnl SERA + and SERA pattern nuclear, homogeneous A --> Homogeneous pattern is associated with systemic lupus erythematosus (SLE), drug-induced lupus and juvenile idiopathic arthritis. Actin IgG antibody pending Iron studies with iron 64, TIBC 219L, transferrin 183L, transferrin % sat 25, ferritin 553.5H (reactive). Repeat COVID negative (3) Weakness: Plan: Uncertain of full etiology - has had decreased appetite since EGD about one month ago and has had progressive muscular weakness that has been since his hip fx/surgery September 2018, which was complicated by pulmonary embolisms Tx prednisone for possible PMR earlier in stay -- d/c as no improvement Patient largely wheelchair bound and sedentary - reports that for about 3-4 weeks he has not really been able to stand and requiring a lot of assistance and predominantly utilizing a wheelchair at this point. She reports this seemed to correlate with the timing of his EGD. However he has had progressive decline over the 1-2 years but standing issues since 3-4 weeks. 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 Trop negative Also could be constipation -- 2 days of bowel prep and had continued formed stool as above Elevated LFTs-- see above CT Chest/A/P as above -- questioning filling defects ?small PEs Venous Doppler NEGATIVE for DVT CT Chest for PE following c-scope no definitive Continue PT/OT -- patient and family hopeful for home with home therapy --> hopeful for eval and possible home tomorrow with family support pending above (4) UTI (urinary tract infection): Plan: UA not significantly convincing of UTI - UCx with pinpoint growth --> corynbact No further Rocephin (got 3 days earlier in stay) Chronic incontinence issues and follows with Urology -- had been on vesicare earlier in summer but no meds other than for thyroid and GERD as above (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[facility] [place] (2015) where he had post-op afib, asymptomatic and no long-term anticoagulation therapy indicated as they only had one episode (was on amiodarone in the past) Per note, consideration for ASA if no contraindications --> to have discussion with his GI --> no known contraindications however see above fecal occult + and possible inpatient scope Not on BB -- previously on metoprolol 25mg daily as well as DAVID but d/c due to cough No CP/SOB reported EKG w CP Trop negative on admission ECHO on repeat without wma. LV systolic function normal. Aortic valve sclerosis mild without sig . RVSP normal (7) Dysphagia: Plan: Minced and moist diet Did cough after drinking orange juice on 12/05 but respiratory status is stable - can consider CXR if spiking fevers or coughing EGD (11/05) - 5 cm hiatal hernia; no lesions of stomach or duodenum; reflux esophagitis Continue PPI - changed to BID dosing --> change back to once daily 12/12 now that no longer on steroids for suspect PMR as above No issues reported with current diet Speech eval --> include slippery to diet (8) GERD with esophagitis: Plan: Continue Protonix; added Carafate --> continue at dc (9) Hypothyroidism: Plan: TSH is WNL Continue Synthroid 37.5 mcg every morning (10) Bilateral pulmonary embolism: Plan: Hx of post-op ORIF Left Hip 09/2018- was on Coumadin x 6 months (last dose 04/05/19) Not on further anticoagulation. Hx afib single episode as above and per cardiology no anticoagulation at that time however there were discussions for couple weeks Coumadin for a possible atrial thrombus but was felt not to be the case (Also had a history of fallJuly 2018 resulting in trace ICH and was transferred to tertiary care and managed non-operatively) Plan: Continued inpatient stay through hopeful for d/c Tuesday with family support and home therapy Admission and Anticipated Discharge Date Admission Date: December 04, 2020 Supervising Physician Co-Signing Physician Notes PA Supervision Note: I did not personally see or examine the patient today, but I verified all nogueira points of FAB Layton's assessment and plan with the following exceptions/additions: changes noted as above Subjective eval this morning doing well actually asking to eat and feeing himself calcium stable still wishes for home tomorrow with family support. home health to start on tuesday if d/c today no f/c, cp, sob, abd pain, n/v/d at this time questions/concerns addressed Review of Systems Review of Systems: All systems reviewed & are unremarkable except as noted in HPI & below Physical Exam Physical Exam: General Appearance: Elderly male in NAD who is A&O x 3, resting in bed HEENT: Head is normocephalic/atraumatic; Hearing grossly intact; mucous membranes moist Neck: Supple; Trachea midline; Neg JVD Heart: RRR with no M/G/R Lungs: CTA in all lung weathers bilaterally; Respirations unlabored; Neg accessory muscle use Abdomen: +BS throughout, non-distended, non-tender Extremities: Neg cyanosis or edema 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 NVI. continued weakness proximal muscles (improved slightly), strength about the same (some improvement). feeding himself and eating toast without much issue Psychiatric: AOx3, occasional forgetfulness Skin: cool, dry. buttocks with erythema Results & Data Results & Data ([facility]) Vital Signs (Past 12 Hours) Vital Signs Temp Pulse Resp BP Pulse Ox 12/14/20 07:09 36.3 C L 76 18 166/87 H 96 12/13/20 22:20 36.2 C L 76 18 113/68 94 Laboratory Results 12/14/20 Range/Units 05:50 Sodium 138 (136-145) mmol/L Potassium 3.9 (3.5-5.1) mmol/L Chloride 107 (98-107) mmol/L Carbon Dioxide 26 (21-32) mmol/L Anion Gap 5.0 (3-11) BUN 15 D (7-18) mg/dl Creatinine 0.78 (0.6-1.4) mg/dl Est Cr Clr Drug Dosing 67.7 ml/min Est GFR ( Amer) 92.8 ml/min Est GFR (Non-Af Amer) 80.0 ml/min BUN/Creatinine Ratio 19.8 (10-20) Glucose 89 (70-99) mg/dl Calcium 8.5 (8.5-10.1) mg/dl Total Bilirubin 0.3 (0.2-1) mg/dl Direct Bilirubin 0.1 (0-0.2) mg/dl AST 35 (15-37) U/L ALT 90 H (12-78) U/L Alkaline Phosphatase 165 H (45-117) U/L Total Protein 6.2 L (6.4-8.2) gm/dl Albumin 2.4 L (3.4-5.0) gm/dl PG Care Time/CCT Total # of Minutes Spent Total Time Spent with Patient: Total time spent is greater than 50% in coordination of care (as documented) at patient's floor/unit and/or counseling patient: Coding Level of Care Code 73079 Subseq Hosp Care Lvl 2 Diagnoses Hypercalcemia E83.52 Elevated LFTs R79.89 Weakness R53.1 UTI (urinary tract infection) N39.0 Carcinoid tumor D3A.00 CAD (coronary artery disease) I25.10 Associated angina: without angina Coronary Disease-Associated Artery/Lesion type: [place] artery [place] vs. transplanted heart: [place] heart Dysphagia R13.10 GERD with esophagitis K21.00 Hypothyroidism E03.9 Bilateral pulmonary embolism I26.99 (1) CAD (coronary artery disease) Associated angina: without angina Coronary Disease-Associated Artery/Lesion type: [place] artery [place] vs. transplanted heart: [place] heart Qualified Code(s): I25.10 - Atherosclerotic heart disease of [place] coronary artery without angina pectoris
[2020-12-14] MEDS: PANTOprazole 40 MG TAB PO SCH (09:15)
[2020-12-14] MEDS: SUCRALFATE 1 GM/10 ML UDC PO SCH ×4 (09:16→21:33)
[2020-12-14] MEDS: DICLOFENAC SOD 1% GEL 100 GM TUBE EXT SCH ×4 (09:16→21:33)
[2020-12-14] MEDS: THIAMINE HCL 100 MG in SYRINGE 9 ML IV SCH (09:16)
[2020-12-14] MEDS: CINACALCET HCL 30 MG TAB PO SCH (18:43)
[2020-12-14] MEDS: ENOXAPARIN INJ 40 MG/0.4 ML SYR SQ SCH (21:33)
[2020-12-15] MEDS: LEVOTHYROXINE SODIUM 75 MCG TABLET PO SCH (06:22)
[2020-12-15 07:44] LABS: Albumin Level 2.6 gm/dl (3.4-5.0); BUN Creatinine Ratio 20.9 (10-20); Bilirubin Direct 0.1 mg/dl (0-0.2); Calcium 8.6 mg/dl (8.5-10.1); Creatinine Clr Calc Pharmacy 67.7 ml/min; Est GFR (African American) 92.8 ml/min
[2020-12-15 07:47] LABS: Bilirubin,Total 0.4 mg/dl (0.2-1); Total Protein 6.5 gm/dl (6.4-8.2)
--- NOTE | 2020-12-15 08:52 | Gastroenterology Progress Note ---
Date of Service December 15, 2020 Assessment & Plan (1) Positive occult stool blood test: Plan: Rectal bleeding: Positive stool for occult blood noted initially on admission. 12/12/2020 colonoscopy was completed and demonstrated to 4 mm polyps in the rectum which were removed; examined portion of the ileum was normal; diverticulosis in the left colon; exam otherwise normal on direct and retroflexion views. Pathology results are still pending. Hemoglobin 12.5/hemato crit 38.6 12/13/2020. Elevated liver function testing: AST 30, ALT 81, alk phos 161, total bilirubin 0.4. LFTs continue to trend downward. Alpha-1 antitrypsin testing within normal limits. SERA screen was positive with titer 1: 40 nuclear homogenous pattern. SERA was negative. Smooth muscle antibody is negative. 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 Negative CMV. PT/INR within normal limits. Gallbladder ultrasound and HIDA are within normal limits. No significant findings on CT abdomen pelvis or chest. Please refer to supervising physician addendum for further recommendations. (2) Elevated LFTs: Plan: see above Admission and Anticipated Discharge Date Admission Date: December 04, 2020 Supervising Physician Co-Signing Physician Notes I have seen and examined the patient. I agree with note above by SONNY Barrett except as noted below. HPI Pt denies abd pain. Is being DCed today. PE Abdomen pos bs, soft, no guarding nor rebound A/P heme positive stool--colo unrevealing colon polyp--hyperplastic and give age no further screening colos. elevated LFTS--unclear etioilogy, improving. Subjective The patient is awake, alert, oriented and lying in position of comfort in bed this morning. He is hopeful for discharge today. Denies any abdominal pain. Denies nausea or vomiting. Continent of bowel and bladder per nursing report. He states he will be going home with home health nursing and OT, PT Review of Systems Review of Systems: All systems reviewed & are unremarkable except as noted in Subjective Physical Exam Gastrointestinal (Abdomen): normal bowel sounds, soft, nontender, no hepatosplenomegaly Results & Data ([facility]) Vital Signs (Past 12 Hours) Vital Signs Temp Pulse Resp BP Pulse Ox 12/15/20 08:17 36.5 C 82 14 154/87 H 96 12/14/20 23:27 36.3 C L 73 16 145/77 H 96 Laboratory Results Laboratory Results - last 24 hr 12/11/20 12/15/20 09:35 06:37 Sodium 137 Potassium 4.0 Chloride 106 Carbon Dioxide 24 Anion Gap 7.0 BUN 16 Creatinine 0.78 Est Cr Clr Drug Dosing 67.7 Est GFR ( Amer) 92.8 Est GFR (Non-Af Amer) 80.0 BUN/Creatinine Ratio 20.9 H Glucose 90 Calcium 8.6 Total Bilirubin 0.4 Direct Bilirubin 0.1 AST 30 ALT 81 H Alkaline Phosphatase 161 H Total Protein 6.5 Albumin 2.6 L Actin IgG Antibody <20
[2020-12-15] MEDS: SUCRALFATE 1 GM/10 ML UDC PO SCH ×2 (09:01→13:07)
[2020-12-15] MEDS: THIAMINE HCL 100 MG in SYRINGE 9 ML IV SCH (09:02)
[2020-12-15] MEDS: DICLOFENAC SOD 1% GEL 100 GM TUBE EXT SCH ×2 (09:02→13:07)
[2020-12-15] MEDS: PANTOprazole 40 MG TAB PO SCH (09:02)
--- NOTE | 2020-12-15 16:39 | Discharge Summary ---
Date of Service December 15, 2020 Admission HPI Per Admitting Provider Lang Whitney is an 89-year-old male with a past medical history of hyperlipidemia, GERD, dysphagia/esophageal dysmotility, CAD, low back pain, BPH, lymphedema of both extremities who presents to the emergency department with progressive weakness over the last week. His was concerned about EMS inability to care for him at home. Seen with his Cris. Has a EGD recently and just started GERD medicine, was concerned he was getting weak and might be dehydrated. Has had very hard stools and not drinking a lot of water. In the last week has gotten progressively globally week and can no longer stand on his own and his is unable to help him transfer safely. Has also had some neck tension and neck pain, although denies falls. Reduced urine output, denies urgency or incontinence. Has had some intermitent urinary retention and 'does OK if he relaxes to pee, but hasn't always made it to the bathroom lately.' No abdominal pain or pain with meals. NO pain with fatty foods. No history of liver problems. Hx of triple bipass several years ago, no stents follows with [facility]. Does not take an DAVID/BB. No antiplatelets. No CP/CPressure/SoB Medical History: Reviewed Medications: Reviewed Surgical History: Reviewed Allergies: Reviewed Social History: No tobacco, No etoh, no recreational drug use Code Status: Full Code Principal Diagnosis Weakness; Primary Hyperparathyroidism Discharge Exam PHYSICAL EXAM General Appearance: Elderly male in NAD who is A&O x 3 HEENT: Head is normocephalic/atraumatic; Hearing grossly intact; Mucous membranes moist Neck: Supple; Trachea midline; Neg JVD Heart: RRR with no M/G/R Lungs: CTA in all lung weathers bilaterally; Respirations unlabored; Neg accessory muscle use Abdomen: Soft, non-tender, non-distended; Positive BS x 4 quadrants Extremities: Neg cyanosis or edema Neurological: Speech clear; Gross motor/sensory function intact; Neg focal neurologic deficits; however movements are slow and weak Psychiatric: Normal Affect Skin: Normal Color; Warm/Dry Discharge Data Allergies Allergy/AdvReac Type Severity Reaction Status Date / Time benzoin Allergy Unknown Rash Verified 12/03/20 12:39 lisinopril AdvReac Intermediate Cough Verified 12/03/20 12:39 NSAIDS (Non-Steroidal AdvReac Unknown Unverified 12/03/20 12:42 Anti-Inflamma Consultations I certify that this patient is under my care and that I, or a physicians physicians assistant working with me, had a face to-face encounter that meets the home health [id number] encounter requirements with this patient. The encounter with the patient was in whole, or in part, for the following medical condition, which is the primary reason for home health care (list medical condition): Nursing, PT and OT; weakness I certify that, based on my findings, the following services are medically necessary home health services: My clinical findings support the need for the above services because: OT Assess ADL Status and Restore Function w ADLs PT Assessment for Endurance / Balance / Strength PT Eval for Safety and Mobility PT Eval for Safety, Gait Training, Assistive Devices PT Gait and Balance Training, Strengthening and Safety Skilled Nsg Assessment Further, I certify that my clinical findings support that this patient is homebound (i.e. absences from home require considerable and taxing effort and are for medical reasons or worship services or infrequently or of short duration when for other reasons) because: Assistance of 1 Person for Ambulation/Activities Supportive Aid - Walker Supportive Aid - Wheelchair Certification for Home Health Services: Based on the above findings, I certify that this patient is confined to the home and needs intermittent correction care, physical therapy and/or speech therapy or continues to need occupational therapy. The patient is under my care, and I have initiated the establishment of the plan of care. This patient will be followed by a physician who will periodically review the plan of care. Procedures Performed Operation Date: 12/11/20 16:50 Actual Procedures p Colonoscopy(Not Applicable) - Evan Bansal Operation Date: 12/12/20 15:30 Actual Procedures p Colonoscopy Polypectomy(Not Applicable) - Evan Bansal Ordered Studies Chest X-Ray 12/03/20 11:48 XR chest 1V portable HISTORY: 89 years-old Male weakness acute weakness COMPARISON: Chest radiographs 04/16/2020 TECHNIQUE: Portable AP view of the chest FINDINGS: The cardiac silhouette is enlarged. Prior median sternotomy with findings suggestive of CABG. Moderate right hemidiaphragmatic elevation. No pneumothorax, pleural effusion, airspace consolidation or overt pulmonary edema. Degenerative changes of the shoulders and spine. IMPRESSION: No acute process. ACT 112: Negative or not required by law. The above report was generated using voice recognition software. It may contain grammatical, syntax or spelling errors. Electronically signed by: Justo Wing M.D. 12/03/2020 12:[address] 12/03/20 11:48 CT head/brain wo con CLINICAL HISTORY: weakness Technique: Contiguous axial CT images of the head were acquired from the base of the skull to the vertex without intravenous contrast administration. Images were viewed in brain, subdural and bone windows. Automated dose lowering techniques and/or adjustment according to patient size were utilized for this exam. Comparison: Comparison is made to CT head 09/24/2018 Findings: Areas of decreased attenuation are present in the periventricular and subcortical white matter bilaterally consistent with small vessel ischemic disease. Generalized cerebral atrophy with commensurate enlargement of the ventricles, sulci, and cisterns is also present. There is no acute intracranial hemorrhage or evidence of acute territorial infarction. No shift of the midline structures, mass effect, or extra-axial abnormalities are shown. Atherosclerotic calcifications are present in the intracranial segments of the internal carotid arteries. Imaged portions of the paranasal sinuses and mastoid air cells are clear. The orbits appear normal. There are no acute fractures of the calvaria or scalp swelling. Impression: No acute intracranial hemorrhage, evidence of acute territorial infarction, or other acute intracranial disease process. ACT 112: Negative or not required by law. Electronically signed by: Hany Juan M.D. 12/03/2020 1:[address] 12/03/20 12:17 CT cervical spine wo con CLINICAL HISTORY: neck pain, weakness unknown trauma history TECHNIQUE: Multidetector row helical CT of the cervical spine was performed without administration of intravenous contrast. Coronal and sagittal reformations were obtained. Automated dose lowering techniques and/or adjustment according to patient size were utilized for this exam. Comparison: Comparison is made to spine 09/24/2018 FINDINGS: No acute fractures or subluxations are identified. The alignment is normal. Multilevel severe degenerative changes are seen with resultant spinal and bilateral neural foraminal stenosis. The prevertebral soft tissues are unremarkable. IMPRESSION: Multilevel degenerative changes without evidence of acute abnormality. ACT 112: Negative or not required by law. Electronically signed by: Hany Juan M.D. 12/03/2020 12:44 PM Gallbladder Ultrasound 12/05/20 08:34 ULTRASOUND RIGHT UPPER QUADRANT ABDOMEN CLINICAL HISTORY: Elevated bilirubin levels and hepatic transaminases. COMPARISON STUDY: Abdominal radiograph dated 07/19/2017. TECHNIQUE: Real-time, grayscale, and color flow sonography of the right upper quadrant of the abdomen was performed. Images are reviewed in the transverse and longitudinal planes. FINDINGS: Liver: The liver is normal in size and echotexture. There is no intrahepatic biliary ductal dilatation. The main portal vein is patent. Gallbladder: The gallbladder is mildly distended and contains biliary sludge. No shadowing gallstones are identified. There is no gallbladder wall thickening or pericholecystic fluid. A sonographic Barclay's sign is reportedly absent. The common bile duct measures up to 0.5 cm in diameter. Pancreas: Visualized portions of the pancreatic head are normal in appearance. The majority of the pancreas is not well-visualized. Right kidney: Survey images of the right kidney demonstrate mild cortical atrophy. Echotexture is normal. There is no hydronephrosis. A 1.6 cm cyst is noted in the interpolar region. Ascites: None. IMPRESSION: 1. The gallbladder is mildly distended and contains biliary sludge. No shadowing gallstones are identified and there is no sonographic evidence of acute cholecystitis. 2. The liver is normal in size and echotexture. ACT 112: Negative or not required by law. Electronically signed by: Karan Atkins M.D. 12/05/2020 10:42 AM Hepatobiliary Scan Nuclear Medicine 12/09/20 07:30 NUCLEAR MEDICINE HEPATOBILIARY SCAN HISTORY: weakness, biliary sludge, further eval COMPARISON: Abdominal ultrasound 12/05/2020. TECHNIQUE: Immediately following the intravenous administration of 5.5 mCi Tc- 99m Choletec, dynamic anterior abdominal imaging was performed. FINDINGS: Uniform hepatic tracer accumulation is shown. Prompt intrahepatic biliary excretion is seen. The gallbladder, common bile duct, and small bowel are all visualized by 25 minutes. This appearance represents the normal sequence of biliary excretion. IMPRESSION: 1. No evidence for cystic duct obstruction. ACT 112: Negative or not required by law. Electronically signed by: Mathew Arrieta M.D. 12/09/2020 8:54 AM Abdomen/Pelvis CT 12/11/20 15:[address] WITH CONTRAST CT ABDOMEN AND PELVIS WITH IV AND ORAL CONTRAST HISTORY: Hypercalcemia with elevated LFTs, hypercalcemia, elevated LFT, ?infiltrative disease TECHNIQUE: Multiaxial CT images of the chest, abdomen and pelvis were performed following the IV administration of 94 cc of Optiray. Oral contrast was also utilized. A dose lowering technique was utilized adhering to the principles of ALARA. COMPARISON: CTA chest 09/27/2018 FINDINGS: CT CHEST: Thyroid goiter redemonstrated. No adenopathy. Moderate cardiomegaly with extensive lower brule coronary artery calcifications. Prior median sternotomy with CABG. Atherosclerosis of the thoracic aorta. 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 The pulmonary arterial tree is suboptimally evaluated secondary to respiratory motion artifact. Questioned filling defects are present within segmental branches of the left lung base. Chronic right hemidiaphragmatic elevation. No pneumothorax, pleural effusion or overt pulmonary edema. Mild subsegmental left greater than right bibasilar atelectasis. Prior right-sided pulmonary resection. Central airways are patent. Unremarkable soft tissues. Degenerative changes of the shoulders and spine. He aled chronic right-sided rib fractures. CT ABDOMEN/PELVIS: The study is degraded by respiratory motion artifact. No pneumatosis or pneumoperitoneum. The spleen, mildly atrophic pancreas, adrenal glands and gallbladder appear unremarkable. Questioned hepatic steatosis. 9 mm right hepatic lobe cyst. There are a few cysts within the right kidney which measure up to 1.4 cm. Symmetric enhancement of the kidneys without hydronephrosis. No definite urolith. Unremarkable urinary bladder. Prostamegaly. Atherosclerosis of the aorta without aneurysm. No adenopathy. Contrast is noted within the distal esophagus which is mildly distended with subtle wall thickening. Tiny hiatal hernia. Mild wall thickening of the rectum is likely secondary to partial distention. No bowel obstruction. Normal appendi x. No ascites or mesenteric inflammation. Gynecomastia. Left hip arthroplasty. Degenerative changes of the spine, pelvis and right hip. No acute fracture or suspicious bone lesion. IMPRESSION: 1. Questioned filling defects within segmental pulmonary arterial branches of the left lower lobe are likely secondary to respiratory motion artifact. Pulmonary emboli are considered less likely. This could be correlated with a follow-up lower extremity Doppler study. 2. Cardiomegaly with prior median sternotomy and CABG. 3. 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 4. No bowel obstruction or bowel wall thickening. Normal appendix. 5. Incidental findings as above. ACT 112: Negative or not required by law. Dictated: 12/11/2020 7:01 PM Transcribed: 12/11/2020 8:00 PM Veronica [id number] [facility] Electronically signed by: Justo Wing M.D. 12/11/2020 8:[address] 12/11/20 15:[address] WITH CONTRAST CT ABDOMEN AND PELVIS WITH IV AND ORAL CONTRAST HISTORY: Hypercalcemia with elevated LFTs, hypercalcemia, elevated LFT, ?infiltrative disease TECHNIQUE: Multiaxial CT images of the chest, abdomen and pelvis were performed following the IV administration of 94 cc of Optiray. Oral contrast was also utilized. A dose lowering technique was utilized adhering to the principles of ALARA. COMPARISON: CTA chest 09/27/2018 FINDINGS: CT CHEST: Thyroid goiter redemonstrated. No adenopathy. Moderate cardiomegaly with extensive lower brule coronary artery calcifications. Prior median sternotomy with CABG. Atherosclerosis of the thoracic aorta. 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 The pulmonary arterial tree is suboptimally evaluated secondary to respiratory motion artifact. Questioned filling defects are present within segmental branches of the left lung base. Chronic right hemidiaphragmatic elevation. No pneumothorax, pleural effusion or overt pulmonary edema. Mild subsegmental left greater than right bibasilar atelectasis. Prior right-sided pulmonary resection. Central airways are patent. Unremarkable soft tissues. Degenerative changes of the shoulders and spine. Healed chronic right-sided rib fractures. CT ABDOMEN/PELVIS: The study is degraded by respiratory motion artifact. No pneumatosis or pneumoperitoneum. The spleen, mildly atrophic pancreas, adrenal glands and gallbladder appear unremarkable. Questioned hepatic steatosis. 9 mm right hepatic lobe cyst. There are a few cysts within the right kidney which measure up to 1.4 cm. Symmetric enhancement of the kidneys without hydronephrosis. No definite urolith. Unremarkable urinary bladder. Prostamegaly. Atherosclerosis of the aorta without aneurysm. No adenopathy. Contrast is noted within the distal esophagus which is mildly distended with subtle wall thickening. Tiny hiatal hernia. Mild wall thickening of the rectum is likely secondary to partial distention. No bowel obstruction. Normal appendix. No ascites or mesenteric inflammation. Gynecomastia. Left hip arthroplasty. Degenerative changes of the spine, pelvis and right hip. No acute fracture or suspicious bone lesion. IMPRESSION: 1. Questioned filling defects within segmental pulmonary arterial branches of the left lower lobe are likely secondary to respiratory motion artifact. Pulmonary emboli are considered less likely. This could be correlated with a follow-up lower extremity Doppler study. 2. Cardiomegaly with prior median sternotomy and CABG. 3. 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 4. No bowel obstruction or bowel wall thickening. Normal appendix. 5. Incidental findings as above. ACT 112: Negative or not required by law. Dictated: 12/11/2020 7:01 PM Transcribed: 12/11/2020 8:00 PM Veronica [id number] [facility] Electronically signed by: Justo Wing M.D. 12/11/2020 8:25 PM Venous Doppler Study 12/12/20 08:30 BILATERAL LOWER EXTREMITY VENOUS DOPPLER HISTORY: Lower extremity edema R/o dvt COMPARISON STUDY: 04/23/2019 FINDINGS: There is normal compressibility, flow, and augmentation within the bilateral lower extremity deep venous systems. IMPRESSION: No DVT within the right or left lower extremity. ACT 112: Negative or not required by law. Electronically signed by: Justo Wing M.D. 12/12/2020 8:43 AM Chest CTA 12/12/20 17:14 CT ANGIOGRAPHY OF THE CHEST, PULMONARY EMBOLUS PROTOCOL CLINICAL HISTORY: Possible pulmonary embolus on prior chest CT. COMPARISON STUDY: Chest CT December 11, 2020. TECHNIQUE: Following IV administration of 120 mL of Optiray, helical axial images of the chest were obtained utilizing the pulmonary embolus protocol. Maximal intensity projections and sagittal and coronal reformats were viewed on an independent 3D workstation. IV contrast was administered without complicati on. Automated exposure control was utilized for the study. A dose lowering technique was utilized adhering to the principles of ALARA. CT DOSE: 616.20 mGy.cm FINDINGS: No central pulmonary emboli are identified. This exam is compromised by motion artifact. Therefore, the possible pulmonary emboli shown on chest CT of December 11, 2020 cannot be completely excluded. No definite emboli are identified. There is no pericardial effusion. Mild dilatation of the ascending aorta is unchanged. Postoperative findings consistent with right lower lobectomy are noted. No pneumothorax or pleural effusion is present. Lungs are suboptimally assessed due to respiratory motion. Mild subpleural opacities favor atelectasis. The appearance of the chest is unchanged. IMPRESSION: 1. No central pulmonary emboli. Given respiratory motion artifact, the possible pulmonary emboli shown on CT of December 11, 2020 cannot be completely excluded although no definite emboli are identified. 2. Status post right lower lobectomy. 2. No consolidation to suggest pneumonia. ACT 112: Negative or not required by law. Electronically signed by: Hai Casillas M.D. 12/12/2020 6:55 PM Hospital Course (1) Hypercalcemia: Suspected primary hyperparathyroidism contributing to ongoing weakness as presenting symptom on admission Ca on admit 12 corrected, and 11.6 on 12/09. --> PTH elevated, Ca elevated, Vit D low normal Vit D not overtly low to explain elevation in PTH to 182.2 (previously was 124 in 2018) --> Placed on IVF , d/c on 12/12 and no further provided Pamidronate x 1 30mg on 12/09 Stopped Vit D supplementation Ca remained elevated on IVF and unchanged, and decision to start cinacalcet 30mg daily on 12/12 Ca improved to 8.6, albumin 2.6--> corrected 9.2. Would rec continued monitoring to prevent hypocalcemia, consider qod dosing if too much of a reduction - consider repeat labs in 1-2 weeks Not great candidate given age/co-morbidities for parathyroidectomy Question if possible constipation secondary to hyperclacemia also contributing to weakness (2) Elevated LFTs: Improving --> AST wnl, ALT 81, ALP 161 ??if from medication possibly from over summer but worsened from Rocephin Work-up below, GI consulted and will F/U as outpatient TBili elevated on admit -- new elevations in LFTs since April of earlier this year. U/S GB - mildly distended GB with biliary sludge, no gallstones, no acute cholecystitis Discussed with GI and low suspicion of wilsons/autoimmune hepatitis, would avoid biopsy-- suspect medication related ?Rocephin however did have some elevation prior but not as significant as after rocephin --> New med during summer (acute elevations occurring from April to present) Vesicare for BPH. <1% post-marketing elevation in aminotransferases, however patient did self d/c all meds except levothyroxine and omeprazole in past month HIDA scan without evidence for obstruction/ductal dilation. CMV negative, EBV indicative of prior infxn CEA <0.5 Alpha 1 antitrypsin 147 wnl SERA + and SERA pattern nuclear, homogeneous A --> Homogeneous pattern is associated with systemic lupus erythematosus (SLE), drug-induced lupus and juvenile idiopathic arthritis. -- Consider Rheumatology F/U Actin IgG antibody pending Iron studies with iron 64, TIBC 219L, transferrin 183L, transferrin % sat 25, ferritin 553.5H (reactive). Repeat COVID negative (3) Weakness: Uncertain of full etiology - has had decreased appetite since EGD about one month ago and has had progressive muscular weakness that has been since his hip fx/surgery September 2018, which was complicated by pulmonary embolisms Tx prednisone for possible PMR earlier in stay -- which seemed to help initially as he wasn't able to keep eyes open when discussing with him and states she noticed less hand/joint stiffness - maybe helped improve some arthritic components? Patient largely wheelchair bound and sedentary - reports that for about 3-4 weeks he has not really been able to stand and requiring a lot of assistance and predominantly utilizing a wheelchair at this point. She reports this seemed to correlate with the timing of his EGD. However he has had progressive decline over the 1-2 years but standing issues since 3-4 weeks. 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 Trop negative Also could be constipation -- 2 days of bowel prep and had continued formed stool as above Elevated LFTs-- see above CT Chest/A/P as above -- questioning filling defects ?small PEs Venous Doppler NEGATIVE for DVT CT Chest for PE following c-scope no definitive Continue PT/OT -- patient and family hopeful for home with home therapy (4) UTI (urinary tract infection): UA not significantly convincing of UTI - UCx with pinpoint growth --> corynbact No further Rocephin (got 3 days earlier in stay) Chronic incontinence issues and follows with Urology -- had been on vesicare earlier in summer but no meds other than for thyroid and GERD as above (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[facility] (2016) where he had post-op afib, asymptomatic and no long-term anticoagulation therapy indicated as they only had one episode (was on amiodarone in the past) Per note, consideration for ASA if no contraindications --> to have discussion with his GI --> no known contraindications however see above fecal occult + did undergo colonosocpy with polypectomy - could consider ASA initiation pending F/U with GI Not on BB -- previously on metoprolol 25mg daily as well as DAVID but d/c due to cough (7) Dysphagia: Minced and moist diet EGD (11/05) - 5 cm hiatal hernia; no lesions of stomach or duodenum; reflux esophagitis Continue PPI Speech eval --> include slippery to diet (8) GERD with esophagitis: Continue PPI - did had Carafate while on steroids - could consider addition of this medication if ongoing GERD issues (9) Hypothyroidism: TSH is WNL Continue Synthroid 37.5 mcg every morning (10) Bilateral pulmonary embolism: Hx of post-op ORIF Left Hip 09/2018- was on Coumadin x 6 months (last dose 04/05/19) Not on further anticoagulation. Hx afib single episode as above and per cardiology no anticoagulation at that time however there were discussions for couple weeks Coumadin for a possible atrial thrombus but was felt not to be the case (Also had a history of fall July 2018 resulting in trace ICH and was transferred to tertiary care and managed non-operatively) - Home with home health PT/OT - Recommend recheck of calcium levels given Cinacalcet - does have low albumin so will need corrected for that (last albumin was 2.6) - Consider QOD dosing of Cinacalcet if calcium gets too low - Recommend Endocrinology F/U and maybe Rheumatology given the SERA+ Total Time Total Time Spent Total Time Spent (In Minutes): Spent greater than 30 minutes preparing patient for discharge. This includes discussion with patient/family, assessment, intervention, medication reconciliation, and coordination of care. Discharge Plan Discharge Items Patient Disposition: Home - Home Health Services Reason For Visit: WEAKNESS, UTI DECONDITION Discharge Diagnosis: Weakness; High Calcium Levels Activity: Resume your previous activity Non-emergency contact: Primary Care Provider Call non-emergency contact if: you have any medication questions, your symptoms worsen and you have a fever Follow-up/Referrals: Simon Preston DO [Primary Care Provider] - 12/22/20 9:15 am Evan Bansal [Physician] - 01/08/21 12:40 pm Diet: Heart Healthy Diet Texture: Easy to Chew Diet Comment: Slippery foods Addtl Attending Provider Instructions: Weakness: - This is likely caused by multiple issues between poor appetite after scope, having inflammation in the esophagus, muscle weakness from deconditioning, and also higher levels of calcium - You were initially treated for possibly polymyalgia rheumatica however there is no specific test for this so it is hard to confirm this was part of it. The steroids did seem to help some with muscle aches and the daily fatigue but the calcium levels can definitely contribute to weakness - It appears you have primary hyperparathyroidism. These are small little tissues around the thyroid that help regulate your calcium. Given good response to medicine will continue this as a surgery to remove those glands can be risky. - You will continue Cinacalcet 30 mg daily and would recommend repeat labs in about one week to check electrolytes, calcium. We have to watch it doesn't lower your calcium too much and may need to change to every other day to take the medication but your family doctor will review labs and can adjust this as needed - will stop Vitamin D supplementation at this time. Will stop Vitamin C for this time too as it can impact absorption of calcium. Pending repeat labs this may be adjusted in the future and can discuss with family doctor - May be worth getting established with endocrinology for monitoring - I believe the only Soldering Inspector in the area is Dr. Tyson Roe but your family doctor can help refer to someone Liver Tests: - These are improved. Your gallbladder had some sludge but is functioning well but this could have contributed to the rise in numbers - Possibly the Vesicare for the prostate/urinary issues could have contributed as it can be a side effect but it is a rare side effect. Would recommend holding that for now and can discuss with family doctor pending new labs and lab monitoring Constipation: - It is safe to use Miralax as needed to help prevent constipation. Some people take it daily which seems to help. Given needing the bowel prep it may take a couple days to have a regular bowel movement but can continue to use Miralax as needed. Pending Studies at Discharge: Yes Studies:: anaplasmosis Stand-Alone Forms: [facility] [employer], Smoking Cessation Medications and DC Order Prescriptions: New cinacalcet 30 mg Tablet 30 mg PO DAILY 30 Days Qty: 30 RF: 0 Continued coenzyme Q10 100 mg capsule 100 mg PO DAILY RF: 0 Hold Instructions: holding after hospitalization Lactobacillus acidophilus [Acidophilus] Capsule 1 cap PO DAILY RF: 0 alpha lipoic acid 100 mg Capsule 100 mg PO DAILY RF: 0 Hold Instructions: holding - following hospitalization levothyroxine 75 mcg tablet 37.5 mcg PO QAM RF: 0 omeprazole 40 mg capsule,delayed release(DR/EC) 40 mg PO QAM RF: 0 Discontinued ascorbic acid (vitamin C) 1,000 mg tablet 3,000 mg PO DAILY RF: 0 cholecalciferol (vitamin D3) 5,000 unit capsule 5,000 units PO QAM RF: 0 Discharge Orders: Discharge Order (Routine); Ordered 12/15/20 Ordered By: Rosie Scott Admission Data Admit Date/Time: 12/04/20 13:54 Attending Provider: Hany Lopez Admit Provider: Amadou Patel Primary Care Provider: Simon Preston Other Providers: Amadou Patel ; Lux Frias ; [facility] ; Juan Manzo Other Interventions: Discharge Summary Assessment (RN) Last Done: 12/15/20 16:00 Supervising Physician Co-Signing Physician Notes Attending note: patient seen and examined with Rosie Scott PA-C. I agree with her discharge summary. I personally reviewed the labs and imaging findings. 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 transplanted heart: [place] heart Dysphagia R13.10 GERD with esophagitis K21.00 Hypothyroidism E03.9 Bilateral pulmonary embolism I26.99
== END 2020-12-15 16:23 | disposition home health service (06) | DRG 645 ==
LOC: 3N 11:31 → ED 11:31 → 3N 19:22 → SUATTDRO 19:44 → 3N 12-06 18:29

== ENCOUNTER 2021-02-05 23:46 | Inpatient (IN) ==
[2021-02-06 00:53] LABS: Influenza A virus by PCR Negative (Neg); Influenza B virus by PCR Negative (Neg); RSV by PCR Negative (Neg); SARS CoV2 RNA(COVID-19) InHosp NEGATIVE (Negative)
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
[2021-02-06 02:04] LABS: Potassium 4.3 mmol/L (3.5-5.1)
[2021-02-06 02:05] LABS: Alanine Aminotransferase 33 (12-78); Albumin Level 3.7 gm/dl (3.4-5.0); Aspartate Aminotransferase 28 U/L (15-37); BUN Creatinine Ratio 24.3 (10-20); Blood Urea Nitrogen 24 mg/dl (7-18); Calcium 9.6 mg/dl (8.5-10.1); Carbon Dioxide 23 mmol/L (21-32); Chloride 107 mmol/L (98-107); Est GFR (African American) 79.9 ml/min; Est GFR (Non-African American) 68.9 ml/min; Glucose 112 mg/dl (70-99); Magnesium 1.9 mg/dl (1.8-2.4); Sodium 136 mmol/L (136-145)
[2021-02-06 02:06] LABS: Albumin Globulin Ratio 0.8 (0.9-2); Alkaline Phosphatase 117 U/L (45-117); Bilirubin,Total 0.5 mg/dl (0.2-1); Globulin 4.5 gm/dl (2.5-4.0); NT Pro B Type Natriuretic Pept 102 pg/ml (0-1800); Total Protein 8.2 gm/dl (6.4-8.2); Troponin I < 0.015 ng/ml (0-0.045)
[2021-02-06] MEDS ORDERED: BENZONATATE 100 MG CAPSULE PO ONE (02:47)
[2021-02-06 02:52] LABS: Basophils # (auto) 0.01 K/uL (0-0.2); Basophils % (auto) 0.1 %; Eosinophils # (auto) 0.08 K/uL (0-0.5); Eosinophils % (auto) 0.6 %; Hemoglobin 13.2 g/dL (14.0-18.0); Immature Granulocytes # (auto) 0.02 K/uL (0.00-0.02); Immature Granulocytes % (auto) 0.2 %; Lymphocytes % (auto) 9.4 %; Mean Corpuscular Hemoglobin 29.9 pg (25-34); Mean Corpuscular Volume 90.5 fL (80-100); Mean Platelet Volume 10.3 fL (7.4-10.4); Monocytes # (auto) 1.01 K/uL (0.11-0.59); Monocytes % (auto) 7.9 %; Neutrophils % (auto) 81.8 %; Platelet Count 215 K/uL (130-400); RDW Coefficient of Variation 14.9 % (11.5-14.5); RDW Standard Deviation 49.4 fL (36.4-46.3); Red Blood Count 4.42 M/uL (4.7-6.1); White Blood Count 12.82 K/uL (4.8-10.8)
[2021-02-06] MEDS: SODIUM CHLORIDE 0.9% 1000ML 1,000 ML IV SCH ×5 (03:32→19:05)
[2021-02-06] MEDS ORDERED: ALBUT/IPRATROP 3MG/0.5MG NEB 3 ML VIAL NEB STA (04:17)
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
[2021-02-06] MEDS ORDERED: HYDROcodone/HOMATROPINE SYRUP 5MG/1.5MG 5ML UDP PO STA (04:30)
[2021-02-06] MEDS ORDERED: methylPREDNISolone 125 MG/2 ML VIAL IV STA (04:33)
[2021-02-06] MEDS ORDERED: POLYETHYLENE (MIRALAX) 17 GM PACK PO PRN (07:07)
[2021-02-06] MEDS ORDERED: ONDANSETRON INJ 2 MG/ML 2 ML VIAL IV PRN (07:07)
--- NOTE | 2021-02-06 07:09 | XRay Report ---
XR chest 1V portable CLINICAL HISTORY: Resp sx c/w COVID-19. Cough and difficulty breathing COMPARISON STUDY: 12/03/2020 TECHNIQUE: 1 view of the chest FINDINGS: Single frontal view of the chest demonstrates the cardiomediastinal silhouette to be within normal li mits. The patient is again status post previous cardiothoracic surgery. There is again asymmetric maixmus vation of the right hemidiaphragm. The lungs are clear of alveolar opacities. There is no evidence fo r pleural effusion. There is no evidence for vascular congestion. There is no acute osseous pathology . IMPRESSION: No acute cardiopulmonary disease. ACT 112: Negative or not required by law. Electronically signed by: Cody Connell M.D. 02/06/2021 7:08 AM
[2021-02-06] MEDS ORDERED: MAGNESIUM SULFATE / D5W 1 GM/100 ML BAG IV ONE (08:00)
[2021-02-06] MEDS ORDERED: NON-FORMULARY MEDICATION (Alpha Lipoic Acid 100 mg Capsule) PO SCH (09:00)
[2021-02-06] MEDS: LEVOTHYROXINE SODIUM 75 MCG TABLET PO SCH (09:03)
[2021-02-06] MEDS: ENOXAPARIN INJ 40 MG/0.4 ML SYR SQ SCH (09:04)
[2021-02-06] MEDS: CINACALCET HCL 30 MG TAB PO SCH (09:04)
[2021-02-06] MEDS: guaiFENesin 600 MG TABCR PO SCH ×2 (09:04→20:12)
[2021-02-06] MEDS: PANTOprazole 40 MG TAB PO SCH (09:04)
[2021-02-06] MEDS ORDERED: AZITHROMYCIN 250 MG TAB PO ONE (09:50)
[2021-02-06 09:51] LABS: Adenovirus PCR Not Detected (NotDetected); Bordetella parapertussis PCR Not Detected (NotDetected); Bordetella pertussis PCR Not Detected (NotDetected); Chlamydia pneumoniae PCR Not Detected (NotDetected); Coronavirus 229E PCR Not Detected (NotDetected); Coronavirus CoV-2 (COVID19)PCR Not Detected (NotDetected); Coronavirus HKU1 PCR Not Detected (NotDetected); Coronavirus NL63 PCR Not Detected (NotDetected); Human Metapneumovirus PCR Not Detected (NotDetected); Influenza A PCR Not Detected (NotDetected); Influenza B PCR Not Detected (NotDetected); Mycoplasma pneumoniae PCR Not Detected (NotDetected); Parainfluenza Virus 1 PCR Not Detected (NotDetected); Parainfluenza Virus 2 PCR Not Detected (NotDetected); Parainfluenza Virus 3 PCR Not Detected (NotDetected); Parainfluenza Virus 4 PCR Not Detected (NotDetected); Respiratory Syncytial VirusPCR Not Detected (NotDetected); Rhinovirus/Enterovirus PCR Not Detected (NotDetected)
[2021-02-06 10:00] LABS: Coronavirus OC43PCR DETECTED (NotDetected)
[2021-02-06 12:10] LABS: Basophils # (auto) 0.01 K/uL (0-0.2); Basophils % (auto) 0.1 %; Hemoglobin 13.1 g/dL (14.0-18.0); Immature Granulocytes # (auto) 0.03 K/uL (0.00-0.02); Immature Granulocytes % (auto) 0.2 %; Lymphocytes % (auto) 3.9 %; Mean Corpuscular Hemoglobin 29.7 pg (25-34); Mean Corpuscular Hgb Conc 32.8 g/dL (32-36); Mean Corpuscular Volume 90.7 fL (80-100); Mean Platelet Volume 10.2 fL (7.4-10.4); Monocytes # (auto) 0.15 K/uL (0.11-0.59); Monocytes % (auto) 1.2 %; Neutrophils # (auto) 12.24 K/uL (1.4-6.5); Neutrophils % (auto) 94.6 %; Platelet Count 207 K/uL (130-400); RDW Standard Deviation 50.4 fL (36.4-46.3); Red Blood Count 4.41 M/uL (4.7-6.1); White Blood Count 12.93 K/uL (4.8-10.8)
[2021-02-06 12:26] LABS: BUN Creatinine Ratio 24.2 (10-20); Calcium 8.9 mg/dl (8.5-10.1); Creatinine Clr Calc Pharmacy 64.8 ml/min; Est GFR (Non-African American) 77.6 ml/min; Potassium 4.2 mmol/L (3.5-5.1)
[2021-02-06] MEDS ORDERED: IPRATROPIUM BROMIDE/ALBUTEROL respimat INH INH SCH (13:00)
[2021-02-06] MEDS: ALBUTEROL HFA 8 GM INHALER INH SCH (15:25)
[2021-02-06] MEDS: IPRATROPIUM BROMIDE HFA INHALER INH SCH (15:25)
--- NOTE | 2021-02-06 19:34 | Hospitalist Progress Note ---
Date of Service February 06, 2021 Assessment & Plan (1) Hypoxia: Plan: Bronchitismost likely viral, given a degree of hypoxia however, will utilize azithromycin for pulmonary anti-inflammatory effect. Continue supportive care. Seems to be mildly deliriouslikely from hypoxia/infectious illnessbut after son is present, it sounds like he is not that far from his baseline. Continue Zithromax supportive care through the night, wean oxygen. Hopefully home tomorrow. Admission and Anticipated Discharge Date Admission Date: February 06, 2021 Subjective Seen twice today in follow-up from early a.m. admission. First he was in the room aloneno complaints, but quite confused. Later son was presentstill fairly confused, although the son noted that while he was may be a little bit more confused than baseline, overall he is not that much different than a normal day. Physical Exam Physical Exam: Awake somewhat confused no distress. Lungs coarse rhonchi throughout no accessory muscle use good effort. Skin without rashes, pallor, icterus. Results & Data Results & Data ([facility]) Vital Signs (Past 12 Hours) Vital Signs Temp Pulse Pulse Resp BP BP Pulse Ox 02/06/21 19:08 02/06/21 19:06 98.1 F 98 H 22 152/81 H 96 02/06/21 17:50 89 23 97 02/06/21 17:40 86 20 93 02/06/21 17:30 94 H 18 134/72 91 02/06/21 17:20 91 H 25 H 96 02/06/21 17:10 100 H 15 93 02/06/21 17:00 88 19 129/61 92 02/06/21 16:50 88 16 96 02/06/21 16:40 111 H 15 93 02/06/21 16:30 85 17 136/67 92 02/06/21 16:20 100 H 22 96 02/06/21 16:10 94 H 21 97 02/06/21 16:00 86 21 129/65 94 02/06/21 15:50 87 18 97 02/06/21 15:40 90 22 98 02/06/21 15:30 87 20 136/69 95 02/06/21 15:25 20 95 02/06/21 15:20 86 20 94 02/06/21 15:10 83 17 95 02/06/21 15:00 87 18 146/75 H 95 02/06/21 14:50 89 19 96 02/06/21 14:40 89 23 95 02/06/21 14:30 59 L 138/74 94 02/06/21 14:23 02/06/21 14:20 57 L 95 02/06/21 14:10 90 02/06/21 14:00 142/100 H 93 02/06/21 13:50 96 02/06/21 13:40 95 02/06/21 13:31 139/83 96 02/06/21 13:30 95 02/06/21 13:20 96 02/06/21 13:10 96 02/06/21 13:00 56 H 75 L 02/06/21 12:50 101 H 14 80 L 02/06/21 12:40 93 H 17 88 L 02/06/21 12:30 95 H 19 141/81 H 86 L 02/06/21 12:20 90 02/06/21 12:10 90 02/06/21 12:01 101 H 21 146/81 H 90 02/06/21 12:00 99 H 25 H 89 L 02/06/21 11:50 96 H 20 91 02/06/21 11:45 99 H 24 90 02/06/21 11:20 96 H 15 95 02/06/21 11:10 96 H 22 96 02/06/21 11:01 103 H 22 174/103 H 96 02/06/21 11:00 96 H 21 96 02/06/21 10:50 95 H 19 95 02/06/21 10:40 105 H 13 93 02/06/21 10:31 104 H 15 145/92 H 95 02/06/21 10:30 100 H 17 94 02/06/21 10:20 97 H 18 98 02/06/21 10:10 98 02/06/21 10:00 96 H 17 124/74 97 02/06/21 09:50 97 H 18 96 02/06/21 09:40 97 H 17 97 02/06/21 09:30 99 H 19 149/85 H 95 02/06/21 09:20 100 H 20 96 02/06/21 09:10 100 H 17 95 02/06/21 09:00 106 H 12 133/107 H 94 02/06/21 08:50 107 H 25 H 96 02/06/21 08:40 105 H 21 91 12/31/21 08:30 106 H 20 142/75 H 94 02/06/21 08:20 102 H 21 95 Pulse Ox Pulse Ox 02/06/21 19:08 97 02/06/21 19:06 02/06/21 17:50 02/06/21 17:40 02/06/21 17:30 02/06/21 17:20 02/06/21 17:10 02/06/21 17:00 02/06/21 16:50 02/06/21 16:40 02/06/21 16:30 02/06/21 16:20 02/06/21 16:10 02/06/21 16:00 02/06/21 15:50 02/06/21 15:40 02/06/21 15:30 02/06/21 15:25 02/06/21 15:20 02/06/21 15:10 02/06/21 15:00 02/06/21 14:50 02/06/21 14:40 02/06/21 14:30 02/06/21 14:23 78 L 02/06/21 14:20 02/06/21 14:10 02/06/21 14:00 02/06/21 13:50 02/06/21 13:40 02/06/21 13:31 02/06/21 13:30 02/06/21 13:20 02/06/21 13:10 02/06/21 13:00 02/06/21 12:50 02/06/21 12:40 02/06/21 12:30 02/06/21 12:20 02/06/21 12:10 02/06/21 12:01 02/06/21 12:00 02/06/21 11:50 02/06/21 11:45 02/06/21 11:20 02/06/21 11:10 02/06/21 11:01 02/06/21 11:00 02/06/21 10:50 02/06/21 10:40 02/06/21 10:31 02/06/21 10:30 02/06/21 10:20 02/06/21 10:10 02/06/21 10:00 02/06/21 09:50 02/06/21 09:40 02/06/21 09:30 02/06/21 09:20 02/06/21 09:10 02/06/21 09:00 02/06/21 08:50 02/06/21 08:40 02/06/21 08:30 02/06/21 08:20 PG Care Time/CCT Total # of Minutes Spent Total Time Spent with Patient: Total time spent is greater than 50% in coordination of care (as documented) at patient's floor/unit and/or counseling patient: Coding Level of Care Code None Diagnoses Hypoxia R09.02
--- NOTE | 2021-02-07 04:24 | Billing Data ---
Date of Service February 07, 2021 Coding Level of Care Code 97573 Initial Inpt Care Lvl 3
[2021-02-07] MEDS: LEVOTHYROXINE SODIUM 75 MCG TABLET PO SCH (06:08)
[2021-02-07] MEDS: PANTOprazole 40 MG TAB PO SCH (06:10)
[2021-02-07] MEDS: IPRATROPIUM BROMIDE HFA INHALER INH SCH ×5 (08:00→19:20)
[2021-02-07] MEDS: ALBUTEROL HFA 8 GM INHALER INH SCH ×5 (08:00→19:20)
[2021-02-07] MEDS: ENOXAPARIN INJ 40 MG/0.4 ML SYR SQ SCH (08:15)
[2021-02-07] MEDS: CINACALCET HCL 30 MG TAB PO SCH (08:15)
[2021-02-07] MEDS: AZITHROMYCIN 250 MG TAB PO SCH (08:15)
[2021-02-07] MEDS: guaiFENesin 600 MG TABCR PO SCH ×2 (08:15→20:39)
--- NOTE | 2021-02-07 19:35 | Electrocardiogram Report ---
Test Reason : Blood Pressure : / mmHG Vent. Rate : 109 BPM Atrial Rate : 109 BPM P-R Int : 214 ms QRS Dur : 072 ms QT Int : 338 ms P-R-T Axes : 065 020 030 degrees QTc Int : 455 ms Poor data quality, interpretation may be adversely affected Sinus tachycardia with 1st degree A-V block Cannot rule out Inferior infarct (cited on or before 03-DEC-2020) Abnormal ECG When compared with ECG of 03-DEC-2020 11:36, No significant change Confirmed by Lang Roberts ([id number]) on 02/07/2021 7:34:46 PM Referred By: REFERRED SELF Confirmed By:Lang Roberts
--- NOTE | 2021-02-07 19:55 | Hospitalist Progress Note ---
Date of Service February 07, 2021 Assessment & Plan (1) Hypoxia: Plan: Severe bronchitisnon-Covid coronavirus, but given his age, certainly more susceptible to bad outcomes from any viral respiratory infection -Zithromax for pulmonary anti-inflammatory effect -Supportive care and pulmonary toilet -Improving (2) Leukocytosis: Plan: -Almost certainly related to above (3) Elevated BUN: Plan: -Dehydration relateddiscussed with patient and about p.o. intake once he is home. Seems to be improving. (4) Hypothyroidism: Plan: - continue home dose levothyroxine (5) First degree heart block: Plan: - noted on EKG Diet: Hearth healthy. Dvt ppx: lovenox Dispo: Improving, hopefully home in the next day or so Code: full, admitting team discussed with patient Admission and Anticipated Discharge Date Admission Date: February 06, 2021 Subjective More awake and alert, seems to be feeling better. Constant cough. at the bedsidenotes that she does not quite feel like should be able to take care of him at home at this time, but seems to be pleased with his progress. Main complaints today are cough. Review of Systems Review of Systems: All systems reviewed & are unremarkable except as noted in HPI & below Physical Exam Physical Exam: Awake and alert pleasant and talkative, constantly coughing and appears fatigued. HEENT normocephalic atraumatic mucous membranes moist. Lungs are actually surprisingly clear, he has a little bit of upper airway grunting and maybe some scattered rhonchibut much, much more clear than yesterday. No clearly focal rales rhonchi or wheezes no accessory muscle use good effort. Cardio is fairly distant. Neuro shows no focal deficits. Skin without rashes, pallor, icterus. Results & Data Results & Data ([facility]) Vital Signs (Past 12 Hours) Vital Signs Temp Pulse Pulse Resp Resp BP Pulse Ox 02/07/21 19:21 108 H 20 94 02/07/21 19:00 111 H 22 159/89 H 91 02/07/21 18:02 98.6 F 107 H 20 137/96 94 02/07/21 14:52 117 H 22 131/67 92 02/07/21 14:06 111 H 20 02/07/21 14:05 111 H 20 92 02/07/21 11:30 97.7 F 105 H 20 170/97 H 92 02/07/21 10:44 110 H 22 94 02/07/21 10:20 88 L 02/07/21 10:03 88 L 02/07/21 08:09 96.8 F L 97 H 20 154/80 H 94 Pulse Ox Pulse Ox 02/07/21 19:21 02/07/21 19:00 91 02/07/21 18:02 02/07/21 14:52 02/07/21 14:06 92 02/07/21 14:05 02/07/21 11:30 02/07/21 10:44 02/07/21 10:20 02/07/21 10:03 02/07/21 08:09 PG Care Time/CCT Total # of Minutes Spent Total Time Spent with Patient: Total time spent is greater than 50% in coordination of care (as documented) at patient's floor/unit and/or counseling patient: Coding Level of Care Code 11215 Subseq Hosp Care Lvl 3 Diagnoses Hypoxia R09.02 Leukocytosis D72.829 Elevated BUN R79.9 Hypothyroidism E03.9 First degree heart block I44.0
[2021-02-08] MEDS: LEVOTHYROXINE SODIUM 75 MCG TABLET PO SCH (06:24)
[2021-02-08] MEDS: ENOXAPARIN INJ 40 MG/0.4 ML SYR SQ SCH (06:24)
[2021-02-08] MEDS: PANTOprazole 40 MG TAB PO SCH (06:25)
[2021-02-08 06:59] LABS: Basophils # (auto) 0.02 K/uL (0-0.2); Basophils % (auto) 0.2 %; Eosinophils # (auto) 0.06 K/uL (0-0.5); Eosinophils % (auto) 0.5 %; Hematocrit (blood only) 37.6 % (42-52); Hemoglobin 12.1 g/dL (14.0-18.0); Immature Granulocytes # (auto) 0.04 K/uL (0.00-0.02); Immature Granulocytes % (auto) 0.3 %; Lymphocytes # (auto) 1.36 K/uL (1.2-3.4); Lymphocytes % (auto) 11.6 %; Mean Corpuscular Hemoglobin 29.4 pg (25-34); Mean Corpuscular Hgb Conc 32.2 g/dL (32-36); Mean Corpuscular Volume 91.3 fL (80-100); Mean Platelet Volume 10.3 fL (7.4-10.4); Monocytes # (auto) 1.46 K/uL (0.11-0.59); Monocytes % (auto) 12.4 %; Platelet Count 217 K/uL (130-400); RDW Coefficient of Variation 15.2 % (11.5-14.5); RDW Standard Deviation 50.7 fL (36.4-46.3); Red Blood Count 4.12 M/uL (4.7-6.1); White Blood Count 11.74 K/uL (4.8-10.8)
[2021-02-08] MEDS: ALBUTEROL HFA 8 GM INHALER INH SCH ×4 (07:11→18:40)
[2021-02-08] MEDS: IPRATROPIUM BROMIDE HFA INHALER INH SCH ×4 (07:11→18:40)
[2021-02-08 07:27] LABS: Est GFR (African American) 89.5 ml/min; Est GFR (Non-African American) 77.3 ml/min; Potassium 3.8 mmol/L (3.5-5.1)
[2021-02-08] MEDS ORDERED: NON-FORMULARY MEDICATION (Coenzyme Q10 100 mg capsule) PO SCH (09:00)
[2021-02-08] MEDS: ADVANCED PROBIOTIC 1250 MG CAPSULE PO SCH (09:16)
[2021-02-08] MEDS: AZITHROMYCIN 250 MG TAB PO SCH (09:16)
[2021-02-08] MEDS: guaiFENesin 600 MG TABCR PO SCH ×2 (09:16→20:56)
[2021-02-08] MEDS: CINACALCET HCL 30 MG TAB PO SCH (09:17)
[2021-02-08] MEDS ORDERED: guaiFENesin 600 MG TABCR PO ONE (10:55)
[2021-02-08] MEDS: ACETAMINOPHEN 325 MG TAB PO PRN (16:23)
[2021-02-08] MEDS ORDERED: LACTATED RINGER'S 1,000 ML IV SCH (18:30)
--- NOTE | 2021-02-08 18:39 | Hospitalist Progress Note ---
Date of Service February 08, 2021 Assessment & Plan (1) Hypoxia: Plan: Severe bronchitisnon-Covid coronavirus, but given his age, certainly more susceptible to bad outcomes from any viral respiratory infection -Zithromax for pulmonary anti-inflammatory effect -Supportive care and pulmonary toilet -now a little worse - repeat CXR to ensure not developing an infiltrate that would necessitate change in abx. (2) Leukocytosis: Plan: -Almost certainly related to above, with temps higher than beforecheck blood cultures (3) Elevated BUN: Plan: -Dehydration relatedpoor p.o. intake IV fluids. With patient and about p.o. intake once he is home. Follow labs (4) Hypothyroidism: Plan: - continue home dose levothyroxine (5) First degree heart block: Plan: - noted on EKG Diet: Hearth healthy. Dvt ppx: lovenox Dispo: Family's hope is to take him home, at the same time with his delirium and weakness I am starting to be concerned about how realistic this may bePT/OT eval and treat, continue to follow day today Code: full, admitting team discussed with patient (6) Delirium: Plan: Baseline mental status not entirely clearin discussion with the son, at one point he has mentioned that dad is pretty good on a normal day, and at other points has noted that his dad's current mental status is not that far from his baseline. Continue to follow, continue supportive care, work off of the assumption that at least some of this is an acute delirium from being sick and in the hospital Admission and Anticipated Discharge Date Admission Date: February 06, 2021 Subjective Less awake a little more confused today. not eating and drinking well. obviously with his worsening, does not feel she could care for him at home - but also i don't feel he would do well at home at this time either. still coughing a lot. also worried that foreskin is retracted Review of Systems Review of Systems: Unobtainable due to cognitive status Physical Exam Physical Exam: In general he is awake but disoriented. Frequent coughing fits. Appears very fatigued. HEENT normocephalic atraumatic mucous membranes are moist. Lungs coarse rhonchi throughoutbut worse than yesterday again, pretty symmetric no rales no wheezes no accessory muscles good effort. GUforeskin is up, but comes down easily there is no apparent strictures or strangulation or tightness, nontender. Extremities show no cyanosis or clubbing. Neuro without focal deficits. Results & Data Results & Data ([facility]) Vital Signs (Past 12 Hours) Vital Signs Temp Pulse Resp BP Pulse Ox 02/08/21 17:20 100.6 F H 02/08/21 16:04 101.8 F H 109 H 20 154/76 H 95 02/08/21 15:17 102 H 22 96 02/08/21 14:14 97.7 F 108 H 22 138/72 98 02/08/21 11:43 98.1 F 103 H 20 173/90 H 94 02/08/21 10:10 104 H 20 92 02/08/21 07:36 99.7 F H 103 H 22 155/84 H 95 02/08/21 07:12 104 H 20 93 PG Care Time/CCT Total # of Minutes Spent Total Time Spent with Patient: Total time spent is greater than 50% in coordination of care (as documented) at patient's floor/unit and/or counseling patient: Coding Level of Care Code 77793 Subseq Hosp Care Lvl 3 Diagnoses Hypoxia R09.02 Leukocytosis D72.829 Elevated BUN R79.9 Hypothyroidism E03.9 First degree heart block I44.0 Delirium R41.0
[2021-02-08] MEDS: LACTATED RINGER'S 1,000 ML IV SCH (19:05)
[2021-02-08] MEDS: BENZONATATE 100 MG CAPSULE PO PRN (20:59)
[2021-02-08] MEDS ORDERED: guaiFENesin 600 MG TABCR PO SCH (21:00)
[2021-02-09] MEDS: PANTOprazole 40 MG TAB PO SCH (05:26)
[2021-02-09] MEDS: LEVOTHYROXINE SODIUM 75 MCG TABLET PO SCH (05:26)
[2021-02-09] MEDS: BENZONATATE 100 MG CAPSULE PO PRN (05:27)
[2021-02-09] MEDS: ACETAMINOPHEN 325 MG TAB PO PRN (05:47)
[2021-02-09 06:34] LABS: Basophils # (auto) 0.02 K/uL (0-0.2); Basophils % (auto) 0.2 %; Eosinophils # (auto) 0.09 K/uL (0-0.5); Eosinophils % (auto) 0.8 %; Hemoglobin 12.2 g/dL (14.0-18.0); Immature Granulocytes # (auto) 0.05 K/uL (0.00-0.02); Immature Granulocytes % (auto) 0.4 %; Lymphocytes # (auto) 1.17 K/uL (1.2-3.4); Lymphocytes % (auto) 10.4 %; Mean Corpuscular Volume 91.1 fL (80-100); Mean Platelet Volume 10.3 fL (7.4-10.4); Monocytes # (auto) 1.24 K/uL (0.11-0.59); Neutrophils # (auto) 8.71 K/uL (1.4-6.5); Neutrophils % (auto) 77.2 %; Platelet Count 207 K/uL (130-400); RDW Coefficient of Variation 15.1 % (11.5-14.5); RDW Standard Deviation 50.6 fL (36.4-46.3); Red Blood Count 4.06 M/uL (4.7-6.1); White Blood Count 11.28 K/uL (4.8-10.8)
[2021-02-09 07:12] LABS: BUN Creatinine Ratio 18.3 (10-20); Calcium 9.3 mg/dl (8.5-10.1); Creatinine Clr Calc Pharmacy 64.6 ml/min; Est GFR (African American) 90.4 ml/min; Potassium 3.5 mmol/L (3.5-5.1)
[2021-02-09] MEDS: IPRATROPIUM BROMIDE HFA INHALER INH SCH ×2 (08:16→11:25)
[2021-02-09] MEDS: ALBUTEROL HFA 8 GM INHALER INH SCH ×2 (08:16→11:24)
--- NOTE | 2021-02-09 09:01 | XRay Report ---
XR chest 2V PA/lateral HISTORY: 89 years-old Male fevers, hypoxia, ?evolving pneumonia acute fever with hypoxia COMPARISON: Chest radiograph 02/05/2021 TECHNIQUE: PA and lateral views of the chest FINDINGS: Cardiac silhouette is enlarged. Prior median sternotomy with CABG. Trace pleural effusions. Chronic r ight hemidiaphragmatic elevation with postoperative changes projected over the right lung base. Retic ular interstitial opacities, right greater than left are new from prior. There is no pneumothorax. De generative changes of the shoulders and spine. IMPRESSION: 1. 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 2. Trace pleural effusions. 3. Unchanged right hemidiaphragmatic elevation. ACT 112: Negative or not required by law. The above report was generated using voice recognition software. It may contain grammatical, syntax o r spelling errors. Electronically signed by: Justo Wing M.D. 02/09/2021 9:00 AM
[2021-02-09] MEDS: CINACALCET HCL 30 MG TAB PO SCH (09:16)
[2021-02-09] MEDS: AZITHROMYCIN 250 MG TAB PO SCH (09:16)
[2021-02-09] MEDS: ENOXAPARIN INJ 40 MG/0.4 ML SYR SQ SCH (09:16)
[2021-02-09] MEDS: LACTATED RINGER'S 1,000 ML IV SCH ×2 (09:18→21:53)
[2021-02-09] MEDS: guaiFENesin 600 MG TABCR PO SCH ×2 (09:18→20:24)
[2021-02-09] MEDS: ADVANCED PROBIOTIC 1250 MG CAPSULE PO SCH (09:18)
--- NOTE | 2021-02-09 12:54 | Hospitalist Progress Note ---
Date of Service February 09, 2021 Assessment & Plan (1) Acute bronchitis: Plan: severe. 2nd to non-COVID coronavirus. probably has element of viral pneumonia given his cxr findings. start solumedrol 40mg IV q8h. switch albuterol MDI to duonebs qid (cannot imagine he can get good technique with MDI). NC O2. supportive care. finish z-pack although uncertain it is providing benefit given the viral etiology of his illness. day #3 of 5 of such. (2) Acute metabolic encephalopathy: Plan: 2nd to coronavirus infection. VBG w/o hypercarbia. supportive care. (3) Sepsis: Plan: 2nd to acute bronchitis due to non-COVID coronavirus. hemodynamically stable. trend labs. follow blood cx's but thus far negative. 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 in the past hemidiaphragm elevation on the right likely due to that surgery (6) CAD (coronary artery disease): Plan: no ischemic sx's at this time (7) Hypothyroidism: Plan: TSH 11/2020 wnl cont synthroid (8) Hypercalcemia: Plan: total Ca wnl (9) PAF (paroxysmal atrial fibrillation): Plan: noted examines in NSR this am (10) DVT prophylaxis: Plan: lovenox Plan: I believe the pt's cxr findings are all due to viral process rather than pulm edema no evidence of volume overload cont IVF due to severe anorexia updated by phone Admission and Anticipated Discharge Date Admission Date: February 08, 2021 Subjective patient was snoring upon arrival very difficult to arouse he did finally wake up he was confused stated "this drip in my throat is driving me crazy" he coughed much of the time he stated he "felt terrible" very poor appetite per staff and very sleepy Review of Systems Review of Systems: Unobtainable due to cognitive status Physical Exam Physical Exam: gen - sickly, coughing severely, confused mouth - MM dry neck - no JVD heart - RRR, s1 s2 lungs - diffuse wheezing all lung segments, rales bases, coughing, mild tachypnea abd - soft NT ND BS+ ext - no edema, pulses 2+ b/l psych - oriented to person and place only; got the year wrong Results & Data Results & Data ([facility]) Vital Signs (Past 12 Hours) Vital Signs Temp Pulse Resp BP Pulse Ox 02/09/21 11:25 20 93 02/09/21 07:28 36.8 C 96 H 18 167/94 H 95 02/09/21 05:50 36.7 C 94 Laboratory Results VBG ordered following my visit - pH wnl, pCO2 wnl bmp wnl Diagnostic Findings Chest X-Ray 02/08/21 18:34 XR chest 2V PA/lateral HISTORY: 89 years-old Male fevers, hypoxia, ?evolving pneumonia acute fever with hypoxia COMPARISON: Chest radiograph 02/05/2021 TECHNIQUE: PA and lateral views of the chest FINDINGS: Cardiac silhouette is enlarged. Prior median sternotomy with CABG. Trace pleural effusions. Chronic right hemidiaphragmatic elevation with postoperative changes projected over the right lung base. Reticular interstitial opacities, right greater than left are new from prior. There is no pneumothorax. Degenerative changes of the shoulders and spine. IMPRESSION: 1. Cardiomegaly with right greater than left interstitial opacities suggestive of pulmonary edema versus interstitial pneumonitis. 2. Trace pleural effusions. 3. Unchanged right hemidiaphragmatic elevation. ACT 112: Negative or not required by law. The above report was generated using voice recognition software. It may contain grammatical, syntax or spelling errors. Electronically signed by: Justo Wing M.D. 02/09/2021 9:00 AM Chest X-Ray 02/09/21 12:50 XR chest 1V portable HISTORY: severe b/l rales/wheezing COMPARISON: Chest 02/08/2021 FINDINGS: No pneumothorax. There are low lung volumes. There are poststernotomy changes. The heart remains top normal in size. Slight improvement in the diffuse interstitial thickening. This is most pronounced on the right. There are trace bilateral pleural effusions. There is chronic elevation of the right hemidiaphragm. IMPRESSION: Slight improvement in interstitial thickening suggestive of resolving asymmetric pulmonary edema or an interstitial pneumonitis. ACT 112: Negative or not required by law. Electronically signed by: Mathew Arrieta M.D. 02/09/2021 1:12 PM PG Care Time/CCT Total # of Minutes Spent Total Time Spent with Patient: Total time spent is greater than 50% in coordination of care (as documented) at patient's floor/unit and/or counseling patient: Coding Level of Care Code 80760 Subseq Hosp Care Lvl 3 Diagnoses Acute bronchitis J20.9 Acute metabolic encephalopathy G93.41 Sepsis A41.9 History of pulmonary embolus (PE) Z86.711 Personal history of malignant carcinoid tumor of bronchus and lung Z85.110 CAD (coronary artery disease) I25.10 Hypothyroidism E03.9 Hypercalcemia E83.52 PAF (paroxysmal atrial fibrillation) I48.0 DVT prophylaxis Z29.9
--- NOTE | 2021-02-09 13:14 | XRay Report ---
XR chest 1V portable HISTORY: severe b/l rales/wheezing COMPARISON: Chest 02/08/2021 FINDINGS: No pneumothorax. There are low lung volumes. There are poststernotomy changes. The heart re lizandro top normal in size. Slight improvement in the diffuse interstitial thickening. This is most pro nounced on the right. There are trace bilateral pleural effusions. There is chronic elevation of the right hemidiaphragm. IMPRESSION: Slight improvement in interstitial thickening suggestive of resolving asymmetric pulmonary edema or a n interstitial pneumonitis. ACT 112: Negative or not required by law. Electronically signed by: Mathew Arrieta M.D. 02/09/2021 1:12 PM
[2021-02-09] MEDS: methylPREDNISolone 40 MG in SYRINGE 0 ML IV SCH ×2 (13:34→20:22)
[2021-02-09 13:54] LABS: Base Excess VBG -0.9 mEq/L; Oxygen Saturation VBG 92.8 %; pH VBG 7.41 (7.36-7.41)
[2021-02-09] MEDS: ALBUT/IPRATROP 3MG/0.5MG NEB 3 ML VIAL NEB SCH ×3 (14:37→19:35)
[2021-02-10] MEDS: methylPREDNISolone 40 MG in SYRINGE 0 ML IV SCH ×3 (04:55→20:57)
[2021-02-10] MEDS: LEVOTHYROXINE SODIUM 75 MCG TABLET PO SCH (05:08)
[2021-02-10] MEDS: PANTOprazole 40 MG TAB PO SCH (05:08)
[2021-02-10 06:45] LABS: BUN Creatinine Ratio 25.6 (10-20); Calcium 8.7 mg/dl (8.5-10.1); Creatinine Clr Calc Pharmacy 67.8 ml/min; Est GFR (African American) 92.3 ml/min; Est GFR (Non-African American) 79.6 ml/min; Potassium 4.1 mmol/L (3.5-5.1)
[2021-02-10] MEDS: ALBUT/IPRATROP 3MG/0.5MG NEB 3 ML VIAL NEB SCH ×5 (07:46→20:17)
[2021-02-10] MEDS: LACTATED RINGER'S 1,000 ML IV SCH (08:50)
[2021-02-10] MEDS: ENOXAPARIN INJ 40 MG/0.4 ML SYR SQ SCH (08:51)
[2021-02-10] MEDS: guaiFENesin 600 MG TABCR PO SCH ×2 (08:51→19:48)
[2021-02-10] MEDS: ADVANCED PROBIOTIC 1250 MG CAPSULE PO SCH (08:51)
[2021-02-10] MEDS: CINACALCET HCL 30 MG TAB PO SCH (08:51)
[2021-02-10] MEDS: AZITHROMYCIN 250 MG TAB PO SCH (08:52)
[2021-02-10] MEDS: BENZONATATE 100 MG CAPSULE PO PRN (12:01)
[2021-02-10] MEDS: ACETAMINOPHEN 325 MG TAB PO PRN ×2 (13:53→18:02)
--- NOTE | 2021-02-10 17:58 | Hospitalist Progress Note ---
Date of Service February 10, 2021 Assessment & Plan (1) Acute bronchitis: Plan: severe, 2nd to non-COVID coronavirus. modestly improved today with steroids/nebs/supportive care. most recent cxr with probable element of viral pneumonia given his cxr findings (interstitial infiltrates). cont solumedrol 40mg IV q8h -- no wean today. cont duonebs qid for severe wheezing. NC O2 as needed. for severe cough - schedule the tessalon 200mg PO TID. lower mucinex to 600mg BID. add robitussin ac - 2.5cc q6h prn. today is day #5 of azithromycin - stop after today's dose. (first dose was in ER on 02/06/21). consider a lasix trial tomorrow if still with rales on exam. (2) Acute metabolic encephalopathy: Plan: 2nd to coronavirus infection. VBG w/o hypercarbia. supportive care. mental status improved today. (3) Sepsis: Plan: 2nd to acute bronchitis due to non-COVID coronavirus. hemodynamically stable. sepsis resolved. blood cx's negative. 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 in the past hemidiaphragm elevation on the right likely due to that surgery (6) CAD (coronary artery disease): Plan: no ischemic sx's at this time (7) Hypothyroidism: Plan: TSH 11/2020 wnl cont synthroid (8) Hypercalcemia: Plan: total Ca wnl (9) PAF (paroxysmal atrial fibrillation): Plan: h/o today he was tachycardic on exam and pulse was documented as >100 obtained EKG - no a.fib; NSR (10) DVT prophylaxis: Plan: lovenox (11) Paraphimosis: Plan: mild no swelling, pain, ischemia suspect forceful coughing led to increased pressure pushing the penis out and the foreskin up I am able to gently pull the foreskin over the penile head w/o difficulty today monitor carefully for any worsening, acute pain, signs of ischemia, etc if such occurs - urgent urology consult would be needed Plan: stop IVF updated at bedside today cont PT/OT slowly progressing Admission and Anticipated Discharge Date Admission Date: February 08, 2021 Subjective at bedside during the visit he was much more awake/alert today he did not remember me from yesterday's visit like yesterday he coughed most of the encounter severe no sputum eating IS better denies dyspnea at rest he is weak finally, he complains that his foreskin (he is uncircumcised) retracted at some point and has not gone back to normal however, denies ANY penile pain Review of Systems Review of Systems: gen - weak, fatigue - but improved today; no fevers or chills cv - no chest pain gi - no abd pain; staff report NO diarrhea or emesis pulm - severe cough despite albuterol, etc Physical Exam Physical Exam: gen - looks much better today; coughing - similar to yesterday; confusion improved mouth - MMM neck - no JVD heart - mild tachycardic, s1 s2 lungs - diffuse wheezing all lung segments - maybe slightly better today; rales bases b/l; coughing but no increased work of breathing abd - soft NT ND BS+ ext - no edema, pulses 2+ b/l - uncircumcised male; foreskin is retracted behind the glans (paraphimosis) but NO penile head swelling, no shaft swelling, no ischemia, no coronal swellin g; no balanitis; I manually was able to pull the foreskin over much of the penile head but it would spontaneously retract back; no pain/tenderness with any manual manipulation psych - confusion improved Results & Data Results & Data ([facility]) Vital Signs (Past 12 Hours) Vital Signs Temp Pulse Resp BP Pulse Ox 02/10/21 15:30 36.3 C L 113 H 18 131/65 90 02/10/21 14:30 104 H 22 91 02/10/21 13:50 91 02/10/21 11:59 36.3 C L 118 H 20 91 02/10/21 10:53 104 H 20 92 02/10/21 07:46 78 18 93 02/10/21 07:33 36.4 C L 93 H 18 147/89 H 93 Laboratory Results Laboratory Results - last 24 hr 02/10/21 05:54 Sodium 139 Potassium 4.1 D Chloride 109 H Carbon Dioxide 23 Anion Gap 7.0 BUN 20 H Creatinine 0.79 Est Cr Clr Drug Dosing 67.8 Est GFR ( Amer) 92.3 Est GFR (Non-Af Amer) 79.6 BUN/Creatinine Ratio 25.6 H Glucose 146 H Calcium 8.7 PG Care Time/CCT Total # of Minutes Spent Total Time Spent with Patient: Total time spent is greater than 50% in coordination of care (as documented) at patient's floor/unit and/or counseling patient: Coding Level of Care Code 20013 Subseq Hosp Care Lvl 3 Diagnoses Acute bronchitis J20.9 Acute metabolic encephalopathy G93.41 Sepsis A41.9 History of pulmonary embolus (PE) Z86.711 Personal history of malignant carcinoid tumor of bronchus and lung Z85.110 CAD (coronary artery disease) I25.10 Hypothyroidism E03.9 Hypercalcemia E83.52 PAF (paroxysmal atrial fibrillation) I48.0 DVT prophylaxis Z29.9 Paraphimosis N47.2
[2021-02-10] MEDS: BENZONATATE 100 MG CAPSULE PO SCH ×2 (18:02→19:47)
[2021-02-11] MEDS: guaiFENesin/CODEINE 100MG/10MG 5ML UDC PO PRN ×3 (00:28→17:55)
[2021-02-11] MEDS: methylPREDNISolone 40 MG in SYRINGE 0 ML IV SCH ×3 (04:39→20:05)
[2021-02-11] MEDS: LEVOTHYROXINE SODIUM 75 MCG TABLET PO SCH (05:47)
[2021-02-11] MEDS: PANTOprazole 40 MG TAB PO SCH (05:47)
[2021-02-11 06:19] LABS: Basophils # (auto) 0.01 K/uL (0-0.2); Basophils % (auto) 0.1 %; Hematocrit (blood only) 33.7 % (42-52); Hemoglobin 11.4 g/dL (14.0-18.0); Immature Granulocytes # (auto) 0.06 K/uL (0.00-0.02); Immature Granulocytes % (auto) 0.3 %; Lymphocytes % (auto) 3.6 %; Mean Corpuscular Hemoglobin 30.6 pg (25-34); Mean Corpuscular Hgb Conc 33.8 g/dL (32-36); Mean Corpuscular Volume 90.3 fL (80-100); Mean Platelet Volume 10.1 fL (7.4-10.4); Monocytes # (auto) 1.24 K/uL (0.11-0.59); Monocytes % (auto) 6.3 %; Neutrophils # (auto) 17.56 K/uL (1.4-6.5); Neutrophils % (auto) 89.7 %; Platelet Count 242 K/uL (130-400); RDW Coefficient of Variation 15.2 % (11.5-14.5); RDW Standard Deviation 50.7 fL (36.4-46.3); Red Blood Count 3.73 M/uL (4.7-6.1); White Blood Count 19.57 K/uL (4.8-10.8)
[2021-02-11 06:51] LABS: BUN Creatinine Ratio 29.9 (10-20); Calcium 9.1 mg/dl (8.5-10.1); Creatinine Clr Calc Pharmacy 59.5 ml/min; Est GFR (African American) 87.5 ml/min; Est GFR (Non-African American) 75.5 ml/min; Magnesium 2.2 mg/dl (1.8-2.4)
[2021-02-11] MEDS: ALBUT/IPRATROP 3MG/0.5MG NEB 3 ML VIAL NEB SCH ×4 (07:53→20:17)
[2021-02-11] MEDS ORDERED: FUROSEMIDE INJ 20 MG/2 ML VIAL IV ONE (08:00)
[2021-02-11] MEDS: guaiFENesin 600 MG TABCR PO SCH ×2 (08:27→20:05)
[2021-02-11] MEDS: ADVANCED PROBIOTIC 1250 MG CAPSULE PO SCH (08:27)
[2021-02-11] MEDS: CINACALCET HCL 30 MG TAB PO SCH (08:27)
[2021-02-11] MEDS: ENOXAPARIN INJ 40 MG/0.4 ML SYR SQ SCH (08:27)
[2021-02-11] MEDS: BENZONATATE 100 MG CAPSULE PO SCH ×3 (08:27→20:05)
--- NOTE | 2021-02-11 12:48 | Electrocardiogram Report ---
Test Reason : Blood Pressure : / mmHG Vent. Rate : 097 BPM Atrial Rate : 097 BPM P-R Int : 190 ms QRS Dur : 086 ms QT Int : 354 ms P-R-T Axes : 048 003 030 degrees QTc Int : 449 ms Normal sinus rhythm Cannot rule out Inferior infarct (cited on or before 03-DEC-2020) Abnormal ECG When compared with ECG of 06-FEB-2021 01:43, No significant change was found Confirmed by Bear Mccoy ([id number]) on 02/11/2021 12:47:57 PM Referred By: REFERRED SELF Confirmed By:Bear Mccoy
--- NOTE | 2021-02-11 19:33 | Hospitalist Progress Note ---
Date of Service February 11, 2021 Assessment & Plan (1) Acute bronchitis: Plan: severe, 2nd to non-COVID coronavirus. improved today. steroids/nebs/supportive care. hopefully can wean steroids tomorrow. most recent cxr with probable element of viral pneumonia given his cxr findings (interstitial infiltrates). cont solumedrol 40mg IV q8h. cont duonebs qid for severe wheezing. NC O2 as needed. for severe cough - tessalon 200mg PO TID. mucinex to 600mg BID. Robitussin ac - 2.5cc q6h prn. s/p 5 days of azithromycin - now off. lasix 20mg IV x 1 and reassess tomorrow for more to keep I/O balance negative. (2) Acute metabolic encephalopathy: Plan: 2nd to coronavirus infection. VBG w/o hypercarbia. supportive care. mental status again improved today. (3) Sepsis: Plan: 2nd to acute bronchitis due to non-COVID coronavirus. hemodynamically stable. sepsis resolved. blood cx's negative. 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 in the past hemidiaphragm elevation on the right likely due to that surgery (6) CAD (coronary artery disease): Plan: no ischemic sx's at this time (7) Hypothyroidism: Plan: TSH 11/2020 wnl cont synthroid (8) Hypercalcemia: Plan: total Ca wnl remains on cinacalcet (9) PAF (paroxysmal atrial fibrillation): Plan: h/o EKG yesterday - NSR (10) DVT prophylaxis: Plan: lovenox (11) Paraphimosis: Plan: mild no swelling, pain, ischemia suspect forceful coughing led to increased pressure pushing the penis out and the foreskin up no penile pain today; will recheck tomorrow Plan: updated by phone this evening cont PT/OT Admission and Anticipated Discharge Date Admission Date: February 08, 2021 Subjective pt getting a neb during the visit he feels "a little better" he did not cough once during our visit he is eating 100% of meals denied dyspnea denied cp spoke with by phone - she feels his mental status is much improved she reports that during her visit he had a loose stool Review of Systems Review of Systems: gen - fatigue, weak CV - no orthopnea or pain pulm - no sputum GI - no nausea or emesis Physical Exam Physical Exam: gen - looks much better today, bright-eyed; no cough during the visit today mouth - MMM neck - no JVD heart - RRR, s1 s2, pacs or pvcs, no murmur lungs - diffuse wheezing markedly improved; rales b/l - a little worse on right (fine rales); no increased work of breathing abd - soft NT ND BS+ ext - no edema, pulses 2+ b/l Results & Data Results & Data ([facility]) Vital Signs (Past 12 Hours) Vital Signs Temp Pulse Resp BP Pulse Ox 02/11/21 18:01 83 02/11/21 15:36 36.6 C 106 H 18 144/72 H 93 02/11/21 15:07 96 H 18 95 02/11/21 11:41 62 18 98 02/11/21 07:53 87 18 94 Laboratory Results Laboratory Results - last 24 hr 02/11/21 02/11/21 05:54 05:54 WBC 19.57 H RBC 3.73 L Hgb 11.4 L Hct 33.7 L MCV 90.3 MCH 30.6 MCHC 33.8 RDW Std Deviation 50.7 H RDW Coeff of Prem 15.2 H Plt Count 242 MPV 10.1 Immature Gran % (Auto) 0.3 Neut % (Auto) 89.7 Lymph % (Auto) 3.6 [place] % (Auto) 6.3 Eos % (Auto) 0.0 Baso % (Auto) 0.1 Neut # (Auto) 17.56 H Lymph # (Auto) 0.70 L [place] # (Auto) 1.24 H Eos # (Auto) 0.00 Baso # (Auto) 0.01 Immature Gran # (Auto) 0.06 H Sodium 138 Potassium 4.0 Chloride 109 H Carbon Dioxide 24 Anion Gap 5.0 BUN 27 H Creatinine 0.90 Est Cr Clr Drug Dosing 59.5 Est GFR ( Amer) 87.5 Est GFR (Non-Af Amer) 75.5 BUN/Creatinine Ratio 29.9 H Glucose 151 H Calcium 9.1 Magnesium 2.2 Specimen Hemolysis PG Care Time/CCT Total # of Minutes Spent Total Time Spent with Patient: Total time spent is greater than 50% in coordination of care (as documented) at patient's floor/unit and/or counseling patient: Coding Level of Care Code 99450 Subseq Hosp Care Lvl 2 Diagnoses Acute bronchitis J20.9 Acute metabolic encephalopathy G93.41 Sepsis A41.9 History of pulmonary embolus (PE) Z86.711 Personal history of malignant carcinoid tumor of bronchus and lung Z85.110 CAD (coronary artery disease) I25.10 Hypothyroidism E03.9 Hypercalcemia E83.52 PAF (paroxysmal atrial fibrillation) I48.0 DVT prophylaxis Z29.9 Paraphimosis N47.2
[2021-02-12] MEDS: LEVOTHYROXINE SODIUM 75 MCG TABLET PO SCH (06:08)
[2021-02-12] MEDS: methylPREDNISolone 40 MG in SYRINGE 0 ML IV SCH ×3 (06:08→21:41)
[2021-02-12] MEDS: PANTOprazole 40 MG TAB PO SCH (06:08)
[2021-02-12] MEDS: guaiFENesin/CODEINE 100MG/10MG 5ML UDC PO PRN ×3 (06:11→17:48)
[2021-02-12] MEDS: ALBUT/IPRATROP 3MG/0.5MG NEB 3 ML VIAL NEB SCH ×4 (07:14→20:29)
[2021-02-12] MEDS: guaiFENesin 600 MG TABCR PO SCH ×2 (08:02→21:42)
[2021-02-12] MEDS: CINACALCET HCL 30 MG TAB PO SCH (08:02)
[2021-02-12] MEDS: BENZONATATE 100 MG CAPSULE PO SCH ×3 (08:02→21:41)
[2021-02-12] MEDS: ENOXAPARIN INJ 40 MG/0.4 ML SYR SQ SCH (08:03)
[2021-02-12] MEDS: ADVANCED PROBIOTIC 1250 MG CAPSULE PO SCH (08:03)
[2021-02-12 08:20] LABS: Basophils # (auto) 0.01 K/uL (0-0.2); Basophils % (auto) 0.1 %; Hematocrit (blood only) 36.4 % (42-52); Hemoglobin 12.3 g/dL (14.0-18.0); Immature Granulocytes # (auto) 0.26 K/uL (0.00-0.02); Immature Granulocytes % (auto) 1.6 %; Lymphocytes # (auto) 0.95 K/uL (1.2-3.4); Lymphocytes % (auto) 5.8 %; Mean Corpuscular Hemoglobin 30.6 pg (25-34); Mean Corpuscular Hgb Conc 33.8 g/dL (32-36); Mean Corpuscular Volume 90.5 fL (80-100); Mean Platelet Volume 10.1 fL (7.4-10.4); Monocytes # (auto) 1.56 K/uL (0.11-0.59); Monocytes % (auto) 9.6 %; Neutrophils # (auto) 13.53 K/uL (1.4-6.5); Neutrophils % (auto) 82.9 %; Platelet Count 245 K/uL (130-400); RDW Coefficient of Variation 15.3 % (11.5-14.5); Red Blood Count 4.02 M/uL (4.7-6.1); White Blood Count 16.31 K/uL (4.8-10.8)
[2021-02-12 08:58] LABS: BUN Creatinine Ratio 31.7 (10-20); Calcium 9.3 mg/dl (8.5-10.1); Est GFR (African American) 93.2 ml/min; Est GFR (Non-African American) 80.5 ml/min; Potassium 3.9 mmol/L (3.5-5.1)
[2021-02-12] MEDS ORDERED: POTASSIUM CHLORIDE CRTAB 20 MEQ TABCR PO STA ×2 (10:37→19:18)
[2021-02-12] MEDS ORDERED: FUROSEMIDE INJ 20 MG/2 ML VIAL IV ONE ×2 (10:37→19:30)
[2021-02-12] MEDS ORDERED: MAGNESIUM OXIDE 400 MG TAB PO ONE (11:15)
--- NOTE | 2021-02-12 16:15 | Hospitalist Progress Note ---
Date of Service February 12, 2021 Assessment & Plan (1) Acute bronchitis: Plan: severe, 2nd to non-COVID coronavirus - confirmed with [facility] on hospital day #1. ongoing, with continued O2 requirements, despite high-dose steroids, nebs, etc. I am concerned about his overall lack of improvement despite the above. cont solumedrol 40mg IV q8h. no wean. cont duonebs qid for severe wheezing. NC O2. for severe cough - tessalon 200mg PO TID. mucinex 600mg BID. Robitussin ac - 5cc q6h prn. s/p 5 days of azithromycin - now off. I gave lasix 20mg IV x 1 yesterday, and again this am. Will repeat cxr now. If still with any suggestion of pulmonary edema will give additional dose of lasix this evening. Add saline nebs BID to help with movement of sputum, plugs, etc. If he fails to improve consider - * CT chest * empiric broader-spectrum IV abx for superimposed bacterial pneumonia - although procal again today is negative * pulmonary consult * speech eval, although past swallow evals were normal * repeat COVID-19 testing (coinfections are always possible) (2) Acute metabolic encephalopathy: Plan: 2nd to coronavirus infection. resolved. mental status near baseline per . (3) Sepsis: Plan: 2nd to acute bronchitis due to non-COVID coronavirus. hemodynamically stable. sepsis resolved. blood cx's negative. 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 in the past hemidiaphragm elevation on the right likely due to that surgery (6) CAD (coronary artery disease): Plan: no ischemic sx's at this time (7) Hypothyroidism: Plan: TSH 11/2020 wnl cont synthroid (8) Hypercalcemia: Plan: total Ca wnl remains on cinacalcet (9) PAF (paroxysmal atrial fibrillation): Plan: h/o EKG 2 days ago - NSR (10) DVT prophylaxis: Plan: lovenox (11) Paraphimosis: Plan: mild no swelling, pain, ischemia suspect forceful coughing led to increased pressure pushing the penis out and the foreskin up no penile pain today; will recheck tomorrow (12) Acute diastolic CHF (congestive heart failure): Plan: suspected s/p lasix AM of 02/11 s/p lasix AM of 02/12 repeat cxr afternoon of 02/12 - still w/ edema give another dose of lasix evening of 02/12 echo 12/2020 with preserved EF check BMP in am for stability consider more diuresis if necessary Plan: updated at bedside today extensively cont PT/OT Admission and Anticipated Discharge Date Admission Date: February 08, 2021 Subjective during the visit his cough was severe he was awake/alert, however, and in good spirits eating 75-100% of meals asks about when he might be discharged explained to him that he is weak and I am concerned he may need rehab before getting home she voiced understanding no issues per staff Review of Systems Review of Systems: gen - good appetite; mild fatigue cv - no pain pulm - severe cough; still no sputum GI - no pain - denies penile pain Physical Exam Physical Exam: gen - although he looks good and is awake/alert his cough is SEVERE - coughed nearly the entire visit mouth - MMM neck - mild JVD today heart - RRR, s1 s2, pacs or pvcs, no murmur lungs - diffuse wheezing still present; rales b/l - no change; coughing severely; no distress however abd - soft NT ND BS+ ext - no edema, pulses 2+ b/l - very, very mild paraphimosis WITHOUT penile head swelling, coronal swelling, shaft swelling, signs of ischemia, etc; foreskin CAN be retracted over the top of the penile head without difficulty Results & Data Results & Data ([facility]) Vital Signs (Past 12 Hours) Vital Signs Temp Pulse Resp BP Pulse Ox 02/12/21 15:56 36.4 C L 93 H 16 126/76 93 02/12/21 15:18 72 18 94 02/12/21 12:34 96 H 16 93 02/12/21 07:34 36.4 C L 86 18 156/81 H 93 02/12/21 07:14 64 18 92 Laboratory Results Laboratory Results - last 24 hr 02/12/21 02/12/21 02/12/21 07:53 07:53 07:53 WBC 16.31 H RBC 4.02 L Hgb 12.3 L Hct 36.4 L MCV 90.5 MCH 30.6 MCHC 33.8 RDW Std Deviation 51.0 H RDW Coeff of Prem 15.3 H Plt Count 245 MPV 10.1 Immature Gran % (Auto) 1.6 Neut % (Auto) 82.9 Lymph % (Auto) 5.8 [place] % (Auto) 9.6 Eos % (Auto) 0.0 Baso % (Auto) 0.1 Neut # (Auto) 13.53 H Lymph # (Auto) 0.95 L [place] # (Auto) 1.56 H Eos # (Auto) 0.00 Baso # (Auto) 0.01 Immature Gran # (Auto) 0.26 H Sodium 140 Potassium 3.9 Chloride 109 H Carbon Dioxide 26 Anion Gap 5.0 BUN 25 H Creatinine 0.77 Est Cr Clr Drug Dosing 70.0 Est GFR ( Amer) 93.2 Est GFR (Non-Af Amer) 80.5 BUN/Creatinine Ratio 31.7 H Glucose 128 H Calcium 9.3 Procalcitonin 0.09 PG Care Time/CCT Total # of Minutes Spent Total Time Spent with Patient: Total time spent is greater than 50% in coordination of care (as documented) at patient's floor/unit and/or counseling patient: Coding Level of Care Code 96475 Subseq Hosp Care Lvl 3 Diagnoses Acute bronchitis J20.9 Acute metabolic encephalopathy G93.41 Sepsis A41.9 History of pulmonary embolus (PE) Z86.711 Personal history of malignant carcinoid tumor of bronchus and lung Z85.110 CAD (coronary artery disease) I25.10 Hypothyroidism E03.9 Hypercalcemia E83.52 PAF (paroxysmal atrial fibrillation) I48.0 DVT prophylaxis Z29.9 Paraphimosis N47.2 Acute diastolic CHF (congestive heart failure) I50.31
--- NOTE | 2021-02-12 18:43 | XRay Report ---
XR chest 1V portable CLINICAL HISTORY: bronchitis; severe wheezing; eval pneumonia, edema TECHNIQUE: Single frontal radiograph of the chest was obtained. Comparison: Comparison is made to chest one view 02/09/2021 FINDINGS: No lines and tubes are seen. The cardiomediastinal silhouette is normal. Prominence and cephalization of the vasculature is seen. Elevation of the right hemidiaphragm is seen. No evidence of pleural eff usion or pneumothorax. IMPRESSION: Mild pulmonary edema. Elevation of the right hemidiaphragm with atelectasis. ACT 112: Negative or not required by law. Electronically signed by: Hany Juan M.D. 02/12/2021 6:42 PM
[2021-02-12] MEDS: SODIUM CHLOR 7% 4 ML NEB NEB SCH (20:29)
[2021-02-13] MEDS: PANTOprazole 40 MG TAB PO SCH (05:23)
[2021-02-13] MEDS: LEVOTHYROXINE SODIUM 75 MCG TABLET PO SCH (05:23)
[2021-02-13] MEDS: methylPREDNISolone 40 MG in SYRINGE 0 ML IV SCH ×3 (05:24→21:13)
[2021-02-13] MEDS: ALBUT/IPRATROP 3MG/0.5MG NEB 3 ML VIAL NEB SCH ×4 (07:44→19:27)
[2021-02-13] MEDS: SODIUM CHLOR 7% 4 ML NEB NEB SCH ×2 (07:45→19:32)
[2021-02-13] MEDS: BENZONATATE 100 MG CAPSULE PO SCH ×3 (08:27→21:12)
[2021-02-13] MEDS: guaiFENesin 600 MG TABCR PO SCH ×2 (08:27→21:13)
[2021-02-13] MEDS: ENOXAPARIN INJ 40 MG/0.4 ML SYR SQ SCH (08:28)
[2021-02-13] MEDS: CINACALCET HCL 30 MG TAB PO SCH (08:28)
[2021-02-13] MEDS: ADVANCED PROBIOTIC 1250 MG CAPSULE PO SCH (08:28)
[2021-02-13 08:45] LABS: Calcium 8.8 mg/dl (8.5-10.1); Creatinine Clr Calc Pharmacy 71.9 ml/min; Est GFR (African American) 94.3 ml/min; Est GFR (Non-African American) 81.3 ml/min; Magnesium 2.1 mg/dl (1.8-2.4); Potassium 4.4 mmol/L (3.5-5.1)
[2021-02-13] MEDS: guaiFENesin/CODEINE 100MG/10MG 5ML UDC PO PRN (17:43)
--- NOTE | 2021-02-13 18:26 | Hospitalist Progress Note ---
Date of Service February 13, 2021 Assessment & Plan (1) Acute bronchitis: Plan: severe, 2nd to non-COVID coronavirus - confirmed with [facility] on hospital day #1. ongoing, with continued O2 requirements, despite high-dose steroids, nebs, etc. He reports feeling better and does not seem to be in any respiratory distress; was coughing less this afternoon however had nebulizer cont solumedrol 40mg IV q8h. no wean. cont duonebs qid for severe wheezing. NC O2 - hopefully can continue to wean down for severe cough - tessalon 200mg PO TID. mucinex 600mg BID. Robitussin ac - 5cc q6h prn. s/p 5 days of azithromycin - now off. Lasix 20mg IV x 3 - can consider additional dosing on exam tomorrow Repeat CXR from 02/12 with mild pulmonary edema Add saline nebs BID to help with movement of sputum, plugs, etc. If he fails to improve consider - * CT chest * empiric broader-spectrum IV abx for superimposed bacterial pneumonia - although procal again today is negative so unlikely need to do this * pulmonary consult * speech eval, although past swallow evals were normal * repeat COVID-19 testing (coinfections are always possible) Enforce flutter valve usage - he has a very weak exhale when showing him how to use this at bedside today (2) Acute metabolic encephalopathy: Plan: 2nd to coronavirus infection. resolved. mental status near baseline per . (3) Sepsis: Plan: 2nd to acute bronchitis due to non-COVID coronavirus. hemodynamically stable. sepsis resolved. blood cx's negative. 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 in the past hemidiaphragm elevation on the right likely due to that surgery (6) CAD (coronary artery disease): Plan: no ischemic sx's at this time (7) Hypothyroidism: Plan: TSH 11/2020 wnl cont synthroid (8) Hypercalcemia: Plan: total Ca wnl remains on cinacalcet - per his PCP is considering wean off as outpatient (9) PAF (paroxysmal atrial fibrillation): Plan: - H/O - examines in NSR (10) DVT prophylaxis: Plan: lovenox (11) Paraphimosis: Plan: mild no swelling, pain, ischemia suspect forceful coughing led to increased pressure pushing the penis out and the foreskin up no penile pain today (12) Acute diastolic CHF (congestive heart failure): Plan: suspected s/p intermittent lasix AM of 02/11 echo 12/2020 with preserved EF check BMP in am for stability consider more diuresis if necessary Plan: updated at bedside today. Discussed consideration for rehab but she would like him to return home on discharge. I had him on a previous admission and even when rehab was recommended the family ultimately would like him home. They do have a grandson who stays with them who is capable of actually lifting Mr. Whitney to get him into cars, etc. She is interested in home health cont PT/OT Admission and Anticipated Discharge Date Admission Date: February 08, 2021 Subjective No acute events overnight. Continues on supplemental O2. He states he is feeling better but fatigued. Was seen after a breathing treatment so less coughing with deep breathing. Re-educted on the flutter valve which he was using at bedside. He does not have a very forceful exhale so could use some work. Review of Systems Review of Systems: All systems reviewed & are unremarkable except as noted in Subjective Physical Exam Physical Exam: gen - although he looks good and is awake/alert mouth - MMM neck - no JVD today heart - RRR no murmur lungs - CTA in upper lobes but rales b/l at bases and less coughing with deep inhale (however just finished breathing treatment) abd - soft NT ND BS+ ext - no edema, pulses 2+ b/l Results & Data Results & Data ([facility]) Vital Signs (Past 12 Hours) Vital Signs Temp Pulse Resp BP Pulse Ox 02/13/21 15:49 76 18 94 02/13/21 14:28 36.6 C 100 H 16 117/70 92 02/13/21 11:27 79 20 96 02/13/21 07:45 71 18 95 02/13/21 07:04 36.3 C L 88 16 137/81 94 PG Care Time/CCT Total # of Minutes Spent Total Time Spent with Patient: Total time spent is greater than 50% in coordination of care (as documented) at patient's floor/unit and/or counseling patient: Coding Level of Care Code 01030 Subseq Hosp Care Lvl 3 Diagnoses Acute bronchitis J20.9 Acute metabolic encephalopathy G93.41 Sepsis A41.9 History of pulmonary embolus (PE) Z86.711 Personal history of malignant carcinoid tumor of bronchus and lung Z85.110 CAD (coronary artery disease) I25.10 Hypothyroidism E03.9 Hypercalcemia E83.52 PAF (paroxysmal atrial fibrillation) I48.0 DVT prophylaxis Z29.9 Paraphimosis N47.2 Acute diastolic CHF (congestive heart failure) I50.31
[2021-02-14] MEDS: LEVOTHYROXINE SODIUM 75 MCG TABLET PO SCH (05:45)
[2021-02-14] MEDS: methylPREDNISolone 40 MG in SYRINGE 0 ML IV SCH ×3 (05:46→21:27)
[2021-02-14] MEDS: PANTOprazole 40 MG TAB PO SCH (05:46)
[2021-02-14 06:05] LABS: Hematocrit (blood only) 36.4 % (42-52); Hemoglobin 11.7 g/dL (14.0-18.0); Mean Corpuscular Hemoglobin 29.3 pg (25-34); Mean Corpuscular Hgb Conc 32.1 g/dL (32-36); Mean Platelet Volume 10.5 fL (7.4-10.4); Platelet Count 274 K/uL (130-400); RDW Coefficient of Variation 15.3 % (11.5-14.5); RDW Standard Deviation 51.5 fL (36.4-46.3); White Blood Count 15.03 K/uL (4.8-10.8)
[2021-02-14 07:05] LABS: Calcium 8.5 mg/dl (8.5-10.1); Creatinine Clr Calc Pharmacy 71.9 ml/min; Est GFR (African American) 94.3 ml/min; Est GFR (Non-African American) 81.3 ml/min
[2021-02-14] MEDS: ALBUT/IPRATROP 3MG/0.5MG NEB 3 ML VIAL NEB SCH ×4 (07:50→19:44)
[2021-02-14] MEDS: SODIUM CHLOR 7% 4 ML NEB NEB SCH ×2 (07:50→19:33)
[2021-02-14] MEDS: CINACALCET HCL 30 MG TAB PO SCH (09:05)
[2021-02-14] MEDS: BENZONATATE 100 MG CAPSULE PO SCH ×3 (09:05→21:26)
[2021-02-14] MEDS: ADVANCED PROBIOTIC 1250 MG CAPSULE PO SCH (09:06)
[2021-02-14] MEDS: ENOXAPARIN INJ 40 MG/0.4 ML SYR SQ SCH (09:06)
[2021-02-14] MEDS: guaiFENesin 600 MG TABCR PO SCH ×2 (09:06→21:27)
[2021-02-14] MEDS ORDERED: hydrALAZINE HCL 20 MG/ML VIAL IV PRN (14:52)
--- NOTE | 2021-02-14 14:54 | Hospitalist Progress Note ---
Date of Service February 14, 2021 Assessment & Plan (1) Acute bronchitis: Plan: severe, 2nd to non-COVID coronavirus - confirmed with [facility] on hospital day #1. ongoing, with continued O2 requirements, despite high-dose steroids, nebs, etc. He reports feeling better and does not seem to be in any respiratory distress; non-productive cough persists, but he reports this is improving. Bilateral rhonchi on auscultation this afternoon. WBC count remains elevated at 15.03, but slightly improved from yesterday. Repeat CBC in AM. cont solumedrol 40mg IV q8h. no wean. cont duonebs qid for severe wheezing. saline nebs BID to help with movement of sputum, plugs, etc. NC O2 - hopefully can continue to wean down for severe cough - tessalon 200mg PO TID. mucinex 600mg BID. Robitussin ac - 5cc q6h prn. s/p 5 days of azithromycin - now off. Lasix 20mg IV x 3 doses- now discontinued- negative 450ml fluid balance over the past 24hrs. Repeat CXR from 02/12 with mild pulmonary edema If he fails to improve consider - * CT chest * empiric broader-spectrum IV abx for superimposed bacterial pneumonia - although procalcitonin on 02/12/21 was normal at 0.09 * pulmonary consult * speech eval, although past swallow evals were normal * repeat COVID-19 testing (coinfections are always possible) Enforce flutter valve usage - he has a very weak exhale when showing him how to use this at bedside (2) Acute metabolic encephalopathy: Plan: 2nd to coronavirus infection. resolved. mental status near baseline per . (3) Sepsis: Plan: 2nd to acute bronchitis due to non-COVID coronavirus. hemodynamically stable. sepsis resolved. blood cx's negative. 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 in the past hemidiaphragm elevation on the right likely due to that surgery (6) CAD (coronary artery disease): Plan: no ischemic sx's at this time (7) Hypothyroidism: Plan: TSH 11/2020 wnl at 3.880. cont synthroid (8) Hypercalcemia: Plan: total Ca wnl remains on cinacalcet - per his PCP is considering wean off as outpatient- would recommend he discuss this with primary care prior to discontinuing (9) PAF (paroxysmal atrial fibrillation): Plan: - H/O - examines in NSR - rate controlled - poor candidate for anticoagulation as he is a high risk for falls (10) DVT prophylaxis: Plan: lovenox (11) Paraphimosis: Plan: mild no swelling, pain, ischemia suspect forceful coughing led to increased pressure pushing the penis out and the foreskin up no penile pain today (12) Acute diastolic CHF (congestive heart failure): Plan: Suspected Received IV 20mg Lasix x 3 doses. Negative 450ml fluid balance over the past 24hrs. No edema on exam today. Bilateral rhonchi heard on auscultation. echo 12/2020 with preserved EF BMP stable. consider more diuresis if necessary (13) Hypertension: Plan: BP 176/70 this morning. Hydralazine 10mg IV q6hrs PRN ordered for systolic >180 or diastolic >100. Continue to monitor. Plan: Patient requires maximal assist supine to sit and sit to stand. PT recommends rehab placement, but patient and decline. They want the patient to go home, and feel their grandson is able to help with transfers and care. They are agreeable to home health services. May be able to get home PT/OT through home health once discharged. Cont inpatient PT/OT Admission and Anticipated Discharge Date Admission Date: February 08, 2021 Subjective Patient reports he is feeling better this afternoon. Cough persists, but is improving and non-productive. He denies SOB. Review of Systems Review of Systems: All systems reviewed & are unremarkable except as noted in Subjective Physical Exam Physical Exam: Temp Pulse Resp BP Pulse Ox 36.6 C 90 18 176/70 H 93 02/14/21 09:59 02/14/21 11:16 02/14/21 11:16 02/14/21 07:15 02/14/21 11:16 Patient is afebrile. He is hypertensive at 176/70, but is asymptomatic. Constitutional: average body habitus; no acute distress Eyes: + anicteric sclerae ENMT: Ears: no hearing impairment Neck: normal visual inspection Respiratory: no respiratory distress and no labored breathing Auscultation: + rhonchi (bilateral ) Cardiovascular: RRR, no murmur, no edema Gastrointestinal (Abdomen): Inspection/Auscultation: normal bowel sounds Percussion/Palpation: abdomen soft; abdomen nontender Psychiatric: A+Ox3, euthymic affect Results & Data Results & Data ([facility]) Vital Signs (Past 12 Hours) Vital Signs Temp Pulse Resp BP Pulse Ox 02/14/21 11:16 90 18 93 02/14/21 09:59 36.6 C 02/14/21 07:52 65 20 95 02/14/21 07:15 36.3 C L 91 H 16 176/70 H 92 PG Care Time/CCT Total # of Minutes Spent Total Time Spent with Patient: Total time spent is greater than 50% in coordination of care (as documented) at patient's floor/unit and/or counseling patient: Coding Level of Care Code 39976 Subseq Hosp Care Lvl 2 Medical Decision Making Low Complexity Diagnoses Acute bronchitis J20.9 Acute metabolic encephalopathy G93.41 Sepsis A41.9 History of pulmonary embolus (PE) Z86.711 Personal history of malignant carcinoid tumor of bronchus and lung Z85.110 CAD (coronary artery disease) I25.10 Hypothyroidism E03.9 Hypercalcemia E83.52 PAF (paroxysmal atrial fibrillation) I48.0 DVT prophylaxis Z29.9 Paraphimosis N47.2 Acute diastolic CHF (congestive heart failure) I50.31 Hypertension I10
[2021-02-15] MEDS: methylPREDNISolone 40 MG in SYRINGE 0 ML IV SCH ×3 (06:09→21:01)
[2021-02-15] MEDS: LEVOTHYROXINE SODIUM 75 MCG TABLET PO SCH (06:23)
[2021-02-15] MEDS: PANTOprazole 40 MG TAB PO SCH (06:23)
[2021-02-15 06:42] LABS: Basophils # (auto) 0.02 K/uL (0-0.2); Basophils % (auto) 0.1 %; Hematocrit (blood only) 36.7 % (42-52); Immature Granulocytes # (auto) 0.26 K/uL (0.00-0.02); Immature Granulocytes % (auto) 1.5 %; Lymphocytes # (auto) 0.97 K/uL (1.2-3.4); Lymphocytes % (auto) 5.5 %; Mean Corpuscular Hemoglobin 29.9 pg (25-34); Mean Corpuscular Hgb Conc 32.7 g/dL (32-36); Mean Corpuscular Volume 91.3 fL (80-100); Mean Platelet Volume 10.5 fL (7.4-10.4); Monocytes # (auto) 1.35 K/uL (0.11-0.59); Monocytes % (auto) 7.6 %; Neutrophils # (auto) 15.19 K/uL (1.4-6.5); Neutrophils % (auto) 85.3 %; Platelet Count 276 K/uL (130-400); RDW Coefficient of Variation 15.4 % (11.5-14.5); RDW Standard Deviation 51.4 fL (36.4-46.3); Red Blood Count 4.02 M/uL (4.7-6.1); White Blood Count 17.79 K/uL (4.8-10.8)
[2021-02-15] MEDS: ALBUT/IPRATROP 3MG/0.5MG NEB 3 ML VIAL NEB SCH ×3 (08:15→19:26)
[2021-02-15] MEDS: SODIUM CHLOR 7% 4 ML NEB NEB SCH ×2 (08:15→19:11)
[2021-02-15] MEDS: guaiFENesin 600 MG TABCR PO SCH ×2 (08:43→21:01)
[2021-02-15] MEDS: BENZONATATE 100 MG CAPSULE PO SCH ×3 (08:43→21:00)
[2021-02-15] MEDS: CINACALCET HCL 30 MG TAB PO SCH (08:43)
[2021-02-15] MEDS: ADVANCED PROBIOTIC 1250 MG CAPSULE PO SCH (08:44)
[2021-02-15] MEDS: ENOXAPARIN INJ 40 MG/0.4 ML SYR SQ SCH (08:44)
[2021-02-15] MEDS ORDERED: OPTIRAY 320 100ml IV ONE (09:09)
--- NOTE | 2021-02-15 09:32 | CT Scan Report ---
CHEST CT WITH CONTRAST CT DOSE: 653.24 mGy.cm HISTORY: viral illness, cough TECHNIQUE: Multiaxial CT images of the chest were performed following the intravenous administration of contrast. A dose lowering technique was utilized adhering to the principles of ALARA. COMPARISON: Chest 02/12/2021. Chest CTA 12/12/2020. FINDINGS: Postoperative changes consistent with a prior right lower lobectomy. No pneumothorax. No pl eural effusions. There are patchy groundglass airspace opacities seen within the upper lobes, right g reater than left. There are associated tree-in-bud nodular opacities within the right upper lobe post eriorly. Small areas of consolidation within the base of the left lower lobe. Findings likely represe nt a pneumonia could be due to a viral process. There are poststernotomy changes. No acute fractures within the visualized osseous structures. There are advanced degenerative changes within the shoulder s again noted. Multinodular right thyroid goiter again noted. No mediastinal or hilar lymphadenopathy . Small filling defect seen within the segmental branches of the right upper lobe on image 133 and im ages 150 consistent with pulmonary emboli. Small amount of fluid within the nondilated esophagus. No mediastinal or hilar lymphadenopathy. The heart is normal in size. No pericardial effusion. The ascen ding thoracic ureter measuring up to 3.9 cm in diameter. Limited views of the upper abdomen demonstra te a normal liver, spleen, and visualized right adrenal gland. The left adrenal gland is not included on this study. IMPRESSION: 1. A few small segmental pulmonary emboli seen within the right upper lobe. These are not present on the prior studies 2. Patchy bilateral airspace opacities within the lungs as described above likely representing a pneu monia and could be due to a viral process 3. Prior right lower lobectomy. ACT 112: Negative or not required by law. Electronically signed by: Mathew Arrieta M.D. 02/15/2021 9:30 AM
[2021-02-15] MEDS ORDERED: ENOXAPARIN 1 MG/KG SQ SCH (10:00)
[2021-02-15] MEDS ORDERED: ENOXAPARIN INJ 60 MG/0.6 ML SYR SQ ONE (10:15)
[2021-02-15] MEDS: levoFLOXacin 750 MG TAB PO SCH (10:59)
--- NOTE | 2021-02-15 14:50 | Hospitalist Progress Note ---
Date of Service February 15, 2021 Assessment & Plan (1) Acute bronchitis: Plan: severe, 2nd to non-COVID coronavirus - confirmed with [facility] on hospital day #1. ongoing, with continued O2 requirements, despite high-dose steroids, nebs, etc. Increase in WBC count to 17.79 this AM, and worsening cough. Patient reports feeling worse today. - Bilateral inspiratory wheezes on auscultation. - COVID testing repeated this morning - again negative. - CT of the chest ordered which shows a few small segmental pulmonary emboli within the right upper lobe, and bilateral airspace opacities likely representing pneumonia - Patient started on Levaquin for atypical coverage 02/15/21. - Ordered Lovenox 1mg/kg BID for pulmonary embolus. Start oral anticoagulation tomorrow. - Speech eval ordered for choking on Mucinex pill overnight. Plan for FEES tomorrow. cont solumedrol 40mg IV q8h. no wean. cont duonebs qid for severe wheezing. saline nebs BID to help with movement of sputum, plugs, etc. NC O2 - hopefully can continue to wean down for severe cough - tessalon 200mg PO TID. mucinex 600mg BID. Robitussin ac - 5cc q6h prn. s/p 5 days of azithromycin - now off. Lasix 20mg IV x 3 doses- now discontinued- positive 450ml fluid balance over the past 24hrs- change from negative 450ml fluid balance yesterday- No edema on exam. Bilateral inspiratory wheezes on auscultation today. Repeat CXR from 02/12 with mild pulmonary edema. Monitor. May need to consider resuming Lasix. (2) Acute metabolic encephalopathy: Plan: 2nd to coronavirus infection. resolved. mental status near baseline per . (3) Sepsis: Plan: 2nd to acute bronchitis due to non-COVID coronavirus. hemodynamically stable. sepsis resolved. blood cx's negative. (4) History of pulmonary embolus (PE): Plan: New PE on CT 02/15/21. See below. (5) Personal history of malignant carcinoid tumor of bronchus and lung: Plan: s/p RML/RLL lung resection in the past hemidiaphragm elevation on the right likely due to that surgery (6) CAD (coronary artery disease): Plan: no ischemic sx's at this time (7) Hypothyroidism: Plan: TSH 11/2020 wnl at 3.880. cont synthroid (8) Hypercalcemia: Plan: total Ca wnl remains on cinacalcet - per his PCP is considering wean off as outpatient- would recommend he discuss this with primary care prior to discontinuing (9) PAF (paroxysmal atrial fibrillation): Plan: - H/O - examines in NSR- new PVCs and PACs on EKG today- likely secondary to new onset PE - rate controlled (10) DVT prophylaxis: Plan: lovenox (11) Paraphimosis: Plan: mild no swelling, pain, ischemia suspect forceful coughing led to increased pressure pushing the penis out and the foreskin up no penile pain today (12) Acute diastolic CHF (congestive heart failure): Plan: Suspected Received IV 20mg Lasix x 3 doses. Positive 450ml fluid balance today although this was a negative 450ml fluid balance yesterday. Continue I&Os. May need to resume Lasix. Monitor BMP. echo 12/2020 with preserved EF (13) Hypertension: Plan: BP improved to 156/77 this morning. Hydralazine 10mg IV q6hrs PRN ordered for systolic >180 or diastolic >100. Continue to monitor. (14) Pneumonia: Plan: Bilateral pneumonia on CT scan 02/15/21 as above. - Start Levaquin for atypical coverage. - 02 as needed. - Monitor. (15) Pulmonary embolus: Plan: New finding on CT from 02/15/21. - started on Lovenox 1mg/kg BID. Plan to start PO anticoagulation tomorrow - Patient and continue to decline rehab placement despite patient being a max assist. feels her grandson can help lift him. We did discuss today that he is at a higher risk for brain bleed if he falls and hits his head. He is also at risk for hip fx if he falls. Continue PT/OT. I have asked them to reconsider rehab placement. (16) Aspiration into airway: Plan: Patient choked on Mucinex tablet last evening. Was able to cough up pill. - speech eval ordered- plan for FEES tomorrow - aspiration precautions (17) Weakness: Plan: Patient requires maximal assist supine to sit and sit to stand. PT recommends rehab placement, but patient and decline. They want the patient to go home, and feel their grandson is able to help with transfers and care. They are agreeable to home health services. We have discussed that he is at a higher risk for adverse event if he falls at home on anticoagulation, and should reconsider placement over the next few days. Admission and Anticipated Discharge Date Admission Date: February 08, 2021 Subjective Patient with worsening cough this morning. States he feels worse today than yesterday. Denies SOB. Denies chest pain. Review of Systems Review of Systems: All systems reviewed & are unremarkable except as noted in Subjective Physical Exam Physical Exam: Temp Pulse Resp BP Pulse Ox 36.5 C 82 18 156/77 H 93 02/15/21 08:08 02/15/21 11:36 02/15/21 11:36 02/15/21 08:08 02/15/21 11:36 Patient is afebrile. He is hypertensive at 156/77, but is asymptomatic. Constitutional: + ill appearing and average body habitus Eyes: + anicteric sclerae ENMT: Ears: no hearing impairment Neck: normal visual inspection Respiratory: + cough (non-productive ); no respiratory distress Auscultation: + wheezes (bilateral inspiratory) Cardiovascular: Rate/Rhythm: regular rate and regular rhythm Vessels: no JVD Extremities: no edema Gastrointestinal (Abdomen): Inspection/Auscultation: normal bowel sounds Percussion/Palpation: abdomen soft; abdomen nontender Musculoskeletal: Head/Neck/Chest: normocephalic Skin: no rashes, warm and dry Psychiatric: Orientation: alert and oriented x 3 Results & Data Results & Data ([facility]) Vital Signs (Past 12 Hours) Vital Signs Temp Pulse Pulse Resp BP Pulse Ox 02/15/21 11:36 82 18 93 02/15/21 08:15 78 18 92 02/15/21 08:08 36.5 C 75 16 156/77 H 92 PG Care Time/CCT Total # of Minutes Spent Total Time Spent with Patient: Total time spent is greater than 50% in coordination of care (as documented) at patient's floor/unit and/or counseling patient: Coding Level of Care Code 71780 Subseq Hosp Care Lvl 2 Diagnoses Acute bronchitis J20.9 Acute metabolic encephalopathy G93.41 Sepsis A41.9 History of pulmonary embolus (PE) Z86.711 Personal history of malignant carcinoid tumor of bronchus and lung Z85.110 CAD (coronary artery disease) I25.10 Hypothyroidism E03.9 Hypercalcemia E83.52 PAF (paroxysmal atrial fibrillation) I48.0 DVT prophylaxis Z29.9 Paraphimosis N47.2 Acute diastolic CHF (congestive heart failure) I50.31 Hypertension I10 Pneumonia J18.9 Pulmonary embolus I26.99 Aspiration into airway T17.908A Weakness R53.1
[2021-02-15] MEDS: ENOXAPARIN 100 MG/1ML SYR SQ SCH (21:01)
[2021-02-16] MEDS: SODIUM CHLOR 7% 4 ML NEB NEB SCH ×2 (05:48→20:14)
[2021-02-16] MEDS: ALBUT/IPRATROP 3MG/0.5MG NEB 3 ML VIAL NEB SCH ×2 (06:06→20:09)
[2021-02-16 06:10] LABS: Basophils # (auto) 0.02 K/uL (0-0.2); Basophils % (auto) 0.2 %; Hematocrit (blood only) 37.6 % (42-52); Hemoglobin 12.2 g/dL (14.0-18.0); Immature Granulocytes # (auto) 0.32 K/uL (0.00-0.02); Immature Granulocytes % (auto) 2.4 %; Lymphocytes # (auto) 0.87 K/uL (1.2-3.4); Lymphocytes % (auto) 6.6 %; Mean Corpuscular Hemoglobin 29.5 pg (25-34); Mean Corpuscular Hgb Conc 32.4 g/dL (32-36); Mean Platelet Volume 10.6 fL (7.4-10.4); Monocytes # (auto) 0.95 K/uL (0.11-0.59); Monocytes % (auto) 7.2 %; Neutrophils % (auto) 83.6 %; Nucleated RBC # (auto) 0.04 K/uL (0-0); Nucleated RBC % (auto) 0.3 %; Platelet Count 278 K/uL (130-400); RDW Coefficient of Variation 15.3 % (11.5-14.5); RDW Standard Deviation 51.4 fL (36.4-46.3); Red Blood Count 4.13 M/uL (4.7-6.1); White Blood Count 13.26 K/uL (4.8-10.8)
[2021-02-16] MEDS: LEVOTHYROXINE SODIUM 75 MCG TABLET PO SCH (06:26)
[2021-02-16] MEDS: PANTOprazole 40 MG TAB PO SCH (06:26)
[2021-02-16] MEDS: methylPREDNISolone 40 MG in SYRINGE 0 ML IV SCH (06:27)
--- NOTE | 2021-02-16 06:28 | Electrocardiogram Report ---
Test Reason : Blood Pressure : / mmHG Vent. Rate : 093 BPM Atrial Rate : 093 BPM P-R Int : 174 ms QRS Dur : 072 ms QT Int : 348 ms P-R-T Axes : 050 -01 023 degrees QTc Int : 432 ms Sinus rhythm with occasional Premature ventricular complexes and Premature atrial complexes Possible Left atrial enlargement Borderline ECG When compared with ECG of 10-FEB-2021 19:43, Premature ventricular complexes are now Present Premature atrial complexes are now Present Confirmed by Vinny St ([id number]) on 02/16/2021 6:27:58 AM Referred By: REFERRED SELF Confirmed By:Vinny St
[2021-02-16 06:31] LABS: BUN Creatinine Ratio 33.9 (10-20); Calcium 8.7 mg/dl (8.5-10.1); Creatinine Clr Calc Pharmacy 70.9 ml/min; Est GFR (African American) 93.8 ml/min; Est GFR (Non-African American) 80.9 ml/min; Potassium 4.4 mmol/L (3.5-5.1)
--- NOTE | 2021-02-16 12:15 | Hospitalist Progress Note ---
Date of Service February 16, 2021 Assessment & Plan (1) Pneumonia: Plan: - Bilateral as noted on imaging --> ?viral or bacterial - started on empiric Levaquin 02/15/21 given uptrending leukocytosis and worsening clinical sx - Remains on Mucinex, Tessalon, Methylprednisolone, Duonebs, and Robitussin AC - Recently completed a course of Zithromax - Also on supplemental O2, recorded at 2L, wean as able to maintain sats >90% - Continue I/S and Flutter valve - BioFire done on admission 02/06/21--do not feel repeat viral testing is necessary as he does not appear to be any worse today (found to be +coronavirus (non covid-19). - D/C Solumedrol and Transition to oral Prednisone - FEES today d/t choking on Mucinex pill, follow up with results and tailor diet accordingly - Will need 2-step prior to d/c if going home (2) Pulmonary embolus: Plan: - Found on repeat CTA chest completed 02/15/21 - Started on treatment dose Lovenox, transition to oral Eliquis today - Continue I/S, nebs, O2, flutter valve (3) Acute bronchitis: Plan: - See #1 (4) Hypoxia: Plan: - See #1 (5) Leukocytosis: Plan: - Plan as per #1 - Trend (6) Personal history of malignant carcinoid tumor of bronchus and lung: Plan: - s/p RML/RLL lung resection in the past - hemidiaphragm elevation on the right likely due to that surgery (7) Hypothyroidism: Plan: - TSH 11/2020 wnl - cont Levothyroxine (8) Hypercalcemia: Plan: - total Ca wnl - remains on cinacalcet - per his PCP is considering wean off as outpatient (9) PAF (paroxysmal atrial fibrillation): Plan: - History of such, examines in NSR (10) Paraphimosis: Plan: - mild - no swelling, pain, ischemia - ?forceful coughing led to increased pressure pushing the penis out and the foreskin up - no penile pain today (11) Acute diastolic CHF (congestive heart failure): Plan: suspected - s/p intermittent lasix AM of 02/11 - echo 12/2020 with preserved EF - renal fxn stable with recent diuresis, appears euvolemic (12) Ambulatory dysfunction: Plan: - Continue PT/OT - Max assist, have genuine concerns with him going home with elderly and grandson assisting - Had lengthy discussion with patient this morning about rehab, he is now agreeable but wants his on same page - Discussed briefly via phone with and would like to discuss more when she visits this afternoon - Consult case management to assist in d/c planning regardless of disposition Plan: Pt is hemodynamically stable and if going to acute rehab, such as [facility], could be discharged there as early as tomorrow if approved and they have a bed. I understand that the is hesitant to agree to this, so will discuss further with her this afternoon. In the interim, continue current interventions as outlined above. Follow up labs in AM. Wean O2 to keep sats >90%. Diet to be ordered following FEES. Admission and Anticipated Discharge Date Admission Date: February 08, 2021 Subjective Mr. Whitney was seen on rounds today. He is resting comfortably in bed and offers no new complaints/concerns. Denies shortness of breath, rare cough, denies wheezing, chest pain, n/v/d, f/c, headache or gu symptoms. He has been NPO awaiting an FEES this morning. Apparently, a TAX CONSULTANT consult was placed after pt choked on a Mucinex pill. Per the pt, this occurred because he was given a rather large swig of water with it. He has a h/o requiring esophageal dilatation per his . ?stricture? 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 After a thorough discussion with the patient this morning, he is agreeable but states "you'll have to convince my ." Review of Systems Review of Systems: CONSTITUTIONAL: +weakness. Denies weight loss/gain, fever and chills, fatigue, malaise. HEENT: Denies changes in vision and hearing. RESPIRATORY: +rare cough. Denies SOB, wheezing. CV: Denies palpitations, CP, lower extremity edema, orthopnea, PND. GI: Denies abdominal pain, nausea, vomiting and diarrhea. : Denies dysuria and urinary frequency, urgency, hesitancy. MUSCULOSKELETAL: Denies myalgia and joint pain. SKIN: Denies rash and pruritus. NEUROLOGICAL: Denies headache, syncope, focal weakness, numbness, tingling. PSYCHIATRIC: Denies recent changes in mood. Denies anxiety and depression. Physical Exam Physical Exam: GENERAL: 89 yo WD/WN elderly WM. NAD. LUNGS: Good air exchange. Absent BS in RLL. Fine crackles in LLL. CARDIOVASCULAR: Regular rate and rhythm. No M/G/R. No JVD. ABDOMEN: Soft, non-tender and non-distended. No palpable masses. BS normal x 4 quad. EXTREMITIES: No edema. Non-tender. Peripheral pulses +2/4. NEUROLOGIC: A&O x3. PSYCHIATRIC: Cooperative. Appropriate mood and affect. SKIN: Warm, dry, intact. No rashes or lesions. Results & Data Results & Data ([facility]) Vital Signs (Past 12 Hours) Vital Signs Temp Pulse Resp BP Pulse Ox 02/16/21 06:56 36.6 C 88 16 134/81 92 02/16/21 05:49 78 16 94 Laboratory Results 02/16/21 05:29 02/16/21 05:29 PG Care Time/CCT Total # of Minutes Spent Total Time Spent with Patient: Total time spent is greater than 50% in coordination of care (as documented) at patient's floor/unit and/or counseling patient: Coding Level of Care Code 31180 Subseq Hosp Care Lvl 2 Diagnoses Acute bronchitis J20.9 Personal history of malignant carcinoid tumor of bronchus and lung Z85.110 Hypothyroidism E03.9 Hypercalcemia E83.52 PAF (paroxysmal atrial fibrillation) I48.0 Paraphimosis N47.2 Acute diastolic CHF (congestive heart failure) I50.31 Pneumonia J18.9 Pulmonary embolus I26.99 Leukocytosis D72.829 Ambulatory dysfunction R26.2 Hypoxia R09.02
[2021-02-16] MEDS: ADVANCED PROBIOTIC 1250 MG CAPSULE PO SCH (13:14)
[2021-02-16] MEDS: guaiFENesin 600 MG TABCR PO SCH ×2 (13:14→20:39)
[2021-02-16] MEDS: BENZONATATE 100 MG CAPSULE PO SCH ×3 (13:14→20:40)
[2021-02-16] MEDS: levoFLOXacin 750 MG TAB PO SCH (13:14)
[2021-02-16] MEDS: CINACALCET HCL 30 MG TAB PO SCH (13:15)
[2021-02-16] MEDS: ENOXAPARIN 100 MG/1ML SYR SQ SCH (15:52)
[2021-02-16] MEDS: APIXABAN 5 MG TABLET PO SCH (20:38)
[2021-02-16] MEDS ORDERED: methylPREDNISolone 40 MG in SYRINGE 0 ML IV SCH (21:00)
[2021-02-17] MEDS: PANTOprazole 40 MG TAB PO SCH ×2 (05:33→08:13)
[2021-02-17] MEDS: LEVOTHYROXINE SODIUM 75 MCG TABLET PO SCH (05:33)
[2021-02-17 06:13] LABS: Hematocrit (blood only) 40.5 % (42-52); Hemoglobin 13.2 g/dL (14.0-18.0); Mean Corpuscular Hemoglobin 29.9 pg (25-34); Mean Corpuscular Hgb Conc 32.6 g/dL (32-36); Mean Corpuscular Volume 91.8 fL (80-100); Mean Platelet Volume 10.1 fL (7.4-10.4); Platelet Count 262 K/uL (130-400); RDW Coefficient of Variation 15.4 % (11.5-14.5); RDW Standard Deviation 51.4 fL (36.4-46.3); Red Blood Count 4.41 M/uL (4.7-6.1); White Blood Count 12.15 K/uL (4.8-10.8)
[2021-02-17 06:48] LABS: Basophils # (auto) 0.04 K/uL (0-0.2); Basophils % (auto) 0.3 %; Eosinophils # (auto) 0.15 K/uL (0-0.5); Eosinophils % (auto) 1.2 %; Immature Granulocytes # (auto) 0.61 K/uL (0.00-0.02); Lymphocytes # (auto) 2.23 K/uL (1.2-3.4); Lymphocytes % (auto) 18.4 %; Monocytes # (auto) 1.07 K/uL (0.11-0.59); Monocytes % (auto) 8.8 %; Neutrophils # (auto) 8.05 K/uL (1.4-6.5); Neutrophils % (auto) 66.3 %; RBC Morphology Unremarkable
[2021-02-17 06:49] LABS: BUN Creatinine Ratio 30.5 (10-20); Calcium 8.6 mg/dl (8.5-10.1); Creatinine Clr Calc Pharmacy 62.7 ml/min; Est GFR (African American) 89.1 ml/min; Est GFR (Non-African American) 76.9 ml/min; Potassium 3.9 mmol/L (3.5-5.1)
[2021-02-17] MEDS: ALBUT/IPRATROP 3MG/0.5MG NEB 3 ML VIAL NEB SCH ×2 (07:50→19:34)
[2021-02-17] MEDS: SODIUM CHLOR 7% 4 ML NEB NEB SCH ×2 (07:57→19:34)
[2021-02-17] MEDS: ADVANCED PROBIOTIC 1250 MG CAPSULE PO SCH (08:12)
[2021-02-17] MEDS: levoFLOXacin 750 MG TAB PO SCH (08:12)
[2021-02-17] MEDS: CINACALCET HCL 30 MG TAB PO SCH (08:12)
[2021-02-17] MEDS: guaiFENesin 600 MG TABCR PO SCH ×2 (08:13→21:01)
[2021-02-17] MEDS: APIXABAN 5 MG TABLET PO SCH ×2 (08:13→21:02)
[2021-02-17] MEDS: BENZONATATE 100 MG CAPSULE PO SCH ×3 (08:13→20:59)
[2021-02-17] MEDS: predniSONE 20 MG TAB PO SCH (08:14)
--- NOTE | 2021-02-17 11:23 | Hospitalist Progress Note ---
Date of Service February 17, 2021 Assessment & Plan (1) Pneumonia: Plan: - Bilateral as noted on imaging --> ?viral or bacterial - Started on empiric Levaquin 02/15/21 given uptrending leukocytosis and worsening clinical sx - Remains on Mucinex, Tessalon, Methylprednisolone, Duonebs, and Robitussin AC - Recently completed a course of Zithromax - Also on supplemental O2, recorded at 2L, wean as able to maintain sats >90% - Continue I/S and Flutter valve - BioFire done on admission 02/06/21--do not feel repeat viral testing is necessary as he does not appear to be any worse today (found to be +coronavirus ->non covid-19). - D/C'd Solumedrol and Transitioned to oral Prednisone 02/16 - FEES done 02/16, no evidence of aspiration, regular diet ordered - 2-step pulse ox attempted, pt unable to walk, desaturated to 85% on room air, needs 3L to sit to edge of bed (2) Pulmonary embolus: Plan: - Found on repeat CTA chest completed 02/15/21 - Started on treatment dose Lovenox, transitioned to Eliquis on 02/16 - Continue I/S, nebs, O2, flutter valve (3) Acute bronchitis: Plan: - See #1 (4) Hypoxia: Plan: - See #1 (5) Leukocytosis: Plan: - Mildly elevated in setting of steroid use - Plan as per #1 (6) Personal history of malignant carcinoid tumor of bronchus and lung: Plan: - s/p RML/RLL lung resection in the past - hemidiaphragm elevation on the right likely due to that surgery (7) Hypothyroidism: Plan: - TSH 11/2020 wnl - cont Levothyroxine (8) Hypercalcemia: Plan: - total Ca wnl - remains on cinacalcet - per his PCP is considering wean off as outpatient (9) PAF (paroxysmal atrial fibrillation): Plan: - History of such, examines in NSR (10) Paraphimosis: Plan: - mild - no swelling, pain, ischemia - ?forceful coughing led to increased pressure pushing the penis out and the foreskin up - no penile pain today (11) Acute diastolic CHF (congestive heart failure): Plan: suspected - s/p intermittent lasix AM of 02/11 - echo 12/2020 with preserved EF - renal fxn stable with recent diuresis, appears euvolemic (12) Ambulatory dysfunction: Plan: - Continue PT/OT - Max assist, have genuine concerns with him going home with elderly and grandson assisting - Had lengthy discussion with patient this morning about rehab, he is now agreeable but wants his on same page - Discussed dispo extensively with on 02/16, she is adamantly refusing rehab. Requesting discharge to home tomorrow (02/18) - Case management following Plan: Patient is hemodynamically stable for discharge. Planned to d/c today; however, pt's is insisting on tomorrow and will not agree to taking him home today. 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 Will plan to set up transportation for tomorrow as well as delivery of O2 and have home health arranged to arrive t omorrow. No labs needed tomorrow. Rx for Levaquin and Prednisone have been sent to pt's pharmacy of choice. Admission and Anticipated Discharge Date Admission Date: February 08, 2021 Subjective Mr. Whitney was seen on rounds today. He is resting comfortably in bed and offers no new complaints/concerns. Denies shortness of breath, rare cough, denies wheezing, chest pain, n/v/d, f/c, headache or gu symptoms. He remains max assist for transfers. Unable to walk for two step pulse oximetry study. Desaturated to 85% on room air upon discussion with RT. Lengthy discussion with patient and his yesterday afternoon during visiting hours. insisted that the patient is "not weak, strength is not his problem," and that "the physical therapy should've seen that." She claims that she has an alternative "therapist" (not a licensed PT/OT) who is going to come in and work with the patient every day at home. She adamantly refuses for him to go to rehab and the patient will not go against his 's wishes. She is agreeable to home health. Review of Systems Review of Systems: CONSTITUTIONAL: +significant generalized weakness. Denies weight loss/gain, fever and chills, fatigue, malaise. HEENT: Denies changes in vision and hearing. RESPIRATORY: +rare cough. Denies SOB, wheezing. CV: Denies palpitations, CP, lower extremity edema, orthopnea, PND. GI: Denies abdominal pain, nausea, vomiting and diarrhea. : Denies dysuria and urinary frequency, urgency, hesitancy. MUSCULOSKELETAL: Denies myalgia and joint pain. SKIN: Denies rash and pruritus. NEUROLOGICAL: Denies headache, syncope, focal weakness, numbness, tingling. PSYCHIATRIC: Denies recent changes in mood. Denies anxiety and depression. Physical Exam Physical Exam: GENERAL: 89 yo WD/WN elderly WM. NAD. LUNGS: Good air exchange. Absent BS in RLL. Fine crackles in LLL. CARDIOVASCULAR: Regular rate and rhythm. No M/G/R. No JVD. ABDOMEN: Soft, non-tender and non-distended. No palpable masses. BS normal x 4 quad. EXTREMITIES: No edema. Non-tender. Peripheral pulses +2/4. NEUROLOGIC: A&O x3. PSYCHIATRIC: Cooperative. Appropriate mood and affect. SKIN: Warm, dry, intact. No rashes or lesions. Results & Data Results & Data ([facility]) Vital Signs (Past 12 Hours) Vital Signs Temp Pulse Pulse Pulse Resp Resp Resp 02/17/21 10:07 88 86 18 18 02/17/21 07:51 91 H 18 02/17/21 07:05 36.6 C 86 16 02/16/21 23:20 02/16/21 23:19 BP Pulse Ox Pulse Ox Pulse Ox 02/17/21 10:07 92 85 L 02/17/21 07:51 93 02/17/21 07:05 148/70 H 96 02/16/21 23:20 96 02/16/21 23:19 88 L Laboratory Results 02/17/21 05:45 02/17/21 05:45 PG Care Time/CCT Total # of Minutes Spent Total Time Spent with Patient: Total time spent is greater than 50% in coordination of care (as documented) at patient's floor/unit and/or counseling patient: Coding Level of Care Code 05178 Subseq Hosp Care Lvl 2 Diagnoses Pneumonia J18.9 Pulmonary embolus I26.99 Acute bronchitis J20.9 Hypoxia R09.02 Leukocytosis D72.829 Personal history of malignant carcinoid tumor of bronchus and lung Z85.110 Hypothyroidism E03.9 Hypercalcemia E83.52 PAF (paroxysmal atrial fibrillation) I48.0 Paraphimosis N47.2 Acute diastolic CHF (congestive heart failure) I50.31 Ambulatory dysfunction R26.2
[2021-02-18] MEDS: LEVOTHYROXINE SODIUM 75 MCG TABLET PO SCH (06:00)
[2021-02-18 07:08] LABS: Basophils # (auto) 0.03 K/uL (0-0.2); Basophils % (auto) 0.3 %; Eosinophils # (auto) 0.15 K/uL (0-0.5); Eosinophils % (auto) 1.3 %; Hematocrit (blood only) 40.1 % (42-52); Hemoglobin 13.1 g/dL (14.0-18.0); Immature Granulocytes # (auto) 0.49 K/uL (0.00-0.02); Immature Granulocytes % (auto) 4.3 %; Lymphocytes # (auto) 2.05 K/uL (1.2-3.4); Lymphocytes % (auto) 17.9 %; Mean Corpuscular Hemoglobin 29.4 pg (25-34); Mean Corpuscular Hgb Conc 32.7 g/dL (32-36); Mean Corpuscular Volume 90.1 fL (80-100); Mean Platelet Volume 10.2 fL (7.4-10.4); Monocytes # (auto) 1.08 K/uL (0.11-0.59); Monocytes % (auto) 9.4 %; Neutrophils # (auto) 7.63 K/uL (1.4-6.5); Neutrophils % (auto) 66.8 %; Platelet Count 250 K/uL (130-400); RDW Coefficient of Variation 15.2 % (11.5-14.5); RDW Standard Deviation 49.9 fL (36.4-46.3); Red Blood Count 4.45 M/uL (4.7-6.1); White Blood Count 11.43 K/uL (4.8-10.8)
[2021-02-18] MEDS: ALBUT/IPRATROP 3MG/0.5MG NEB 3 ML VIAL NEB SCH (07:10)
[2021-02-18] MEDS: SODIUM CHLOR 7% 4 ML NEB NEB SCH (07:10)
[2021-02-18 07:41] LABS: Creatinine Clr Calc Pharmacy 71.9 ml/min; Est GFR (African American) 94.3 ml/min; Est GFR (Non-African American) 81.3 ml/min
[2021-02-18] MEDS: APIXABAN 5 MG TABLET PO SCH (08:15)
[2021-02-18] MEDS: BENZONATATE 100 MG CAPSULE PO SCH (08:15)
[2021-02-18] MEDS: CINACALCET HCL 30 MG TAB PO SCH (08:15)
[2021-02-18] MEDS: predniSONE 20 MG TAB PO SCH (08:16)
[2021-02-18] MEDS: levoFLOXacin 750 MG TAB PO SCH (08:16)
[2021-02-18] MEDS: ADVANCED PROBIOTIC 1250 MG CAPSULE PO SCH (08:16)
[2021-02-18] MEDS: guaiFENesin 600 MG TABCR PO SCH (08:16)
--- NOTE | 2021-02-18 10:51 | Discharge Summary ---
Date of Service February 18, 2021 Admission HPI Per Admitting Provider Mr. Whitney is an 89 yo gentleman who was brought in by his for a constellation of cold symptoms. Mr. Whitney has been experiencing cough, congestion, fatigue, diminished appetite, and diarrhea for the past week. His w kalia was ill 2 weeks ago - both she and he were tested for covid 19 and were negative. His has recovered, however his cough seems to be getting worse. His put a pulse oximeter on him earlier this evening and it read 89% - this ultimatley prompted her to bring him in for further evaluation. 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 No history of tobacco use. He has a history of bilateral PEs - this was following a hip surgery; he was on coumadin for 6 months for this issue. In the ED, he was afebrile. His pulse ox read 89% on room air. His HR was elevated to 118 bpm. His WBC was elevated to 12 with neutrophil predominance. Hgb at 13. BUN elevated to 24. Cr and electrolytes WNL. Trop undetectable. BNP not elevated. COVID 19/Flu/RSV neg. UA pending. Procal pending. Stool GI PCR pending. EKG showing sinus tachycardia with a 1st degree AV dominique block. His CXR showed no evidence of a focal consolidation, no pleural effusion. He was given a dose of Tessalon litzy and 1 liter of NSS. Principal Diagnosis 1. Pneumonia 2. RUL acute pulmonary emboli 3. Leukocytosis--resolve 4. Sepsis--resolved 5. Hypoxia d/t #1,2--resolving 6. Ambulatory dysfunction and severe debility Discharge Exam GENERAL: 89 yo WD/WN elderly WM. NAD. LUNGS: Good air exchange. Absent BS in RLL. Fine crackles in LLL. CARDIOVASCULAR: Regular rate and rhythm. No M/G/R. No JVD. ABDOMEN: Soft, non-tender and non-distended. No palpable masses. BS normal x 4 quad. EXTREMITIES: No edema. Non-tender. Peripheral pulses +2/4. NEUROLOGIC: A&O x3. PSYCHIATRIC: Cooperative. Appropriate mood and affect. SKIN: Warm, dry, intact. No rashes or lesions. Discharge Data Allergies Allergy/AdvReac Type Severity Reaction Status Date / Time benzoin Allergy Unknown Rash Verified 02/06/21 01:32 lisinopril AdvReac Intermediate Cough Verified 02/06/21 01:32 NSAIDS (Non-Steroidal AdvReac Unknown Unverified 02/06/21 01:32 Anti-Inflamma Consultations None Procedures Performed None Ordered Studies Chest X-Ray 02/05/21 23:58 XR chest 1V portable CLINICAL HISTORY: Resp sx c/w COVID-19. Cough and difficulty breathing COMPARISON STUDY: 12/03/2020 TECHNIQUE: 1 view of the chest FINDINGS: Single frontal view of the chest demonstrates the cardiomediastinal silhouette to be within normal limits. The patient is again status post previous cardiothoracic surgery. There is again asymmetric elevation of the right hemidiaphragm. The lungs are clear of alveolar opacities. There is no evidence for pleural effusion. There is no evidence for vascular congestion. There is no acute osseous pathology. IMPRESSION: No acute cardiopulmonary disease. ACT 112: Negative or not required by law. Electronically signed by: Cody Connell M.D. 02/06/2021 7:08 AM Chest X-Ray 02/08/21 18:34 XR chest 2V PA/lateral HISTORY: 89 years-old Male fevers, hypoxia, ?evolving pneumonia acute fever with hypoxia COMPARISON: Chest radiograph 02/05/2021 TECHNIQUE: PA and lateral views of the chest FINDINGS: Cardiac silhouette is enlarged. Prior median sternotomy with CABG. Trace pleural effusions. Chronic right hemidiaphragmatic elevation with postoperative changes projected over the right lung base. Reticular interstitial opacities, right greater than left are new from prior. There is no pneumothorax. Degenerative changes of the shoulders and spine. IMPRESSION: 1. Cardiomegaly with right greater than left interstitial opacities suggestive of pulmonary edema versus interstitial pneumonitis. 2. Trace pleural effusions. 3. Unchanged right hemidiaphragmatic elevation. ACT 112: Negative or not required by law. The above report was generated using voice recognition software. It may contain grammatical, syntax or spelling errors. Electronically signed by: Justo Wing M.D. 02/09/2021 9:00 AM Chest X-Ray 02/09/21 12:50 XR chest 1V portable HISTORY: severe b/l rales/wheezing COMPARISON: Chest 02/08/2021 FINDINGS: No pneumothorax. There are low lung volumes. There are poststernotomy changes. The heart remains top normal in size. Slight improvement in the diffuse interstitial thickening. This is most pronounced on the right. There are trace bilateral pleural effusions. There is chronic elevation of the right hemidiaphragm. IMPRESSION: Slight improvement in interstitial thickening suggestive of resolving asymmetric pulmonary edema or an interstitial pneumonitis. ACT 112: Negative or not required by law. Electronically signed by: Mathew Arrieta M.D. 02/09/2021 1:12 PM Chest X-Ray 02/12/21 16:13 XR chest 1V portable CLINICAL HISTORY: bronchitis; severe wheezing; eval pneumonia, edema TECHNIQUE: Single frontal radiograph of the chest was obtained. Comparison: Comparison is made to chest one view 02/09/2021 FINDINGS: No lines and tubes are seen. The cardiomediastinal silhouette is normal. Prominence and cephalization of the vasculature is seen. Elevation of the right hemidiaphragm is seen. No evidence of pleural effusion or pneumothorax. IMPRESSION: Mild pulmonary edema. Elevation of the right hemidiaphragm with atelectasis. ACT 112: Negative or not required by law. Electronically signed by: Hany Juan M.D. 02/12/2021 6:[address] 02/15/21 07:[address] WITH CONTRAST CT DOSE: 653.24 mGy.cm HISTORY: viral illness, cough TECHNIQUE: Multiaxial CT images of the chest were performed following the intravenous administration of contrast. A dose lowering technique was utilized adhering to the principles of ALARA. COMPARISON: Chest 02/12/2021. Chest CTA 12/12/2020. FINDINGS: Postoperative changes consistent with a prior right lower lobectomy. No pneumothorax. No pleural effusions. There are patchy groundglass airspace opacities seen within the upper lobes, right greater than left. There are associated tree-in-bud nodular opacities within the right upper lobe posteriorly. Small areas of consolidation within the base of the left lower lobe. Findings likely represent a pneumonia could be due to a viral process. There are poststernotomy changes. No acute fractures within the visualized osseous structures. There are advanced degenerative changes within the shoulders again noted. Multinodular right thyroid goiter again noted. No mediastinal or hilar lymphadenopathy. Small filling defect seen within the segmental branches of the right upper lobe on image 133 and images 150 consistent with pulmonary emboli. Small amount of fluid within the nondilated esophagus. No mediastinal or hilar lymphadenopathy. The heart is normal in size. No pericardial effusion. The ascending thoracic ureter measuring up to 3.9 cm in diameter. Limited views of the upper abdomen demonstrate a normal liver, spleen, and visualized right adrenal gland. The left adrenal gland is not included on this study. IMPRESSION: 1. A few small segmental pulmonary emboli seen within the right upper lobe. These are not present on the prior studies 2. Patchy bilateral airspace opacities within the lungs as described above likely representing a pneumonia and could be due to a viral process 3. Prior right lower lobectomy. ACT 112: Negative or not required by law. Electronically signed by: Mathew Arrieta M.D. 02/15/2021 9:30 AM Hospital Course (1) Pneumonia: - Bilateral as noted on imaging --> ?viral or bacterial - Started on empiric Levaquin 02/15/21 given uptrending leukocytosis and worsening clinical sx - Treated supportively w/ Mucinex, Tessalon, Methylprednisolone, Duonebs, and Robitussin AC - Recently completed a course of Zithromax (for bronchitis, mainly for anti- inflammatory effects) - Required supplemental O2 which has since been weaned off at rest --> during two step 02/16 pt desaturated to 85%; however, was unable to determine accurate need w/ exertion as pt is unable to walk. - Yesterday afternoon, pt's nurse was able to wean him completely off oxygen at rest to 94% on room air. - Given I/S and Flutter valve - BioFire done on admission 02/06/21--repeat viral panel not necessary as his conditioned has improved/not worsened (found to be +coronavirus on admit ->non covid-19). - Solumedrol discontinued and Transitioned to oral Prednisone 02/16 - FEES done 02/16, no evidence of aspiration, regular diet ordered (2) Pulmonary embolus: - Found on repeat CTA chest completed 02/15/21 - Started on treatment dose Lovenox, transitioned to Eliquis on 02/16 - Will complete 7 day course of Eliquis 10mg BID and then taper down to 5mg BID - Duration of Eliquis treatment is at discretion of his PCP. 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: - s/p RML/RLL lung resection in the past - hemidiaphragm elevation on the right likely due to that surgery (7) Hypothyroidism: - TSH 11/2020 wnl - cont Levothyroxine (8) Hypercalcemia: - total Ca wnl - remains on cinacalcet - per his PCP is considering wean off as outpatient (9) PAF (paroxysmal atrial fibrillation): - History of such, examines in NSR (10) Paraphimosis: - mild and has since resolved - no swelling, pain, ischemia - ?forceful coughing led to increased pressure pushing the penis out and the fo reskin up (11) Acute diastolic CHF (congestive heart failure): suspected - s/p intermittent lasix AM of 02/11 - echo 12/2020 with preserved EF - renal fxn stable with recent diuresis, appears euvolemic (12) Ambulatory dysfunction: - Continue PT/OT - Max assist, have genuine concerns with him going home with elderly and grandson assisting - Had lengthy discussion with patient this morning about rehab, he is now agreeable but wants his on same page - Discussed dispo extensively with on 02/16, she is adamantly refusing rehab. Requesting discharge to home with home health services - Case management following Patient is medically and hemodynamically stable for discharge. Patient's daughter and POA reached out to me yesterday (02/17) with genuine concerns about her dad being discharged home. She believes that her parents are unrealistic with the level of care that he will require and anticipates he will end up returning to the hospital. While I completely agree with her, I told her we cannot force him to go to rehab. She asked me if there were other options for rehab places in the area other than [facility]. I did explain that there are other SNFs that offer rehab services in the area and that if him and his were agreeable, we could send referrals. She stated she intended to speak with her mother. This morning, I have seen the patient on rounds and he continues to state that he does not wish to go to rehab and his does not want him to go to rehab, and this is ANY rehab. I also called his and she reiterated same thing. I did explain/remind her that I did not agree with this decision because it is an unsafe discharge plan and that given his degree of debility, he could end up falling and sustaining a serious injury necessitating repeat hospitalization or could even . They verbalize their understanding and keep reiterating that this is "my take." Case management has been consulted, they are assisting in setting up home health services as well as home O2. I recommended in my discharge instructions that they purchase a pulse oximetry monitor so that they are able to spot check his oxygen needs as his activity level increases. His , Annie Milligan, did ask if there were agencies in the area that could provide some additional support. Case management is going to include a list of private pay agencies with his discharge instructions. I have sent his steroid taper, Eliquis, and remaining doses of Levaquin to his pharmacy of choice. I advise f/u with his family doctor within 1 week of discharge. Case discussed with Dr. Estrada who will also see this patient prior to discharge. Total Time Total Time Spent Total Time Spent (In Minutes): >30 minutes Discharge Plan Discharge Items Patient Disposition: Home - Home Health Services Reason For Visit: COUGH Discharge Diagnosis: 1. Pneumonia 2. Bronchitis (due to a virus) 3. Blood clots in right upper lobe of lung Activity: As commented below Activity Comment: With assistance as tolerated Non-emergency contact: Primary Care Provider Call non-emergency contact if: you have any medication questions and your symptoms worsen Follow-up/Referrals: Simon Preston, [Primary Care Provider] - 03/02/21 9:20 am Diet: Regular Addtl Attending Provider Instructions: * During your hospitalization, you were found to have pneumonia, bronchitis, as well as blood clots in both lungs * You were initially treated for low oxygen levels with concern for bronchitis -- treated with steroids, breathing treatments, and oxygen * You were also found to be slightly dehydrated and subsequently given IV fluids * Antibiotics (Zithromax) was given when you were first hospitalized with bronchitis for the anti-inflammatory effect, not because you were felt to have a bacterial process * A viral panel was ordered and you were found to have non-covid 19 coronavirus which was driving your bronchitis. Despite our best effort to treat, your bronchitis did progress to pneumonia. In order to cover you for a possible bacterial pneumonia, you have been started on an antibiotic, Levaquin, which you will need to complete as an outpatient. * A repeat CT scan performed during your stay revealed that you also have blood clots in both lungs. As a result, you were started on a blood thinner and converted to an oral blood thinner called Eliquis. You will need to complete the 7 day dose of 10mg twice a day and then reduce the dose to 5mg twice a day. * Oxygen should be utilized as needed. I would recommend purchasing an over the counter pulse oximetry monitor which you can buy at your local pharmacy or purchase on [employer]. This will be gauge if you need oxygen and how much. Currently, your not showing a need for oxygen on room air but as your activity level increases, you may need it. Oxygen is to be delivered to your home today. * Home Health agency has been contacted and will follow up with you in your home on 02/19/21. This will provide therapy services as well as nursing services. They will also be able to assist in monitoring your oxygen as well as working on strength and endurance with your activities of daily living. * You have been advised that the therapy team as well as your medical providers strongly recommend that you go to a place to do physical rehabilitation following your hospitalization prior to returning home. This is because of your profound weakness and inability to ambulate independently and safely. This could result in a fall which could cause serious injury, need for repeat hospitalization, or even . Despite our recommendation, you have decided to proceed with going home with home health services. * We advise you to follow up with your family healthcare provider within 1 week of discharge or sooner if needed. * Certainly, in an event of an emergency, you should call 911. Pending Studies at Discharge: No Stand-Alone Forms: My [employer], Smoking Cessation Medications and DC Order Prescriptions: New levofloxacin 750 mg Tablet 750 mg PO DAILY Qty: 3 RF: 0 Eliquis 5 mg Tablet 10 mg PO BID Qty: 9 RF: 0 prednisone 10 mg tablet 10 mg PO DAILY Qty: 12 RF: 0 Eliquis 5 mg tablet 5 mg PO BID Qty: 60 RF: 0 Continued cinacalcet 30 mg tablet 30 mg PO DAILY 30 Days Qty: 30 RF: 5 coenzyme Q10 100 mg capsule 100 mg PO DAILY RF: 0 Hold Instructions: holding after hospitalization benzonatate 200 mg capsule 200 mg PO TID PRN (Reason: cough) Qty: 30 RF: 0 Lactobacillus acidophilus [Acidophilus] Capsule 1 cap PO DAILY RF: 0 alpha lipoic acid 100 mg Capsule 100 mg PO DAILY RF: 0 Hold Instructions: holding - following hospitalization levothyroxine 75 mcg tablet 37.5 mcg PO QAM RF: 0 omeprazole 40 mg capsule,delayed release(DR/EC) 40 mg PO QAM RF: 0 Discharge Orders: Discharge Order (Routine); Ordered 02/18/21 Ordered By: Valerie Hobson Admission Data Admit Date/Time: 02/08/21 18:32 Attending Provider: Camden Estrada Admit Provider: Alea Koehler Primary Care Provider: Simon Preston Other Providers: Naren Means ; [facility] Other Interventions: Discharge Summary Assessment (RN) Last Done: 02/18/21 11:21 Supervising Physician Co-Signing Physician Notes Patient was seen and examined independently. Performed a physical exam and discussion on discharge plan during face to face encounter. I discussed the case with Valerie Hobson PAC. I reviewed pertinent past medical social family history and also the plan of care and agree with the plan of care. Patient was admitted for pneumonia and Pulmonary embolus, will discharge on anticoagulation and antibiotics as above. Physical examination as above. I reviewed above note and agree with it. Coding Level of Care Code D/C DAY MANAGEMENT >30 MINS Diagnoses Pneumonia J18.9 Pulmonary embolus I26.99 Acute bronchitis J20.9 Hypoxia R09.02 Leukocytosis D72.829 Personal history of malignant carcinoid tumor of bronchus and lung Z85.110 Hypothyroidism E03.9 Hypercalcemia E83.52 PAF (paroxysmal atrial fibrillation) I48.0 Paraphimosis N47.2 Acute diastolic CHF (congestive heart failure) I50.31 Ambulatory dysfunction R26.2
== END 2021-02-18 12:37 | disposition home health service (06) | DRG 871 ==
LOC: ED 23:46 → EDINP 23:46 → SUATTDRO 02-06 04:11 → EDINP 02-06 07:09 → 2S 02-08 03:03 → 3E 02-08 14:11 → SUATTDRO 02-08 18:32